=== PATIENT | male | born 1940 | race Caucasian/White ===

== ENCOUNTER 2019-06-29 14:00 | Outpatient (CLI) | payer MEDICARE, BC, SELFPAY ==
--- NOTE | ~2019-06-29 | US_ITS ---
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 Retention, hyperc holesterolemia and smoking. TECHNIQUE: Segmental pressures and plethysmographic and Doppler waveforms of the brachial and lower e xtremity arteries were obtained. COMPARISON: None. FINDINGS: Right and left brachial artery pressures of 186 mm Hg and 178 mm Hg, respectively, are concordant (no rmal difference <= 30 mmHg). The right ankle-brachial index (EDWARD) was unable to be obtained due to inability to occlude the vessel s at the right ankle. The right great toe-brachial index (TBI) is 2.73 (normal >= 0.65). Arterial Dop pler waveforms are biphasic with brisk systolic upstrokes at both the right posterior tibial and dors rosibel pedis arteries. The left EDWARD is unable to be obtained due to inability to occlude the vessels at the left ankle. The left TBI is 0.68. Arterial Doppler waveforms are biphasic at the left posterior tibial artery and tri phasic at the left dorsalis pedis artery with brisk systolic upstrokes at both arteries. IMPRESSION: 1. No significant arterial occlusive disease to either lower limb with normal bilateral toe-brachial indices. Reviewed, dictated and finalized at location A. Reviewed, dictated and finalized at location A. SOLICITOR IMPRESSION: 1. No significant arterial occlusive disease to either lower limb with normal b ilateral toe-brachial indices.
== END 2019-06-29 14:01 | disposition home or self-care (01) ==
LOC: ANHIMG 14:09
PROVIDERS: PCP Family Medicine; Visit Provider Family Medicine
DX: R20.0 Anesthesia of skin (principal); G63 Polyneuropathy in diseases classified elsewhere; I73.9 Peripheral vascular disease, unspecified
CPT/HCPCS: 93922

== ENCOUNTER 2019-10-05 11:18 | Outpatient (RCR) | payer MEDICARE, BC, SELFPAY ==
[2019-10-05 13:18] LABS: Basophils Percent Auto 0.5 % (0.2-1.2); Eosinophils Absolute Auto 0.1 K/mm3 (0-0.3); Eosinophils Percent Auto 1.4 % (0-4.4); Hematocrit 38.7 % (42.0-52.0); Hemoglobin 12.7 g/dL (14.0-18.0); Immature Granulocyte Absolute 0.03 K/mm3 (0.00-0.031); Immature Granulocyte Percent A 0.4 % (0-0.5); Lymphocytes Absolute Auto 0.93 K/mm3 (0.9-3.2); Lymphocytes Percent Auto 11.6 % (18.3-44.2); Mean Corpuscular HGB Conc 32.8 g/dl (32-36); Mean Corpuscular Hemoglobin 31.3 pg (26-34); Mean Corpuscular Volume 95.3 fl (80-100); Mean Platelet Volume 12.3 fl (7.4-10.4); Monocytes Absolute Auto 0.6 K/mm3 (0.1-0.6); Monocytes Percent Auto 7.1 % (2.6-8.5); Neutrophils Absolute Auto 6.4 K/mm3 (1.3-6.7); Platelet Count Result 210 k/mm3 (150-375); Red Blood Count 4.06 M/mm3 (4.6-6.20); Red Cell Distribution Width 13.6 % (11.5-14.5)
[2019-10-05 13:37] LABS: Cholesterol 156 mg/dL (0-200); HDL Direct 67 mg/dL; Triglycerides 148 mg/dL (<150)
[2019-10-05 13:39] LABS: Iron 132 ug/dL (49-181)
[2019-10-05 13:48] LABS: LDL Cholesterol Direct 68 mg/dL; Vitamin D 25 Hydroxy 51.9 ng/mL
[2019-10-05 14:03] LABS: Creatinine Urine 89.2 mg/dL
[2019-10-05 14:37] LABS: MALB Creatinine Ratio 634.3 mg/g (0-30); Microalbumin Urine Random 565.8 mg/L (0-16.7)
[2019-10-05 14:58] LABS: Folic Acid > 20.0 ng/mL (2.76->20); Vitamin B12 > 1000.0 pg/mL (239-931)
== END 2020-01-03 23:59 | disposition home or self-care (01) ==
LOC: ANHWCLAB 11:18
PROVIDERS: Nurse Practitioner; PCP Family Medicine; Visit Provider Family Medicine
DX: E11.9 Type 2 diabetes mellitus without complications (principal); E55.9 Vitamin D deficiency, unspecified; I10 Essential (primary) hypertension; I25.10 Atherosclerotic heart disease of native coronary artery without angina pectoris; Z95.2 Presence of prosthetic heart valve
CPT/HCPCS: 36415; 80061; 82043; 82306; 82607; 82728; 82746; 83540; 85025

== ENCOUNTER 2020-04-06 06:59 | Outpatient (NON) | payer MEDICARE, BC, SELFPAY ==
[2020-04-06 18:42] LABS: SARS-CoV-2 RNA PCR Negative
== END 2020-04-06 07:00 ==
PROVIDERS: Visit Provider Nurse Practitioner
DX: Z20.828 Contact with and (suspected) exposure to other viral communicable diseases (principal)
CPT/HCPCS: 87635; C9803; U0003

== ENCOUNTER 2020-05-17 16:15 | Outpatient (CLI) | payer MEDICARE, BC, SELFPAY ==
--- NOTE | ~2020-05-17 | CT_ITS ---
EXAMINATION: CT lung screening DATE: 05/17/2020 17:18 INDICATION: Personal history of nicotine dependence, current smoker with 60 pack year history TECHNIQUE: Computed tomography (CT) of the chest was performed without intravenous contrast. The dose -length product (DLP) was 66.09 mGy-cm. Automated exposure control and iterative reconstruction techn [id number]-[id number] were employed. COMPARISON: 01/29/2018 FINDINGS: Calcified pulmonary nodules are consistent with old granulomatous disease. No suspicious pu lmonary nodules are identified. There is mild emphysema. The lungs are free of acute opacities. There is no pleural effusion or pneumothorax. There are changes of aortic valve replacement. Cardiomegaly is noted. There is a moderate-sized sliding hiatal hernia. There are no pathologically enlarged thora cic lymph nodes. There are bridging osteophytes at multiple levels in the spine, consistent with diff use idiopathic skeletal hyperostosis (DISH). Healed right-sided rib fractures are noted. IMPRESSION: 1. Lung-RADS category 2: Benign appearance or behavior. Reviewed, dictated and finalized at location A.
== END 2020-05-17 16:16 | disposition home or self-care (01) ==
PROVIDERS: PCP Family Medicine; Visit Provider Nurse Practitioner
DX: Z12.2 Encounter for screening for malignant neoplasm of respiratory organs (principal); Z87.891 Personal history of nicotine dependence
CPT/HCPCS: G0297

== ENCOUNTER → 2020-09-20 13:27 | Outpatient (CLI) | payer MEDICARE, BC, SELFPAY ==
--- NOTE | ~2020-09-20 | XR_ITS ---
XR_CERV2-3V_CR DATE: 09/20/2020 14:27 INDICATION: Neck pain TECHNIQUE: Standing open-mouth, AP, lateral and swimmer views COMPARISON: 05/19/2015 cervical spine FINDINGS: There is straightening of the cervical spine. Diffuse osteopenia. C1 and C2 are normally aligned and the odontoid process is intact. There is 2 mm anterolisthesis at C4-5. There is moderate degenerative disc disease at C4-5. There is severe degenerative disc disease at C2-3 and C6-7 and moderately severe degenerative disease at C3-4 and C5-6. No fracture or dislocation or locked facet or prevertebral soft tissue swelling. Status post sternotomy. IMPRESSION: Severe cervical spondylosis Reviewed, dictated and finalized at Location A. Reviewed, dictated and finalized at location A. 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
== END ==
PROVIDERS: PCP Family Medicine; Visit Provider Family Medicine
DX: M47.812 Spondylosis without myelopathy or radiculopathy, cervical region (principal)
CPT/HCPCS: 72040

== ENCOUNTER 2020-10-27 09:10 | Outpatient (CLI) | payer MEDICARE, BC, SELFPAY ==
--- NOTE | ~2020-10-27 | US_ITS ---
EXAMINATION: [facility] DATE: 10/27/2020 09:55 INDICATION: Screening for cardiovascular disorders. TECHNIQUE: Multiple grayscale and Doppler images of the aorta were obtained (by a technologist who pe rformed the scan) and subsequently reviewed. There is no prior study for comparison. FINDINGS: Abdominal aorta measures 2.0 cm proximally, 1.7 cm mid aspect, 1.5 cm distally. There is mild scatter ed atherosclerotic and arterial sclerotic disease. Iliac bifurcation also normal in caliber. IMPRESSION: 1. Mild aortic plaque without aneurysm or stenosis. Reviewed, dictated and finalized at location A. R CONE GRADER
== END 2020-10-27 09:11 | disposition home or self-care (01) ==
PROVIDERS: PCP Family Medicine; Visit Provider Family Medicine
DX: Z13.6 Encounter for screening for cardiovascular disorders (principal)
CPT/HCPCS: 76706

== ENCOUNTER → 2021-03-24 13:56 | Outpatient (CLI) | payer MEDICARE, BC, SELFPAY ==
--- NOTE | ~2021-03-24 | XR_ITS ---
EXAMINATION: XR lumbar spine 2-3V DATE: 03/24/2021 14:19 INDICATION: Low back pain TECHNIQUE: Anteroposterior and lateral views of the lumbar spine, and cone-down lateral view of the l umbosacral junction were obtained. COMPARISON: CT, 10/25/2016 FINDINGS: Lumbar levocurvature is noted. There is severe loss of intervertebral disc space height at L5-S1. Moderate loss of intervertebral disc space height is present at L2-3. The vertebral body heigh ts are normal. Alignment is maintained. There is no fracture. There is eetn-[id number]-[id number] facet osteoar thritis of the lower lumbar spine. Changes of right hip arthroplasty are noted. There is calcified at herosclerosis. Mediastinal clips are consistent with coronary artery bypass grafting. IMPRESSION: 1. Moderate lumbar spondylosis without acute findings. Reviewed, dictated and finalized at location A.
== END ==
PROVIDERS: PCP Family Medicine; Visit Provider Family Medicine
DX: M47.896 Other spondylosis, lumbar region (principal)
CPT/HCPCS: 72100

== ENCOUNTER → 2021-08-24 09:38 | Outpatient (CLI) | payer MEDICARE, BC, SELFPAY ==
[2021-08-25 14:05] LABS: SARS-CoV-2 RNA PCR Positive
== END ==
PROVIDERS: PCP Family Medicine; Visit Provider Nurse Practitioner Family
DX: R68.89 Other general symptoms and signs (principal); Z20.822 Contact with and (suspected) exposure to COVID-19; U07.1 COVID-19
CPT/HCPCS: C9803; U0003; U0005

== ENCOUNTER 2021-10-03 08:07 | Outpatient (CLI) | payer MEDICARE, BC, SELFPAY ==
--- NOTE | ~2021-10-03 | XR_ITS ---
EXAMINATION: XR chest 2V EXAM DATE: 10/03/2021 08:52 INDICATION: Prostate cancer. TECHNIQUE: Frontal and lateral projections of the chest obtained and reviewed. Comparison is made to prior examination from 07/30/2019. FINDINGS: Sternotomy wires are present without findings to suggest sternal dehiscence. Cardiac valve replacement. Right apical scarring. There is moderate sliding gastroesophageal hiatal hernia. No pne umothorax or pleural effusion. There is aortic arteriosclerosis. There are bony degenerative changes. IMPRESSION: 1. No acute cardiac pulmonary findings. 2. Moderate hiatal hernia. Reviewed, dictated and finalized at location B. O/VISUAL MANAGER
--- NOTE | ~2021-10-03 | CT_ITS ---
EXAMINATION: CT abdomen pelvis w con DATE: 10/03/2021 08:43 INDICATION: Prostate cancer TECHNIQUE: Computed tomography (CT) of the abdomen and pelvis was performed with 100 cc Omnipaque 350 intravenous contrast. Automated exposure control and iterative reconstruction technique were employe d. Exam dose: 234.55 mGy-cm total exam DLP. COMPARISON: 10/25/2016 CT abdomen pelvis FINDINGS: Emphysematous changes are noted. Status post sternotomy. The liver, gallbladder, bile ducts, pancreas, pancreatic duct and spleen are unremarkable. Normal morphology of the adrenal glands. Bilateral renal scarring. There are scattered bilateral renal cysts, the largest situated on the left , measuring up to 1.4 cm. There are 3 left and one right pinpoint nonobstructing renal calculi. No right ureteral calculus or hydroureteronephrosis. There is a new 6 mm calculus in the region of the distal left ureter since 10/25/2016 but no hydrourete ronephrosis. Prostate enlargement and calcifications. There is prominent soft tissue density at the base of the ur inary bladder which may be due to prostate enlargement or prostate carcinoma carcinoma, less likely u rinary bladder malignancy. Mild diffuse bladder wall thickening and a couple of small urinary bladder diverticula are noted. Status post left inguinal herniorrhaphy. There is extensive calcification of the abdominal aorta but no abdominal aortic aneurysm. There is pr ominent calcification of the celiac, superior mesenteric, renal and iliac as well as femoral arteries . No intraperitoneal or retroperitoneal or pelvic mass lesion or adenopathy or ascites. Large hiatal hernia. 3 x 3.5 cm duodenal diverticulum. Diverticulosis of left and right colon; no CT evidence of diverticulitis. Normal appendix. No bowel o bstruction or intraperitoneal free air. Healed posterior right 10th and 11th rib fractures. Prominent degenerative disc disease of the lumbar and lumbosacral spine. Prominent bridging osteophyt es. Prominent degenerative change at the apophyseal joints of the lumbar and lumbosacral area. No suspicious osteolytic or osteoblastic lesions are identified. Streak artifact from right hip replacement. IMPRESSION: Prostate enlargement and calcifications Mild bladder wall thickening and small bladder diverticula Diverticulosis of left and right colon; no CT evidence of diverticulitis Status post left inguinal herniorrhaphy Emphysema Large hiatal hernia Bilateral renal scarring Scattered bilateral renal cysts Bilateral nonobstructive nephrolithiasis 6 mm calcification at the distal left ureter without hydroureteronephrosis Reviewed, dictated and finalized at Location A. Reviewed, dictated and finalized at location A. ROOM ATTENDANT
--- NOTE | ~2021-10-03 | NM_ITS ---
EXAMINATION: NM bone scan whole body DATE: 10/03/2021 12:29 INDICATION: Prostate cancer TECHNIQUE: 24.5 mCi Tc-99m HDP was administered intravenously. Delayed whole-body scintigrams were o btained. COMPARISON: CT abdomen and pelvis dated 10/03/2021 FINDINGS: Linear pattern of mild increased uptake along several posterior right-sided ribs. Rib fractures are s een corresponding to the lesions at the right 10th-12th ribs. Mild uptake associated with median ster notomy wires at the sternum. More prominent likely degenerative uptake at the bilateral sternoclavicu lar articulations. Likely degenerative joint centered uptake at a few bilateral toes, the bilateral w rists, left greater than right and at the right elbow. Mild lumbar levocurvature with additional mild uptake such with multilevel severe bilateral facet osteoarthritis in the mid to lower lumbar spine. A few small foci of skin contamination at the left hand along the anterior aspect of the left abdomen and pelvis. No other suspicious foci of abnormal bone uptake to suggest metastatic disease. IMPRESSION: 1. Mild uptake associated with multiple old right-sided rib fractures. No lesion suspicious for metas tatic disease. 2. Multiple foci of likely degenerative joint centered uptake. The degree of uptake at the right elbo w is however significantly higher than typical and would consider abdominal radiographs for correlati on. Reviewed, dictated and finalized at location A. 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 Mild uptake associated with multiple old right-sided rib fractures. No lesio n suspicious for metastatic disease. 2. Multiple foci of likely degenerative joint centered uptake. The degree of up take at the right elbow is however significantly higher than typical and would consider abdominal radiographs for correlation.
[2021-10-03 08:37] LABS: Estimated Glomerular Filt Rate 45
== END 2021-10-03 08:08 | disposition home or self-care (01) ==
LOC: ANHIMG 08:11
PROVIDERS: PCP Family Medicine; Visit Provider Urology
DX: C61 Malignant neoplasm of prostate (principal); K57.30 Diverticulosis of large intestine without perforation or abscess without bleeding; J43.9 Emphysema, unspecified; N28.1 Cyst of kidney, acquired; N20.2 Calculus of kidney with calculus of ureter
CPT/HCPCS: 71046; 74177; 78306; A9561; Q9967

== ENCOUNTER 2021-12-26 10:38 | Outpatient (CLI) | payer MEDICARE, BC, SELFPAY ==
--- NOTE | ~2021-12-26 | MR_ITS ---
EXAMINATION: MR pelvis wo/w con DATE: 12/26/2021 12:21 INDICATION: Prostate cancer. Neoplasm of colon. TECHNIQUE: Magnetic resonance imaging (MRI) of the pelvis was performed without and with 11 mL MultiH ance intravenous contrast. COMPARISON: CT abdomen and pelvis 10/03/2021, bone scan 10/03/2021 FINDINGS: There is a right hip arthroplasty. There is diverticulosis of the colon without evidence of diverticu litis. The rectum is distended by stool. The prostate is mildly enlarged. There is a 3.6 x 1.0 x 3.8 cm fluid collection between the rectum and prostate, likely hematoma. The bladder is distended. There are multiple diverticula of the bladder. IMPRESSION: 1. Mildly enlarged prostate. No evidence of metastatic disease. Reviewed, dictated and finalized at location B.
[2021-12-26 11:29] LABS: Estimated Glomerular Filt Rate 49
== END 2021-12-26 10:39 | disposition home or self-care (01) ==
PROVIDERS: PCP Family Medicine; Visit Provider Radiology Radiation Oncology
DX: C61 Malignant neoplasm of prostate (principal); N40.0 Benign prostatic hyperplasia without lower urinary tract symptoms
CPT/HCPCS: 72197; A9577

== ENCOUNTER 2022-01-23 16:14 | Inpatient (IN) | payer MEDICARE, BC, SELFPAY ==
[2022-01-23] VITALS (7 sets, daily range): BP systolic 103–142; BP diastolic 41–72; PULSE 60–63; RESP 16–22; TEMP 36–36.3; O2SAT 98–100; BMI 20.7
--- NOTE | ~2022-01-23 | XR_ITS ---
EXAMINATION: XR chest 2V DATE: 01/23/2022 17:56 INDICATION: Weakness TECHNIQUE: PA and lateral views of the chest are obtained. COMPARISON: 10/03/2021 FINDINGS: The lungs are hyperinflated but free of acute opacities. There is no pleural effusion or pn eumothorax. The heart size is normal. There are changes of cardiac valve replacement. There are bridg ing osteophytes at multiple levels in the spine, consistent with diffuse idiopathic skeletal hyperost osis (DISH). There is a moderate-sized hiatal hernia. IMPRESSION: 1. No acute cardiopulmonary abnormality. Reviewed, dictated and finalized at location F.
--- NOTE | ~2022-01-23 | CT_ITS ---
EXAMINATION: CT brain wo con INDICATION: Weakness, hypotension COMPARISON: 02/21/2013 TECHNIQUE: Standard unenhanced head CT. The dose-length product (DLP) was 605.33 mGy-cm. The mA was a djusted according to patient size. Iterative reconstruction technique was employed. FINDINGS: There is no acute intraparenchymal hemorrhage. No evidence of mass lesion. No evidence of a cute infarction. There is moderate periventricular and subcortical hypodensity probably related to sm all vessel ischemic disease. There is moderate prominence of the sulci and ventricles related to cere bral atrophy. Intracranial calcified cerebral atherosclerosis is noted. There are no extra-axial sy ections. There is no mass effect or midline shift. Changes in the globes are likely from ocular lens surgery. The visualized sinuses and mastoid air cells are well aerated. IMPRESSION: 1. No acute intracranial abnormality. 2. Age related findings. Reviewed, dictated and finalized at location F.
--- NOTE | ~2022-01-23 | US_ITS ---
US renal BI 01/25/2022 11:14 Procedure: Realtime transabdominal ultrasound of the kidneys and bladder. Indication: Renal failure Comparison: No prior studies for comparison. Findings: Renal echotexture is normal bilaterally without hydronephrosis, contour deforming mass or r enal calculus. There are bilateral renal cysts measuring up to 1.4 cm on the right and 2.1 cm on the left. The right kidney measures 9 cm and left kidney measures 10.6 cm. Bladder within normal limits. Impression: 1: Bilateral renal cysts. Reviewed, dictated and finalized at location A. Impression: 1: Bilateral renal cysts.
--- NOTE | 2022-01-23 16:55 | ECG_ITS ---
Measurements Intervals [place] Rate: 58 P: -63 OK: 104 QRS: -13 QRSD: 88 T: 48 QT: 389 QTc: 384 Interpretive Statements SINUS BRADYCCARDIA ATRIAL PREMATURE COMPLEX BORDERLINE ECG Electronically Signed On 01-23-2022 18:16:41 CDT by Rajendra Marrero D.O.
--- NOTE | 2022-01-23 17:11 | ED.WEAKNESS ---
HPI - Weakness General Chief complaint: Weakness Stated complaint: weakness Time Seen by Provider: 01/23/22 16:39 Source: patient and family Mode of arrival: wheelchair Limitations: no limitations History of Present Illness HPI Narrative: This is an 81-year-old male that presents to the emergency department for generalized weakness. Ongoing over the last 2 weeks. Notes that he is having some difficulty ambulating due to weakness and lightheadedness. He also reports he has had some dysuria. Reports he was started on Bactrim by his oncologist for this. He is still currently taking this medication. Prior to his radiation treatments the patient has to take Metamucil which gives him diarrhea. Denies fever, cough, chest pain, shortness of breath, abdominal pain, or hematuria. Related Data Home Medications Medication Instructions Recorded Confirmed memantine 10 mg tablet 10 mg PO BID 03/22/21 01/23/22 ascorbic acid (vitamin C) 500 mg 500 mg PO DAILY 04/27/21 01/23/22 capsule cetirizine 10 mg tablet (Zyrtec) 10 mg PO DAILY 04/27/21 01/23/22 calcium carbonate 600 mg-vitamin 1 tablet PO BID 10/18/21 01/23/22 D3 20 mcg (800 unit) chewable tablet (Caltrate 600 plus D) Daily Multivitamin 1 tablet PO DAILY 01/23/22 01/23/22 acetaminophen 325 mg tablet 1,000 mg PO BID 01/23/22 01/23/22 (Tylenol) cholecalciferol (vitamin D3) 50 2,000 unit PO DAILY 01/23/22 01/23/22 mcg (2,000 unit) capsule (Vitamin D3) donepezil 5 mg tablet (Aricept) 5 mg PO DAILY 01/23/22 01/23/22 ferrous sulfate 325 mg (65 mg 325 mg PO DAILY 01/23/22 01/23/22 iron) tablet folic acid 800 mcg tablet 800 mcg PO DAILY 01/23/22 01/23/22 simethicone 166 mg capsule 166 mg PO BID 01/23/22 01/23/22 vitamin B complex (B 1 tablet PO DAILY 01/23/22 01/23/22 Complex-Vitamin B12) Allergies Allergy/AdvReac Type Severity Reaction Status Date / Time codeine Allergy Unknown Nausea and Verified 01/23/22 22:27 Vomiting hydrocodone AdvReac Unknown Nausea and Verified 01/23/22 22:27 Vomiting Review of Systems Review of Systems: CONSTITUTIONAL: Denies fever CARDIOVASCULAR: Denies chest pain, or edema. RESPIRATORY: Denies cough or dyspnea. GASTROINTESTINAL: Denies abdominal pain, nausea, vomiting GENITOURINARY: Denies dysuria or hematuria. NEUROLOGIC: Reports generalized weakness. All systems reviewed & are unremarkable except as noted in HPI and below PMFSH Past Medical History Medical History BPH (benign prostatic hyperplasia) CAD (coronary artery disease) Cervical spondylolysis Chronic low back pain Chronic obstructive pulmonary disease CKD (chronic kidney disease) stage 3, GFR 30-59 ml/min Environmental allergies Essential (primary) hypertension Gastro-esophageal reflux disease without esophagitis Hiatal hernia History of renal stone Hyperlipidemia, unspecified Iron deficiency anemia Nonrheumatic aortic (valve) stenosis Osteopenia Presence of prosthetic heart valve Primary osteoarthritis involving multiple joints Prostate cancer Restless leg syndrome Tobacco abuse Type 2 diabetes mellitus without complications Surgical History Surgical History History of aortic valve replacement 2002 History of arthroscopy of shoulder 1987 History of carpal tunnel release 1980s - Right History of coronary artery bypass graft 2003 History of inguinal hernia repair 1968 History of lumbar laminectomy for spinal cord decompression (Unknown) 1967 Family History Family History (Updated 01/23/22 @ 22:17 by Megan Mercado RN) Father Hypertension Heart attack Cardiovascular disease Mother No problems noted. Sibling Heart attack Cardiovascular disease Social History Social History Smoking packs per day: 0.5 Smoking cigarettes per day: 10.0 Years s
[2022-01-23 17:21] LABS: Basophils Percent Auto 0.6 % (0.2-1.2); Eosinophils Absolute Auto 0.2 K/mm3 (0-0.3); Eosinophils Percent Auto 3.9 % (0-4.4); Hematocrit 30.2 % (42.0-52.0); Hemoglobin 9.9 g/dL (14.0-18.0); Immature Granulocyte Absolute 0.04 K/mm3 (0.00-0.031); Immature Granulocyte Percent A 0.8 % (0-0.5); Lymphocytes Absolute Auto 0.77 K/mm3 (0.9-3.2); Lymphocytes Percent Auto 15.7 % (18.3-44.2); Mean Corpuscular HGB Conc 32.8 g/dl (32-36); Mean Corpuscular Hemoglobin 31.5 pg (26-34); Mean Corpuscular Volume 96.2 fl (80-100); Mean Platelet Volume 10.5 fl (7.4-10.4); Monocytes Absolute Auto 0.6 K/mm3 (0.1-0.6); Monocytes Percent Auto 11.4 % (2.6-8.5); Neutrophils Absolute Auto 3.3 K/mm3 (1.3-6.7); Neutrophils Percent Auto 67.6 % (45.5-73.1); Platelet Count Result 146 k/mm3 (150-375); Red Blood Count 3.14 M/mm3 (4.6-6.20); Red Cell Distribution Width 13.6 % (11.5-14.5); White Blood Count 4.9 K/mm3 (4.5-10.0)
[2022-01-23 17:31] LABS: Alanine Aminotransferase 20 U/L (6-50); Albumin Level 3.4 g/dL (3.5-5.1); Alkaline Phosphatase 62 U/L (38-126); Anion Gap 6 mmol/L (8-16); Aspartate Amino Transferase 35 U/L (17-59); Bilirubin,Total 0.1 mg/dL (0.2-1.3); Blood Urea Nitrogen 50 mg/dL (9-20); Calcium 9.4 mg/dL (8.4-10.2); Carbon Dioxide 18 mmol/L (22-30); Chloride 103 mmol/L (98-107); Estimated CRCL calculation 20 ml/min; Estimated Glomerular Filt Rate 27; Glucose 89 mg/dL (65-110); INR 3.1; Potassium 4.4 mmol/L (3.4-5.0); Prothrombin Time 31.3 Seconds (11.1-14.7); Sodium 127 mmol/L (137-145)
[2022-01-23] MEDS: SODIUM CHLORIDE 0.9% IV 500 ML 999 ML IV CONT ×2 (17:31→18:53)
[2022-01-23 17:32] LABS: Lactic Acid Reflex 0.9 mmol/L (0.7-2.0)
[2022-01-23 17:35] LABS: CRP < 0.5 mg/dL (<1.0)
[2022-01-23 17:36] LABS: Appearance Urine Clear (Clear); Bilirubin Urine Negative (Negative); Color Urine Yellow (Yellow); Glucose Urine UA Negative (Negative); Ketones Urine Negative (Negative); Leukocyte Esterase Ur Negative LEU/UL (Negative); Nitrate Urine Negative (Negative); Protein Urine Negative (Negative); Urobilinogen Urine 0.2 mg/dL (<2.0)
[2022-01-23 17:41] LABS: Add Urine Microscopic? YES; Blood Urine Trace-Intact (Negative); RBC Urine 0-2 /hpf (0-2); Squamous Epithelial Cell Urine Rare /hpf (Few)
--- NOTE | 2022-01-23 21:35 | ADMGEN ---
This patient, Arley Nicholson, was admitted to [facility] Room 302-01. Patient/family oriented to hospital policies and general routines including ID bracelet, bed and alarms, visiting hours, pain management, procedures, bathroom and other care routines, personal items, smoking policy, room service/diet, and visiting hours. Information on how to activate the Rapid Response Team has been discussed. Patient/Family are encouraged to report perceived risks to care and to ask questions if they do not understand what they are told or what they should do.
[2022-01-24 01:11] VITALS: O2SAT 98
[2022-01-24] MEDS: SODIUM CHLORIDE 0.9% IV 1,000 ML 999 ML IV CONT (05:06)
[2022-01-24 06:00] VITALS: BP 138/44; PULSE 69; RESP 20; TEMP 37.2; O2SAT 100
[2022-01-24] MEDS: SODIUM CHLORIDE 0.9% IV 1,000 ML 100 ML IV CONT (06:22)
[2022-01-24 08:07] LABS: Hematocrit 28.6 % (42.0-52.0); Hemoglobin 9.3 g/dL (14.0-18.0); Mean Corpuscular HGB Conc 32.5 g/dl (32-36); Mean Corpuscular Hemoglobin 31.4 pg (26-34); Mean Corpuscular Volume 96.6 fl (80-100); Mean Platelet Volume 10.6 fl (7.4-10.4); Platelet Count Result 141 k/mm3 (150-375); Red Blood Count 2.96 M/mm3 (4.6-6.20); Red Cell Distribution Width 13.5 % (11.5-14.5); White Blood Count 4.9 K/mm3 (4.5-10.0)
[2022-01-24 08:16] LABS: Anion Gap 3 mmol/L (8-16); Blood Urea Nitrogen 38 mg/dL (9-20); Calcium 8.6 mg/dL (8.4-10.2); Carbon Dioxide 17 mmol/L (22-30); Chloride 113 mmol/L (98-107); Estimated CRCL calculation 24 ml/min; Estimated Glomerular Filt Rate 34; Glucose 87 mg/dL (65-110); Potassium 4.7 mmol/L (3.4-5.0); Sodium 133 mmol/L (137-145)
--- NOTE | 2022-01-24 13:17 | PM.IMHP ---
H&P: HPI History of Present Illness Date/Time: 01/24/22 13:17 Chief Complaint: generalized weakness Narrative: 81 yo with mechanical aortic valve on warfarin, hypertension, coronary artery disease, CKD 3, chronic low back pain, COPD, GERD, BPH, iron deficiency, restless legs syndrome, tobacco abuse, type 2 diabetes presents to the emergency room with chief complaint of generalized weakness and dizziness with changing of position from lying to standing. Patient states that symptoms of weakness have been going for approximately 1 month. Over the last week, he has developed some intermittent burning with urination, frequent urination, dizziness with standing, and therefore he sought medical attention. Patient does report that he is feeling a lot better since admission. He is advised that he is in acute kidney injury superimposed on his chronic renal failure and that nephrology will be consulted. Review of Systems Review of Systems: All systems reviewed & are unremarkable except as noted in HPI and below PMFSH Past Medical History Medical History BPH (benign prostatic hyperplasia) CAD (coronary artery disease) Cervical spondylolysis Chronic low back pain Chronic obstructive pulmonary disease CKD (chronic kidney disease) stage 3, GFR 30-59 ml/min Environmental allergies Essential (primary) hypertension Gastro-esophageal reflux disease without esophagitis Hiatal hernia History of renal stone Hyperlipidemia, unspecified Iron deficiency anemia Nonrheumatic aortic (valve) stenosis Osteopenia Presence of prosthetic heart valve Primary osteoarthritis involving multiple joints Prostate cancer Restless leg syndrome Tobacco abuse Type 2 diabetes mellitus without complications Surgical History Surgical History History of aortic valve replacement 2002 History of arthroscopy of shoulder 1986 History of carpal tunnel release 1980s - Right History of coronary artery bypass graft 2003 History of inguinal hernia repair 1968 History of lumbar laminectomy for spinal cord decompression (Unknown) 1967 Family History Family History (Updated 01/23/22 @ 22:17 by Megan Mercado RN) Father Hypertension Heart attack Cardiovascular disease Mother No problems noted. Sibling Heart attack Cardiovascular disease Social History Social History (Updated 01/24/22 @ 18:53 by Marilin Harry MD) Smoking packs per day: 0.5 Smoking cigarettes per day: 10.0 Years smoked: 65 Smoking pack-years: 32.50 Smoking status: Current every day smoker Tobacco type: cigarettes Alcohol intake: former Substance use: never Substance use type: does not use Living arrangements: with family Spiritual care concerns: No Meds Home Medications and Allergies Home Medications Medication Instructions Recorded Confirmed Type metoprolol tartrate 50 mg tablet 25 mg PO BID #180 tabs 10/31/20 01/23/22 Rx memantine 10 mg tablet 10 mg PO BID 03/22/21 01/23/22 History ascorbic acid (vitamin C) 500 mg 500 mg PO DAILY 04/27/21 01/23/22 History capsule cetirizine 10 mg tablet (Zyrtec) 10 mg PO DAILY 04/27/21 01/23/22 History tiotropium bromide 18 mcg capsule 1 cap inhalation DAILY #90 06/01/21 01/23/22 Rx with inhalation device (Spiriva inhalations with HandiHaler) amlodipine 2.5 mg tablet 2.5 mg PO DAILY #90 tabs 08/08/21 01/23/22 Rx ropinirole 0.25 mg tablet 0.25 mg PO QHS #90 tabs 08/29/21 01/23/22 Rx tamsulosin 0.4 mg capsule (Flomax) 0.4 mg PO DAILY #90 caps 09/18/21 01/23/22 Rx calcium carbonate 600 mg-vitamin 1 tablet PO BID 10/18/21 01/23/22 History D3 20 mcg (800 unit) chewable tablet (Caltrate 600 plus D) fluticasone 250 mcg-salmeterol 50 1 inh inhalation BID #60 ea 10/18/21 01/23/22 Rx mcg/dose blistr powdr for inhalation (Silvino Inhub) pantoprazole 20 mg tablet,delayed 20
[2022-01-24 14:00] VITALS: BP 153/55; PULSE 73; RESP 18; TEMP 36.6; O2SAT 100
[2022-01-24 14:13] LABS: Phosphorus 2.9 mg/dL (2.5-4.5)
[2022-01-24 16:09] VITALS: BP 154/49; BP 154/60; PULSE 104; PULSE 82; RESP 18; TEMP 36.6; O2SAT 100
[2022-01-24] MEDS: SODIUM CHLORIDE 0.9% IV 1,000 ML 50 ML IV CONT (16:52)
[2022-01-24 19:31] LABS: INR 2.7; Prothrombin Time 27.6 Seconds (11.1-14.7)
[2022-01-24 20:52] VITALS: PULSE 76
[2022-01-24] MEDS: rOPINIRole HCL 0.25 MG TABLET PO (20:52)
[2022-01-24] MEDS: METOPROLOL TARTRATE 25 MG TABLET PO (20:52)
[2022-01-24] MEDS: ATORVASTATIN 40 MG TABLET PO (20:52)
[2022-01-24] MEDS: WARFARIN (*PBKC) 3 MG TABLET PO (20:53)
[2022-01-24 22:00] VITALS: BP 160/70; PULSE 103; RESP 18; TEMP 36.7; O2SAT 100
[2022-01-25 05:07] VITALS: BP 164/59; PULSE 63; RESP 16; TEMP 35.9; O2SAT 100
[2022-01-25 06:56] LABS: INR 2.4; Prothrombin Time 25.5 Seconds (11.1-14.7)
[2022-01-25] MEDS: ASCORBIC ACID 500 MG TABLET PO (08:22)
[2022-01-25] MEDS: TAMSULOSIN HCL 0.4 MG CAPSULE PO (08:22)
[2022-01-25] MEDS: OLMESARTAN MEDOXOMIL 20 MG TABLET 40 MG PO (08:23)
[2022-01-25] MEDS: PANTOPRAZOLE SOD SESQUIHYDRATE 20 MG TAB PO (08:23)
[2022-01-25] MEDS: CHOLECALCIFEROL 1,000 UNITS TABLET 2000 UNITS PO (08:23)
[2022-01-25] MEDS: amLODIPine BESYLATE 2.5 MG TABLET PO (08:23)
[2022-01-25] MEDS: MEMANTINE 10 MG TABLET PO ×2 (08:23→17:13)
[2022-01-25 08:24] VITALS: PULSE 75
[2022-01-25] MEDS: ACETAMINOPHEN 500 MG TABLET 1000 MG PO ×2 (08:24→17:12)
[2022-01-25] MEDS: DONEPEZIL HCL 5 MG TABLET PO (08:24)
[2022-01-25] MEDS: METOPROLOL TARTRATE 25 MG TABLET PO ×2 (08:24→20:38)
[2022-01-25] MEDS: FERROUS SULFATE 324 MG TABLET PO (08:25)
[2022-01-25] MEDS: hydroCHLOROthiazide 25 MG TABLET PO (08:25)
[2022-01-25] MEDS: CITALOPRAM HYDROBROMIDE 20 MG TABLET PO (08:25)
[2022-01-25] MEDS: LORATADINE 10 MG TABLET PO (08:25)
[2022-01-25] MEDS: FLUTICASONE/SALMETEROL 115-21 MCG INHALER 1 PUFF 2 PUFF INHALATION ×2 (08:50→20:25)
[2022-01-25] MEDS: UMECLIDINIUM BROMIDE 62.5 MCG ELLIPTA 1 PUFF INHALATION (08:51)
[2022-01-25 14:00] VITALS: BP 129/45; PULSE 63; RESP 16; TEMP 37.2; O2SAT 100
[2022-01-25 15:13] LABS: Basophils Percent Auto 0.3 % (0.2-1.2); Eosinophils Absolute Auto 0.2 K/mm3 (0-0.3); Eosinophils Percent Auto 2.4 % (0-4.4); Hematocrit 29.1 % (42.0-52.0); Hemoglobin 9.7 g/dL (14.0-18.0); Immature Granulocyte Absolute 0.03 K/mm3 (0.00-0.031); Immature Granulocyte Percent A 0.4 % (0-0.5); Lymphocytes Absolute Auto 0.81 K/mm3 (0.9-3.2); Lymphocytes Percent Auto 11.3 % (18.3-44.2); Mean Corpuscular HGB Conc 33.3 g/dl (32-36); Mean Corpuscular Hemoglobin 31.4 pg (26-34); Mean Corpuscular Volume 94.2 fl (80-100); Mean Platelet Volume 10.2 fl (7.4-10.4); Monocytes Absolute Auto 0.7 K/mm3 (0.1-0.6); Monocytes Percent Auto 9.3 % (2.6-8.5); Neutrophils Absolute Auto 5.5 K/mm3 (1.3-6.7); Neutrophils Percent Auto 76.3 % (45.5-73.1); Platelet Count Result 160 k/mm3 (150-375); Red Blood Count 3.09 M/mm3 (4.6-6.20); Red Cell Distribution Width 13.5 % (11.5-14.5); White Blood Count 7.2 K/mm3 (4.5-10.0)
[2022-01-25 15:35] LABS: Anion Gap 6 mmol/L (8-16); Blood Urea Nitrogen 22 mg/dL (9-20); Calcium 8.5 mg/dL (8.4-10.2); Carbon Dioxide 18 mmol/L (22-30); Chloride 109 mmol/L (98-107); Estimated CRCL calculation 37 ml/min; Estimated Glomerular Filt Rate 58; Glucose 118 mg/dL (65-110); Potassium 4.5 mmol/L (3.4-5.0); Sodium 133 mmol/L (137-145)
--- NOTE | 2022-01-25 16:36 | PM.IMPN ---
Progress Note: A&P Assessment and Plan (1) Acute kidney injury: Code(s): N17.9 - Acute kidney failure, unspecified Status: Acute (2) Anemia: Qualifiers: Anemia type: unspecified type Qualified Code(s): D64.9 - Anemia, unspecified Code(s): D64.9 - Anemia, unspecified Status: Acute (3) Prostate cancer: Code(s): C61 - Malignant neoplasm of prostate Status: Acute (4) CKD (chronic kidney disease) stage 3, GFR 30-59 ml/min: Qualifiers: Chronic kidney disease stage 3 subtype: stage 3a (GFR 45-59) Qualified Code(s): N18.31 - Chronic kidney disease, stage 3a Code(s): N18.30 - Chronic kidney disease, stage 3 unspecified Status: Acute (5) CAD (coronary artery disease): Qualifiers: Coronary Disease-Associated Artery/Lesion type: unspecified vessel or lesion type [place] vs. transplanted heart: [place] heart Associated angina: without angina Qualified Code(s): I25.10 - Atherosclerotic heart disease of [place] coronary artery without angina pectoris Code(s): I25.10 - Atherosclerotic heart disease of [place] coronary artery without angina pectoris Status: Acute (6) Tobacco abuse: Code(s): Z72.0 - Tobacco use Status: Chronic (7) Gastro-esophageal reflux disease without esophagitis: Code(s): K21.9 - Gastro-esophageal reflux disease without esophagitis Status: Chronic (8) Essential (primary) hypertension: Code(s): I10 - Essential (primary) hypertension Status: Chronic (9) Chronic obstructive pulmonary disease: Qualifiers: COPD type: unspecified COPD Qualified Code(s): J44.9 - Chronic obstructive pulmonary disease, unspecified Code(s): J44.9 - Chronic obstructive pulmonary disease, unspecified Status: Chronic (10) Depressed mood: Code(s): R45.89 - Other symptoms and signs involving emotional state Status: Acute (11) Hyperlipidemia, unspecified: Qualifiers: Hyperlipidemia type: unspecified Qualified Code(s): E78.5 - Hyperlipidemia, unspecified Code(s): E78.5 - Hyperlipidemia, unspecified Status: Chronic (12) Nonrheumatic aortic (valve) stenosis: Code(s): I35.0 - Nonrheumatic aortic (valve) stenosis Status: Chronic (13) Presence of prosthetic heart valve: Code(s): Z95.2 - Presence of prosthetic heart valve Status: Chronic (14) BPH (benign prostatic hyperplasia): Qualifiers: Lower urinary tract symptom presence: symptoms absent Qualified Code(s): N40.0 - Benign prostatic hyperplasia without lower urinary tract symptoms Code(s): N40.0 - Benign prostatic hyperplasia without lower urinary tract symptoms Status: Acute (15) Cognitive impairment: Code(s): R41.89 - Other symptoms and signs involving cognitive functions and awareness Status: Acute (16) Restless leg syndrome: Code(s): G25.81 - Restless legs syndrome Status: Acute (17) 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 Initial assessment in the ER did not reveal any source of infection and patient is afebrile without leukocytosis. Admit to medical floor with remote tele IV fluids Strict I's and O's Continue home medications Daily INR Consult nephrology Daily BMP Renal ultrasound Further workup per Nephrology 01/25/22 pt much improved renal fxn nearly normal suspect dehydration and Bactrim as cause of GUNNAR will cont to monitor for signs of infection dc in am if remains stable POC discussed w Subjective Date/time seen:
[2022-01-25] MEDS: WARFARIN (*PBKC) 2 MG TABLET PO (17:13)
[2022-01-25] MEDS: SODIUM CHLORIDE 0.9% IV 1,000 ML 50 ML IV CONT (17:17)
[2022-01-25 20:38] VITALS: PULSE 72
[2022-01-25] MEDS: ATORVASTATIN 40 MG TABLET PO (20:38)
[2022-01-25] MEDS: rOPINIRole HCL 0.25 MG TABLET PO (20:38)
[2022-01-25 22:00] VITALS: BP 161/58; PULSE 62; RESP 16; TEMP 36.6; O2SAT 100
[2022-01-26 06:00] VITALS: BP 135/73; PULSE 64; RESP 18; TEMP 36.6; O2SAT 100
[2022-01-26 06:42] LABS: Basophils Percent Auto 0.4 % (0.2-1.2); Eosinophils Absolute Auto 0.2 K/mm3 (0-0.3); Eosinophils Percent Auto 2.9 % (0-4.4); Hematocrit 31.1 % (42.0-52.0); Hemoglobin 10.3 g/dL (14.0-18.0); Immature Granulocyte Absolute 0.02 K/mm3 (0.00-0.031); Immature Granulocyte Percent A 0.2 % (0-0.5); Lymphocytes Absolute Auto 1.27 K/mm3 (0.9-3.2); Lymphocytes Percent Auto 15.2 % (18.3-44.2); Mean Corpuscular HGB Conc 33.1 g/dl (32-36); Mean Corpuscular Hemoglobin 31.6 pg (26-34); Mean Corpuscular Volume 95.4 fl (80-100); Mean Platelet Volume 11.2 fl (7.4-10.4); Monocytes Absolute Auto 0.8 K/mm3 (0.1-0.6); Neutrophils Absolute Auto 6.1 K/mm3 (1.3-6.7); Neutrophils Percent Auto 72.3 % (45.5-73.1); Platelet Count Result 175 k/mm3 (150-375); Red Blood Count 3.26 M/mm3 (4.6-6.20); Red Cell Distribution Width 13.4 % (11.5-14.5); White Blood Count 8.4 K/mm3 (4.5-10.0)
[2022-01-26 06:50] LABS: Anion Gap 9 mmol/L (8-16); Blood Urea Nitrogen 16 mg/dL (9-20); Carbon Dioxide 18 mmol/L (22-30); Chloride 108 mmol/L (98-107); Estimated CRCL calculation 40 ml/min; Estimated Glomerular Filt Rate > 60; Glucose 96 mg/dL (65-110); INR 2.2; Magnesium 1.6 mg/dL (1.6-2.3); Phosphorus 2.2 mg/dL (2.5-4.5); Potassium 3.9 mmol/L (3.4-5.0); Prothrombin Time 23.4 Seconds (11.1-14.7); Sodium 135 mmol/L (137-145)
[2022-01-26] MEDS: FLUTICASONE/SALMETEROL 115-21 MCG INHALER 1 PUFF 2 PUFF INHALATION (07:56)
[2022-01-26 07:59] VITALS: PULSE 77; RESP 18
--- NOTE | 2022-01-26 08:46 | PM.DS ---
DS: Admitting Diagnosis Discharge Date 01/26/22 Admitting Diagnosis (1) Acute kidney injury: ?Code(s): N17.9 - Acute kidney failure, unspecified ?Status:?Acute (2) Anemia: ?Qualifiers: ?Anemia type:?unspecified type? Qualified Code(s):?D64.9 - Anemia, unspecified ?Code(s): D64.9 - Anemia, unspecified ?Status:?Acute (3) Prostate cancer: ?Code(s): C61 - Malignant neoplasm of prostate ?Status:?Acute (4) CKD (chronic kidney disease) stage 3, GFR 30-59 ml/min: ?Qualifiers: ?Chronic kidney disease stage 3 subtype:?stage 3a (GFR 45-59)? Qualified Code(s):?N18.31 - Chronic kidney disease, stage 3a ?Code(s): N18.30 - Chronic kidney disease, stage 3 unspecified ?Status:?Acute (5) CAD (coronary artery disease): ?Qualifiers: ?Associated angina:?without angina??Coronary Disease-Associated Artery/Lesion type:?unspecified vessel or lesion type??[place] vs. transplanted heart:?[place] heart? Qualified Code(s):?I25.10 - Atherosclerotic heart disease of [place] coronary artery without angina pectoris ?Code(s): I25.10 - Atherosclerotic heart disease of [place] coronary artery without angina pectoris ?Status:?Acute (6) Tobacco abuse: ?Code(s): Z72.0 - Tobacco use ?Status:?Chronic (7) Gastro-esophageal reflux disease without esophagitis: ?Code(s): K21.9 - Gastro-esophageal reflux disease without esophagitis ?Status:?Chronic (8) Essential (primary) hypertension: ?Code(s): I10 - Essential (primary) hypertension ?Status:?Chronic (9) Chronic obstructive pulmonary disease: ?Qualifiers: ?COPD type:?unspecified COPD? Qualified Code(s):?J44.9 - Chronic obstructive pulmonary disease, unspecified ?Code(s): J44.9 - Chronic obstructive pulmonary disease, unspecified ?Status:?Chronic (10) Depressed mood: ?Code(s): R45.89 - Other symptoms and signs involving emotional state ?Status:?Acute (11) Hyperlipidemia, unspecified: ?Qualifiers: ?Hyperlipidemia type:?unspecified? Qualified Code(s):?E78.5 - Hyperlipidemia, unspecified ?Code(s): E78.5 - Hyperlipidemia, unspecified ?Status:?Chronic (12) Nonrheumatic aortic (valve) stenosis: ?Code(s): I35.0 - Nonrheumatic aortic (valve) stenosis ?Status:?Chronic (13) Presence of prosthetic heart valve: ?Code(s): Z95.2 - Presence of prosthetic heart valve ?Status:?Chronic (14) BPH (benign prostatic hyperplasia): ?Qualifiers: ?Lower urinary tract symptom presence:?symptoms absent? 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: Code(s): C61 - Malignant neoplasm of prostate; C78.6 - Secondary malignant neoplasm of retroperitoneum and peritoneum Status: Acute (3) Acute kidney injury: Code(s): N17.9 - Acute kidney failure, unspecified Status: Acute (4) Anemia: Qualifiers: Anemia type: unspecified type Qualified Code(s): D64.9 - Anemia, unspecified Code(s): D64.9 - Anemia, unspecified Status: Acute (5) Prostate cancer: Code(s): C61 - Malignant neoplasm of prostate Status: Acute (6) Restless leg syndrome: Code(s): G25.81 - Restless legs syndrome Status: Acute (7) Bilateral shoulder pain: Qualifiers: Chronicity: chronic Qualified Code(s
[2022-01-26] MEDS: CHOLECALCIFEROL 1,000 UNITS TABLET 2000 UNITS PO (08:50)
[2022-01-26] MEDS: PANTOPRAZOLE SOD SESQUIHYDRATE 20 MG TAB PO (08:50)
[2022-01-26] MEDS: TAMSULOSIN HCL 0.4 MG CAPSULE PO (08:50)
[2022-01-26] MEDS: ACETAMINOPHEN 500 MG TABLET 1000 MG PO (08:50)
[2022-01-26 08:51] VITALS: PULSE 91
[2022-01-26] MEDS: METOPROLOL TARTRATE 25 MG TABLET PO (08:51)
[2022-01-26] MEDS: MEMANTINE 10 MG TABLET PO (08:51)
[2022-01-26] MEDS: OLMESARTAN MEDOXOMIL 20 MG TABLET 40 MG PO (08:52)
[2022-01-26] MEDS: amLODIPine BESYLATE 2.5 MG TABLET PO (08:52)
[2022-01-26] MEDS: FERROUS SULFATE 324 MG TABLET PO (08:52)
[2022-01-26] MEDS: CITALOPRAM HYDROBROMIDE 20 MG TABLET PO (08:52)
[2022-01-26] MEDS: ASCORBIC ACID 500 MG TABLET PO (08:52)
[2022-01-26] MEDS: DONEPEZIL HCL 5 MG TABLET PO (08:52)
[2022-01-26] MEDS: hydroCHLOROthiazide 25 MG TABLET PO (08:53)
[2022-01-26] MEDS: LORATADINE 10 MG TABLET PO (08:53)
== END 2022-01-26 10:39 | disposition home or self-care (01) | DRG 683 ==
LOC: ANHED 16:57 → ANH3MEDSUR 21:03
PROVIDERS: Physician Assistant; Admitting Provider Internal Medicine; Emergency Provider Emergency Medicine; PCP Family Medicine; Visit Provider Hospitalist
DX: N17.9 Acute kidney failure, unspecified (principal); C78.6 Secondary malignant neoplasm of retroperitoneum and peritoneum; C61 Malignant neoplasm of prostate; I25.10 Atherosclerotic heart disease of native coronary artery without angina pectoris; E11.22 Type 2 diabetes mellitus with diabetic chronic kidney disease; I12.9 Hypertensive chronic kidney disease with stage 1 through stage 4 chronic kidney disease, or unspecified chronic kidney disease; N18.31 Chronic kidney disease, stage 3a; E86.0 Dehydration; N14.1 Nephropathy induced by other drugs, medicaments and biological substances; T36.8X5A Adverse effect of other systemic antibiotics, initial encounter; D50.9 Iron deficiency anemia, unspecified; E78.5 Hyperlipidemia, unspecified; F17.210 Nicotine dependence, cigarettes, uncomplicated; G25.81 Restless legs syndrome; J44.9 Chronic obstructive pulmonary disease, unspecified; K21.9 Gastro-esophageal reflux disease without esophagitis; K44.9 Diaphragmatic hernia without obstruction or gangrene; I35.0 Nonrheumatic aortic (valve) stenosis; N40.0 Benign prostatic hyperplasia without lower urinary tract symptoms; R41.89 Other symptoms and signs involving cognitive functions and awareness; M47.812 Spondylosis without myelopathy or radiculopathy, cervical region; M85.80 Other specified disorders of bone density and structure, unspecified site; M15.9 Polyosteoarthritis, unspecified; M54.50 Low back pain, unspecified; G89.29 Other chronic pain; Z79.01 Long term (current) use of anticoagulants; Z79.899 Other long term (current) drug therapy; Z95.1 Presence of aortocoronary bypass graft; Z95.2 Presence of prosthetic heart valve; Z92.3 Personal history of irradiation
CPT/HCPCS: 36415; 70450; 71046; 76775; 80048; 80053; 81001; 83605; 83735; 84100; 85025; 85027; 85610; 85730; 86140; 93005; 94640; 96361; 96365; 99285; A9270; G0378; J0131; J7030; J7040

== ENCOUNTER 2022-06-15 15:55 | Emergency (ER) | payer MEDICARE, BC, SELFPAY ==
--- NOTE | ~2022-06-15 | CT_ITS ---
EXAMINATION: CT brain wo con DATE: 06/15/2022 18:12 INDICATION: Head injury. TECHNIQUE: Computed tomography (CT) of the head was performed without intravenous contrast. The mA wa s adjusted according to patient size. Iterative reconstruction technique was employed. The dose-lengt h product was 681.00 mGy-cm. COMPARISON: Head CT 01/23/2022 FINDINGS: There are scattered areas of low attenuation in the cerebral white matter. There is no intr acranial hemorrhage, acute infarction, or abnormal intracranial mass lesion. The ventricles are alyce l in size. There is a laceration involving the right infraorbital region and nose with soft tissue ga s. The mastoid air cells are normal. There are likely changes of ocular lens replacement surgeries. T here is mild mucosal thickening in the paranasal sinuses. IMPRESSION: 1. Stable moderate nonspecific cerebral white matter disease, which likely represents chronic small v essel ischemic disease. Reviewed, dictated and finalized at location A. IMPRESSION: 1. Stable moderate nonspecific cerebral white matter disease, which likely repr esents chronic small vessel ischemic disease.
[2022-06-15 16:34] VITALS: PULSE 80; RESP 16; TEMP 36.8; O2SAT 96
--- NOTE | 2022-06-15 20:50 | ED.WOUNDLAC ---
HPI - Wound/Laceration General Chief Complaint: Wound/Laceration Stated Complaint: nose laceration Time Seen by Provider: 06/15/22 20:48 History of Present Illness HPI narrative: Pt is an 79 year old male presenting with a facial laceration. Patient states that he was working in the garage when a rake fell from the ceiling striking him on the right side of his face. He sustained a laceration to his right cheek. He did not lose consciousness. He denies further injuries or complaints. Tetanus is not up-to-date. Related Data Home Medications Medication Instructions Recorded Confirmed memantine 10 mg tablet 10 mg PO BID 03/22/21 04/17/22 ascorbic acid (vitamin C) 500 mg 500 mg PO DAILY 04/27/21 04/17/22 capsule cetirizine 10 mg tablet (Zyrtec) 10 mg PO DAILY 04/27/21 04/17/22 calcium carbonate 600 mg-vitamin 1 tablet PO BID 10/18/21 04/17/22 D3 20 mcg (800 unit) chewable tablet (Caltrate 600 plus D) Daily Multivitamin 1 tablet PO DAILY 01/23/22 04/17/22 acetaminophen 325 mg tablet 1,000 mg PO BID 01/23/22 04/17/22 (Tylenol) cholecalciferol (vitamin D3) 50 2,000 unit PO DAILY 01/23/22 04/17/22 mcg (2,000 unit) capsule (Vitamin D3) ferrous sulfate 325 mg (65 mg 325 mg PO DAILY 01/23/22 04/17/22 iron) tablet folic acid 800 mcg tablet 800 mcg PO DAILY 01/23/22 04/17/22 vitamin B complex (B 1 tablet PO DAILY 01/23/22 04/17/22 Complex-Vitamin B12 tablet) warfarin 2 mg tablet 2 mg PO 3XW 02/08/22 04/17/22 donepezil 10 mg tablet 10 mg PO DAILY 04/17/22 04/17/22 mirabegron 25 mg tablet,extended 50 mg PO QHS 04/17/22 04/17/22 release 24 hr (Myrbetriq) mirabegron 50 mg tablet,extended mg PO 06/15/22 release 24 hr (Myrbetriq) Allergies Allergy/AdvReac Type Severity Reaction Status Date / Time codeine AdvReac Unknown Nausea and Verified 06/15/22 21:01 Vomiting hydrocodone AdvReac Unknown Nausea and Verified 06/15/22 21:01 Vomiting Review of Systems Review of Systems: All systems reviewed & are unremarkable except as noted in HPI and below PMFSH Past Medical History Medical History BPH (benign prostatic hyperplasia) CAD (coronary artery disease) Cervical spondylolysis Chronic low back pain Chronic obstructive pulmonary disease CKD (chronic kidney disease) stage 3, GFR 30-59 ml/min Environmental allergies Essential (primary) hypertension Gastro-esophageal reflux disease without esophagitis Hiatal hernia History of renal stone Hyperlipidemia, unspecified Iron deficiency anemia Nonrheumatic aortic (valve) stenosis Osteopenia Presence of prosthetic heart valve Primary osteoarthritis involving multiple joints Prostate cancer Restless leg syndrome Tobacco abuse Type 2 diabetes mellitus without complications Surgical History Surgical History History of aortic valve replacement 2002 History of arthroscopy of shoulder 1986 History of carpal tunnel release 1980s - Right History of coronary artery bypass graft 2003 History of inguinal hernia repair 1968 History of lumbar laminectomy for spinal cord decompression (Unknown) 1968 Family History Family History Father Hypertension Heart attack Cardiovascular disease Mother No problems noted. Sibling Heart attack Cardiovascular disease Social History Social History Smoking packs per day: 0.5 Smoking cigarettes per day: 10.0 Years smoked: 65 Smoking pack-years: 32.50 Smoking status: Current every day smoker Tobacco type: cigarettes Alcohol intake: former Substance use: never Substance use type: does not use Additional living arrangements comments: Sexual Orientation (if Verbalized by the Patient): Straight or Heterosexual Spiritual care concerns: No Exam Na
[2022-06-15 21:01] VITALS: BP 191/58; O2SAT 100
[2022-06-15] MEDS: CEPHALEXIN 500 MG CAPSULE PO (22:51)
[2022-06-15] MEDS: TETANUS,DIPHTHERIA,AC PERTUSSIS ADULT (0.5 ML) BOOSTRIX IM (22:51)
[2022-06-15 23:08] VITALS: BP 169/90; PULSE 61; RESP 18; O2SAT 100
== END 2022-06-15 23:10 | disposition home or self-care (01) ==
PROVIDERS: Emergency Provider Emergency Medicine; PCP Family Medicine
DX: S01.411A Laceration without foreign body of right cheek and temporomandibular area, initial encounter (principal); Z23 Encounter for immunization; I25.10 Atherosclerotic heart disease of native coronary artery without angina pectoris; J44.9 Chronic obstructive pulmonary disease, unspecified; I12.9 Hypertensive chronic kidney disease with stage 1 through stage 4 chronic kidney disease, or unspecified chronic kidney disease; E11.22 Type 2 diabetes mellitus with diabetic chronic kidney disease; N18.30 Chronic kidney disease, stage 3 unspecified; E78.5 Hyperlipidemia, unspecified; N40.0 Benign prostatic hyperplasia without lower urinary tract symptoms; D50.9 Iron deficiency anemia, unspecified; M85.80 Other specified disorders of bone density and structure, unspecified site; G25.81 Restless legs syndrome; Z85.46 Personal history of malignant neoplasm of prostate; Z87.442 Personal history of urinary calculi; Z79.01 Long term (current) use of anticoagulants; Z95.2 Presence of prosthetic heart valve; Z95.1 Presence of aortocoronary bypass graft; F17.210 Nicotine dependence, cigarettes, uncomplicated; W20.8XXA Other cause of strike by thrown, projected or falling object, initial encounter
CPT/HCPCS: 12013; 70450; 90471; 90715; 99284; A9270

== ENCOUNTER 2022-08-22 12:58 | Outpatient (CLI) | payer MEDICARE, BC, SELFPAY ==
[2022-08-22 19:39] LABS: Basophils Percent Auto 0.6 % (0.2-1.2); Eosinophils Absolute Auto 0.1 K/mm3 (0-0.3); Eosinophils Percent Auto 1.1 % (0-4.4); Hematocrit 32.4 % (42.0-52.0); Hemoglobin 10.4 g/dL (14.0-18.0); Immature Granulocyte Absolute 0.05 K/mm3 (0.00-0.031); Immature Granulocyte Percent A 0.8 % (0-0.5); Lymphocytes Absolute Auto 0.69 K/mm3 (0.9-3.2); Lymphocytes Percent Auto 11.2 % (18.3-44.2); Mean Corpuscular HGB Conc 32.1 g/dl (32-36); Mean Corpuscular Hemoglobin 31.7 pg (26-34); Mean Corpuscular Volume 98.8 fl (80-100); Mean Platelet Volume 11.7 fl (7.4-10.4); Monocytes Absolute Auto 0.6 K/mm3 (0.1-0.6); Monocytes Percent Auto 9.4 % (2.6-8.5); Neutrophils Absolute Auto 4.7 K/mm3 (1.3-6.7); Neutrophils Percent Auto 76.9 % (45.5-73.1); Platelet Count Result 207 k/mm3 (150-375); Red Blood Count 3.28 M/mm3 (4.6-6.20); Red Cell Distribution Width 13.5 % (11.5-14.5); White Blood Count 6.2 K/mm3 (4.5-10.0)
[2022-08-22 20:57] LABS: Alanine Aminotransferase 23 U/L (6-50); Albumin Level 3.5 g/dL (3.5-5.1); Alkaline Phosphatase 65 U/L (38-126); Anion Gap 3 mmol/L (8-16); Aspartate Amino Transferase 34 U/L (17-59); Bilirubin,Total 0.3 mg/dL (0.2-1.3); Blood Urea Nitrogen 22 mg/dL (9-20); Calcium 9.2 mg/dL (8.4-10.2); Carbon Dioxide 28 mmol/L (22-30); Chloride 104 mmol/L (98-107); Estimated Glomerular Filt Rate 45; Glucose 102 mg/dL (65-110); Potassium 4.1 mmol/L (3.4-5.0); Sodium 135 mmol/L (137-145)
== END 2022-08-22 12:59 | disposition home or self-care (01) ==
LOC: ANHGOSHLAB 13:00
PROVIDERS: PCP Family Medicine; Visit Provider Family Medicine
DX: R53.1 Weakness (principal); I10 Essential (primary) hypertension
CPT/HCPCS: 36415; 80053; 85025

== ENCOUNTER → 2022-08-23 15:13 | Outpatient (CLI) | payer MEDICARE, BC, SELFPAY ==
--- NOTE | ~2022-08-23 | XR_ITS ---
EXAMINATION: XR lumbar spine 2-3V DATE: 08/23/2022 15:31 INDICATION: Chronic low back pain. TECHNIQUE: 3 views of lumbar spine were obtained. COMPARISON: Lumbar spine radiographs 03/24/2021, CT abdomen and pelvis 10/1510/03/2021 FINDINGS: There is 12 degrees levoscoliosis of lumbar spine. There is 3 mm anterolisthesis of L4 on L 5. Vertebral body heights are normal. There is moderately decreased disc height at L2-L3, mildly decr eased disc height at L3-L4, and moderately decreased disc height at L4-L5 and L5-S1. There are endpla te osteophytes at all levels. There is multilevel facet joint osteoarthritis, severe lower lumbar spi ne. There is a right hip arthroplasty. Surgical clips overlie the pelvis and chest. IMPRESSION: 1. Moderate lumbar spondylosis. 2. Lumbar levoscoliosis. Reviewed, dictated and finalized at location A. 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
== END ==
PROVIDERS: PCP Family Medicine; Visit Provider Family Medicine
DX: M47.896 Other spondylosis, lumbar region (principal)
CPT/HCPCS: 72100

== ENCOUNTER 2022-08-31 13:40 | Outpatient (CLI) | payer MEDICARE, BC, SELFPAY ==
--- NOTE | ~2022-08-31 | DEXA_ITS ---
Bone Density Report Name: CHRISTINE WADSWORTH Age: 82 Sex: Male Ethnicity: White Date of : 1940 Indication: screening for osteoporosis; cancer; asthma or emphysema; Referring Provider: LAKHWINDER PATEL Study: Bone densitometry was performed. Exam Date: August 31, 2022 Accession number: [id number] Bone Density: Region BMD T-score Z-score Classification AP Spine(L1-L4) 1.231 1.3 2.5 Normal Femoral Neck (Left) 0.638 -2.1 -0.5 Osteopenia Total Hip (Left) 0.776 -1.7 -0.5 Osteopenia World Health Organization criteria for BMD impression classify patients as: Normal (T-score at or above -1.0), Osteopenia (T-score between -1.0 and -2.5), or Osteoporosis (T-score at or below -2.5). 10-year Fracture Risk(1): Major Osteoporotic Fracture 8.1% Hip Fracture 4.8% Reported Risk Factors: [place] (), Neck BMD=0.638, BMI=21.3, smoking (1) FRAX(R) Version 3.08. Fracture probability calculated for an untreated patient. Fracture probability may be lower if the patient has received treatment. Clinical Information Provided by Patient: Smokes Has the following medical conditions: Asthma or Emphysema, Cancer Patient maximum height was 66 No regular weight bearing exercise Drinks caffeinated beverages Impression: The patient has low bone mass, based on the Left Femoral Neck T-score. The patient has an estimated ten-year risk of hip fracture of 4.8% and an estimated ten-year risk of major fracture of 8.1%, based on the WHO FRAX algorithm. The patient has risk factors, including: smoking. Discussion: BONE DENSITY IS LOW AT ONE OR MORE SKELETAL SITES. THE PATIENT'S BMD AND CLINICAL RISK FACTORS CONTRIBUTE TO THIS PATIENT'S INCREASED RISK OF FRACTURE. This patient's lowest T-score is low at one or more skeletal sites. It meets the World Health Organization's (WHO) criteria for ?low bone mass? (T-score between -1.0 and -2.5). The patient's 10-year risk of hip fracture as calculated by FRAX exceeds the threshold where pharmacological therapy is recommended by the National Osteoporosis Foundation (NOF). However, all treatment decisions require clinical judgment and consideration of individual patient factors, including patient preferences, comorbidities, previous drug use, risk factors not captured in the FRAX model (e.g., frailty, falls, vitamin D deficiency, increased bone turnover, interval significant decline in bone density) and possible under or overestimation of fracture risk by FRAX. The patient should follow a healthful lifestyle (good nutrition with adequate calcium and vitamin D, and appropriate weight-bearing exercise). Follow-Up: Consider repeating this study in 2 years to reassess this patient's status, or sooner if there is some new clinical indication. Reported by: [facility] on 08/31/2022 2:00:00 PM.
== END 2022-08-31 13:41 | disposition home or self-care (01) ==
LOC: ANHIMG 13:41
PROVIDERS: PCP Family Medicine; Visit Provider Nurse Practitioner Adult Health
DX: C61 Malignant neoplasm of prostate (principal); M85.852 Other specified disorders of bone density and structure, left thigh
CPT/HCPCS: 77080

== ENCOUNTER 2022-10-23 11:15 | Outpatient (CLI) | payer MEDICARE, BC, SELFPAY ==
[2022-10-23 19:05] LABS: Cholesterol 185 mg/dL (0-200); HDL Direct 76 mg/dL; Triglycerides 113 mg/dL (<150)
[2022-10-23 19:16] LABS: LDL Cholesterol Direct 65 mg/dL
[2022-10-23 19:45] LABS: Vitamin D 25 Hydroxy 50.2 ng/mL
[2022-10-23 20:09] LABS: Basophils Absolute Auto 0.1 K/mm3 (0.0-0.1); Basophils Percent Auto 0.8 % (0.2-1.2); Eosinophils Absolute Auto 0.1 K/mm3 (0-0.3); Hematocrit 32.2 % (42.0-52.0); Hemoglobin 10.3 g/dL (14.0-18.0); Immature Granulocyte Absolute 0.04 K/mm3 (0.00-0.031); Immature Granulocyte Percent A 0.6 % (0-0.5); Lymphocytes Absolute Auto 0.92 K/mm3 (0.9-3.2); Lymphocytes Percent Auto 14.1 % (18.3-44.2); Mean Corpuscular Hemoglobin 31.5 pg (26-34); Mean Corpuscular Volume 98.5 fl (80-100); Mean Platelet Volume 11.2 fl (7.4-10.4); Monocytes Absolute Auto 0.5 K/mm3 (0.1-0.6); Monocytes Percent Auto 8.3 % (2.6-8.5); Neutrophils Absolute Auto 4.8 K/mm3 (1.3-6.7); Neutrophils Percent Auto 74.2 % (45.5-73.1); Platelet Count Result 200 k/mm3 (150-375); Red Blood Count 3.27 M/mm3 (4.6-6.20); Red Cell Distribution Width 14.1 % (11.5-14.5); White Blood Count 6.5 K/mm3 (4.5-10.0)
[2022-10-23 20:20] LABS: Folic Acid > 20.0 ng/mL (2.76->20); Iron 83 ug/dL (49-181)
[2022-10-23 20:27] LABS: Percent Iron Saturation 27 % (20-50)
[2022-10-23 20:30] LABS: Hemoglobin A1C 5.2 % (<5.7)
== END 2022-10-23 11:16 | disposition home or self-care (01) ==
LOC: ANHGOSHLAB 11:17
PROVIDERS: PCP Family Medicine; Visit Provider Family Medicine
DX: D64.9 Anemia, unspecified (principal); R00.1 Bradycardia, unspecified; E78.5 Hyperlipidemia, unspecified; R45.89 Other symptoms and signs involving emotional state; R73.9 Hyperglycemia, unspecified; R15.9 Full incontinence of feces; I25.10 Atherosclerotic heart disease of native coronary artery without angina pectoris; R41.89 Other symptoms and signs involving cognitive functions and awareness; E55.9 Vitamin D deficiency, unspecified
CPT/HCPCS: 36415; 80061; 82306; 82607; 82746; 83036; 83540; 83550; 84443; 85025

== ENCOUNTER 2022-11-01 14:30 | Outpatient (RCR) | payer MEDICARE, BC, SELFPAY ==
--- NOTE | 2022-09-07 13:45 | PTOPEVAL1 ---
Assessment and note entered by Silvano Beach, PT, DPT Evaluation Information Assessment Status Evaluation Diagnosis low back pain Onset chronic - 5+ years Subjective Information Pt states any sudden movement cause in a shooting pain down his back and into his R hip. His states he is having a bad day compared to usual. She states he has been more sedentary in the last couple of years d/t other health reasons. Pts states he had a laminectomy x2 in the lumbar spine when he was in hip 20s. Pt states he spends 95% of his recliner, he states he gets up maybe 4-5 times a day. Reported Pain Level Pain Score 2: Self Report Assessment PT Clinical Summary Arley presents to therapy today for his initial evaluation with a diagnosis of chronic low back pain. Today he demonstrates decreased active lumbar motions in all directions that is limited by pain. He has significantly decreased ROM in his hips vernell that is limited by soft tissue restrictions. He demonstrates fair strength grossly 4/5, he has increased time to complete the 5xSTS test placing him at an increased risk for falls. He ambulates with a decreased gait speed, and a 17/28 on the Tinetti, also placing him at an increased risk for falls. Skilled physical therapy services are indicated to address pain, improve functional mobility, improve strength, and to improve safety with daily tasks. Plan of Care Interventions Electrical Stimulation,Gait Training,Hot Pack/Cold Pack,Manual Therapy,Neuro Re-education,Patient/ Caregiver Educati,Therapeutic Activities, Therapeutic Exercise PT Services Indicated Yes Treatment Frequency and 2x/wk for 5 wks Duration These treatments will address the objective and functional deficits as defined above. The patient will be advanced safely and appropriately in order for the patient to progress towards his/her prior level of function. Additional exercises will be introduced and as well as a comprehensive home exercise program upon discharge, if needed, ?to ensure carryover of functional gains achieved in the clinic. This treatment plan has been reviewed and agreement upon by the patient.
--- NOTE | 2022-09-24 14:00 | PCPTNOTE ---
Patient called & cancelled scheduled appointment this date due to having a close friend pass away last night and cannot make it in.
--- NOTE | 2022-10-01 12:40 | PCPTNOTE ---
Pt's cancelled do to having issues with using bathroom she is to call husbands doctor to see how to proceed.
--- NOTE | 2022-10-08 14:38 | PTOPPROG ---
Assessment and note entered by Silvano Beach, PT, DPT Evaluation Information Assessment Status Progress Diagnosis low back pain Onset chronic - 5+ years Subjective Information Pt is accompanied to therapy today with his . Pts states she thinks he is moving around a little better than before starting therapy. She reports they do the exercises 2 times a day. He states 0/10 back pain currently and 2/10 at the worst in the last week. Assessment PT Clinical Summary Arley presents to therapy today for his progress report following 3 visits of skilled therapy and a month long participation in his HEP. Pt demonstrates good functional strength improvements . He has decreased his 5xSTS time from 28s to 16s , has improved his 2 min walk distance from 200ft to 295ft, and improved his Tinetti score from 17 28 to 22. Today his HEP was progressed. His states since they are progressing to well on their own that they would like to continue with this POC. They wish to follow up in a month to monitor progress and to assess mechanics with exercise. He will likely be discharged at that time. Plan of Care Interventions Electrical Stimulation,Gait Training,Hot Pack/Cold Pack,Manual Therapy,Neuro Re-education,Patient/ Caregiver Educati,Therapeutic Activities, Therapeutic Exercise PT Services Indicated Yes Treatment Frequency and follow up in 1 month Duration These treatments will address the objective and functional deficits as defined above. The patient will be advanced safely and appropriately in order for the patient to progress towards his/her prior level of function. Additional exercises will be introduced and as well as a comprehensive home exercise program upon discharge, if needed, ?to ensure carryover of functional gains achieved in the clinic. This treatment plan has been reviewed and agreement upon by the patient.
--- NOTE | 2022-11-01 15:32 | PTOPDC ---
Assessment and note entered by Silvano Beach, PT, DPT Evaluation Information Assessment Status Discharge Diagnosis low back pain Onset chronic - 5+ years Subjective Information Pts states they are doing well. She states they do the exercises every day, twice a day. Pt states he has improved a lot but is not sure how to quantify it. Reported Pain Level Pain Score 0: Self Report Assessment PT Clinical Summary Arley presents to therapy today for his progress report following 4 visits of skilled therapy and a month long participation in his HEP. He continues to demonstrates progress in his lumbar mobility and his pain continues to decreased. He continues to report good compliance with his HEP. He has met or progressed well towards all of his therapy goals and no longer requires skilled therapy services at this time. He will be discharged with instructions to continue his HEP. Plan of Care Interventions Electrical Stimulation,Gait Training,Hot Pack/Cold Pack,Manual Therapy,Neuro Re-education,Patient/ Caregiver Educati,Therapeutic Activities, Therapeutic Exercise PT Services Indicated No Treatment Frequency and to be discharged Duration
== END 2022-11-02 09:34 | disposition home or self-care (01) ==
LOC: ANHGOSHPT 14:30
PROVIDERS: PCP Family Medicine; Visit Provider Family Medicine
DX: M54.50 Low back pain, unspecified (principal); G89.29 Other chronic pain
CPT/HCPCS: 97110; 97112; 97161; 97530

== ENCOUNTER 2023-05-02 13:37 | Outpatient (CLI) | payer MEDICARE, BC, SELFPAY ==
[2023-05-02 18:49] LABS: Alanine Aminotransferase 19 U/L (6-50); Albumin Level 3.8 g/dL (3.5-5.1); Alkaline Phosphatase 67 U/L (38-126); Anion Gap 4 mmol/L (8-16); Aspartate Amino Transferase 27 U/L (17-59); Bilirubin,Total 0.3 mg/dL (0.2-1.3); Blood Urea Nitrogen 32 mg/dL (9-20); Calcium 10.5 mg/dL (8.4-10.2); Carbon Dioxide 28 mmol/L (22-30); Chloride 104 mmol/L (98-107); Estimated Glomerular Filt Rate 41; Glucose 102 mg/dL (65-110); Potassium 4.4 mmol/L (3.4-5.0); Sodium 136 mmol/L (137-145)
== END 2023-05-02 13:38 | disposition home or self-care (01) ==
LOC: ANHGOSHLAB 13:40
PROVIDERS: PCP Family Medicine; Visit Provider Family Medicine
DX: E78.5 Hyperlipidemia, unspecified (principal); I10 Essential (primary) hypertension; Z79.899 Other long term (current) drug therapy
CPT/HCPCS: 36415; 80053

== ENCOUNTER 2023-07-02 07:14 | Emergency (ER) | payer MEDICARE, BC, SELFPAY ==
[2023-07-02] VITALS (10 sets, daily range): BP systolic 137–193; BP diastolic 51–90; PULSE 46–62; RESP 15–20; TEMP 36.3–36.7; O2SAT 98–100
--- NOTE | ~2023-07-02 | XR_ITS ---
EXAMINATION: XR chest 1V INDICATION: Altered mental status TECHNIQUE: AP view of the chest is obtained. COMPARISON: 01/23/2022 FINDINGS: There is a right upper lobe perihilar opacity. There is mild atelectasis of the lung bases. A moderate size hiatal hernia is noted. No pleural effusion or pneumothorax. Median sternotomy wires and mediastinal surgical clips are seen, likely from prior coronary artery bypass grafting. IMPRESSION: 1. Right upper lobe perihilar opacity which could be infectious or inflammatory however given patient 's smoking history, malignancy is a consideration. Recommend further evaluation with CT of the chest. Reviewed, dictated and finalized at location L. IC WORKS TECHNICIAN IMPRESSION: 1. Right upper lobe perihilar opacity which could be infectious or inflammatory however given patient's smoking history, malignancy is a consideration. Recomm end further evaluation with CT of the chest.
--- NOTE | ~2023-07-02 | CT_ITS ---
EXAMINATION: CT diagnostic chest w con DATE: 07/02/2023 09:31 INDICATION: mass TECHNIQUE: Computed tomography (CT) of the chest was performed with 100 mL Omnipaque-350 intravenous contrast. Additional 3D reconstructions utilizing coronal maximum intensity projection (MIP) were per formed. Automated exposure control and iterative reconstruction technique were employed. The dose-jerrod gth product was 184.03 mGy-cm. COMPARISON: None FINDINGS: Mild emphysema. 5.2 x 3.9 x 4.9 cm lobulated mass concerning for primary bronchogenic carcinoma in th e medial anterior segment of the right upper lobe which abuts the anterior margin of the hilum, the m ediastinum right upper lobe and anterior chest wall along the right internal mamillary artery. Mild b iapical pleural-parenchymal scarring, right greater than left. Calcified nodules in the right upper l obe along with calcified right hilar lymph nodes consistent with old granulomatous disease. Large sli ding-type hiatal hernia which displaces the anteromedial left lower lobe consistent with some adjacen t compressive atelectasis in the left lower lobe. Additional minimal dependent right basilar atelecta sis in bilateral lower lobes. Heart size is normal. Atherosclerotic coronary artery calcification. Ve nous sternotomy wires and changes of both coronary artery bypass grafting and aortic valve repair. No pericardial effusion. No pathologically enlarged thoracic lymphadenopathy. Mild atrophy and a few lo w-attenuation cysts measuring up to 1.7 cm in the visualized upper poles of both kidneys. There are a lso a couple nonobstructing stones measuring up to 3 mm at the upper pole of the left kidney. There a re bridging osteophytes at multiple levels consistent with diffuse idiopathic skeletal hyperostosis ( DISH). IMPRESSION: 1. 5.2 cm lobulated mass in the intersegment right upper lobe which is concerning for primary broncho genic carcinoma. Would recommend CT-guided percutaneous lung biopsy. 2. Large sliding-type hiatal hernia. Reviewed, dictated and finalized at location A. RVISOR INDUSTRIAL GARMENT IMPRESSION: 1. 5.2 cm lobulated mass in the intersegment right upper lobe which is concerni ng for primary bronchogenic carcinoma. Would recommend CT-guided percutaneous l marsha biopsy. 2. Large sliding-type hiatal hernia.
--- NOTE | ~2023-07-02 | CT_ITS ---
EXAMINATION: CT brain wo con INDICATION: Altered mental status COMPARISON: 06/15/2022 TECHNIQUE: Standard unenhanced head CT. The dose-length product (DLP) was 605.33 mGy-cm. The mA was a djusted according to patient size. Iterative reconstruction technique was employed. FINDINGS: No acute intraparenchymal hemorrhage. No evidence of mass lesion. No evidence of acute infa rction. There is moderate periventricular and subcortical hypodensity probably related to small vesse l ischemic disease. There is moderate prominence of the sulci and ventricles related to cerebral atro phy. Intracranial calcified cerebral atherosclerosis is noted. No extra-axial collections. No mass ef fect or midline shift. Changes in the globes are likely from ocular lens surgery. There is mild mucos al thickening of the paranasal sinuses. IMPRESSION: 1. No acute intracranial abnormality. 2. Age related findings. Reviewed, dictated and finalized at location L. TH SAFETY AND ENVIRONMENT MANAGER
--- NOTE | 2023-07-02 07:16 | ECG_ITS ---
Measurements Intervals [place] Rate: 57 P: 67 CA: 166 QRS: -16 QRSD: 81 T: 50 QT: 426 QTc: 417 Interpretive Statements SINUS BRADYCARDIA WITH SINUS ARRHYTHMIA BASELINE ARTIFACT- II, III, AVR, AVF BORDERLINE ECG COMPARED TO ECG 01/23/2022 17:26:02 SINUS ARRHYTHMIA NOW PRESENT Electronically Signed On 07-02-2023 7:46:12 BOOTH SUPERVISOR by Rajendra Marrero D.O.
--- NOTE | 2023-07-02 07:39 | ED.AMS ---
HPI - Altered Mental Status General Chief Complaint: Altered Mental Status Stated Complaint: Confusion, dec. appetite, Time Seen by Provider: 07/02/23 07:18 History of Present Illness HPI narrative: Per patient has been progressively more weak and confused over the loast two months or so. Today she had trouble getting him out of bed. Pt has not been febrile. Pt has COPD but no increase in cough. Related Data Home Medications Medication Instructions Recorded Confirmed memantine 10 mg tablet 10 mg PO BID 03/22/21 05/02/23 ascorbic acid (vitamin C) 500 mg 500 mg PO DAILY 04/27/21 05/02/23 capsule cetirizine 10 mg tablet (Zyrtec) 10 mg PO DAILY 04/27/21 05/02/23 calcium carbonate 600 mg-vitamin 1 tablet PO BID 10/18/21 05/02/23 D3 20 mcg (800 unit) chewable tablet (Caltrate 600 plus D) Daily Multivitamin 1 tablet PO DAILY 01/23/22 05/02/23 acetaminophen 325 mg tablet 1,000 mg PO BID 01/23/22 05/02/23 (Tylenol) ferrous sulfate 325 mg (65 mg 325 mg PO DAILY 01/23/22 05/02/23 iron) tablet folic acid 800 mcg tablet 800 mcg PO DAILY 01/23/22 05/02/23 vitamin B complex (B 1 tablet PO .qod 08/23/22 05/02/23 Complex-Vitamin B12 tablet) donepezil 10 mg tablet 10 mg PO DAILY 05/02/23 05/02/23 fesoterodine 8 mg tablet,extended 8 mg PO DAILY 05/02/23 05/02/23 release 24 hr Allergies Allergy/AdvReac Type Severity Reaction Status Date / Time codeine AdvReac Unknown Nausea and Verified 05/02/23 12:48 Vomiting hydrocodone AdvReac Unknown Nausea and Verified 05/02/23 12:48 Vomiting Review of Systems Review of Systems: All systems reviewed & are unremarkable except as noted in HPI and below PMFSH Past Medical History Medical History BPH (benign prostatic hyperplasia) CAD (coronary artery disease) Cervical spondylolysis Chronic low back pain Chronic obstructive pulmonary disease CKD (chronic kidney disease) stage 3, GFR 30-59 ml/min Environmental allergies Essential (primary) hypertension Gastro-esophageal reflux disease without esophagitis Hiatal hernia History of renal stone Hyperlipidemia, unspecified Iron deficiency anemia Nonrheumatic aortic (valve) stenosis Osteopenia Presence of prosthetic heart valve Primary osteoarthritis involving multiple joints Prostate cancer Restless leg syndrome Squamous cell carcinoma Tobacco abuse Type 2 diabetes mellitus without complications Surgical History Surgical History History of aortic valve replacement 2002 History of arthroscopy of shoulder 1986 History of carpal tunnel release 1980s - Right History of coronary artery bypass graft 2003 History of inguinal hernia repair 1968 History of lumbar laminectomy for spinal cord decompression (Unknown) 1967 Family History Family History Father Hypertension Heart attack Cardiovascular disease Mother No problems noted. Sibling Heart attack Cardiovascular disease Social History Social History Smoking packs per day: 0.5 Smoking cigarettes per day: 10.0 Years smoked: 65 Smoking pack-years: 32.50 Smoking status: Current every day smoker Tobacco type: cigarettes Alcohol intake: former Substance use: never Substance use type: does not use Lack of Transportation: No Lack of Food: Never True Current Housing: I Have Housing Concerned About Future Housing: No Difficulty Paying Gas/Electric Bills: No Difficulty Paying for Meds: No Currently Unemployed: No Education: High School Diploma/GED Difficulty w/ Childcare or Family Care: No Living arrangements: with family Additional living arrangements comments: Occupation/Education: retired Sexual Orientation (if Verbalized by the Patient): Straight or Heterosexual Spirit
[2023-07-02 08:49] LABS: Basophils Percent Auto 0.3 % (0.2-1.2); Eosinophils Absolute Auto 0.2 K/mm3 (0-0.3); Eosinophils Percent Auto 1.9 % (0-4.4); Hematocrit 29.7 % (42.0-52.0); Hemoglobin 9.3 g/dL (14.0-18.0); Immature Granulocyte Absolute 0.05 K/mm3 (0.00-0.031); Immature Granulocyte Percent A 0.6 % (0-0.5); Lymphocytes Absolute Auto 0.39 K/mm3 (0.9-3.2); Lymphocytes Percent Auto 4.5 % (18.3-44.2); Mean Corpuscular HGB Conc 31.3 g/dl (32-36); Mean Corpuscular Hemoglobin 30.7 pg (26-34); Mean Platelet Volume 10.8 fl (7.4-10.4); Monocytes Absolute Auto 0.5 K/mm3 (0.1-0.6); Monocytes Percent Auto 5.7 % (2.6-8.5); Neutrophils Absolute Auto 7.6 K/mm3 (1.3-6.7); Platelet Count Result 178 k/mm3 (150-375); Red Blood Count 3.03 M/mm3 (4.6-6.20); Red Cell Distribution Width 14.5 % (11.5-14.5); White Blood Count 8.8 K/mm3 (4.5-10.0)
[2023-07-02 08:56] LABS: Lactic Acid Reflex 1.9 mmol/L (0.7-2.0)
[2023-07-02 08:57] LABS: Alanine Aminotransferase 16 U/L (6-50); Albumin Level 3.2 g/dL (3.5-5.1); Alkaline Phosphatase 82 U/L (38-126); Anion Gap 5 mmol/L (8-16); Aspartate Amino Transferase 26 U/L (17-59); Bilirubin,Total 0.5 mg/dL (0.2-1.3); Blood Urea Nitrogen 28 mg/dL (9-20); Calcium 10.6 mg/dL (8.4-10.2); Carbon Dioxide 28 mmol/L (22-30); Chloride 103 mmol/L (98-107); Estimated CRCL calculation 20 ml/min; Estimated Glomerular Filt Rate 32; Glucose 120 mg/dL (65-110); Potassium 3.5 mmol/L (3.4-5.0); Sodium 136 mmol/L (137-145)
[2023-07-02 09:09] LABS: Troponin I 0.014 ng/mL (0.000-0.034)
[2023-07-02 09:31] LABS: INR 2.1; Partial Thromboplastin Time 35.1 SECONDS (22.3-36.8); Prothrombin Time 24.5 Seconds (11.1-14.7)
[2023-07-02 09:34] LABS: Platelet Estimate Adequate (Adequate)
[2023-07-02 09:35] LABS: Burr Cells 1+ (NORMAL); Poikilocytosis 1+ (NORMAL); Schistocytes None Seen (NORMAL)
[2023-07-02 09:51] LABS: Appearance Urine Clear (Clear); Bilirubin Urine Negative (Negative); Blood Urine Negative (Negative); Color Urine Yellow (Yellow); Glucose Urine UA Negative (Negative); Ketones Urine Negative (Negative); Leukocyte Esterase Ur Negative LEU/UL (Negative); Nitrate Urine Negative (Negative); Protein Urine Negative (Negative); Specific Grav Ur 1.019 (1.001-1.035); Urobilinogen Urine 0.2 mg/dL (<2.0)
[2023-07-02 09:55] LABS: Add Urine Microscopic? NO
[2023-07-02] MEDS: SODIUM CHLORIDE 0.9% IV 500 ML 999 ML IV CONT (10:55)
--- NOTE | 2023-07-02 11:12 | PCCCNOTE ---
Addendum entered by Stephany Lanza RN 07/02/23 11:14: List of home health and group home options given to the daughter, explained they would go through the PCP for a referral if they choose to use them. Daughter verbalized understanding. Original Note: Family requesting care coordination to give them information on home health and group home options incase they decide to want help or placement after the ED discharge.
== END 2023-07-02 12:05 | disposition home or self-care (01) ==
PROVIDERS: Emergency Provider Emergency Medicine; PCP Family Medicine
DX: R53.1 Weakness (principal); R91.8 Other nonspecific abnormal finding of lung field; I25.10 Atherosclerotic heart disease of native coronary artery without angina pectoris; I12.9 Hypertensive chronic kidney disease with stage 1 through stage 4 chronic kidney disease, or unspecified chronic kidney disease; E11.22 Type 2 diabetes mellitus with diabetic chronic kidney disease; N18.30 Chronic kidney disease, stage 3 unspecified; J44.9 Chronic obstructive pulmonary disease, unspecified; F17.210 Nicotine dependence, cigarettes, uncomplicated; Z85.46 Personal history of malignant neoplasm of prostate
CPT/HCPCS: 36415; 70450; 71045; 71260; 80053; 81003; 83605; 84484; 85025; 85610; 85730; 87040; 93005; 96360; 99284; J7040; Q9967

== ENCOUNTER 2023-07-22 08:59 | Outpatient (CLI) | payer MEDICARE, BC, SELFPAY ==
[2023-07-22] VITALS (8 sets, daily range): BP systolic 165–182; BP diastolic 61–71; PULSE 58–68; RESP 16–18; TEMP 36.4; O2SAT 96–100
--- NOTE | ~2023-07-22 | CT_ITS ---
EXAMINATION: CT biopsy lung w/imaging DATE: 07/22/2023 11:32 INDICATION: Right lung mass. TECHNIQUE: The procedure including the risks, benefits, and alternatives and possibility of chest tub e placement were discussed with the patient. Risks discussed included infection, hemorrhage, approxim ately 1/3 risk of pneumothorax, approximately 1/10 risk of pneumothorax severe enough to warrant ches t tube placement, and rarely . The patient understood the risks and agreed to proceed. The patie nt was placed supine. The skin overlying the right chest was prepped and draped in sterile fashion. Anesthetic was administered with 1% lidocaine subcutaneously. A 19 gauge outer needle was advanced under CT guidance to the lesion of interest. A 20 gauge core biopsy needle was then used to obtain 3 core biopsy specimens. The needle was removed and the entry site was cleaned and dressed. The mA was adjusted according to patient size. Iterative reconstruction technique was employed. The dose-length product was 160.44 mGy-cm. There were no immediate complications. FINDINGS: CT images demonstrate the outer needle tip adjacent to a 5.1 x 3.2 cm mass in right lung up per lobe. IMPRESSION: 1. CT-guided core needle biopsy of a mass in right lung upper lobe. Reviewed, dictated and finalized at location A. OMATIC INTERPRETER
--- NOTE | ~2023-07-22 | XR_ITS ---
XR chest 1V 07/22/2023 11:31 Indication: Post lung biopsy. Procedure: AP view of the chest Comparison: CT dated 07/02/2023 Findings: Status post median sternotomy for CABG. There is a right paratracheal mass, consistent with malignancy until proven otherwise. No pneumothorax identified. Large hiatal hernia. Bibasilar atelec tasis. No acute osseous abnormality. Impression: 1: No pneumothorax identified post biopsy. 2: Right paratracheal mass, suspicious for malignancy. Reviewed, dictated and finalized at location B. GILDER Impression: 1: No pneumothorax identified post biopsy. 2: Right paratracheal mass, suspicious for malignancy.
--- NOTE | ~2023-07-22 | XR_ITS ---
EXAMINATION: XR chest 1V portable DATE: 07/22/2023 14:31 INDICATION: Right lung mass status post percutaneous biopsy. TECHNIQUE: A single frontal view of the chest was obtained. COMPARISON: Chest single view at 12:25 PM FINDINGS: There is a mass in right lung upper lobe. Calcified right lung nodules are consistent with old granulomatous disease. No pleural effusion or pneumothorax. The heart size is normal. There are c hanges of aortic valve replacement. There is a large hiatal hernia. IMPRESSION: 1. Mass in right lung upper lobe suspicious for primary bronchogenic carcinoma. 2. Large hiatal hernia. Reviewed, dictated and finalized at location A. UTILITY WORKER
--- NOTE | ~2023-07-22 | XR_ITS ---
EXAMINATION: XR chest 1V portable DATE: 07/22/2023 12:35 INDICATION: Right lung mass status post percutaneous biopsy. TECHNIQUE: A single frontal view of the chest was obtained. COMPARISON: Chest single view at 11:29 AM FINDINGS: There is a mass in right lung upper lobe. Calcified right lung nodules are consistent with old granulomatous disease. No pleural effusion or pneumothorax. The heart size is normal. There are c hanges of aortic valve replacement. There is a large hiatal hernia. IMPRESSION: 1. Mass in right lung upper lobe suspicious for primary bronchogenic carcinoma. 2. Large hiatal hernia. Reviewed, dictated and finalized at location A. ATAL INTENSIVE CARE NURSE
[2023-07-22 09:59] LABS: INR 0.9; Prothrombin Time 12.1 Seconds (11.1-14.7)
--- NOTE | 2023-07-22 14:26 | SUR.PHASEII ---
PORTABLE CXR IN PROGRESS.
== END 2023-07-22 14:53 | disposition home or self-care (01) ==
PROVIDERS: PCP Family Medicine; Visit Provider Radiology Diagnostic Radiology
PROC: BB24ZZZ Computerized Tomography (CT Scan) of Bilateral Lungs (ICD-10-PCS; CPT 32408; principal; 2023-07-22 11:00)
DX: R91.8 Other nonspecific abnormal finding of lung field (principal)
CPT/HCPCS: 32408; 36415; 71045; 85610; 88305; 88342

== ENCOUNTER 2023-07-26 10:42 | Outpatient (CLI) | payer MEDICARE, BC, SELFPAY ==
[2023-07-26 11:02] LABS: Basophils Percent Auto 0.5 % (0.2-1.2); Eosinophils Absolute Auto 0.3 K/mm3 (0-0.3); Eosinophils Percent Auto 3.8 % (0-4.4); Hematocrit 27.7 % (42.0-52.0); Hemoglobin 8.7 g/dL (14.0-18.0); Immature Granulocyte Absolute 0.05 K/mm3 (0.00-0.031); Immature Granulocyte Percent A 0.6 % (0-0.5); Lymphocytes Absolute Auto 0.77 K/mm3 (0.9-3.2); Lymphocytes Percent Auto 8.7 % (18.3-44.2); Mean Corpuscular HGB Conc 31.4 g/dl (32-36); Mean Corpuscular Hemoglobin 30.5 pg (26-34); Mean Corpuscular Volume 97.2 fl (80-100); Mean Platelet Volume 9.6 fl (7.4-10.4); Monocytes Absolute Auto 0.7 K/mm3 (0.1-0.6); Monocytes Percent Auto 8.3 % (2.6-8.5); Neutrophils Absolute Auto 6.9 K/mm3 (1.3-6.7); Neutrophils Percent Auto 78.1 % (45.5-73.1); Platelet Count Result 212 k/mm3 (150-375); Red Blood Count 2.85 M/mm3 (4.6-6.20); Red Cell Distribution Width 14.1 % (11.5-14.5); White Blood Count 8.9 K/mm3 (4.5-10.0)
[2023-07-26 15:34] LABS: Iron 92 ug/dL (49-181)
[2023-07-26 15:37] LABS: Alanine Aminotransferase 14 U/L (6-50); Albumin Level 3.6 g/dL (3.5-5.1); Alkaline Phosphatase 104 U/L (38-126); Anion Gap 11 mmol/L (8-16); Aspartate Amino Transferase 19 U/L (17-59); Bilirubin,Total 0.3 mg/dL (0.2-1.3); Blood Urea Nitrogen 21 mg/dL (9-20); Calcium 10.1 mg/dL (8.4-10.2); Carbon Dioxide 22 mmol/L (22-30); Chloride 104 mmol/L (98-107); Estimated Glomerular Filt Rate 39; Glucose 94 mg/dL (65-110); Potassium 4.3 mmol/L (3.4-5.0); Sodium 137 mmol/L (137-145)
[2023-07-26 15:53] LABS: Percent Iron Saturation 33 % (20-50)
[2023-07-26 16:03] LABS: Prostate Specific Antigen 0.6 ng/mL (< OR = 4.0)
[2023-07-26 16:40] LABS: Folic Acid > 20.0 ng/mL (2.76->20); Vitamin B12 > 1000.0 pg/mL (239-931)
== END 2023-07-26 10:43 | disposition home or self-care (01) ==
LOC: ANHLAB 10:46
PROVIDERS: PCP Family Medicine; Visit Provider Internal Medicine Hematology & Oncology
DX: C34.90 Malignant neoplasm of unspecified part of unspecified bronchus or lung (principal); C61 Malignant neoplasm of prostate
CPT/HCPCS: 36415; 80053; 82607; 82728; 82746; 83540; 83550; 84153; 85025

== ENCOUNTER 2023-08-01 12:50 | Outpatient (CLI) | payer MEDICARE, BC, SELFPAY ==
--- NOTE | ~2023-08-01 | PE_ITS ---
EXAMINATION: PET skull to mid thigh DATE: 08/01/2023 15:16 INDICATION: Malignant neoplasm of lung. TECHNIQUE: Blood glucose level was 98 mg/dL. 11.315 mCi of 18-fluorodeoxyglucose (18-FDG) was adminis tered i.v. Low dose computed tomography (CT) images were acquired from the base of the brain to the p roximal thighs for attenuation correction and anatomic localization. Automated exposure control was e mployed. Dose-length product (DLP) was 648 mGy-cm. Positron emission tomography (PET) images were acq uired in the same distribution. COMPARISON: Chest CT 07/02/2023 FINDINGS: Head/neck: There are no pathologically enlarged lymph nodes. Chest: There is mild emphysema. There is a 5.7 x 4.5 cm mass in right lung upper lobe with maximum GORDILLO V of 15.8. There is mild atelectasis bilaterally. Calcified right lung nodules and calcified right hi lar lymph nodes are consistent with old granulomatous disease. There are small pleural effusions. The re is mild scarring at right lung apex. There is left atrial enlargement of the heart. There are mattie nary artery calcifications. There are changes of aortic valve replacement. There is a large sliding h iatal hernia. Abdomen/pelvis/proximal thighs: The liver is normal. Calcifications in the spleen are consistent with old granulomatous disease. The pancreas and adrenal glands are normal. There is cortical thinning of the kidneys. There are cysts in the kidneys measuring up to 13 mm on the left. There is calcified at herosclerosis of the aorta and many of the other arteries. There are brachytherapy seeds in the prost ate. There is diverticulosis of the colon without evidence of diverticulitis. There are no dilated lo ops of bowel. The appendix is normal. There are no pathologically enlarged lymph nodes. There is no f ree intraperitoneal fluid. There is a right hip arthroplasty. IMPRESSION: 1. 5.7 x 4.5 cm mass in right lung upper lobe with maximum SUV of 15.8, consistent with non-small melvin l lung cancer. No evidence of metastatic disease. 2. Small pleural effusions. 3. Large sliding hiatal hernia. Reviewed, dictated and finalized at location E. K RENTAL SERVICE ATTENDANT IMPRESSION: 1. 5.7 x 4.5 cm mass in right lung upper lobe with maximum SUV of 15.8, consist ent with non-small cell lung cancer. No evidence of metastatic disease. 2. Small pleural effusions. 3. Large sliding hiatal hernia.
[2023-08-01 13:52] LABS: Glucose Point of Care 98 mg/dl (65-105)
== END 2023-08-01 12:51 | disposition home or self-care (01) ==
PROVIDERS: PCP Family Medicine; Visit Provider Internal Medicine Hematology & Oncology
DX: C34.11 Malignant neoplasm of upper lobe, right bronchus or lung (principal); K44.9 Diaphragmatic hernia without obstruction or gangrene; J90 Pleural effusion, not elsewhere classified
CPT/HCPCS: 78815; A9552

== ENCOUNTER → 2023-08-14 09:04 | Outpatient (CLI) | payer MEDICARE, BC, SELFPAY ==
--- NOTE | ~2023-08-14 | XR_ITS ---
EXAMINATION: XR shoulder RT min 2V INDICATION: Right arm pain TECHNIQUE: Four views of the right shoulder are submitted. COMPARISON: 03/10/2013 FINDINGS: Normal alignment. No fracture. There is mild osteoarthritis of the glenohumeral and acromio clavicular joints. A right upper lobe mass is noted, described on recent PET/CT. IMPRESSION: 1. Mild osteoarthritis without acute osseous abnormality. 2. Right upper lobe mass, consistent with known malignancy. Reviewed, dictated and finalized at location B. NT RESOURCE SPECIALIST
--- NOTE | ~2023-08-14 | XR_ITS ---
EXAMINATION: XR elbow RT min 3V INDICATION: Right elbow pain TECHNIQUE: Four views of the right elbow are obtained on five radiographs. COMPARISON: None available FINDINGS: There appears to be a healed fracture deformity of the distal humerus with advanced osteoar thritis at the elbow. No acute findings are present. There is no joint effusion. Calcified atheroscle rosis is noted. IMPRESSION: 1. Probably old fracture deformity of the distal humerus with advanced osteoarthritis of the elbow. N o acute findings. Reviewed, dictated and finalized at location B. IMPRESSION: 1. Probably old fracture deformity of the distal humerus with advanced osteoart hritis of the elbow. No acute findings.
== END ==
PROVIDERS: PCP Family Medicine; Visit Provider Family Medicine
DX: M25.521 Pain in right elbow (principal); M19.011 Primary osteoarthritis, right shoulder
CPT/HCPCS: 73030; 73080

== ENCOUNTER 2023-08-15 12:51 | Inpatient (IN) | payer MEDICARE, BC, SELFPAY ==
[2023-08-15] VITALS (13 sets, daily range): BP systolic 109–172; BP diastolic 46–100; PULSE 74–133; RESP 17–30; TEMP 36.7; O2SAT 96–100; BMI 19.3
--- NOTE | ~2023-08-15 | CT_ITS ---
EXAMINATION: CTA abdomen pelvis DATE: 08/15/2023 16:20 INDICATION: Weakness and nausea TECHNIQUE: Computed tomographic angiography (CTA) of the abdomen and pelvis was performed with 100 mL Omnipaque-350 intravenous contrast. Maximum intensity projection 3D-reconstructions of the aorta and other arteries were constructed by the technologist on a separate workstation. The dose-length produ ct (DLP) was 389.95 mGy-cm. Automated exposure control and iterative reconstruction technique were em ployed. COMPARISON: 10/03/2021 FINDINGS: There are small pleural effusions. There is a large hiatal hernia. There are healed right-s ided rib fractures. There is mild atelectasis of the lungs. The liver, pancreas, gallbladder, and adr enal glands are normal. Punctate calcifications in an otherwise normal spleen likely represent healed granulomatous disease. There is mild atrophy of the kidneys. Cysts of the kidneys measure up to 1.5 cm on the right. No pathologically enlarged abdominal or pelvic lymph nodes are identified. No free i ntraperitoneal gas or evidence of bowel obstruction. Colonic diverticulosis is present without eviden ce of diverticulitis. Motion artifact slightly limits evaluation of the bowel. There are small divert icula of the urinary bladder. There is severe lumbar spondylosis. No aneurysm or dissection of the aorta. The celiac axis, superior mesenteric artery, and inferior mes enteric artery are normal at the origins. There are single renal arteries. There is calcified atheros clerosis of the aorta and many of the other arteries. There is a focal area of severe stenosis in the mid left common iliac artery. IMPRESSION: 1. No aneurysm or dissection of the aorta. 2. Diverticulosis without evidence of diverticulitis. 3. Small pleural effusions. Reviewed, dictated and finalized at location L. TUB WASHER
--- NOTE | ~2023-08-15 | XR_ITS ---
EXAMINATION: XR chest 1V portable DATE: 08/15/2023 15:06 INDICATION: Shortness of breath and increased work of breathing TECHNIQUE: frontal view of the chest was obtained. COMPARISON: Chest radiograph dated 07/22/2023 and PET/CT dated 08/01/2023 FINDINGS: Again seen is a suprahilar right upper lobe mass corresponding to biopsy-proven non-small cell lung c ancer. Gas within a moderate to large retrocardiac hiatal hernia at the medial left lower lung zone. There are hazy airspace and superimposed mild reticular opacities at the bilateral lower lung zones. No pleural effusion or pneumothorax. Heart size is normal with change of prior median sternotomy and aortic valve repair. There are a few healing left-sided rib fractures. IMPRESSION: 1. Mild interstitial and airspace opacities at the bilateral lower lung zones which could represent a telectasis, mild pulmonary edema and/or pneumonia. 2. Suprahilar right upper lobe mass consistent with biopsy-proven non-small cell lung cancer. 3. Moderate to large hiatal hernia. Reviewed, dictated and finalized at location A. D ENGINEER IMPRESSION: 1. Mild interstitial and airspace opacities at the bilateral lower lung zones w hich could represent atelectasis, mild pulmonary edema and/or pneumonia. 2. Suprahilar right upper lobe mass consistent with biopsy-proven non-small melvin l lung cancer. 3. Moderate to large hiatal hernia.
[2023-08-15 13:16] LABS: Basophils Percent Auto 0.3 % (0.2-1.2); Eosinophils Percent Auto 0.2 % (0-4.4); Hematocrit 24.8 % (42.0-52.0); Hemoglobin 7.6 g/dL (14.0-18.0); Immature Granulocyte Absolute 0.11 K/mm3 (0.00-0.031); Lymphocytes Absolute Auto 0.44 K/mm3 (0.9-3.2); Lymphocytes Percent Auto 4.1 % (18.3-44.2); Mean Corpuscular HGB Conc 30.6 g/dl (32-36); Mean Platelet Volume 9.9 fl (7.4-10.4); Monocytes Absolute Auto 0.5 K/mm3 (0.1-0.6); Monocytes Percent Auto 4.9 % (2.6-8.5); Neutrophils Absolute Auto 9.6 K/mm3 (1.3-6.7); Neutrophils Percent Auto 89.5 % (45.5-73.1); Platelet Count Result 315 k/mm3 (150-375); Red Blood Count 2.53 M/mm3 (4.6-6.20); Red Cell Distribution Width 14.6 % (11.5-14.5); White Blood Count 10.7 K/mm3 (4.5-10.0)
[2023-08-15 13:29] LABS: Alanine Aminotransferase 19 U/L (6-50); Albumin Level 3.3 g/dL (3.5-5.1); Alkaline Phosphatase 92 U/L (38-126); Anion Gap 8 mmol/L (8-16); Aspartate Amino Transferase 23 U/L (17-59); Bilirubin,Total 0.3 mg/dL (0.2-1.3); Blood Urea Nitrogen 44 mg/dL (9-20); Calcium 10.1 mg/dL (8.4-10.2); Carbon Dioxide 20 mmol/L (22-30); Chloride 107 mmol/L (98-107); Estimated CRCL calculation 29 ml/min; Estimated Glomerular Filt Rate 45; Glucose 107 mg/dL (65-110); Lipase 70 U/L (23-300); Potassium 4.1 mmol/L (3.4-5.0); Sodium 135 mmol/L (137-145)
[2023-08-15 13:43] LABS: Platelet Estimate Adequate (Adequate); Schistocytes None Seen (NORMAL)
--- NOTE | 2023-08-15 14:33 | ED.NAVMDI ---
HPI - Nausea/Vomiting/Diarrhea General Chief complaint: Nausea/Vomiting/Diarrhea Stated complaint: n/v Time Seen by Provider: 08/15/23 14:28 Source: patient and family ( , daughter, son, granddaughter) Mode of arrival: EMS Limitations: no limitations and dementia (alzheimers) History of Present Illness HPI Narrative: This is an 83-year-old man with past medical history Alzheimer, CKD, lung cancer, prostate cancer, hypertension presents with nausea and vomiting as well as diarrhea. Per he has had 1 episode at home and and 1 episode since. Ever since his surgery for prostate cancer he is occasionally incontinent of stool as he was today . stools have not been grossly bloody. He has a history of GI bleed and is on iron. Last oral intake approximately 5 p.m.. His last hemoglobin was noted to be 8 is supposed to be taking Procrit tomorrow. He denies any chest pain or difficulty breathing. His vomit was noted to be a brown by his , she denies it appearing coffee grounds. denies any abdominal pain but has been weak. He does usually get physical therapy at home. states he has been obtunded at times. Recent PET scan. Related Data Home Medications Medication Instructions Recorded Confirmed memantine 10 mg tablet 10 mg PO BID 03/22/21 08/13/23 ascorbic acid (vitamin C) 500 mg 500 mg PO DAILY 04/27/21 08/13/23 capsule cetirizine 10 mg tablet (Zyrtec) 10 mg PO DAILY 04/27/21 08/13/23 calcium carbonate 600 mg-vitamin 1 tablet PO BID 10/18/21 08/13/23 D3 20 mcg (800 unit) chewable tablet (Caltrate 600 plus D) Daily Multivitamin 1 tablet PO DAILY 01/23/22 08/13/23 acetaminophen 325 mg tablet 1,000 mg PO BID 01/23/22 08/13/23 (Tylenol) ferrous sulfate 325 mg (65 mg 325 mg PO DAILY 01/23/22 08/13/23 iron) tablet folic acid 800 mcg tablet 800 mcg PO DAILY 01/23/22 08/13/23 vitamin B complex (B 1 tablet PO .qod 08/23/22 08/13/23 Complex-Vitamin B12 tablet) donepezil 10 mg tablet 10 mg PO DAILY 05/02/23 08/13/23 fesoterodine 8 mg tablet,extended 8 mg PO DAILY 05/02/23 08/13/23 release 24 hr Allergies Allergy/AdvReac Type Severity Reaction Status Date / Time codeine AdvReac Unknown Nausea and Verified 08/15/23 14:41 Vomiting hydrocodone AdvReac Unknown Nausea and Verified 08/15/23 14:41 Vomiting [facility] Past Medical History Medical History (Updated 08/15/23 @ 19:36 by Andree Harding MD) Alzheimer disease BPH (benign prostatic hyperplasia) CAD (coronary artery disease) Cervical spondylolysis Chronic low back pain Chronic obstructive pulmonary disease CKD (chronic kidney disease) stage 3, GFR 30-59 ml/min Environmental allergies Essential (primary) hypertension Gastro-esophageal reflux disease without esophagitis Hiatal hernia History of GI bleed History of renal stone Hyperlipidemia, unspecified Iron deficiency anemia Lung cancer RUL Nonrheumatic aortic (valve) stenosis Osteopenia Presence of prosthetic heart valve Primary osteoarthritis involving multiple joints Prostate cancer Restless leg syndrome Squamous cell carcinoma Tobacco abuse Type 2 diabetes mellitus without complications Surgical History Surgical History History of aortic valve replacement 2003 History of arthroscopy of shoulder 1987 History of carpal tunnel release 1980s - Right History of coronary artery bypass graft 2003 History of inguinal hernia repair 1968 History of lumbar laminectomy for spinal cord decompression (Unknown) 1967 Family History Family History Father Hypertension Heart attack Cardiovascular disease Mother No problems noted. Sibling Heart attack Cardiovascular disease Social History Social History Smoking packs per day: 1 Smoking cigarettes per day: 20.0 Years smoked: 70 Smokin
--- NOTE | 2023-08-15 14:44 | PC.NURSE ---
Pt placed on 2 L NC O2 due to RR of 30 and increased WOB, pt has PMH of COPD and does not wear home O2.
--- NOTE | 2023-08-15 14:47 | ECG_ITS ---
Measurements Intervals [employer] Rate: 135 P: [place]: 0 QRS: -24 QRSD: 77 T: 73 QT: 300 QTc: 451 Interpretive Statements ATRIAL FIBRILLATION WITH RAPID VENTRICULAR RESPONSE SEPTAL MYOCARDIAL INFARCTION , OF INDETERMINATE AGE [40+ ms Q WAVE IN V1/V2] ABNORMAL ECG COMPARED TO ECG 07/02/2023 07:26:03 ATRIAL FIB REPLACES SINUS BRADYCARDIA Electronically Signed On 08-15-2023 18:07:23 BOX GLUER by Moris Mims M.D.
[2023-08-15 14:58] LABS: Appearance Urine Clear (Clear); Bacteria Urine None Seen /hpf; Bilirubin Urine Negative (Negative); Blood Urine Negative (Negative); Color Urine Yellow (Yellow); Glucose Urine UA Negative (Negative); Ketones Urine Negative (Negative); Leukocyte Esterase Ur Negative LEU/UL (Negative); Nitrate Urine Negative (Negative); Protein Urine Trace mg/dL (Negative); RBC Urine 0-2 /hpf (0-2); Specific Grav Ur 1.015 (1.001-1.035); Squamous Epithelial Cell Urine None seen /hpf (Few); Urobilinogen Urine 0.2 mg/dL (<2.0); WBC Urine 0-5 /hpf; pH Urine 5.5 (5.0-9.0)
[2023-08-15 15:07] LABS: Add Urine Microscopic? YES
[2023-08-15 15:56] LABS: Influenza A QL RT-PCR Negative (Negative); Influenza B QL RT-PCR Negative (Negative); RSV RNA, RT-PCR Negative (Negative); SARS-CoV-2 RNA PCR Negative (Negative)
[2023-08-15] MEDS: ACETAMINOPHEN 500 MG TABLET 1000 MG PO (17:26)
[2023-08-15] MEDS: rOPINIRole HCL 0.25 MG TABLET PO (17:31)
[2023-08-15 17:36] LABS: Thyroid Stimulating Hormone 0.396 uIU/mL (0.465-4.680)
--- NOTE | 2023-08-15 20:18 | PM.IMHP ---
H&P: HPI History of Present Illness Date/Time: 08/15/23 20:18 Chief Complaint: Coffee-ground emesis Narrative: This is an 83-year-old male with past medical history significant for lung cancer, chronic kidney disease, coronary artery disease, COPD, hypertension, GERD. Patient was brought to the emergency room for evaluation after having coffee-ground emesis as per . Patient is unable to provide any history. Preliminary workup was significant for hemoglobin of 8. A chest x-ray showed lung infiltrate. EXAMINATION: XR chest 1V portable DATE: 08/15/2023 15:06 INDICATION: Shortness of breath and increased work of breathing TECHNIQUE: frontal view of the chest was obtained. COMPARISON: Chest radiograph dated 07/22/2023 and PET/CT dated 08/01/2023 FINDINGS: Again seen is a suprahilar right upper lobe mass corresponding to biopsy-proven non-small cell lung cancer. Gas within a moderate to large retrocardiac hiatal hernia at the medial left lower lung zone. There are hazy airspace and superimposed mild reticular opacities at the bilateral lower lung zones. No pleural effusion or pneumothorax. Heart size is normal with change of prior median sternotomy and aortic valve repair. There are a few healing left-sided rib fractures. IMPRESSION: 1. Mild interstitial and airspace opacities at the bilateral lower lung zones which could represent atelectasis, mild pulmonary edema and/or pneumonia. 2. Suprahilar right upper lobe mass consistent with biopsy-proven non-small cell lung cancer. 3. Moderate to large hiatal hernia. EXAMINATION: CTA abdomen pelvis DATE: 08/15/2023 16:20 INDICATION: Weakness and nausea TECHNIQUE: Computed tomographic angiography (CTA) of the abdomen and pelvis was performed with 100 mL Omnipaque-350 intravenous contrast. Maximum intensity projection 3D-reconstructions of the aorta and other arteries were constructed by the technologist on a separate workstation. The dose-length product (DLP) was 389.95 mGy-cm. Automated exposure control and iterative reconstruction technique were employed. COMPARISON: 10/03/2021 FINDINGS: There are small pleural effusions. There is a large hiatal hernia. There are healed right-sided rib fractures. There is mild atelectasis of the lungs. The liver, pancreas, gallbladder, and adrenal glands are normal. Punctate calcifications in an otherwise normal spleen likely represent healed granulomatous disease. There is mild atrophy of the kidneys. Cysts of the kidneys measure up to 1.5 cm on the right. No pathologically enlarged abdominal or pelvic lymph nodes are identified. No free intraperitoneal gas or evidence of bowel obstruction. Colonic diverticulosis is present without evidence of diverticulitis. Motion artifact slightly limits evaluation of the bowel. There are small diverticula of the urinary bladder. There is severe lumbar spondylosis. No aneurysm or dissection of the aorta. The celiac axis, superior mesenteric artery, and inferior mesenteric artery are normal at the origins. There are single renal arteries. There is calcified atherosclerosis of the aorta and many of the other arteries. There is a focal area of severe stenosis in the mid left common iliac artery. IMPRESSION: 1. No aneurysm or dissection of the aorta. 2. Diverticulosis without evidence of diverticulitis. 3. Small pleural effusions. Review of Systems Review of Systems: ROS unobtainable: Yes unobtainable due to medical condition (Dementia) [facility] Past Medical History Medical History (Updated 08/16/23 @ 05:06 by Josh Orozco MD) Alzheimer disease BPH (benign prostatic hyperplasia) CAD (coronary artery disease) Cervical spondylolysis Chronic low back pain Chronic obstructive pulmonary disease CKD (chronic kidney disease) stage 3, GFR 30-59 ml/min Environmental allergies Essential (primary) hypertension Gastro-esophageal reflux disease without esophagitis Hiatal hernia History of GI bleed History of jaqueline
--- NOTE | 2023-08-15 22:49 | PC.NURSE ---
This patient, Arley Nicholson, was admitted to [address] [place] [address] Room 324-02. Patient/family oriented to hospital policies and general routines including ID bracelet, bed and alarms, visiting hours, pain management, procedures, bathroom and other care routines, personal items, smoking policy, room service/diet, and visiting hours. Information on how to activate the Rapid Response Team has been discussed. Patient/Family are encouraged to report perceived risks to care and to ask questions if they do not understand what they are told or what they should do.
--- NOTE | 2023-08-15 22:59 | PC.NURSE ---
bolus 250 ml/hr ns
--- NOTE | 2023-08-15 23:00 | PC.NURSE ---
changed order to 1l ns now, recheck bp with orthostatic after 1 L infuses.
[2023-08-15] MEDS: SODIUM CHLORIDE 0.9% IV 1,000 ML 999 ML IV CONT (23:12)
[2023-08-16] VITALS (23 sets, daily range): BP systolic 114–178; BP diastolic 40–80; PULSE 59–126; RESP 12–27; TEMP 36.1–37; O2SAT 96–100
--- NOTE | 2023-08-16 00:29 | PC.NURSE ---
Addendum entered by Rose Morales RN 08/16/23 00:31: orthostatic reported to MD Orozco, repeat H&H in AM and N.o 0.250 mg Iv push once Original Note: orthostatic reported to MD Orozco, repeat 0.250 mg Iv push once
[2023-08-16] MEDS: DIGOXIN INJ 250 MCG/ML 2 ML AMP (*BKC) IV PUSH (00:43)
[2023-08-16] MEDS: cefTRIAXone 2 GM/NS 100 ML 2 GM/100 ML BAG IVPB (05:01)
[2023-08-16] MEDS: AZITHROMYCIN 500 MG/NS 250 ML 500 MG/250 ML BAG 250 MG IVPB (05:57)
[2023-08-16] MEDS: FLUTICASONE/SALMETEROL 115-21 MCG INHALER 1 PUFF 2 PUFF INHALATION ×2 (07:25→22:00)
[2023-08-16 07:36] LABS: Basophils Percent Auto 0.3 % (0.2-1.2); Eosinophils Absolute Auto 0.1 K/mm3 (0-0.3); Eosinophils Percent Auto 1.1 % (0-4.4); Hematocrit 21.5 % (42.0-52.0); Immature Granulocyte Absolute 0.06 K/mm3 (0.00-0.031); Immature Granulocyte Percent A 0.7 % (0-0.5); Lymphocytes Absolute Auto 0.71 K/mm3 (0.9-3.2); Lymphocytes Percent Auto 7.8 % (18.3-44.2); Mean Corpuscular HGB Conc 30.2 g/dl (32-36); Mean Corpuscular Hemoglobin 29.8 pg (26-34); Mean Corpuscular Volume 98.6 fl (80-100); Mean Platelet Volume 10.1 fl (7.4-10.4); Monocytes Absolute Auto 0.7 K/mm3 (0.1-0.6); Monocytes Percent Auto 7.9 % (2.6-8.5); Neutrophils Absolute Auto 7.5 K/mm3 (1.3-6.7); Neutrophils Percent Auto 82.2 % (45.5-73.1); Platelet Count Result 295 k/mm3 (150-375); Red Blood Count 2.18 M/mm3 (4.6-6.20); Red Cell Distribution Width 14.7 % (11.5-14.5); White Blood Count 9.1 K/mm3 (4.5-10.0)
[2023-08-16] MEDS: UMECLIDINIUM BROMIDE 62.5 MCG ELLIPTA 1 PUFF INHALATION (07:38)
[2023-08-16 07:48] LABS: Alanine Aminotransferase 16 U/L (6-50); Albumin Level 2.9 g/dL (3.5-5.1); Alkaline Phosphatase 80 U/L (38-126); Anion Gap 9 mmol/L (8-16); Aspartate Amino Transferase 30 U/L (17-59); Bilirubin,Total 0.4 mg/dL (0.2-1.3); Blood Urea Nitrogen 41 mg/dL (9-20); Calcium 9.1 mg/dL (8.4-10.2); Carbon Dioxide 18 mmol/L (22-30); Chloride 110 mmol/L (98-107); Estimated CRCL calculation 27 ml/min; Estimated Glomerular Filt Rate 45; Glucose 94 mg/dL (65-110); Magnesium 1.6 mg/dL (1.6-2.3); Potassium 3.9 mmol/L (3.4-5.0); Sodium 137 mmol/L (137-145)
[2023-08-16 07:50] LABS: Hemoglobin 6.5 g/dL (14.0-18.0)
[2023-08-16 08:20] LABS: Thyroid Stimulating Hormone Reflex 0.499 uIU/mL (0.465-4.68)
[2023-08-16] MEDS: MEMANTINE 10 MG TABLET PO ×2 (08:31→20:57)
[2023-08-16] MEDS: MULTIVITAMINS THERAPEUTIC TAB (*BKC) 1 TABLET PO (08:31)
[2023-08-16] MEDS: TAMSULOSIN HCL 0.4 MG CAPSULE PO (08:31)
[2023-08-16] MEDS: ASCORBIC ACID 500 MG TABLET PO (08:31)
[2023-08-16] MEDS: VITAMIN B COMPLEX CAPSULE 1 CAP PO (08:31)
[2023-08-16] MEDS: LORATADINE 10 MG TABLET PO (08:31)
[2023-08-16] MEDS: ACETAMINOPHEN 500 MG TABLET 1000 MG PO ×2 (08:32→20:57)
[2023-08-16] MEDS: DONEPEZIL HCL 5 MG TABLET PO (08:32)
--- NOTE | 2023-08-16 08:35 | PM.CNCAR ---
Assessment and Plan Assessment and plan (1) Atrial fibrillation, new onset: Code(s): I48.91 - Unspecified atrial fibrillation Status: Acute (2) CAD (coronary artery disease): Qualifiers: Coronary Disease-Associated Artery/Lesion type: unspecified vessel or lesion type [place] vs. 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 He comes into the hospital with apparent hemorrhaging although it is a difficult from his inability to provide history exactly the likely source in this setting obviously he should not be anticoagulated and it appears that his warfarin has been stopped already since his INR on admission is normal. The patient is obviously at risk for cardioembolic phenomenon given his paroxysmal AFib as well as his mechanical aortic valve and a malignancy. He also was obviously not a candidate for anticoagulation in the setting of severe anemia. He is receiving a packed red cell transfusion today. The principal cardiac suggestion that I have is to consider DNR status in this setting where he has age chest willing the see which is not planned to be removed surgically. It is fine with me to resume his metoprolol as it will probably reduce the propensity to have further atrial fibrillation. Moris Mims MD [facility] History of Present Illness History of Present Illness Consult date/time: 08/16/23 08:35 Reason For Visit: GI bleed due to diverticulosis, rate controlled Narrative: This is an 83-year-old man I am seeing at the request of the hospitalist because of significant anemia, atrial fibrillation in the setting of a mechanical aortic valve. The patient is known to me for many years with a history of coronary and valvular heart disease. I valve replacement back in 2002 at which time he presented with symptomatic aortic valve stenosis. He also had significant RCA disease at that time and had a single-vessel bypass graft to the right coronary artery. Over the intervening years cardiac-tucker he has done remarkably well. He was last seen in my office in February of this year for routine follow-up and did not have any cardiovascular complaints. Of course he has been chronically anticoagulated with warfarin because of his mechanical [facility] aortic valve. The patient now is seriously ill unfortunately with a right upper lobe adenocarcinoma of the lung. He presented to the hospital recently with generalized weakness was found to have a lung mass which is been biopsy proven to be adenocarcinoma. He has been referred to a radiation oncologist for a treatment of this. According to the chart he came back into the hospital yesterday because of weakness and GI bleeding. I see notes in the chart the referred to coffee-ground emesis in other notes in the chart that referred to rectal bleeding. The patient himself has no idea why he is in the hospital and he states that his would know that. In the hospital today his hemoglobin continues to decline and is 6.5 today with normocytic indices. He is not thrombocytopenic. His hemoglobin a month ago was just under 10. Coumadin of course is not on his medication list it appears that it probably has been stop before admission since his admission INR is normal. He denies any symptoms of chest pain shortness of breath orthopnea PND or accumulating edema. Yesterday evening he converted f
[2023-08-16] MEDS: MAGNESIUM SULF 2 GM/WATER 50ML 2 GM/50 ML BAG IVPB (09:34)
[2023-08-16] MEDS: PANTOPRAZOLE SODIUM IV 40 MG VIAL IV PUSH ×2 (09:35→21:04)
[2023-08-16] MEDS: METOPROLOL SUCCINATE EXT REL 50 MG TABCR PO (09:35)
--- NOTE | 2023-08-16 10:40 | WPDGICN ---
Assessment and Plan Assessment and plan (1) Anemia: Code(s): D64.9 - Anemia, unspecified Status: Acute Assessment and Plan: Patient with anemia. This is normochromic and normocytic. Iron studies will be obtained. Gradual decline likely related to tumor. Stool Hemoccult was identified but this easily could be attributed to his radiation therapy for his prostate cancer. He does have poor stool control and poor bowel habits related to previous surgery and radiation therapy. EGD will be performed today because a history of dark stools. No GI service will be available over the weekend. Continue to monitor for any signs of bleeding. (2) Occult blood in stools: Code(s): R19.5 - Other fecal abnormalities Status: Acute Assessment and Plan: Occult positive stools. Could be secondary to iron or possibly related to radiation therapy for his prostate cancer. Cannot exclude GI blood loss. EGD will be Obtain. (3) Prostate cancer: Code(s): C61 - Malignant neoplasm of prostate Status: Acute (4) Presence of prosthetic heart valve: Code(s): Z95.2 - Presence of prosthetic heart valve Status: Chronic (5) Dementia: Code(s): F03.90 - Unspecified dementia, unspecified severity, without behavioral disturbance, psychotic disturbance, mood disturbance, and anxiety Status: Acute (6) Lung cancer: Code(s): C34.90 - Malignant neoplasm of unspecified part of unspecified bronchus or lung Status: Acute Assessment and Plan: Patient with lung cancer in addition to prostate cancer history of significant heart disease now with dementia. Agree with clarification of code status. GI Consult Note Consult date/time: 08/16/23 10:40 Reason for consult: Anemia HPI: Arley Nicholson is a 83 year old male I am asked to see at the request of the hospitalist service because of anemia and occult blood in stool. Place and has dementia is unable to give any useful history. 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 He received radiation therapy and surgery in the past. Seen in the GI office in the spring of this year because of incontinence of stools related to the surgery. This is not generally a problem. He has had no obvious bleeding. Patient recently identified as having a lung cancer. According to patient's family this is a 2nd primary. He was seen by radiation therapy adjust this week found to be anemic and started on Procrit. Patient apparently became somewhat weak at home and vomited dark material. For this reason he was admitted the hospital. Patient's hemoglobin today noted be 6.5 with a hemoglobin 21. MCV of 98. Patient denies any abdominal pain. Transfusion is in progress. Stool Hemoccult was found to be positive. Although stool was normal in appearance. Review of Systems Review of Systems: Review of systems noncontributory. [facility] Past Medical History Medical History (Updated 08/16/23 @ 11:03 by Lee Terrell MD) Alzheimer disease BPH (benign prostatic hyperplasia) CAD (coronary artery disease) Cervical spondylolysis Chronic low back pain Chronic obstructive pulmonary disease CKD (chronic kidney disease) stage 3, GFR 30-59 ml/min Environmental allergies Essential (primary) hypertension Gastro-esophageal reflux disease without esophagitis Hiatal hernia History of GI bleed History of renal stone Hyperlipidemia, unspecified Iron deficiency anemia Lung cancer RUL Nonrheumatic aortic (valve) stenosis Osteopenia 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
--- NOTE | 2023-08-16 11:13 | PM.IMPN ---
Progress Note: A&P Assessment and Plan (1) GI bleed: Code(s): K92.2 - Gastrointestinal hemorrhage, unspecified Status: Acute Assessment and Plan: Patient having n/v but not having coffee-ground emesis per . Stools are dark but he is on iron. He presents with n/v. Stool guaiac positive. Chronic anemia hgb 8-9 past month. Hgb 7.6 on admission and dropped to 6.5 today. Transfusion ordered. Check serial H&H after transfusion. Continue Protonix IV q.12h GI consult with plan for EGD later today (2) Acute on chronic anemia: Code(s): D64.9 - Anemia, unspecified Status: Acute Assessment and Plan: Patient probably has chronic anemia related to his CKD and lung cancer. As above. (3) Atrial fibrillation, new onset: Code(s): I48.91 - Unspecified atrial fibrillation Status: Acute Assessment and Plan: Patient with new onset atrial fibrillation probably related to the severe anemia. Metoprolol was initially held due to orthostatic hypotension related to the anemia. He did receive 1 dose of digoxin for AFib with RVR. Patient has converted back to normal sinus rhythm. Cardiology has been consulted. Metoprolol has been resumed Continue to monitor on telemetry TSH normal. Resume anticoagulation when able (4) CKD (chronic kidney disease): Code(s): N18.9 - Chronic kidney disease, unspecified Status: Acute Assessment and Plan: Baseline creatinine runs 1.4-2.0 range. Creatinine 1.5 on admission. Continue to follow. (5) History of mechanical aortic valve replacement: Code(s): Z95.2 - Presence of prosthetic heart valve Status: Acute Assessment and Plan: Patient with a history of mechanical aortic valve. Patient is on Coumadin. states INR was in the 3 range 4 days ago. INR not performed here so will go ahead and order one. Daily INR. Start heparin drip once INR is below 2. Appreciate cardiology input (6) Lung cancer: Code(s): C34.90 - Malignant neoplasm of unspecified part of unspecified bronchus or lung Status: Acute Assessment and Plan: Patient has a history of right upper lobe lung cancer. PET scan earlier this month showing no metastasis. Plan is for radiation treatment. CT of the abdomen shows small pleural effusions, large hiatal hernia and mild atelectasis of the lungs. Chest x-ray showed mild interstitial and airspace opacities in the bilateral lower lung zones which is consistent with atelectasis by CT scan. Chest x-ray also shows suprahilar right upper lobe mass consistent with the known lung cancer Doubt pneumonia. Stop antibiotics (7) Chronic obstructive pulmonary disease: Qualifiers: COPD type: unspecified COPD Qualified Code(s): J44.9 - Chronic obstructive pulmonary disease, unspecified Code(s): J44.9 - Chronic obstructive pulmonary disease, unspecified Status: Chronic Assessment and Plan: Stable. No wheezing. Is on room air. Continue inhalers (8) BPH (benign prostatic hyperplasia): Qualifiers: Lower urinary tract symptom presence: symptoms absent Qualified Code(s): N40.0 - Benign prostatic hyperplasia without lower urinary tract symptoms Code(s): N40.0 - Benign prostatic hyperplasia without lower urinary tract symptoms Status: Acute Assessment and Plan: Continue tamsulosin (9) Dementia: Code(s): F03.90 - Unspecified dementia, unspecified severity, without behavioral disturbance, psychotic disturbance, mood disturbance, and anxiety Status: Acute Assessment and Plan: Stable. Continue Aricept and Namenda Plan DVT prophylax -SCDs Code status -full Discussed with family about code status and they will consider choices. Subjective Date/time seen: 08/16/23 11:13 Interval history: 83yo male with recently diagnosed lung CA, [facility] mechanical Aortic valve replacement on a
--- NOTE | 2023-08-16 11:50 | PC.NURSE ---
pt to GI lab via stretcher. blood hanging
[2023-08-16 11:51] LABS: INR 1.7; Prothrombin Time 21.4 Seconds (11.1-14.7)
[2023-08-16 11:54] LABS: Iron 29 ug/dL (49-181)
[2023-08-16 12:04] LABS: Percent Iron Saturation 13 % (20-50)
--- NOTE | 2023-08-16 12:04 | WPDANESEPPF ---
Anes - Initial Pre Proc Eval Procedure: Operation Date: 08/16/23 13:00 Proposed Procedures p Esophagogastroduodenoscopy - Lee Terrell MD Date/Time: 08/16/23 12:04 Surgeon: Velvet Kahn MD Pre Op Diagnosis: GI bleed due to diverticulosis, rate controlled Patient Data Age: 83 Gender: M Height: 1.73 m Weight: 57.5 kg Last Vital Signs Temp 37.0 C 08/16/23 11:19 Pulse 65 08/16/23 11:19 Resp 14 08/16/23 11:19 BP 151/53 H 08/16/23 11:19 Pulse Ox 99 08/16/23 11:19 O2 Del Method Room Air 08/16/23 07:25 O2 Flow Rate 2 08/15/23 14:58 Allergies Allergy/AdvReac Type Severity Reaction Status Date / Time codeine AdvReac Unknown Nausea and Verified 08/16/23 12:08 Vomiting hydrocodone AdvReac Unknown Nausea and Verified 08/16/23 12:08 Vomiting Home Medications Medication Instructions Recorded Confirmed Type memantine 10 mg tablet 10 mg PO BID 03/22/21 08/15/23 History ascorbic acid (vitamin C) 500 mg 500 mg PO DAILY 04/27/21 08/15/23 History capsule cetirizine 10 mg tablet (Zyrtec) 10 mg PO DAILY 04/27/21 08/15/23 History calcium carbonate 600 mg-vitamin 1 tablet PO BID 10/18/21 08/15/23 History D3 20 mcg (800 unit) chewable tablet (Caltrate 600 plus D) Daily Multivitamin 1 tablet PO DAILY 01/23/22 08/15/23 History acetaminophen 325 mg tablet 1,000 mg PO BID 01/23/22 08/15/23 History (Tylenol) ferrous sulfate 325 mg (65 mg 325 mg PO DAILY 01/23/22 08/15/23 History iron) tablet folic acid 800 mcg tablet 800 mcg PO DAILY 01/23/22 08/15/23 History vitamin B complex (B 1 tablet PO DAILY 08/23/22 08/16/23 History Complex-Vitamin B12 tablet) tiotropium bromide 18 mcg capsule 1 cap inhalation DAILY #90 11/26/22 08/15/23 Rx with inhalation device (Spiriva inhalations with HandiHaler) fluticasone 250 mcg-salmeterol 50 1 inh inhalation BID #60 ea 11/27/22 08/15/23 Rx mcg/dose blistr powdr for inhalation (Silvino Santosub) olmesartan 40 1 tablet PO DAILY #90 tabs 03/18/23 08/15/23 Rx mg-hydrochlorothiazide 25 mg tablet donepezil 10 mg tablet 5 mg PO DAILY 05/02/23 08/15/23 History fesoterodine 8 mg tablet,extended 8 mg PO DAILY 05/02/23 08/15/23 History release 24 hr pantoprazole 20 mg tablet,delayed 20 mg PO QAM #90 tabs 05/07/23 08/15/23 Rx release tamsulosin 0.4 mg capsule (Flomax) 0.4 mg PO DAILY #90 caps 05/22/23 08/15/23 Rx ibandronate 150 mg tablet 150 mg PO MONTHLY #4 tabs 05/24/23 08/15/23 Rx ropinirole 0.25 mg tablet 0.25 mg PO QHS #90 tabs 05/27/23 08/15/23 Rx citalopram 40 mg tablet See Rx Instructions .Route 06/11/23 08/15/23 Rx .COMPLEX #90 tabs tramadol 50 mg tablet 50 mg PO BID PRN pain #180 tabs 06/11/23 08/15/23 Rx atorvastatin 40 mg tablet 40 mg PO QHS #90 tabs 06/13/23 08/15/23 Rx albuterol sulfate 90 mcg/actuation 2 puff inhalation Q4H PRN 07/31/23 08/15/23 Rx aerosol inhaler shortness of breath or wheezing #8.5 grams ondansetron 4 mg disintegrating 4 mg PO Q8H PRN nausea and 07/31/23 08/15/23 Rx tablet vomiting #15 tabs metoprolol tartrate 50 mg tablet 25 mg PO BID #180 tabs 08/07/23 08/15/23 Rx Laboratory Tests 08/15/23 08/15/23 08/15/23 13:10 14:47 14:59 WBC 10.7 H K/mm3 (4.5-10.0) RBC 2.53 L M/mm3 (4.6-6.20) Hgb 7.6 L g/dL (14.0-18.0) Hct 24.8 L % (42.0-52.0) MCV 98.0 fl (80-100) MCH 30.0 pg (26-34) MCHC 30.6 L g/dl (32-36) RDW 14.6 H % (11.5-14.5) Plt Count 315 k/mm3 (150-375) MPV 9.9 fl (7.4-10.4) Immature Gran % (Auto) 1.0 H % (0-0.5) Neut % (Auto) 89.5 H % (45.5-73.1) Lymph % (Auto) 4.1 L % (18.3-44.2) Sullivan % (Auto) 4.9 % (2.6-8.5) Eos % (Auto) 0.2 % (0-4.4) Baso % (Auto) 0.3 % (0.2-1.2) Lymph # (Auto) 0.44 L K/mm3 (0.9-3.2) Sullivan # (Auto) 0.5 K/mm3 (0.1-0.6) Eos # (Auto) 0.0 K/
[2023-08-16] MEDS: LACTATED RINGERS 1,000 ML 150 ML IV CONT (12:07)
[2023-08-16] MEDS: SODIUM CHLORIDE 0.9% IV 250 ML 30 ML IV CONT (12:31)
[2023-08-16] MEDS: TUBING, BLOOD PLUM PUMP TUBING 1 EACH XX ×2 (12:31→17:22)
[2023-08-16] MEDS: FERROUS SULFATE 325 MG TABLET DR PO (13:47)
[2023-08-16] MEDS: FOLIC ACID 0.4 MG TABLET 0.8 MG PO (13:47)
[2023-08-16] MEDS: FUROSEMIDE INJ 40 MG/4 ML VIAL 20 MG IV PUSH (13:49)
[2023-08-16] MEDS: SODIUM CHLORIDE 0.9% IV 250 ML 50 ML (17:22)
--- NOTE | 2023-08-16 19:57 | PC.NURSE ---
blood complete H&H ordered for 2200 to recheck H&H
[2023-08-16] MEDS: rOPINIRole HCL 0.25 MG TABLET PO (20:57)
[2023-08-16] MEDS: ATORVASTATIN 40 MG TABLET PO (20:57)
[2023-08-16 22:00] LABS: Hematocrit 25.2 % (42.0-52.0)
--- NOTE | 2023-08-16 22:36 | PC.NURSE ---
H&H 8.0/25.5 after 2 units infused.
[2023-08-17] VITALS (12 sets, daily range): BP systolic 139–174; BP diastolic 50–52; PULSE 48–76; RESP 16–18; TEMP 36.2–36.5; O2SAT 97–100
--- NOTE | 2023-08-17 00:06 | PC.NURSE ---
trazodone 50 mg due to difficulty sleeping and restlessness.
[2023-08-17] MEDS: traZODone HCL 50 MG TABLET PO ×2 (01:34→20:49)
[2023-08-17] MEDS: traMADol HCL (*CRX) 50 MG TABLET PO (01:35)
[2023-08-17 06:31] LABS: Basophils Percent Auto 0.3 % (0.2-1.2); Eosinophils Absolute Auto 0.3 K/mm3 (0-0.3); Eosinophils Percent Auto 4.9 % (0-4.4); Hematocrit 27.7 % (42.0-52.0); Hemoglobin 8.6 g/dL (14.0-18.0); Immature Granulocyte Absolute 0.02 K/mm3 (0.00-0.031); Immature Granulocyte Percent A 0.3 % (0-0.5); Lymphocytes Absolute Auto 0.82 K/mm3 (0.9-3.2); Lymphocytes Percent Auto 13.9 % (18.3-44.2); Mean Corpuscular Hemoglobin 29.1 pg (26-34); Mean Corpuscular Volume 93.6 fl (80-100); Mean Platelet Volume 9.4 fl (7.4-10.4); Monocytes Absolute Auto 0.6 K/mm3 (0.1-0.6); Monocytes Percent Auto 10.2 % (2.6-8.5); Neutrophils Absolute Auto 4.2 K/mm3 (1.3-6.7); Neutrophils Percent Auto 70.4 % (45.5-73.1); Platelet Count Result 231 k/mm3 (150-375); Red Blood Count 2.96 M/mm3 (4.6-6.20); Red Cell Distribution Width 16.3 % (11.5-14.5); White Blood Count 5.9 K/mm3 (4.5-10.0)
[2023-08-17 06:43] LABS: INR 1.8; Prothrombin Time 21.9 Seconds (11.1-14.7)
[2023-08-17 06:47] LABS: Potassium 3.3 mmol/L (3.4-5.0)
[2023-08-17 06:56] LABS: Alanine Aminotransferase 18 U/L (6-50); Albumin Level 2.8 g/dL (3.5-5.1); Alkaline Phosphatase 80 U/L (38-126); Anion Gap 7 mmol/L (8-16); Aspartate Amino Transferase 31 U/L (17-59); Bilirubin,Total 0.5 mg/dL (0.2-1.3); Blood Urea Nitrogen 29 mg/dL (9-20); Carbon Dioxide 22 mmol/L (22-30); Chloride 105 mmol/L (98-107); Estimated CRCL calculation 27 ml/min; Estimated Glomerular Filt Rate 45; Glucose 100 mg/dL (65-110); Magnesium 1.9 mg/dL (1.6-2.3); Sodium 134 mmol/L (137-145)
[2023-08-17 08:32] LABS: Partial Thromboplastin Time 37.3 SECONDS (22.3-36.8)
[2023-08-17] MEDS: ACETAMINOPHEN 500 MG TABLET 1000 MG PO ×2 (08:50→20:48)
[2023-08-17] MEDS: MULTIVITAMINS THERAPEUTIC TAB (*BKC) 1 TABLET PO (08:50)
[2023-08-17] MEDS: TAMSULOSIN HCL 0.4 MG CAPSULE PO (08:50)
[2023-08-17] MEDS: LORATADINE 10 MG TABLET PO (08:50)
[2023-08-17] MEDS: VITAMIN B COMPLEX CAPSULE 1 CAP PO (08:50)
[2023-08-17] MEDS: ASCORBIC ACID 500 MG TABLET PO (08:50)
[2023-08-17] MEDS: METOPROLOL SUCCINATE EXT REL 50 MG TABCR PO (08:50)
[2023-08-17] MEDS: MEMANTINE 10 MG TABLET PO ×2 (08:51→20:49)
[2023-08-17] MEDS: PANTOPRAZOLE SODIUM IV 40 MG VIAL IV PUSH (08:51)
[2023-08-17] MEDS: DONEPEZIL HCL 5 MG TABLET PO (08:51)
[2023-08-17] MEDS: FOLIC ACID 0.4 MG TABLET 0.8 MG PO (09:40)
[2023-08-17] MEDS: POTASSIUM CHLORIDE 20 MEQ PACKET (FOR LIQUID) PO (09:40)
--- NOTE | 2023-08-17 10:24 | PM.IMPN ---
Progress Note: A&P Assessment and Plan (1) GI bleed: Code(s): K92.2 - Gastrointestinal hemorrhage, unspecified Status: Acute Assessment and Plan: Patient having n/v but did not have coffee-ground emesis per . Stools are dark but he is on iron. He presents with n/v. Stool guaiac positive. Chronic anemia hgb 8-9 past month. Hgb 7.6 on admission and dropped to 6.5 on 08/16 requiring 2U PRBC. ED showing hiatal hernia and periampullary diverticulum but no evidence of bleeding. Hgb 8.6 today. Change Protonix Monitor HH (2) Acute on chronic anemia: Code(s): D64.9 - Anemia, unspecified Status: Acute Assessment and Plan: Patient probably has chronic anemia related to his CKD and lung cancer. Baseline hgb about 9-10 As above. (3) Atrial fibrillation, new onset: Code(s): I48.91 - Unspecified atrial fibrillation Status: Acute Assessment and Plan: Patient with new onset atrial fibrillation probably related to the severe anemia. Metoprolol was initially held due to orthostatic hypotension related to the anemia. He did receive 1 dose of digoxin for AFib with RVR. Patient has converted back to normal sinus rhythm. TSH normal Cardiology has been consulted. Metoprolol has been resumed Continue to monitor on telemetry Resume anticoagulation (4) CKD (chronic kidney disease): Code(s): N18.9 - Chronic kidney disease, unspecified Status: Acute Assessment and Plan: Baseline creatinine runs 1.4-2.0 range. Creatinine 1.5 on admission. Cr stable today Continue to follow. (5) History of mechanical aortic valve replacement: Code(s): Z95.2 - Presence of prosthetic heart valve Status: Acute Assessment and Plan: Patient with a history of mechanical aortic valve. Patient is on Coumadin. states INR was in the 3 range 4 days ago. INR 1.7 yesterday Repeat INR 1.8 today. Start Heparin drip since INR<2 Start Coumadin back Daily INR. Appreciate cardiology input (6) Lung cancer: Code(s): C34.90 - Malignant neoplasm of unspecified part of unspecified bronchus or lung Status: Acute Assessment and Plan: Patient has a history of right upper lobe lung cancer. PET scan earlier this month showing no metastasis. Plan is for radiation treatment. CT of the abdomen shows small pleural effusions, large hiatal hernia and mild atelectasis of the lungs. Chest x-ray showed mild interstitial and airspace opacities in the bilateral lower lung zones which is consistent with atelectasis by CT scan. Chest x-ray also shows suprahilar right upper lobe mass consistent with the known lung cancer Doubt pneumonia so abx stopped. (7) Chronic obstructive pulmonary disease: Qualifiers: COPD type: unspecified COPD Qualified Code(s): J44.9 - Chronic obstructive pulmonary disease, unspecified Code(s): J44.9 - Chronic obstructive pulmonary disease, unspecified Status: Chronic Assessment and Plan: Stable. No wheezing. Stable on room air. Continue inhalers (8) BPH (benign prostatic hyperplasia): Qualifiers: Lower urinary tract symptom presence: symptoms absent Qualified Code(s): N40.0 - Benign prostatic hyperplasia without lower urinary tract symptoms Code(s): N40.0 - Benign prostatic hyperplasia without lower urinary tract symptoms Status: Acute Assessment and Plan: Continue tamsulosin (9) Dementia: Code(s): F03.90 - Unspecified dementia, unspecified severity, without behavioral disturbance, psychotic disturbance, mood disturbance, and anxiety Status: Acute Assessment and Plan: Stable. Continue Aricept and Namenda Plan DVT prophylax -Heparin Code status -full Subjective Date/time seen: 08/17/23 10:24 Interval history: 83yo male with recently diagnosed lung CA, [facility] mechanical Aortic valve replacement on anticoagulat
[2023-08-17] MEDS: FLUTICASONE/SALMETEROL 115-21 MCG INHALER 1 PUFF 2 PUFF INHALATION ×2 (11:09→21:18)
[2023-08-17] MEDS: UMECLIDINIUM BROMIDE 62.5 MCG ELLIPTA 1 PUFF INHALATION (11:09)
[2023-08-17] MEDS: HEPARIN SODIUM 5,000 UNITS/ML VIAL 3500 UNITS IV PUSH (11:37)
[2023-08-17] MEDS: HEPARIN SOD/D5W 100 UNITS/ML 25,000 UNITS/250 ML BAG 7 UNITS IV CONT (11:38)
[2023-08-17] MEDS: FERROUS SULFATE 325 MG TABLET DR PO (11:45)
[2023-08-17 12:49] LABS: Hemoglobin 8.7 g/dL (14.0-18.0)
--- NOTE | 2023-08-17 13:26 | WPDGIPROGNO ---
Progress Note: A&P Assessment and Plan (1) Acute on chronic anemia: Code(s): D64.9 - Anemia, unspecified Status: Acute Assessment and Plan: egd without signs of bleeding or anything to explain anemia probably anemia of chronic disease good response after blood transfusion and now back on anticoagulation if hgb drops again or obvious overt gib then we can consider colonoscopy but for now prefer conservative approach (2) GI bleed: Code(s): K92.2 - Gastrointestinal hemorrhage, unspecified Status: Acute Assessment and Plan: egd negative (3) Atrial fibrillation, new onset: Code(s): I48.91 - Unspecified atrial fibrillation Status: Acute Assessment and Plan: on treatment (4) History of mechanical aortic valve replacement: Code(s): Z95.2 - Presence of prosthetic heart valve Status: Acute Assessment and Plan: heparin gtt (5) Chronic obstructive pulmonary disease: Qualifiers: COPD type: unspecified COPD Qualified Code(s): J44.9 - Chronic obstructive pulmonary disease, unspecified Code(s): J44.9 - Chronic obstructive pulmonary disease, unspecified Status: Chronic (6) Lung cancer: Code(s): C34.90 - Malignant neoplasm of unspecified part of unspecified bronchus or lung Status: Acute Subjective Date/time seen: 08/17/23 13:26 Interval history: egd yesterday without any finding to explain anemia he responded to blood transfusion now on heparin gtt Review of Systems Review of Systems: All systems reviewed & are unremarkable except as noted in HPI and below Exam Narrative: Gen - comfortable neck- supple ENT- hard of hearing Chest - CTA bilaterally. nml RR CV - irregularly irregular. mechanical S2. Abd - Soft, NT/ND, Positive BS Ext - No pedal edema Neuro - Alert but confused Psych - pleasant and cooperative Skin - Warm and dry Objective Data Vital Signs Vital Signs: Vital Signs - 24 hr 08/16/23 14:00 08/16/23 17:19 08/16/23 17:36 Temperature 97.8 F 98.1 F 98.1 F Pulse Rate 60 68 60 Respiratory Rate 24 H 12 15 Blood Pressure 138/78 168/52 H 154/54 H Pulse Oximetry 98 99 99 Oxygen Delivery 08/16/23 17:37 08/16/23 19:19 08/16/23 19:37 Temperature 98.6 F 98.6 F 98.4 F Pulse Rate 68 68 68 Respiratory Rate 14 14 16 Blood Pressure 175/63 H 175/63 H 172/66 H Pulse Oximetry 98 98 96 Oxygen Delivery 08/16/23 20:00 08/16/23 20:00 08/16/23 21:50 Temperature 97.0 F L Pulse Rate 68 63 93 Respiratory Rate 18 Blood Pressure 163/51 H Pulse Oximetry 96 99 Oxygen Delivery Room Air 08/16/23 22:01 08/17/23 00:00 08/17/23 04:00 Temperature Pulse Rate 93 59 L 50 L Respiratory Rate Blood Pressure Pulse Oximetry 97 Oxygen Delivery Room Air 08/17/23 06:00 08/17/23 08:50 08/17/23 11:09 Temperature 97.5 F L Pulse Rate 55 L 71 Respiratory Rate 18 Blood Pressure 174/50 H Pulse Oximetry 98 98 Oxygen Delivery Room Air 08/17/23 08:00 Temperature Pulse Rate 71 Respiratory Rate 18 Blood Pressure Pulse Oximetry 98 Oxygen Delivery Room Air Intake/Output Intake/Output: Intake & Output 08/14/23 08/15/23 08/16/23 08/17/23 23:59 23:59 23:59 23:59 Intake Total 2020 605 Output Total 200 Balance 1820 605 Meds/Results Medications: Active Medications Generic Name Dose Route Start Last Admin Trade Name Freq PRN Reason Stop Dose Admin Acetaminophen 650 mg 08/15/23 17:07 Acetaminophen 325 Mg Tablet PO Q4H PRN Mild Pain (1-3) or Fever Acetaminophen 1,000 mg 08/16/23 09:00 08/17/23 08:50 Acetaminophen 500 Mg Tablet PO 1,000 mg Q12HR BLAKE Administration Albuterol 2 puff 08/16/23 05:07 Albuterol Sulfate (*Sp) Aerosol 1 Puff INHALATION Q4HRT PRN shortness of breath or wheezing Ascorbic Acid 500 mg 08/16/23 09:00 08/17/23 08:50 Ascorbic Acid 500 Mg Tablet PO 500 mg DAILY [facility]
--- NOTE | 2023-08-17 16:04 | PM.PNCARD ---
Progress Note: A&P Assessment and Plan (1) History of mechanical aortic valve replacement: Code(s): Z95.2 - Presence of prosthetic heart valve Status: Acute Assessment and Plan: Patient has a mechanical aortic valve replacement with a [employer] valve. Warfarin has been held due to his acute anemia which has improved after 2 units of packed cells. Increased risk of valve thrombosis and stroke due to the presence of a mechanical valve and his PAF in addition to his prothrombotic state from having cancer. Currently on heparin and doctor Parminder would like to resume warfarin. --Daily H&H --INR goal 2.0-3.0. (2) Acute on chronic anemia: Code(s): D64.9 - Anemia, unspecified Status: Acute Assessment and Plan: Thought to be a degree of anemia chronic disease although he was guaiac positive. EGD unremarkable. H&H seems stable after 2 units of pack cells. No recurrence. Will keep INR goal at 2.0-3.0 in view of the entire picture. --Daily H&H (3) Atrial fibrillation, new onset: Code(s): I48.91 - Unspecified atrial fibrillation Status: Acute Assessment and Plan: One episode of atrial fibrillation, now in sinus rhythm. (4) Lung cancer: Code(s): C34.90 - Malignant neoplasm of unspecified part of unspecified bronchus or lung Status: Acute Assessment and Plan: History of upper lobe bronchogenic cancer, planning radiation therapy. Subjective Date/time seen: 08/17/23 16:04 Interval history: Follow-up for mechanical aortic valve replacement with a [employer] valve, anemia with guaiac-positive stool, new onset of atrial fibrillation and CAD. Also has right upper lobe adenocarcinoma, 08/16/2023: Continue to hold warfarin, resume metoprolol, evaluate code status. Date of service 08/17/2023: Patient a bit confused, at the bedside. No shortness of breath walking to bathroom and back. EGD was negative, guaiac-positive but possibly anemia of chronic disease, status post 2 units of packed cells. Gi finds pt being back on anticoagulation with heparin acceptable. Doctor for I would like to resume warfarin.. Ms. Nicohlson had questions about the patient's upcoming radiation therapy and his GI evaluation which I deferred to the respective specialist. INR today was 1.8, hemoglobin 8.7. Telemetry: No further atrial fibrillation Review of Systems Review of Systems: Some confusion and weakness but no complaints of chest pain, PICKETT, or overt bleeding. Exam Const: General: cooperative and comfortable; No confusion Orientation/consciousness: oriented to person and No confusion Other: Frail elderly male, at bedside, no distress HENMT: Mouth: Yes moist mucous membranes Eyes: General: appearance normal, both eyes and all related structures Neck: Neck: supple Resp: Effort & Inspection: normal respiratory effort Auscultation: clear to auscultation bilaterally Cardio: Rate: regular rate Rhythm: regular rhythm GI: Inspection: normal to inspection GI Palp: No abdominal tenderness Skin: General skin exam: normal color and no rashes or lesions noted Neuro: General: oriented to person and No confusion Extrem: Right lower extremity: no edema Left lower extremity: no edema Psych: Appearance: grossly normal Mental Status: mental status grossly abnormal (Memory loss) Objective Data Vital Signs Vital Signs: Vital Signs - 24 hr 08/16/23 17:19 08/16/23 17:36 08/16/23 17:37 Temperature 98.1 F 98.1 F 98.6 F Pulse Rate 68 60 68 Respiratory Rate 12 15 14 Blood Pressure 168/52 H 154/54 H 175/63 H Pulse Oximetry 99 99 98 Oxygen Delivery 08/16/23 19:19 08/16/23 19:37 08/16/23 20:00 Temperature 98.6 F 98.4 F Pulse Rate 68 68 68 Respiratory Rate 14 16 Blood Pressure 175/63 H 172/66 H Pulse Oximetry 98 96 96 Oxygen Delivery Room Air 08/16/23 20:00 08/16/23 21:50 08/16/23 22:01 Temperature 97.0 F L Pulse Rate 63
[2023-08-17 18:38] LABS: Hematocrit 26.3 % (42.0-52.0); Hemoglobin 8.2 g/dL (14.0-18.0)
[2023-08-17 18:51] LABS: Partial Thromboplastin Time 126.1 SECONDS (22.3-36.8)
[2023-08-17] MEDS: WARFARIN (*PBKC) 2 MG TABLET PO (20:48)
[2023-08-17] MEDS: rOPINIRole HCL 0.25 MG TABLET PO (20:48)
[2023-08-17] MEDS: ATORVASTATIN 40 MG TABLET PO (20:49)
[2023-08-18] VITALS (9 sets, daily range): BP systolic 147–157; BP diastolic 50–62; PULSE 50–72; RESP 16–18; TEMP 35.8–36.8; O2SAT 95–97
[2023-08-18 02:00] LABS: Basophils Percent Auto 0.3 % (0.2-1.2); Eosinophils Absolute Auto 0.4 K/mm3 (0-0.3); Eosinophils Percent Auto 6.2 % (0-4.4); Hemoglobin 8.1 g/dL (14.0-18.0); Immature Granulocyte Absolute 0.03 K/mm3 (0.00-0.031); Immature Granulocyte Percent A 0.5 % (0-0.5); Lymphocytes Absolute Auto 0.83 K/mm3 (0.9-3.2); Lymphocytes Percent Auto 13.5 % (18.3-44.2); Mean Corpuscular HGB Conc 31.2 g/dl (32-36); Mean Corpuscular Hemoglobin 29.5 pg (26-34); Mean Corpuscular Volume 94.5 fl (80-100); Mean Platelet Volume 10.2 fl (7.4-10.4); Monocytes Absolute Auto 0.7 K/mm3 (0.1-0.6); Monocytes Percent Auto 11.1 % (2.6-8.5); Neutrophils Absolute Auto 4.2 K/mm3 (1.3-6.7); Neutrophils Percent Auto 68.4 % (45.5-73.1); Platelet Count Result 221 k/mm3 (150-375); Red Blood Count 2.75 M/mm3 (4.6-6.20); Red Cell Distribution Width 16.4 % (11.5-14.5); White Blood Count 6.1 K/mm3 (4.5-10.0)
[2023-08-18 02:14] LABS: Anion Gap 5 mmol/L (8-16); Blood Urea Nitrogen 24 mg/dL (9-20); Calcium 8.8 mg/dL (8.4-10.2); Carbon Dioxide 24 mmol/L (22-30); Chloride 104 mmol/L (98-107); Estimated CRCL calculation 29 ml/min; Estimated Glomerular Filt Rate 48; Glucose 110 mg/dL (65-110); Potassium 3.3 mmol/L (3.4-5.0); Sodium 133 mmol/L (137-145)
[2023-08-18 02:24] LABS: INR 1.7; Prothrombin Time 21.3 Seconds (11.1-14.7)
[2023-08-18 02:25] LABS: Partial Thromboplastin Time 38.5 SECONDS (22.3-36.8)
[2023-08-18] MEDS: HEPARIN SODIUM 5,000 UNITS/ML VIAL 4000 UNITS IV PUSH (02:40)
[2023-08-18] MEDS: DONEPEZIL HCL 5 MG TABLET PO (08:56)
[2023-08-18] MEDS: PANTOPRAZOLE 40 MG TABLET PO (08:56)
[2023-08-18] MEDS: FOLIC ACID 0.4 MG TABLET 0.8 MG PO (08:56)
[2023-08-18] MEDS: MULTIVITAMINS THERAPEUTIC TAB (*BKC) 1 TABLET PO (08:56)
[2023-08-18] MEDS: VITAMIN B COMPLEX CAPSULE 1 CAP PO (08:56)
[2023-08-18] MEDS: ACETAMINOPHEN 500 MG TABLET 1000 MG PO ×2 (08:56→19:51)
[2023-08-18] MEDS: ASCORBIC ACID 500 MG TABLET PO (08:56)
[2023-08-18] MEDS: LORATADINE 10 MG TABLET PO (08:56)
[2023-08-18] MEDS: METOPROLOL SUCCINATE EXT REL 50 MG TABCR PO (08:57)
[2023-08-18] MEDS: TAMSULOSIN HCL 0.4 MG CAPSULE PO (08:57)
[2023-08-18] MEDS: MEMANTINE 10 MG TABLET PO ×2 (08:57→19:51)
[2023-08-18] MEDS: FLUTICASONE/SALMETEROL 115-21 MCG INHALER 1 PUFF 2 PUFF INHALATION ×2 (09:36→22:08)
[2023-08-18] MEDS: UMECLIDINIUM BROMIDE 62.5 MCG ELLIPTA 1 PUFF INHALATION (09:37)
--- NOTE | 2023-08-18 10:00 | WPDGIPROGNO ---
Progress Note: A&P Assessment and Plan (1) Acute on chronic anemia: Code(s): D64.9 - Anemia, unspecified Status: Acute Assessment and Plan: egd without signs of bleeding or anything to explain anemia probably anemia of chronic disease, no overt gib good response after blood transfusion and now back on anticoagulation no need of colonoscopy unless obvious GIB or drop in h/h will follow [place] as needed (2) GI bleed: Code(s): K92.2 - Gastrointestinal hemorrhage, unspecified Status: Acute Assessment and Plan: egd negative (3) Atrial fibrillation, new onset: Code(s): I48.91 - Unspecified atrial fibrillation Status: Acute Assessment and Plan: on treatment (4) History of mechanical aortic valve replacement: Code(s): Z95.2 - Presence of prosthetic heart valve Status: Acute Assessment and Plan: heparin gtt and coumadin (5) Chronic obstructive pulmonary disease: Qualifiers: COPD type: unspecified COPD Qualified Code(s): J44.9 - Chronic obstructive pulmonary disease, unspecified Code(s): J44.9 - Chronic obstructive pulmonary disease, unspecified Status: Chronic (6) Lung cancer: Code(s): C34.90 - Malignant neoplasm of unspecified part of unspecified bronchus or lung Status: Acute Subjective Date/time seen: 08/18/23 10:00 Interval history: no signs of bleeding, he is comfortable, family member at bedside Review of Systems Review of Systems: All systems reviewed & are unremarkable except as noted in HPI and below Exam Narrative: Gen - comfortable neck- supple ENT- hard of hearing Chest - CTA bilaterally. nml RR CV - irregularly irregular. mechanical S2. Abd - Soft, NT/ND, Positive BS Ext - No pedal edema Neuro - Alert but confused Psych - pleasant and cooperative Skin - Warm and dry Objective Data Vital Signs Vital Signs: Vital Signs - 24 hr 08/17/23 11:09 08/17/23 14:00 08/17/23 12:00 Temperature 97.1 F L Pulse Rate 52 L 53 L Respiratory Rate 16 Blood Pressure 166/52 H Pulse Oximetry 98 100 Oxygen Delivery Room Air 08/17/23 16:00 08/17/23 21:19 08/17/23 20:00 Temperature Pulse Rate 76 74 48 L Respiratory Rate 18 Blood Pressure Pulse Oximetry Oxygen Delivery 08/17/23 22:00 08/18/23 00:00 08/18/23 04:00 Temperature 97.7 F Pulse Rate 53 L 53 L 72 Respiratory Rate 16 Blood Pressure 139/52 L Pulse Oximetry 97 Oxygen Delivery 08/18/23 06:00 08/18/23 08:57 08/18/23 08:00 Temperature 98.2 F Pulse Rate 50 L 56 L Respiratory Rate 18 Blood Pressure 147/50 H Pulse Oximetry 95 Oxygen Delivery Room Air Intake/Output Intake/Output: Intake & Output 08/15/23 08/16/23 08/17/23 08/18/23 23:59 23:59 23:59 23:59 Intake Total 2020 1095 250 Output Total 200 125 Balance 1820 1095 125 Meds/Results Medications: Active Medications Generic Name Dose Route Start Last Admin Trade Name Freq PRN Reason Stop Dose Admin Acetaminophen 650 mg 08/15/23 17:07 Acetaminophen 325 Mg Tablet PO Q4H PRN Mild Pain (1-3) or Fever Acetaminophen 1,000 mg 08/16/23 09:00 08/18/23 08:56 Acetaminophen 500 Mg Tablet PO 1,000 mg Q12HR BLAKE Administration Albuterol 2 puff 08/16/23 05:07 Albuterol Sulfate (*Sp) Aerosol 1 Puff INHALATION Q4HRT PRN shortness of breath or wheezing Ascorbic Acid 500 mg 08/16/23 09:00 08/18/23 08:56 Ascorbic Acid 500 Mg Tablet PO 500 mg DAILY BLAKE Administration Atorvastatin Calcium 40 mg 08/16/23 21:00 08/17/23 20:49 Atorvastatin 40 Mg Tablet PO 40 mg QHS BLAKE Administration Calcium Carbonate 500 mg 08/16/23 09:00 08/17/23 17:19 Calcium/Vitamin D 500 Mg Tablet PO 09/15/23 08:59 500 mg BID BLAKE Administration Donepezil HCl 5 mg 08/16/23 09:00 08/18/23 08:56 Donepezil Hcl 5 Mg Tablet PO 5 mg DAILY BLAKE Administration Fe
[2023-08-18 10:38] LABS: Partial Thromboplastin Time > 200.0 SECONDS (22.3-36.8)
--- NOTE | 2023-08-18 11:50 | PM.IMPN ---
Progress Note: A&P Assessment and Plan (1) GI bleed: Code(s): K92.2 - Gastrointestinal hemorrhage, unspecified Status: Acute Assessment and Plan: Patient having n/v but did not have coffee-ground emesis per . Stools are dark but he is on iron. Stool guaiac positive. Chronic anemia hgb 8-9 past month. Hgb 7.6 on admission and dropped to 6.5 on 08/16 requiring 2U PRBC. ED showing hiatal hernia and periampullary diverticulum but no evidence of bleeding. Hgb 8.1 today. Continue Protonix Monitor HH (2) Acute on chronic anemia: Code(s): D64.9 - Anemia, unspecified Status: Acute Assessment and Plan: Patient probably has chronic anemia related to his CKD and lung cancer. Baseline hgb about 9-10 As above. (3) Atrial fibrillation, new onset: Code(s): I48.91 - Unspecified atrial fibrillation Status: Acute Assessment and Plan: Patient with new onset atrial fibrillation probably related to the severe anemia. Metoprolol was initially held due to orthostatic hypotension related to the anemia. He did receive 1 dose of digoxin for AFib with RVR. Patient has converted back to normal sinus rhythm. TSH normal Cardiology has been consulted. Metoprolol has been resumed Continue to monitor on telemetry Continue anticoagulation (4) CKD (chronic kidney disease): Code(s): N18.9 - Chronic kidney disease, unspecified Status: Acute Assessment and Plan: Baseline creatinine runs 1.4-2.0 range. Creatinine 1.5 on admission. Cr stable today Continue to follow. (5) History of mechanical aortic valve replacement: Code(s): Z95.2 - Presence of prosthetic heart valve Status: Acute Assessment and Plan: Patient with a history of mechanical aortic valve. Patient is on Coumadin. He is on Coumadin 2mg/3mg with alternating schedule and depending on home INR Repeat INR 1.7 Heparin drip started 08/17 Continue Coumadin Daily INR. Appreciate cardiology input (6) Lung cancer: Code(s): C34.90 - Malignant neoplasm of unspecified part of unspecified bronchus or lung Status: Acute Assessment and Plan: Patient has a history of right upper lobe lung cancer. PET scan earlier this month showing no metastasis. Plan is for radiation treatment. CT of the abdomen shows small pleural effusions, large hiatal hernia and mild atelectasis of the lungs. Chest x-ray showed mild interstitial and airspace opacities in the bilateral lower lung zones which is consistent with atelectasis by CT scan. Chest x-ray also shows suprahilar right upper lobe mass consistent with the known lung cancer Doubt pneumonia so abx stopped. (7) Chronic obstructive pulmonary disease: Qualifiers: COPD type: unspecified COPD Qualified Code(s): J44.9 - Chronic obstructive pulmonary disease, unspecified Code(s): J44.9 - Chronic obstructive pulmonary disease, unspecified Status: Chronic Assessment and Plan: Stable. No wheezing. Stable on room air. Continue inhalers (8) BPH (benign prostatic hyperplasia): Qualifiers: Lower urinary tract symptom presence: symptoms absent Qualified Code(s): N40.0 - Benign prostatic hyperplasia without lower urinary tract symptoms Code(s): N40.0 - Benign prostatic hyperplasia without lower urinary tract symptoms Status: Acute Assessment and Plan: Continue tamsulosin (9) Dementia: Code(s): F03.90 - Unspecified dementia, unspecified severity, without behavioral disturbance, psychotic disturbance, mood disturbance, and anxiety Status: Acute Assessment and Plan: Stable. Continue Aricept and Namenda Plan DVT prophylax -Heparin Code status -full Subjective Date/time seen: 08/18/23 11:50 Interval history: 83yo male with recently diagnosed lung CA, [employer] mechanical Aortic valve replacement on anticoagulation , dementia
[2023-08-18] MEDS: FERROUS SULFATE 325 MG TABLET DR PO (12:28)
[2023-08-18] MEDS: POTASSIUM CHLORIDE 20 MEQ PACKET (FOR LIQUID) 40 MEQ PO (12:28)
--- NOTE | 2023-08-18 15:29 | PM.PNCARD ---
Progress Note: A&P Assessment and Plan (1) History of mechanical aortic valve replacement: Code(s): Z95.2 - Presence of prosthetic heart valve Status: Acute Assessment and Plan: Patient has a mechanical aortic valve replacement with a [employer] valve. Warfarin has been held due to his acute anemia which has improved after 2 units of packed cells. Increased risk of valve thrombosis and stroke due to the presence of a mechanical valve and his PAF in addition to his prothrombotic state from having cancer. Currently on heparin and doctor Parminder would like to resume warfarin, starting 3 mg daily today. --Daily H&H --INR goal 2.0-3.0. (2) Acute on chronic anemia: Code(s): D64.9 - Anemia, unspecified Status: Acute Assessment and Plan: Thought to be a degree of anemia chronic disease although he was guaiac positive. EGD unremarkable. H&H seems stable after 2 units of pack cells. No recurrence. Will keep INR goal at 2.0-3.0 in view of the entire picture, preferably on the lower side.. --Daily H&H (3) Atrial fibrillation, new onset: Code(s): I48.91 - Unspecified atrial fibrillation Status: Acute Assessment and Plan: One episode of atrial fibrillation, now in sinus rhythm. --continue metoprolol, though we may need to reduce the dose due to mild bradycardia. Follow heart rate. (4) Lung cancer: Code(s): C34.90 - Malignant neoplasm of unspecified part of unspecified bronchus or lung Status: Acute Assessment and Plan: History of upper lobe bronchogenic cancer, planning radiation therapy. Subjective Date/time seen: 08/18/23 15:29 Interval history: Follow-up for mechanical aortic valve replacement with a [employer] valve, anemia with guaiac-positive stool, new onset of atrial fibrillation and CAD. Also has right upper lobe adenocarcinoma, 08/16/2023: Continue to hold warfarin, resume metoprolol, evaluate code status. Date of service 08/17/2023: Patient a bit confused, at the bedside. No shortness of breath walking to bathroom and back. EGD was negative, guaiac-positive but possibly anemia of chronic disease, status post 2 units of packed cells. Gi finds pt being back on anticoagulation with heparin acceptable. Doctor for I would like to resume warfarin.. Ms. Nicholson had questions about the patient's upcoming radiation therapy and his GI evaluation which I deferred to the respective specialist. Date of service 08/18/2023: Patient feels well, ambulates to the bathroom with no particular problems. Denies chest pain, dizziness, shortness of breath. Pulse 50s to 60s. Hemoglobin 8.1. Potassium 3.3 Review of Systems Review of Systems: Some confusion and weakness but no complaints of chest pain, PICKETT, or overt bleeding. Exam Const: General: cooperative and comfortable; No confusion Orientation/consciousness: oriented to person and No confusion Other: Frail elderly male, son at bedside, no distress HENMT: Mouth: Yes moist mucous membranes Eyes: General: appearance normal, both eyes and all related structures Neck: Neck: supple Resp: Effort & Inspection: normal respiratory effort Auscultation: clear to auscultation bilaterally Cardio: Rate: regular rate Rhythm: regular rhythm GI: Inspection: normal to inspection Skin: General skin exam: normal color and no rashes or lesions noted Neuro: General: oriented to person and No confusion Extrem: Right lower extremity: no edema Left lower extremity: no edema Psych: Appearance: grossly normal Mental Status: mental status grossly abnormal (Memory loss) Objective Data Vital Signs Vital Signs: Vital Signs - 24 hr 08/17/23 16:00 08/17/23 21:19 08/17/23 20:00 Temperature Pulse Rate 76 74 48 L Respiratory Rate 18 Blood Pressure Pulse Oximetry Oxygen Delivery 08/17/23 22:00 08/18/23 00:00 08/18/23 04:00 Temperature 97.7 F Pulse Rate 53 L 5
[2023-08-18] MEDS: WARFARIN (*PBKC) 3 MG TABLET PO (16:50)
[2023-08-18 18:14] LABS: Partial Thromboplastin Time 83.5 SECONDS (22.3-36.8)
[2023-08-18] MEDS: rOPINIRole HCL 0.25 MG TABLET PO (19:50)
[2023-08-18] MEDS: ATORVASTATIN 40 MG TABLET PO (19:51)
[2023-08-18] MEDS: traZODone HCL 50 MG TABLET PO (19:51)
[2023-08-19] VITALS (14 sets, daily range): BP systolic 146–159; BP diastolic 45–83; PULSE 60–82; RESP 16–20; TEMP 36.2–37.1; O2SAT 97–100
[2023-08-19 00:56] LABS: Partial Thromboplastin Time 83.6 SECONDS (22.3-36.8)
[2023-08-19] MEDS: HEPARIN SOD/D5W 100 UNITS/ML 25,000 UNITS/250 ML BAG 6 UNITS IV CONT (02:39)
[2023-08-19 06:36] LABS: Hematocrit 29.8 % (42.0-52.0); Hemoglobin 9.2 g/dL (14.0-18.0); Mean Corpuscular HGB Conc 30.9 g/dl (32-36); Mean Corpuscular Hemoglobin 29.9 pg (26-34); Mean Corpuscular Volume 96.8 fl (80-100); Mean Platelet Volume 9.9 fl (7.4-10.4); Platelet Count Result 249 k/mm3 (150-375); Red Blood Count 3.08 M/mm3 (4.6-6.20); Red Cell Distribution Width 16.1 % (11.5-14.5); White Blood Count 6.8 K/mm3 (4.5-10.0)
[2023-08-19 06:45] LABS: INR 1.8
[2023-08-19 07:07] LABS: Anion Gap 6 mmol/L (8-16); Blood Urea Nitrogen 16 mg/dL (9-20); Calcium 8.8 mg/dL (8.4-10.2); Carbon Dioxide 23 mmol/L (22-30); Chloride 106 mmol/L (98-107); Estimated CRCL calculation 31 ml/min; Estimated Glomerular Filt Rate 53; Glucose 103 mg/dL (65-110); Magnesium 1.7 mg/dL (1.6-2.3); Potassium 4.4 mmol/L (3.4-5.0); Sodium 135 mmol/L (137-145)
[2023-08-19] MEDS: FLUTICASONE/SALMETEROL 115-21 MCG INHALER 1 PUFF 2 PUFF INHALATION ×2 (07:45→20:46)
[2023-08-19] MEDS: UMECLIDINIUM BROMIDE 62.5 MCG ELLIPTA 1 PUFF INHALATION (07:45)
[2023-08-19] MEDS: ACETAMINOPHEN 500 MG TABLET 1000 MG PO ×2 (08:26→21:20)
[2023-08-19] MEDS: VITAMIN B COMPLEX CAPSULE 1 CAP PO (08:26)
[2023-08-19] MEDS: MULTIVITAMINS THERAPEUTIC TAB (*BKC) 1 TABLET PO (08:26)
[2023-08-19] MEDS: ASCORBIC ACID 500 MG TABLET PO (08:27)
[2023-08-19] MEDS: DONEPEZIL HCL 5 MG TABLET PO (08:27)
[2023-08-19] MEDS: MEMANTINE 10 MG TABLET PO ×2 (08:27→21:20)
[2023-08-19] MEDS: FOLIC ACID 0.4 MG TABLET 0.8 MG PO (08:27)
[2023-08-19] MEDS: TAMSULOSIN HCL 0.4 MG CAPSULE PO (08:27)
[2023-08-19] MEDS: PANTOPRAZOLE 40 MG TABLET PO (08:27)
[2023-08-19] MEDS: METOPROLOL SUCCINATE EXT REL 50 MG TABCR PO (08:27)
[2023-08-19] MEDS: LORATADINE 10 MG TABLET PO (08:27)
--- NOTE | 2023-08-19 09:37 | PM.IMPN ---
Progress Note: A&P Assessment and Plan (1) GI bleed: Code(s): K92.2 - Gastrointestinal hemorrhage, unspecified Status: Acute Assessment and Plan: Patient having n/v but did not have coffee-ground emesis per . Stools are dark but he is on iron. Stool guaiac was positive. Chronic anemia hgb 8-9 past month but 9-10 last year. Hgb 7.6 on admission and dropped to 6.5 on 08/16 requiring 2U PRBC. ED showing hiatal hernia and periampullary diverticulum but no evidence of bleeding. Hgb 9.2 today. Continue Protonix Monitor HH (2) Acute on chronic anemia: Code(s): D64.9 - Anemia, unspecified Status: Acute Assessment and Plan: Patient probably has chronic anemia related to his CKD and lung cancer. Baseline hgb about 9-10 As above. (3) Atrial fibrillation, new onset: Code(s): I48.91 - Unspecified atrial fibrillation Status: Acute Assessment and Plan: Patient with new onset atrial fibrillation probably related to the severe anemia. Metoprolol was initially held due to orthostatic hypotension related to the anemia. He did receive 1 dose of digoxin for AFib with RVR. Patient has converted back to normal sinus rhythm. TSH normal. Cardiology has been consulted. Metoprolol has been resumed Continue to monitor on telemetry Continue anticoagulation (4) CKD (chronic kidney disease): Code(s): N18.9 - Chronic kidney disease, unspecified Status: Acute Assessment and Plan: Baseline creatinine runs 1.4-2.0 range. Creatinine 1.5 on admission. Cr stable at 1.3-1.5 range Continue to follow. (5) History of mechanical aortic valve replacement: Code(s): Z95.2 - Presence of prosthetic heart valve Status: Acute Assessment and Plan: Patient with a history of mechanical aortic valve. Patient is on Coumadin. He is on Coumadin 2mg/3mg with alternating schedule and depending on home INR Coumadin held due to anemia and possible GI bleed. Once HH stable and no plans for further testing, Heparin drip started 08/17 Coumadin started as well Daily INR. Stop Heparin once INR>2.0 Appreciate cardiology input (6) Lung cancer: Code(s): C34.90 - Malignant neoplasm of unspecified part of unspecified bronchus or lung Status: Acute Assessment and Plan: Patient has a history of right upper lobe lung cancer. PET scan earlier this month showing no metastasis. Plan is for radiation treatment. CT of the abdomen shows small pleural effusions, large hiatal hernia and mild atelectasis of the lungs. Chest x-ray showed mild interstitial and airspace opacities in the bilateral lower lung zones which is consistent with atelectasis by CT scan. Chest x-ray also shows suprahilar right upper lobe mass consistent with the known lung cancer Doubt pneumonia so abx stopped. (7) Chronic obstructive pulmonary disease: Qualifiers: COPD type: unspecified COPD Qualified Code(s): J44.9 - Chronic obstructive pulmonary disease, unspecified Code(s): J44.9 - Chronic obstructive pulmonary disease, unspecified Status: Chronic Assessment and Plan: Stable. No wheezing. Stable on room air. Continue inhalers (8) BPH (benign prostatic hyperplasia): Qualifiers: Lower urinary tract symptom presence: symptoms absent Qualified Code(s): N40.0 - Benign prostatic hyperplasia without lower urinary tract symptoms Code(s): N40.0 - Benign prostatic hyperplasia without lower urinary tract symptoms Status: Acute Assessment and Plan: Continue tamsulosin (9) Dementia: Code(s): F03.90 - Unspecified dementia, unspecified severity, without behavioral disturbance, psychotic disturbance, mood disturbance, and anxiety Status: Acute Assessment and Plan: Stable. Continue Aricept and Namenda Plan DVT prophylax -Heparin Code status -full Subjective Date/time seen:
[2023-08-19] MEDS: VALSARTAN 20 MG TABLET PO (11:47)
[2023-08-19] MEDS: FERROUS SULFATE 325 MG TABLET DR PO (12:30)
[2023-08-19] MEDS: WARFARIN (*PBKC) 3 MG TABLET PO (17:02)
[2023-08-19] MEDS: ATORVASTATIN 40 MG TABLET PO (21:20)
[2023-08-19] MEDS: traZODone HCL 50 MG TABLET PO (21:20)
[2023-08-19] MEDS: rOPINIRole HCL 0.25 MG TABLET PO (21:20)
[2023-08-20] VITALS (8 sets, daily range): BP systolic 172–177; BP diastolic 48–51; PULSE 5–80; RESP 18–20; TEMP 35.8–36.7; O2SAT 99–100
[2023-08-20] MEDS: UMECLIDINIUM BROMIDE 62.5 MCG ELLIPTA 1 PUFF INHALATION (09:06)
[2023-08-20] MEDS: FLUTICASONE/SALMETEROL 115-21 MCG INHALER 1 PUFF 2 PUFF INHALATION (09:07)
[2023-08-20 09:08] LABS: Hematocrit 30.6 % (42.0-52.0); Hemoglobin 9.5 g/dL (14.0-18.0); Mean Corpuscular Hemoglobin 29.6 pg (26-34); Mean Corpuscular Volume 95.3 fl (80-100); Platelet Count Result 277 k/mm3 (150-375); Red Blood Count 3.21 M/mm3 (4.6-6.20); White Blood Count 6.5 K/mm3 (4.5-10.0)
[2023-08-20 09:16] LABS: Prothrombin Time 24.1 Seconds (11.1-14.7)
[2023-08-20 09:17] LABS: Partial Thromboplastin Time 60.3 SECONDS (22.3-36.8)
[2023-08-20 09:31] LABS: Anion Gap 5 mmol/L (8-16); Blood Urea Nitrogen 13 mg/dL (9-20); Carbon Dioxide 23 mmol/L (22-30); Chloride 107 mmol/L (98-107); Estimated CRCL calculation 35 ml/min; Estimated Glomerular Filt Rate 58; Glucose 98 mg/dL (65-110); Potassium 4.4 mmol/L (3.4-5.0); Sodium 135 mmol/L (137-145)
[2023-08-20] MEDS: TAMSULOSIN HCL 0.4 MG CAPSULE PO (10:05)
[2023-08-20] MEDS: ASCORBIC ACID 500 MG TABLET PO (10:05)
[2023-08-20] MEDS: VALSARTAN 20 MG TABLET PO (10:05)
[2023-08-20] MEDS: MULTIVITAMINS THERAPEUTIC TAB (*BKC) 1 TABLET PO (10:06)
[2023-08-20] MEDS: ACETAMINOPHEN 500 MG TABLET 1000 MG PO (10:06)
[2023-08-20] MEDS: DONEPEZIL HCL 5 MG TABLET PO (10:06)
[2023-08-20] MEDS: VITAMIN B COMPLEX CAPSULE 1 CAP PO (10:06)
[2023-08-20] MEDS: FOLIC ACID 0.4 MG TABLET 0.8 MG PO (10:06)
[2023-08-20] MEDS: METOPROLOL SUCCINATE EXT REL 50 MG TABCR PO (10:07)
[2023-08-20] MEDS: MEMANTINE 10 MG TABLET PO (10:07)
[2023-08-20] MEDS: LORATADINE 10 MG TABLET PO (10:07)
[2023-08-20] MEDS: HEPARIN SOD/D5W 100 UNITS/ML 25,000 UNITS/250 ML BAG 7 UNITS IV CONT (10:22)
[2023-08-20] MEDS: PANTOPRAZOLE 40 MG TABLET PO (11:25)
[2023-08-20] MEDS: FERROUS SULFATE 325 MG TABLET DR PO (13:25)
--- NOTE | 2023-08-20 14:26 | PM.DS ---
DS: Admitting Diagnosis Discharge Date 08/20/23 Admitting Diagnosis Weakness DS: Discharge Diagnosis Discharge Diagnosis (1) GI bleed: Code(s): K92.2 - Gastrointestinal hemorrhage, unspecified Status: Acute (2) Acute on chronic anemia: Code(s): D64.9 - Anemia, unspecified Status: Acute (3) Atrial fibrillation, new onset: Code(s): I48.91 - Unspecified atrial fibrillation Status: Acute (4) CKD (chronic kidney disease): Code(s): N18.9 - Chronic kidney disease, unspecified Status: Acute (5) History of mechanical aortic valve replacement: Code(s): Z95.2 - Presence of prosthetic heart valve Status: Acute (6) Lung cancer: Code(s): C34.90 - Malignant neoplasm of unspecified part of unspecified bronchus or lung Status: Acute (7) Chronic obstructive pulmonary disease: Qualifiers: COPD type: unspecified COPD Qualified Code(s): J44.9 - Chronic obstructive pulmonary disease, unspecified Code(s): J44.9 - Chronic obstructive pulmonary disease, unspecified Status: Chronic (8) BPH (benign prostatic hyperplasia): Qualifiers: Lower urinary tract symptom presence: symptoms absent Qualified Code(s): N40.0 - Benign prostatic hyperplasia without lower urinary tract symptoms Code(s): N40.0 - Benign prostatic hyperplasia without lower urinary tract symptoms Status: Acute (9) Dementia: Code(s): F03.90 - Unspecified dementia, unspecified severity, without behavioral disturbance, psychotic disturbance, mood disturbance, and anxiety Status: Acute DS: Summary Hospital Course Reason for hospitalization: 83yo male with recently diagnosed lung CA, [facility] mechanical Aortic valve replacement on anticoagulation , dementia and HTN here for weakness, nausea and vomiting. Please see H&P for details. Hospital Course: Patient was having nausea and vomiting but did not have coffee-ground emesis per . Stools were dark but he is on iron. Stool guaiac was positive. He has a chronic anemia hgb 8-9 the past month but 9-10 last year. Hgb 7.6 on admission and dropped to 6.5 on 08/16 requiring 2U PRBC. GI consulted and EGD 08/16 showing hiatal hernia and periampullary diverticulum but no evidence of bleeding. Hgb was stable in the 9 range. GI did not feel colonoscopy needed. CT of the abdomen shows small pleural effusions, large hiatal hernia and mild atelectasis of the lungs. Patient probably has chronic anemia related to his CKD and lung cancer. Patient with new onset atrial fibrillation probably related to the severe anemia.?Metoprolol was initially held due to orthostatic hypotension related to the anemia. He did receive 1 dose of digoxin for AFib with RVR.? Patient converted to normal sinus rhythm. TSH normal. Cardiology was consulted.? Metoprolol was resumed. Patient has CKD. Baseline creatinine runs 1.4-2.0 range.? Creatinine 1.5 on admission and remained stable at 1.2-1.5 range. Patient with a history of mechanical aortic valve.? Patient is on Coumadin.?He is on Coumadin 2mg/3mg with alternating schedule and depending on home INR. Coumadin held due to anemia and possible GI bleed. Once HH stable and no plans for further testing, Heparin drip was started 08/17. Coumadin started as well and INR climbed to 2.0. He has a history of right upper lobe lung cancer.? PET scan earlier this month showing no metastasis. Plan is for radiation treatment. Chest x-ray showed mild interstitial and airspace opacities in the bilateral lower lung zones which is consistent with atelectasis by CT scan.?Chest x-ray also shows suprahilar right upper lobe mass consistent with the known lung cancer. He overall did well and was able to be discharged home on 08/20/23. Status at Discharge Cognitive/behavioral status at discharge: stable Time Spent with Patient Time attestation: Total time spent providing and/or coordinating discharge services:
--- NOTE | 2023-08-20 17:30 | PC.NURSE ---
Bethanie Louise provided care for this patient on 08/20/23. I have reviewed her charting and agree with her assessments.
== END 2023-08-20 16:50 | disposition home or self-care (01) | DRG 378 ==
LOC: ANHED 15:16 → ANH3MEDSUR 17:52
PROVIDERS: Internal Medicine; Internal Medicine Gastroenterology; Admitting Provider General Practice; Emergency Provider Student in an Organized Health Care Education/Training Program; PCP Family Medicine; Visit Provider Internal Medicine
PROC: 0DJ08ZZ Inspection of Upper Intestinal Tract, Via Natural or Artificial Opening Endoscopic (ICD-10-PCS; CPT 43235; principal; 2023-08-16 13:00)
DX: K57.91 Diverticulosis of intestine, part unspecified, without perforation or abscess with bleeding (principal); C34.90 Malignant neoplasm of unspecified part of unspecified bronchus or lung; D63.0 Anemia in neoplastic disease; D63.1 Anemia in chronic kidney disease; D50.9 Iron deficiency anemia, unspecified; E78.5 Hyperlipidemia, unspecified; E11.22 Type 2 diabetes mellitus with diabetic chronic kidney disease; F02.80 Dementia in other diseases classified elsewhere, unspecified severity, without behavioral disturbance, psychotic disturbance, mood disturbance, and anxiety; F17.210 Nicotine dependence, cigarettes, uncomplicated; G30.9 Alzheimer's disease, unspecified; I12.9 Hypertensive chronic kidney disease with stage 1 through stage 4 chronic kidney disease, or unspecified chronic kidney disease; I48.91 Unspecified atrial fibrillation; I25.10 Atherosclerotic heart disease of native coronary artery without angina pectoris; J44.9 Chronic obstructive pulmonary disease, unspecified; K21.9 Gastro-esophageal reflux disease without esophagitis; K44.9 Diaphragmatic hernia without obstruction or gangrene; M47.816 Spondylosis without myelopathy or radiculopathy, lumbar region; N18.30 Chronic kidney disease, stage 3 unspecified; N40.0 Benign prostatic hyperplasia without lower urinary tract symptoms; Z85.46 Personal history of malignant neoplasm of prostate; Z79.01 Long term (current) use of anticoagulants; Z85.828 Personal history of other malignant neoplasm of skin; Z95.1 Presence of aortocoronary bypass graft; Z20.822 Contact with and (suspected) exposure to COVID-19; Z96.619 Presence of unspecified artificial shoulder joint; Z95.2 Presence of prosthetic heart valve
CPT/HCPCS: 36415; 36430; 71045; 74174; 80048; 80053; 81001; 82728; 83540; 83550; 83690; 83735; 84443; 85014; 85018; 85025; 85027; 85610; 85730; 86850; 86900; 86901; 86920; 87040; 87637; 93005; 94640; 96361; 99212; 99285; A9270; C9113; G0378; G0463; J0456; J0696; J1160; J1644; J1940; J2704; J3475; J7030; J7050; J7120; P9016; Q9967

== ENCOUNTER 2023-08-20 19:45 | Inpatient (IN) | payer MEDICARE, BC, SELFPAY ==
[2023-08-20 19:46] VITALS: BP 179/65; PULSE 69; RESP 15; TEMP 36.9; O2SAT 100
[2023-08-20 20:08] LABS: Basophils Percent Auto 0.5 % (0.2-1.2); Eosinophils Absolute Auto 0.4 K/mm3 (0-0.3); Eosinophils Percent Auto 4.4 % (0-4.4); Hematocrit 32.8 % (42.0-52.0); Hemoglobin 9.9 g/dL (14.0-18.0); Immature Granulocyte Absolute 0.07 K/mm3 (0.00-0.031); Immature Granulocyte Percent A 0.8 % (0-0.5); Lymphocytes Percent Auto 8.5 % (18.3-44.2); Mean Corpuscular HGB Conc 30.2 g/dl (32-36); Mean Corpuscular Hemoglobin 29.2 pg (26-34); Mean Corpuscular Volume 96.8 fl (80-100); Mean Platelet Volume 9.6 fl (7.4-10.4); Monocytes Absolute Auto 0.7 K/mm3 (0.1-0.6); Monocytes Percent Auto 8.5 % (2.6-8.5); Neutrophils Absolute Auto 6.4 K/mm3 (1.3-6.7); Neutrophils Percent Auto 77.3 % (45.5-73.1); Platelet Count Result 274 k/mm3 (150-375); Red Blood Count 3.39 M/mm3 (4.6-6.20); Red Cell Distribution Width 16.2 % (11.5-14.5); White Blood Count 8.3 K/mm3 (4.5-10.0)
[2023-08-20 20:18] LABS: Alanine Aminotransferase 25 U/L (6-50); Albumin Level 3.4 g/dL (3.5-5.1); Alkaline Phosphatase 103 U/L (38-126); Anion Gap 6 mmol/L (8-16); Aspartate Amino Transferase 30 U/L (17-59); Bilirubin,Total 0.4 mg/dL (0.2-1.3); Blood Urea Nitrogen 14 mg/dL (9-20); Calcium 9.7 mg/dL (8.4-10.2); Carbon Dioxide 24 mmol/L (22-30); Chloride 103 mmol/L (98-107); Estimated CRCL calculation 31 ml/min; Estimated Glomerular Filt Rate 48; Glucose 117 mg/dL (65-110); Potassium 4.6 mmol/L (3.4-5.0); Sodium 133 mmol/L (137-145)
[2023-08-20 20:19] LABS: INR 1.9; Prothrombin Time 23.1 Seconds (11.1-14.7)
[2023-08-20 20:20] LABS: Partial Thromboplastin Time 40.7 SECONDS (22.3-36.8)
[2023-08-21] VITALS (24 sets, daily range): BP systolic 144–196; BP diastolic 45–148; PULSE 52–69; RESP 16–27; TEMP 36.4–36.6; O2SAT 96–100; BMI 19.3
--- NOTE | 2023-08-21 02:15 | PC.NURSE ---
Patient's spouse stated that patient was just stopped on a heparin drip on 08/20/2023
[2023-08-21] MEDS: METOPROLOL TARTRATE 25 MG TABLET PO ×3 (03:46→20:32)
--- NOTE | 2023-08-21 04:39 | ED.GENADULT ---
HPI - General Adult General Chief complaint: GI Bleed Stated complaint: GI Bleed Time Seen by Provider: 08/21/23 03:16 History of Present Illness HPI narrative: Patient is a 83-year-old gentleman who presents to emergency department with chief complaint of rectal bleeding. The patient was just in the hospital after having guaiac-positive stools and anemia that time got 2 units of packed red blood cells and also has a mechanical valve and was discharged with an INR of 2.0 family got home and he started having bright red blood per rectum at home the patient actually has had no complaints otherwise Related Data Home Medications Medication Instructions Recorded Confirmed memantine 10 mg tablet 10 mg PO BID 03/22/21 08/15/23 ascorbic acid (vitamin C) 500 mg 500 mg PO DAILY 04/27/21 08/15/23 capsule cetirizine 10 mg tablet (Zyrtec) 10 mg PO DAILY 04/27/21 08/15/23 calcium carbonate 600 mg-vitamin 1 tablet PO BID 10/18/21 08/15/23 D3 20 mcg (800 unit) chewable tablet (Caltrate 600 plus D) Daily Multivitamin 1 tablet PO DAILY 01/23/22 08/15/23 acetaminophen 325 mg tablet 1,000 mg PO BID 01/23/22 08/15/23 (Tylenol) ferrous sulfate 325 mg (65 mg 325 mg PO DAILY 01/23/22 08/15/23 iron) tablet folic acid 800 mcg tablet 800 mcg PO DAILY 01/23/22 08/15/23 vitamin B complex (B 1 tablet PO DAILY 08/23/22 08/16/23 Complex-Vitamin B12 tablet) donepezil 10 mg tablet 5 mg PO DAILY 05/02/23 08/15/23 fesoterodine 8 mg tablet,extended 8 mg PO DAILY 05/02/23 08/15/23 release 24 hr warfarin 2 mg tablet (Jantoven) 2 mg PO DAILY 08/17/23 08/17/23 warfarin 3 mg tablet (Jantoven) 3 mg PO DAILY 08/17/23 08/17/23 Allergies Allergy/AdvReac Type Severity Reaction Status Date / Time codeine AdvReac Unknown Nausea and Verified 08/20/23 19:57 Vomiting hydrocodone AdvReac Unknown Nausea and Verified 08/20/23 19:57 Vomiting Review of Systems Review of Systems: A 10 system review of systems was completed on the patient and is negative except for what is stated in the HPI. Nursing and ancillary documentation was reviewed. [facility] Past Medical History Medical History Alzheimer disease BPH (benign prostatic hyperplasia) CAD (coronary artery disease) Cervical spondylolysis Chronic low back pain Chronic obstructive pulmonary disease CKD (chronic kidney disease) stage 3, GFR 30-59 ml/min Environmental allergies Essential (primary) hypertension Gastro-esophageal reflux disease without esophagitis Hiatal hernia History of GI bleed History of renal stone Hyperlipidemia, unspecified Iron deficiency anemia Lung cancer RUL Nonrheumatic aortic (valve) stenosis Osteopenia Presence of prosthetic heart valve Primary osteoarthritis involving multiple joints Prostate cancer Restless leg syndrome Squamous cell carcinoma Tobacco abuse Type 2 diabetes mellitus without complications Surgical History Surgical History History of aortic valve replacement 2002 History of arthroscopy of shoulder 1986 History of carpal tunnel release 1980s - Right History of coronary artery bypass graft 2003 History of inguinal hernia repair 1968 History of lumbar laminectomy for spinal cord decompression (Unknown) 1967 Family History Family History Father Hypertension Heart attack Cardiovascular disease Mother No problems noted. Sibling Heart attack Cardiovascular disease Social History Social History Smoking packs per day: 1 Smoking cigarettes per day: 20.0 Years smoked: 70 Smoking pack-years: 70.00 Smoking status: Current every day smoker Tobacco type: cigarettes Additional smoking assessment comments: smokes less than 1/2 pack of day Alcohol intake: never S
[2023-08-21] MEDS: PHYTONADIONE 5 MG TABLET PO (05:04)
[2023-08-21 05:12] LABS: Hemoglobin 9.5 g/dL (14.0-18.0)
--- NOTE | 2023-08-21 05:27 | PM.IMHP ---
H&P: HPI History of Present Illness Date/Time: 08/21/23 05:27 Chief Complaint: bright red blood per rectum Narrative: 83M w/ PMH Alzheimer's Dementia, CKD stage 3a, CAD s/p CABG, mechanical aortic valve on coumadin, paroxysmal a fib, COPD, HTN, GERD, HTN, HLD, iron deficiency anemia, hiatal hernia, BPH, lung cancer presents with bright red blood per rectum and clots. He is accompanied by his Kriss. The patient was discharged to home yesterday 08/20/23 for coffee ground emesis. During the admission he required 2U PRBC and HB thereafter was stable in the 9's. He underwent EGD as well which demonstrated hiatal hernia and periampullary diverticulum. Shortly after he arrived home from discharge he was on the toilet and he alerted his who found 2 large clots with bright red blood, along with blood on the rug near the toilet and bright blood after wiping with tissue paper. The patient otherwise was feeling well w/o complaints. In the ER the patient found to have HB 9.5, INR of 1.9 and BP of 175/70 and HR of 57. ED Physician noted rectal exam with pinkish red stool which was guaiac positive. He received vitamin K 5mg PO x1. Review of Systems Review of Systems: All systems reviewed & are unremarkable except as noted in HPI and below (HPI) [facility] Past Medical History Medical History Alzheimer disease BPH (benign prostatic hyperplasia) CAD (coronary artery disease) Cervical spondylolysis Chronic low back pain Chronic obstructive pulmonary disease CKD (chronic kidney disease) stage 3, GFR 30-59 ml/min Environmental allergies Essential (primary) hypertension Gastro-esophageal reflux disease without esophagitis Hiatal hernia History of GI bleed History of renal stone Hyperlipidemia, unspecified Iron deficiency anemia Lung cancer RUL Nonrheumatic aortic (valve) stenosis Osteopenia Presence of prosthetic heart valve Primary osteoarthritis involving multiple joints Prostate cancer Restless leg syndrome Squamous cell carcinoma Tobacco abuse Type 2 diabetes mellitus without complications Surgical History Surgical History History of aortic valve replacement 2002 History of arthroscopy of shoulder 1986 History of carpal tunnel release 1980s - Right History of coronary artery bypass graft 2002 History of inguinal hernia repair 1967 History of lumbar laminectomy for spinal cord decompression (Unknown) 1968 Family History Family History Father Hypertension Heart attack Cardiovascular disease Mother No problems noted. Sibling Heart attack Cardiovascular disease Social History Social History Smoking packs per day: 1 Smoking cigarettes per day: 20.0 Years smoked: 70 Smoking pack-years: 70.00 Smoking status: Current every day smoker Tobacco type: cigarettes Additional smoking assessment comments: smokes less than 1/2 pack of day Alcohol intake: never Substance use: never Substance use type: does not use Do You Feel Safe in your Home?: Yes Lack of Transportation: No Lack of Food: Never True Current Housing: I Have Housing Concerned About Future Housing: No Difficulty Paying Gas/Electric Bills: No Difficulty Paying for Meds: No Currently Unemployed: No Education: Trade/Vocational Certificate Difficulty w/ Childcare or Family Care: No Living arrangements: with family Additional living arrangements comments: Occupation/Education: retired Sexual Orientation (if Verbalized by the Patient): Straight or Heterosexual Spiritual care concerns: No Meds Home Medications and Allergies Home Medications Medication Instructions Recorded Confirmed Type memantine 10 mg tablet 10 mg PO BID 03/22/21 08/15/23 History asc
[2023-08-21] MEDS: hydrALAZINE HCL 20 MG/ML VIAL 10 MG IV PUSH (05:46)
--- NOTE | 2023-08-21 06:00 | ADMGEN ---
This patient, Arley Nicholson, was admitted to Medical Room 244-. Patient/family oriented to hospital policies and general routines including ID bracelet, bed and alarms, visiting hours, pain management, procedures, bathroom and other care routines, personal items, smoking policy, room service/diet, and visiting hours. Information on how to activate the Rapid Response Team has been discussed. Patient/Family are encouraged to report perceived risks to care and to ask questions if they do not understand what they are told or what they should do.
[2023-08-21] MEDS: SODIUM CHLORIDE 0.9% IV 1,000 ML 83 ML IV CONT ×2 (06:08→18:31)
[2023-08-21 06:13] LABS: Glucose Point of Care 103 mg/dl (65-105)
--- NOTE | 2023-08-21 07:06 | PM.IMPN ---
Progress Note: A&P Assessment and Plan (1) Bright red rectal bleeding: Code(s): K62.5 - Hemorrhage of anus and rectum Status: Acute Assessment and Plan: 08/21/23: Patient reported bright red blood per rectum after being discharged yesterday. He stated that he passed 2 large clots with bright red blood. H/H 9.2/29.9 slightly down from previous 9.9/32.8 when he left yesterday GI reconsulted will await their input Remain NPO for now Patient given dose of vitamin K Started Protonix 40 mg BID Continue maint. IVF Coumadin on hold (2) GI bleed: Code(s): K92.2 - Gastrointestinal hemorrhage, unspecified Status: Acute Assessment and Plan: see above (3) History of mechanical aortic valve replacement: Code(s): Z95.2 - Presence of prosthetic heart valve Status: Acute Assessment and Plan: 08/21/23: mechanical aortic valve replacement on Coumadin Coumadin placed on hold Vitamin K given (4) Acute on chronic anemia: Code(s): D64.9 - Anemia, unspecified Status: Acute Assessment and Plan: see above (5) Lung cancer: Code(s): C34.90 - Malignant neoplasm of unspecified part of unspecified bronchus or lung Status: Acute Assessment and Plan: of note (6) Dementia: Code(s): F03.90 - Unspecified dementia, unspecified severity, without behavioral disturbance, psychotic disturbance, mood disturbance, and anxiety Status: Acute Assessment and Plan: 08/21/23: Restarted home medications (7) CKD (chronic kidney disease): Code(s): N18.9 - Chronic kidney disease, unspecified Status: Acute Assessment and Plan: 08/21/23: Will check labs this a.m. BUN 14, creatinine 1.40 yesterday prior to discharge eGFR 48 with creatinine clearance 31 from yesterday labs Time Spent With Patient Time with patient: Greater than 35 minutes Subjective Date/time seen: 08/21/23 07:06 Interval history: 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le who presented to the ER on 08/21/23 with bright red blood per rectum with clots. He was just discharged on 08/20/23 after having coffee ground emesis. During that admission he was seen by GI, underwent EGD, and received 2 units PRBC's. Shortly after he was discharged home, patient went to bathroom and passed 2 large clots along with some bright red blood. They returned to the ER for further evaluation. Work up in the hospital included labs which shown a stable H/H of 9.5/31.0 which was slightly down from yesterday H/H 9.9/32.8. VSS. GI was reconsulted. On examination today patient is alert and oriented x3, lying in the bed. He denies any nausea, vomiting, diarrhea, abdominal pain, chest pain, shortness a breath. Vital signs are stable, he is afebrile, he is on room air. Hemoglobin 9.2, hematocrit 29.9 which is slightly down from his labs yesterday when he left which was 9.9 6/32.8. Awaiting GI input Review of Systems Review of Systems: All systems reviewed & are unremarkable except as noted in HPI and below Constitutional: Constitutional: Reports as per HPI and Reports no additional constitutional complaints Eyes: Eyes: Reports as per HPI and Reports no additional eye complaints ENT: Reports system reviewed and no additional complaints, except as documented and Reports as per HPI Cardiovascular: Cardiovascular: Reports as per HPI and Reports no additional cardiovascular complaints Respiratory: Respiratory: Reports as per HPI and Reports no additional respiratory complaints Gastrointestinal: Gastrointestinal: Reports as per HPI and Reports no additional gastrointestinal complaints Genitourinary: Genitourinary: Reports no additional male genitourinary complaints and Reports as per HPI Musculoskeletal: Musculoskeletal: Reports no additional musculoskeletal complaints and Reports as per HPI Integumentary/Breasts: Skin/Breast: Reports system reviewed and no additional complaints, except as docu an
[2023-08-21 08:05] LABS: Hematocrit 29.9 % (42.0-52.0); Hemoglobin 9.2 g/dL (14.0-18.0)
[2023-08-21 08:24] LABS: Alanine Aminotransferase 25 U/L (6-50); Albumin Level 3.1 g/dL (3.5-5.1); Alkaline Phosphatase 105 U/L (38-126); Anion Gap 7 mmol/L (8-16); Aspartate Amino Transferase 39 U/L (17-59); Bilirubin,Total 0.5 mg/dL (0.2-1.3); Blood Urea Nitrogen 14 mg/dL (9-20); Calcium 9.1 mg/dL (8.4-10.2); Carbon Dioxide 21 mmol/L (22-30); Chloride 105 mmol/L (98-107); Estimated CRCL calculation 31 ml/min; Estimated Glomerular Filt Rate 53; Glucose 99 mg/dL (65-110); Potassium 4.3 mmol/L (3.4-5.0); Sodium 133 mmol/L (137-145)
[2023-08-21] MEDS: FERROUS SULFATE 325 MG TABLET DR PO (09:55)
[2023-08-21] MEDS: MEMANTINE 10 MG TABLET PO ×2 (09:55→16:22)
[2023-08-21] MEDS: FOLIC ACID 0.4 MG TABLET 0.8 MG PO (09:55)
[2023-08-21] MEDS: ACETAMINOPHEN 500 MG TABLET 1000 MG PO ×2 (09:55→16:22)
[2023-08-21] MEDS: VITAMIN B COMPLEX CAPSULE 1 CAP PO (09:55)
[2023-08-21] MEDS: LORATADINE 10 MG TABLET PO (09:55)
[2023-08-21] MEDS: OLMESARTAN MEDOXOMIL 20 MG TABLET PO (09:55)
[2023-08-21] MEDS: CITALOPRAM HYDROBROMIDE 20 MG TABLET 40 MG PO (09:55)
[2023-08-21] MEDS: hydroCHLOROthiazide 12.5 MG CAPSULE PO (09:55)
[2023-08-21] MEDS: ASCORBIC ACID 500 MG TABLET PO (09:55)
[2023-08-21] MEDS: TAMSULOSIN HCL 0.4 MG CAPSULE PO (09:55)
[2023-08-21] MEDS: PANTOPRAZOLE SODIUM IV 40 MG VIAL IV PUSH ×2 (10:08→20:32)
[2023-08-21 12:04] LABS: Glucose Point of Care 103 mg/dl (65-105)
--- NOTE | 2023-08-21 16:16 | WPDGICN ---
Assessment and Plan Assessment and plan (1) Bright red rectal bleeding: Code(s): K62.5 - Hemorrhage of anus and rectum Status: Acute Assessment and Plan: the bleeding started last night within hours of his being discharged. Hemoglobin today is 9.2. INR was 2 on discharge in is 1.9 this morning. (2) History of mechanical aortic valve replacement: Code(s): Z95.2 - Presence of prosthetic heart valve Status: Acute Assessment and Plan: He has an artificial, mechanical Aortic valve. for this reason he is on chronic anticoagulation. (3) Acute on chronic anemia: Code(s): D64.9 - Anemia, unspecified Status: Acute Assessment and Plan: Hemoglobin normally runs around 9. He was prior to units of blood last week when he dropped to 6 but today it is still holding at 9.2 despite his bleeding. We will probably drop with equilibration. (4) Lung cancer: Code(s): C34.90 - Malignant neoplasm of unspecified part of unspecified bronchus or lung Status: Acute Assessment and Plan: He does have a history of having a right upper lobe lung cancer. Recent PET scan was negative for metastases. Supposedly he is going to be getting radiation therapy. (5) CKD (chronic kidney disease): Code(s): N18.9 - Chronic kidney disease, unspecified Status: Acute Assessment and Plan: Creatinine today is 1.3. Plan Coumadin will be held. He will be scheduled for colonoscopy tomorrow. I discussed with him the procedure And the prep. GI Consult Note Consult date/time: 08/21/23 16:16 HPI: Arley Nicholson is a 83 year old male was admitted now with rectal bleeding. He in fact had just been discharged yesterday after hospitalization of several days. He had been admitted with nausea and vomiting and dark stools. His stools were Hemoccult positive. His hemoglobin had dropped to 6.5. He normally has chronic anemia with hemoglobin around 9. He received 2 units of blood. He had an EGD 1222 showing a hiatal hernia but no evidence of recent bleeding. His Coumadin had been held. He has a history of a mechanical heart valve. Also briefly he had atrial fibrillation during the last hospitalization. He was converted Back to sinus rhythm after given digoxin. He was then restarted on his Coumadin and sent home yesterday. Last night he noticed bright red blood per rectum. Review of Systems Review of Systems: All systems reviewed & are unremarkable except as noted in HPI and below PMFSH Past Medical History Medical History Alzheimer disease BPH (benign prostatic hyperplasia) CAD (coronary artery disease) Cervical spondylolysis Chronic low back pain Chronic obstructive pulmonary disease CKD (chronic kidney disease) stage 3, GFR 30-59 ml/min Environmental allergies Essential (primary) hypertension Gastro-esophageal reflux disease without esophagitis Hiatal hernia History of GI bleed History of renal stone Hyperlipidemia, unspecified Iron deficiency anemia Lung cancer RUL Nonrheumatic aortic (valve) stenosis Osteopenia Presence of prosthetic heart valve Primary osteoarthritis involving multiple joints Prostate cancer Restless leg syndrome Squamous cell carcinoma Tobacco abuse Type 2 diabetes mellitus without complications Surgical History Surgical History History of aortic valve replacement 2002 History of arthroscopy of shoulder 1986 History of carpal tunnel release 1980s - Right History of coronary artery bypass graft 2003 History of inguinal hernia repair 1968 History of lumbar laminectomy for spinal cord decompression (Unknown) 1967 Family History Family History Father Hypertension Heart attack Cardiovascular disease Mother No problems noted. Sibling Heart
[2023-08-21] MEDS: BISACODYL 5 MG TABLET EC 10 MG PO ×2 (16:21→20:35)
[2023-08-21] MEDS: polyethylene glycoL 3350 238 GM BOTTLE PO (16:22)
[2023-08-21 16:51] LABS: Glucose Point of Care 106 mg/dl (65-105)
[2023-08-21 18:51] LABS: Hematocrit 29.3 % (42.0-52.0); Hemoglobin 9.1 g/dL (14.0-18.0)
[2023-08-21] MEDS: FLUTICASONE/SALMETEROL 115-21 MCG INHALER 1 PUFF 2 PUFF INHALATION (19:44)
[2023-08-21 20:04] LABS: Glucose Point of Care 124 mg/dl (65-105)
[2023-08-21] MEDS: DONEPEZIL HCL 5 MG TABLET PO (20:32)
[2023-08-21] MEDS: ATORVASTATIN 40 MG TABLET PO (20:32)
[2023-08-21] MEDS: rOPINIRole HCL 0.25 MG TABLET PO (20:33)
[2023-08-21 23:35] LABS: Hematocrit 27.8 % (42.0-52.0); Hemoglobin 8.8 g/dL (14.0-18.0)
[2023-08-22] VITALS (16 sets, daily range): BP systolic 136–190; BP diastolic 40–64; PULSE 52–95; RESP 14–26; TEMP 36.5–36.7; O2SAT 93–100
[2023-08-22] MEDS: HYDROCORTISONE 1% 30 GM CREAM 1 APPLIC TOPICAL ×3 (00:43→21:19)
[2023-08-22 05:45] LABS: Hematocrit 27.8 % (42.0-52.0); Hemoglobin 8.7 g/dL (14.0-18.0); Mean Corpuscular HGB Conc 31.3 g/dl (32-36); Mean Corpuscular Hemoglobin 29.9 pg (26-34); Mean Corpuscular Volume 95.5 fl (80-100); Mean Platelet Volume 10.2 fl (7.4-10.4); Platelet Count Result 276 k/mm3 (150-375); Red Blood Count 2.91 M/mm3 (4.6-6.20); Red Cell Distribution Width 15.7 % (11.5-14.5); White Blood Count 8.1 K/mm3 (4.5-10.0)
[2023-08-22 05:55] LABS: Alanine Aminotransferase 33 U/L (6-50); Albumin Level 2.9 g/dL (3.5-5.1); Alkaline Phosphatase 98 U/L (38-126); Anion Gap 5 mmol/L (8-16); Aspartate Amino Transferase 44 U/L (17-59); Bilirubin,Total 0.4 mg/dL (0.2-1.3); Blood Urea Nitrogen 12 mg/dL (9-20); Calcium 8.7 mg/dL (8.4-10.2); Carbon Dioxide 20 mmol/L (22-30); Chloride 109 mmol/L (98-107); Estimated CRCL calculation 31 ml/min; Estimated Glomerular Filt Rate 53; Glucose 88 mg/dL (65-110); Potassium 3.5 mmol/L (3.4-5.0); Sodium 134 mmol/L (137-145)
[2023-08-22 05:58] LABS: INR 1.3; Prothrombin Time 16.8 Seconds (11.1-14.7)
[2023-08-22] MEDS: SODIUM CHLORIDE 0.9% IV 1,000 ML 83 ML IV CONT ×2 (06:18→21:19)
[2023-08-22] MEDS: FLUTICASONE/SALMETEROL 115-21 MCG INHALER 1 PUFF 2 PUFF INHALATION ×2 (07:08→20:52)
[2023-08-22] MEDS: UMECLIDINIUM BROMIDE 62.5 MCG ELLIPTA 1 PUFF INHALATION (07:09)
[2023-08-22 07:52] LABS: Glucose Point of Care 105 mg/dl (65-105)
--- NOTE | 2023-08-22 08:14 | PM.IMPN ---
Progress Note: A&P Assessment and Plan (1) Bright red rectal bleeding: Code(s): K62.5 - Hemorrhage of anus and rectum Status: Acute Assessment and Plan: 08/21/23: Patient reported bright red blood per rectum after being discharged yesterday. He stated that he passed 2 large clots with bright red blood. H/H 9.2/29.9 slightly down from previous 9.9/32.8 when he left yesterday GI reconsulted will await their input Remain NPO for now Patient given dose of vitamin K Started Protonix 40 mg BID Continue maint. IVF Coumadin on hold 08/22/23: H/H today 8.7/27.8 GI taking patient to GI lab today for colonoscopy Continue NPO status (2) GI bleed: Code(s): K92.2 - Gastrointestinal hemorrhage, unspecified Status: Acute Assessment and Plan: see above (3) History of mechanical aortic valve replacement: Code(s): Z95.2 - Presence of prosthetic heart valve Status: Acute Assessment and Plan: 08/21/23: mechanical aortic valve replacement on Coumadin Coumadin placed on hold Vitamin K given 08/22/23: Continue to hold Coumadin (4) Acute on chronic anemia: Code(s): D64.9 - Anemia, unspecified Status: Acute Assessment and Plan: see above (5) Lung cancer: Code(s): C34.90 - Malignant neoplasm of unspecified part of unspecified bronchus or lung Status: Acute Assessment and Plan: of note (6) Dementia: Code(s): F03.90 - Unspecified dementia, unspecified severity, without behavioral disturbance, psychotic disturbance, mood disturbance, and anxiety Status: Acute Assessment and Plan: 08/21/23: Restarted home medications 08/22/23: No change to current treatment plan (7) CKD (chronic kidney disease): Code(s): N18.9 - Chronic kidney disease, unspecified Status: Acute Assessment and Plan: 08/21/23: Will check labs this a.m. BUN 14, creatinine 1.40 yesterday prior to discharge eGFR 48 with creatinine clearance 31 from yesterday labs 08/22/23: Creatinine 1.30 eGFR 53 Time Spent With Patient Time with patient: 25 - 35 minutes Subjective Date/time seen: 08/22/23 08:14 Interval history: 08/21/23: 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le who presented to the ER on 08/21/23 with bright red blood per rectum with clots. He was just discharged on 08/20/23 after having coffee ground emesis. During that admission he was seen by GI, underwent EGD, and received 2 units PRBC's. Shortly after he was discharged home, patient went to bathroom and passed 2 large clots along with some bright red blood. They returned to the ER for further evaluation. Work up in the hospital included labs which shown a stable H/H of 9.5/31.0 which was slightly down from yesterday H/H 9.9/32.8. VSS. GI was reconsulted. On examination today patient is alert and oriented x3, lying in the bed. He denies any nausea, vomiting, diarrhea, abdominal pain, chest pain, shortness a breath. Vital signs are stable, he is afebrile, he is on room air. Hemoglobin 9.2, hematocrit 29.9 which is slightly down from his labs yesterday when he left which was 9.9 6/32.8. Awaiting GI input. 08/22/23: On examination today patient is alert and oriented x3, lying in the bed. B/P ranging 144/45-182/48, otherwise VSS, he is afebrile, currently on room air. Labs today reveal Hgb 8.7, hct 27.8, INR 1.3, Na+ 134, K+ 3.5, Chloride 109, Bicarb 20, BUN 12, Creatinine 1.30, BG 88-124, liver enzymes are normal. Plan for today is for colonoscopy with GI service. Review of Systems Review of Systems: All systems reviewed & are unremarkable except as noted in HPI and below Constitutional: Constitutional: Reports as per HPI and Reports no additional constitutional complaints Eyes: Eyes: Reports as per HPI and Reports no additional eye complaints ENT: Reports system reviewed and no additional complaints, except as documented and Reports as per HPI Cardiovascular: Car
[2023-08-22] MEDS: LORATADINE 10 MG TABLET PO (09:01)
[2023-08-22] MEDS: MEMANTINE 10 MG TABLET PO ×2 (09:01→17:48)
[2023-08-22] MEDS: CITALOPRAM HYDROBROMIDE 20 MG TABLET 40 MG PO (09:01)
[2023-08-22] MEDS: VITAMIN B COMPLEX CAPSULE 1 CAP PO (09:01)
[2023-08-22] MEDS: METOPROLOL TARTRATE 25 MG TABLET PO ×2 (09:01→21:19)
[2023-08-22] MEDS: TAMSULOSIN HCL 0.4 MG CAPSULE PO (09:01)
[2023-08-22] MEDS: OLMESARTAN MEDOXOMIL 20 MG TABLET PO (09:01)
[2023-08-22] MEDS: FOLIC ACID 0.4 MG TABLET 0.8 MG PO (09:01)
[2023-08-22] MEDS: FERROUS SULFATE 325 MG TABLET DR PO (09:01)
[2023-08-22] MEDS: PANTOPRAZOLE SODIUM IV 40 MG VIAL IV PUSH ×2 (09:02→21:18)
[2023-08-22] MEDS: ACETAMINOPHEN 500 MG TABLET 1000 MG PO ×2 (09:02→17:48)
[2023-08-22] MEDS: hydroCHLOROthiazide 12.5 MG CAPSULE PO (09:02)
[2023-08-22] MEDS: ASCORBIC ACID 500 MG TABLET PO (09:02)
[2023-08-22 11:51] LABS: Glucose Point of Care 103 mg/dl (65-105)
[2023-08-22] MEDS: LACTATED RINGERS 1,000 ML 150 ML IV CONT (13:34)
[2023-08-22] MEDS: GENTAMICIN 80MG/SOD CHL 50 ML 80 MG/50 ML BAG 100 MG IVPB (13:36)
[2023-08-22 13:50] LABS: Glucose Point of Care 91 mg/dl (65-105)
--- NOTE | 2023-08-22 13:54 | WPDANESEPPF ---
Anes - Initial Pre Proc Eval Procedure: Operation Date: 08/22/23 15:00 Proposed Procedures p Colonoscopy - Demario Eng MD Date/Time: 08/22/23 13:54 Surgeon: Velvet Kahn MD Pre Op Diagnosis: Rectal Bleeding Patient Data Age: 83 Gender: M Height: 1.73 m Weight: 57.7 kg Last Vital Signs Temp 98.1 F 08/22/23 13:48 Pulse 53 L 08/22/23 13:48 Resp 18 08/22/23 13:48 BP 190/40 H 08/22/23 13:48 Pulse Ox 100 08/22/23 13:48 O2 Del Method Room Air 08/22/23 13:48 FiO2 21 08/21/23 20:00 Allergies Allergy/AdvReac Type Severity Reaction Status Date / Time codeine AdvReac Unknown Nausea and Verified 08/22/23 13:28 Vomiting hydrocodone AdvReac Unknown Nausea and Verified 08/22/23 13:28 Vomiting Home Medications Medication Instructions Recorded Confirmed Type memantine 10 mg tablet 10 mg PO BID 03/22/21 08/21/23 History ascorbic acid (vitamin C) 500 mg 500 mg PO DAILY 04/27/21 08/21/23 History capsule cetirizine 10 mg tablet (Zyrtec) 10 mg PO DAILY 04/27/21 08/21/23 History calcium carbonate 600 mg-vitamin 1 tablet PO BID 10/18/21 08/21/23 History D3 20 mcg (800 unit) chewable tablet (Caltrate 600 plus D) Daily Multivitamin 1 tablet PO DAILY 01/23/22 08/21/23 History acetaminophen 325 mg tablet 1,000 mg PO BID 01/23/22 08/21/23 History (Tylenol) ferrous sulfate 325 mg (65 mg 325 mg PO DAILY 01/23/22 08/21/23 History iron) tablet folic acid 800 mcg tablet 800 mcg PO DAILY 01/23/22 08/21/23 History vitamin B complex (B 1 tablet PO DAILY 08/23/22 08/21/23 History Complex-Vitamin B12 tablet) tiotropium bromide 18 mcg capsule 1 cap inhalation DAILY #90 11/26/22 08/21/23 Rx with inhalation device (Spiriva inhalations with HandiHaler) fluticasone 250 mcg-salmeterol 50 1 inh inhalation BID #60 ea 11/27/22 08/21/23 Rx mcg/dose blistr powdr for inhalation (Wixela Inhub) donepezil 10 mg tablet 5 mg PO DAILY 05/02/23 08/21/23 History fesoterodine 8 mg tablet,extended 8 mg PO DAILY 05/02/23 08/21/23 History release 24 hr pantoprazole 20 mg tablet,delayed 20 mg PO QAM #90 tabs 05/07/23 08/21/23 Rx release tamsulosin 0.4 mg capsule (Flomax) 0.4 mg PO DAILY #90 caps 05/22/23 08/21/23 Rx ibandronate 150 mg tablet 150 mg PO MONTHLY #4 tabs 05/24/23 08/21/23 Rx ropinirole 0.25 mg tablet 0.25 mg PO QHS #90 tabs 05/27/23 08/21/23 Rx tramadol 50 mg tablet 50 mg PO BID PRN pain #180 tabs 06/11/23 08/21/23 Rx atorvastatin 40 mg tablet 40 mg PO QHS #90 tabs 06/13/23 08/21/23 Rx albuterol sulfate 90 mcg/actuation 2 puff inhalation Q4H PRN 07/31/23 08/21/23 Rx aerosol inhaler shortness of breath or wheezing #8.5 grams ondansetron 4 mg disintegrating 4 mg PO Q8H PRN nausea and 07/31/23 08/21/23 Rx tablet vomiting #15 tabs metoprolol tartrate 50 mg tablet 25 mg PO BID #180 tabs 08/07/23 08/21/23 Rx warfarin 2 mg tablet (Jantoven) 2 mg PO DAILY 08/17/23 08/21/23 History warfarin 3 mg tablet (Jantoven) 3 mg PO DAILY 08/17/23 08/21/23 History citalopram 40 mg tablet 40 mg PO DAILY 08/21/23 08/21/23 History olmesartan 40 0.5 tablet PO DAILY 08/21/23 08/21/23 History mg-hydrochlorothiazide 25 mg tablet Laboratory Tests 08/21/23 08/21/23 08/21/23 16:47 17:21 19:56 WBC RBC Hgb 9.1 L g/dL (14.0-18.0) Hct 29.3 L % (42.0-52.0) MCV MCH MCHC RDW Plt Count MPV PT INR Sodium Potassium Chloride Carbon Dioxide Anion Gap BUN Creatinine Estim Creat Clear Calc Estimated GFR Glucose POC Capillary Glucose 106 H mg/dl 124 H mg/dl (65-105) (65-105) Calcium Total Bilirubin AST ALT Alkaline Phosphatase Total Protein
[2023-08-22] MEDS: AMPICILLIN 2 GM/NS 100 ML 2 GM/100 ML BAG IVPB (14:07)
[2023-08-22 17:15] LABS: Glucose Point of Care 163 mg/dl (65-105)
[2023-08-22 20:09] LABS: Glucose Point of Care 102 mg/dl (65-105)
[2023-08-22] MEDS: DONEPEZIL HCL 5 MG TABLET PO (21:18)
[2023-08-22] MEDS: traMADol HCL (*CRX) 50 MG TABLET PO (21:18)
[2023-08-22] MEDS: ATORVASTATIN 40 MG TABLET PO (21:18)
[2023-08-22] MEDS: rOPINIRole HCL 0.25 MG TABLET PO (21:19)
[2023-08-23 05:48] LABS: Hematocrit 30.6 % (42.0-52.0); Hemoglobin 9.5 g/dL (14.0-18.0); Mean Corpuscular Hemoglobin 30.3 pg (26-34); Mean Corpuscular Volume 97.5 fl (80-100); Platelet Count Result 267 k/mm3 (150-375); Red Blood Count 3.14 M/mm3 (4.6-6.20); Red Cell Distribution Width 15.9 % (11.5-14.5); White Blood Count 8.3 K/mm3 (4.5-10.0)
[2023-08-23 05:59] LABS: Alanine Aminotransferase 36 U/L (6-50); Alkaline Phosphatase 98 U/L (38-126); Anion Gap 8 mmol/L (8-16); Aspartate Amino Transferase 43 U/L (17-59); Bilirubin,Total 0.5 mg/dL (0.2-1.3); Blood Urea Nitrogen 9 mg/dL (9-20); Calcium 8.9 mg/dL (8.4-10.2); Carbon Dioxide 17 mmol/L (22-30); Chloride 112 mmol/L (98-107); Estimated CRCL calculation 33 ml/min; Estimated Glomerular Filt Rate 58; Glucose 94 mg/dL (65-110); Potassium 3.5 mmol/L (3.4-5.0); Sodium 137 mmol/L (137-145)
[2023-08-23 06:00] VITALS: BP 155/48; PULSE 70; RESP 18; TEMP 36.7; O2SAT 97
[2023-08-23] MEDS: SODIUM CHLORIDE 0.9% IV 1,000 ML 83 ML IV CONT (06:26)
--- NOTE | 2023-08-23 07:20 | WPDGIPROGNO ---
Progress Note: A&P Assessment and Plan (1) Bright red rectal bleeding: Code(s): K62.5 - Hemorrhage of anus and rectum Status: Acute Assessment and Plan: the bleeding started last night within hours of his being discharged. Hemoglobin today is 9.2. INR was 2 on discharge in is 1.9 this morning. (2) History of mechanical aortic valve replacement: Code(s): Z95.2 - Presence of prosthetic heart valve Status: Acute Assessment and Plan: He has an artificial, mechanical Aortic valve. for this reason he is on chronic anticoagulation. I told that Coumadin can be restarted on Saturday (3) Acute on chronic anemia: Code(s): D64.9 - Anemia, unspecified Status: Acute Assessment and Plan: Hemoglobin normally runs around 9. He was prior to units of blood last week when he dropped to 6 but today it is still holding at 9.2 despite his bleeding. We will probably drop with equilibration. 08/23 Hemoglobin had dropped to 8.7 but today is up to 9.5. (4) Lung cancer: Code(s): C34.90 - Malignant neoplasm of unspecified part of unspecified bronchus or lung Status: Acute Assessment and Plan: He does have a history of having a right upper lobe lung cancer. Recent PET scan was negative for metastases. Supposedly he is going to be getting radiation therapy. (5) CKD (chronic kidney disease): Code(s): N18.9 - Chronic kidney disease, unspecified Status: Acute Assessment and Plan: Creatinine today is 1.3. Plan Coumadin will be held. He will be scheduled for colonoscopy tomorrow. I discussed with him the procedure And the prep. 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 I treated this as thoroughly as possible with APC. He also has internal hemorrhoids but I believe the prox tight is /vascular hyperplasia was the cause of his bleeding. From my perspective he can be discharged. Hemoglobin is stable. Will have him come in for a flex sig to recheck in 2 months. Coumadin can be resumed Saturday. Subjective Date/time seen: 08/23/23 07:20 no further bleeding. He denies any pain or discomfort due to the rectal ablation. He is hoping to go home. I told that her my perspective he can be discharged. I reminded him that we will have him come back in a couple months to recheck the radiation proctitis and give further treatment if necessary. Exam Const: General: cooperative and healthy appearing Orientation/consciousness: patient oriented x3 HENMT: Head: normal to inspection Ears: hearing grossly normal bilaterally Mouth: Yes Normal oral and palatal mucosa present Eyes: General: appearance normal, both eyes and all related structures Neck: Neck: normal visual inspection Chest: Chest palpation & inspection: normal inspection of the chest Resp: Effort & Inspection: normal respiratory effort Auscultation: clear to auscultation bilaterally Cardio: Rate: regular rate Rhythm: regular rhythm GI: Inspection: normal to inspection GI Palp: Yes Soft to palpation, No Tenderness to palpation present (GI) and Yes No hepatosplenomegaly present Auscultation: normal bowel sounds Skin: General skin exam: no ecchymosis, no jaundice and pallor Neuro: General: patient oriented x3 Speech: normal speech Objective Data Vital Signs Vital Signs: Vital Signs - 24 hr 08/22/23 09:01 08/22/23 09:04 08/22/23 11:19 Temperature Pulse Rate 66 66 Respiratory Rate 14 Blood Pressure 185/53 H 162/50 H Pulse Oximetry 100 Oxygen Delivery Fraction of Inspired Oxygen 08/22/23 09:00 08/22/23 08:00 08/22/23 13:48 Temperature 36.7 C Pulse Rate 86 53 L Respiratory Rate 18 Blood Pressure 190/40 H Pulse Oximetry 100 Oxygen Delivery Room Air Room Air Fraction of Inspired Oxygen 08/22/23 14:27 08/22/23 14:37 08/22/23 14:47 Temperature Pulse Rate 57 L 52 L 53 L Respiratory Rate 24 H 26 H 25 H Blood Pressure 136/54 L 142/50
[2023-08-23 07:48] LABS: Glucose Point of Care 104 mg/dl (65-105)
[2023-08-23] MEDS: UMECLIDINIUM BROMIDE 62.5 MCG ELLIPTA 1 PUFF INHALATION (07:57)
[2023-08-23] MEDS: FLUTICASONE/SALMETEROL 115-21 MCG INHALER 1 PUFF 2 PUFF INHALATION (07:57)
[2023-08-23 07:58] VITALS: PULSE 65; RESP 18
[2023-08-23 08:00] VITALS: O2SAT 95
[2023-08-23] MEDS: ACETAMINOPHEN 500 MG TABLET 1000 MG PO (08:32)
[2023-08-23] MEDS: ASCORBIC ACID 500 MG TABLET PO (08:33)
[2023-08-23] MEDS: CITALOPRAM HYDROBROMIDE 20 MG TABLET 40 MG PO (08:34)
[2023-08-23] MEDS: FOLIC ACID 0.4 MG TABLET 0.8 MG PO (08:34)
[2023-08-23] MEDS: hydroCHLOROthiazide 12.5 MG CAPSULE PO (08:34)
[2023-08-23] MEDS: FERROUS SULFATE 325 MG TABLET DR PO (08:34)
[2023-08-23 08:35] VITALS: PULSE 112
[2023-08-23] MEDS: MEMANTINE 10 MG TABLET PO (08:35)
[2023-08-23] MEDS: LORATADINE 10 MG TABLET PO (08:35)
[2023-08-23] MEDS: METOPROLOL TARTRATE 25 MG TABLET PO (08:35)
[2023-08-23] MEDS: OLMESARTAN MEDOXOMIL 20 MG TABLET PO (08:36)
[2023-08-23] MEDS: PANTOPRAZOLE SODIUM IV 40 MG VIAL IV PUSH (08:36)
[2023-08-23] MEDS: TAMSULOSIN HCL 0.4 MG CAPSULE PO (08:36)
[2023-08-23] MEDS: VITAMIN B COMPLEX CAPSULE 1 CAP PO (08:36)
[2023-08-23] MEDS: HYDROCORTISONE 1% 30 GM CREAM 1 APPLIC TOPICAL (08:39)
[2023-08-23 11:54] LABS: Glucose Point of Care 111 mg/dl (65-105)
--- NOTE | 2023-08-23 12:39 | PM.DS ---
DS: Admitting Diagnosis Discharge Date 08/23/23 Admitting Diagnosis Hemorrhage of anus and rectum History of mechanical aortic valve replacement Acute on chronic anemia Lung cancer Dementia GI bleed Chronic kidney disease DS: Discharge Diagnosis Discharge Diagnosis (1) Bright red rectal bleeding: Code(s): K62.5 - Hemorrhage of anus and rectum Status: Acute (2) GI bleed: Code(s): K92.2 - Gastrointestinal hemorrhage, unspecified Status: Acute (3) History of mechanical aortic valve replacement: Code(s): Z95.2 - Presence of prosthetic heart valve Status: Acute (4) Acute on chronic anemia: Code(s): D64.9 - Anemia, unspecified Status: Acute (5) Lung cancer: Code(s): C34.90 - Malignant neoplasm of unspecified part of unspecified bronchus or lung Status: Acute (6) Dementia: Code(s): F03.90 - Unspecified dementia, unspecified severity, without behavioral disturbance, psychotic disturbance, mood disturbance, and anxiety Status: Acute (7) CKD (chronic kidney disease): Code(s): N18.9 - Chronic kidney disease, unspecified Status: Acute DS: Summary Hospital Course Reason for hospitalization: Hemorrhage of anus and rectum GI bleed Anemia Hospital Course: 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le who presented to the ER on 08/21/23 with bright red blood per rectum with clots. He was just discharged on 08/20/23 after having coffee ground emesis. During that admission he was seen by GI, underwent EGD, and received 2 units PRBC's. Shortly after he was discharged home, patient went to bathroom and passed 2 large clots along with some bright red blood. They returned to the ER for further evaluation. Work up in the hospital included labs which shown a stable H/H of 9.5/31.0 which was slightly down from previous H/H 9.9/32.8. VSS. GI was reconsulted and took patient for colonoscopy on 08/22/23 where he had multiple polyps removed and radiation ablation of his ulcerative chronic proctitis, multiple diverticuli were noted. Polyps were sent for cytology which is still pending. Labs are stable today. VSS, he remains afebrile, on room air. He has no new complaints today. Patient is stable for discharge home. He will need to follow up with PCP in [address] Eng in 2 weeks for follow-up results cytology and further treatment of his chronic ulcerative proctitis. Final diagnosis: Chronic ulcerative proctitis, GI bleed, anemia Status at Discharge Cognitive/behavioral status at discharge: Alert oriented x3 Functional status at discharge: independent ambulation Overall status at discharge: patient is progressing back to baseline Time Spent with Patient Time attestation: Total time spent providing and/or coordinating discharge services: Time spent: Greater than 30 minutes Exam Narrative: General: In no acute distress, well nourished Head: atraumatic, no encephalopathy Eyes: EOMI, PERRLA, sclera clear ENT: moist mucous membranes, nasal passages clear Neck: supple, no JVD, no adenopathy, trachea midline Cardiac: Normal S1 and S2. No murmur, gallops or friction rubs, peripheral pulses intact. Respiratory: Lungs clear to auscultation, no adventitious lung sounds Gastrointestinal: soft, non-distended, non-tender, normoactive bowel sounds. : voiding without difficulty. Extremities: moves all extremities well, no edema, good ROM, strength 5/5 Skin: clean, dry, intact. No wounds or lesions. Neuro: Alert and oriented x4, cranial nerves intact, no neuro deficits. Psych: normal mood, normal affect, interactive DS: Data Data Completed and Pending Completed studies during hospitalization: None Pending studies at discharge: Pending at discharge 08/22/23 14:22 Surgical [PTH] Routine Labs on day of discharge: Labs from last 24 hours 08/23/23 08/23/23 08/23/23 11:50 07:41 05:34 WBC 8.3 RBC 3.14 L Hgb 9.5 L Hct 30.6 L MCV 97.5 MCH
--- NOTE | 2023-08-23 13:11 | WPDANESPN ---
Anes - Prog Note Post-Op Date/Time: 08/23/23 13:11 Cardiovascular status: normal Respiratory status: normal Airway patency: baseline Mental status: baseline Post-Op hydration status: normal Vital Signs: Last Vital Signs Temp 98.1 F 08/23/23 06:00 Pulse 112 H 08/23/23 08:35 Resp 18 08/23/23 07:58 BP 155/48 H 08/23/23 06:00 Pulse Ox 95 08/23/23 08:00 O2 Del Method Room Air 08/23/23 08:30 FiO2 21 08/22/23 20:00 Pain Score (VAS): 0/10 I/O: Intake & Output 08/22/23 08/23/23 08/23/23 23:59 07:59 15:59 Intake Total 1240 1120 240 Balance 1240 1120 240 Laboratory Tests 08/23/23 05:34 08/23/23 05:34 08/22/23 08/22/23 08/22/23 13:45 17:11 19:55 WBC RBC Hgb Hct MCV MCH MCHC RDW Plt Count MPV Sodium Potassium Chloride Carbon Dioxide Anion Gap BUN Creatinine Estim Creat Clear Calc Estimated GFR Glucose POC Capillary Glucose 91 163 H 102 Calcium Total Bilirubin AST ALT Alkaline Phosphatase Total Protein Albumin 08/23/23 08/23/23 08/23/23 05:34 07:41 11:50 WBC 8.3 RBC 3.14 L Hgb 9.5 L Hct 30.6 L MCV 97.5 MCH 30.3 MCHC 31.0 L RDW 15.9 H Plt Count 267 MPV 10.0 Sodium 137 Potassium 3.5 Chloride 112 H Carbon Dioxide 17 L Anion Gap 8 BUN 9 Creatinine 1.20 Estim Creat Clear Calc 33 Estimated GFR 58 L Glucose 94 POC Capillary Glucose 104 111 H Calcium 8.9 Total Bilirubin 0.5 AST 43 ALT 36 Alkaline Phosphatase 98 Total Protein 6.0 L Albumin 3.0 L Post-procedural complaints: none Patient Feedback: Patient satisfied with anesthetic care.
== END 2023-08-23 13:50 | disposition home or self-care (01) | DRG 386 ==
LOC: ANHED 08-21 04:47 → ANH2MED 08-21 05:41
PROVIDERS: Internal Medicine Gastroenterology; Admitting Provider General Practice; Emergency Provider Emergency Medicine; PCP Family Medicine; Visit Provider Nurse Practitioner Acute Care
PROC: 0DJD8ZZ Inspection of Lower Intestinal Tract, Via Natural or Artificial Opening Endoscopic (ICD-10-PCS; CPT 45378; principal; 2023-08-22 15:00)
DX: K51.20 Ulcerative (chronic) proctitis without complications (principal); C34.11 Malignant neoplasm of upper lobe, right bronchus or lung; I25.10 Atherosclerotic heart disease of native coronary artery without angina pectoris; I48.0 Paroxysmal atrial fibrillation; I12.9 Hypertensive chronic kidney disease with stage 1 through stage 4 chronic kidney disease, or unspecified chronic kidney disease; N18.31 Chronic kidney disease, stage 3a; E11.22 Type 2 diabetes mellitus with diabetic chronic kidney disease; E78.5 Hyperlipidemia, unspecified; J44.9 Chronic obstructive pulmonary disease, unspecified; D50.9 Iron deficiency anemia, unspecified; K63.5 Polyp of colon; K21.9 Gastro-esophageal reflux disease without esophagitis; K44.9 Diaphragmatic hernia without obstruction or gangrene; N40.0 Benign prostatic hyperplasia without lower urinary tract symptoms; M85.80 Other specified disorders of bone density and structure, unspecified site; M15.9 Polyosteoarthritis, unspecified; M47.812 Spondylosis without myelopathy or radiculopathy, cervical region; G25.81 Restless legs syndrome; G30.9 Alzheimer's disease, unspecified; F02.80 Dementia in other diseases classified elsewhere, unspecified severity, without behavioral disturbance, psychotic disturbance, mood disturbance, and anxiety; F17.210 Nicotine dependence, cigarettes, uncomplicated; Z95.2 Presence of prosthetic heart valve; Z79.01 Long term (current) use of anticoagulants; Z95.1 Presence of aortocoronary bypass graft
CPT/HCPCS: 36415; 80053; 82948; 85014; 85018; 85025; 85027; 85610; 85730; 86850; 86900; 86901; 88305; 94640; 96374; 99285; A9270; C9113; G0378; J0290; J0360; J1580; J2704; J7030; J7120

== ENCOUNTER 2023-08-27 12:37 | Outpatient (CLI) | payer MEDICARE, BC, SELFPAY ==
--- NOTE | ~2023-08-27 | MR_ITS ---
MRI of the brain Clinical History: Lung cancer staging Technique: Axial and sagittal T1-weighted images were acquired. These were followed by axial T2-weigh tulio, diffusion weighted, gradient, and FLAIR images. Following intravenous administration of 11 cc Mu ltiHance gadolinium, T1-weighted fat-sat imaging was performed in the axial, coronal, and sagittal pl anes. Findings: There is no acute infarct, internal hemorrhage, or mass lesion. There are mild chronic whit e matter changes in periventricular white matter bilaterally, and in the cintia. Ventricles and subarachnoid spaces are dilated. Orbits are unremarkable. Paranasal sinuses and mastoi d air cells are clear. Major intracranial flow voids appear intact. Sagittal midline structures are intact. No abnormal postcontrast enhancement identified. IMPRESSION: No evidence for intracranial metastasis. No acute infarct or intracranial hemorrhage. Minimal chronic white matter changes and moderate to severe generalized atrophy. Reviewed, dictated and finalized at [facility]. [employer] IMPRESSION: No evidence for intracranial metastasis. No acute infarct or intracranial hemor rhage. Minimal chronic white matter changes and moderate to severe generalized atrophy .
== END 2023-08-27 12:38 | disposition home or self-care (01) ==
LOC: ANHIMG 12:38
PROVIDERS: PCP Family Medicine; Visit Provider Radiology Radiation Oncology
DX: C34.11 Malignant neoplasm of upper lobe, right bronchus or lung (principal)
CPT/HCPCS: 70553; 77290; 77334; A9577

== ENCOUNTER 2023-09-04 10:49 | Inpatient (IN) | payer MEDICARE, BC, SELFPAY ==
--- NOTE | ~2023-09-04 | CT_ITS ---
EXAMINATION: CTA brain carotid DATE: 09/04/2023 19:00 INDICATION: syncope TECHNIQUE: Computed tomographic angiography (CTA) of the head was performed without and with 100 mL O mnipaque-350 intravenous contrast. CTA of the neck was performed with intravenous contrast. Automated exposure control and iterative reconstruction technique were employed. The dose-length product was 1 776.55 mGy-cm. Maximum intensity projection and volume rendered 3D-reconstructions were created by ambar ricks technologist on a separate workstation. COMPARISON: MRI brain 08/27/2023; CT brain 07/02/2023. FINDINGS: CT BRAIN: No acute large vessel infarct, intracranial hemorrhage, mass, or hydrocephalus. Moderate atrophy and chronic white matter change. Atherosclerotic intracranial calcification. Bilateral lens replacements. Bilateral basal ganglia calcification. CTA HEAD: No large vessel occlusion, aneurysm, high flow vascular malformation, nidus or extravasation. Moderat e calcified plaque in the bilateral cavernous carotids, without severe stenosis. Hypoplastic right A1 segment. Minimal calcification of the intradural segments of the bilateral vertebral arteries. Paten t cerebral veins. Symmetric parenchymal enhancement. CTA NECK: Aortic arch and proximal great vessels: Moderate arch calcification. Normal arch anatomy. Moderate st enosis of the left common carotid artery origin. Right common carotid, carotid bifurcation, and internal carotid artery: Moderate calcification at the bifurcation.There is 0% stenosis of the proximal right internal carotid artery relative to normal di stal artery lumen diameter (NASCET criteria). Left common carotid, carotid bifurcation, and internal carotid artery: Moderate calcification at the bifurcation. There is 8% stenosis of the proximal left internal carotid artery relative to normal dis brooke artery lumen diameter (NASCET criteria). Minimal calcified plaque without significant stenosis at the distal left internal carotid just prior to the foramen. Vertebral arteries: No significant plaque or stenosis. Moderate right and mild left short segment marianna rowing of the mid vertebral arteries as they bend around prominent osteophytes at the C5-6 level. Mil d short segment calcified stenosis of the mid left vertebral artery. Other findings: Known right upper lobe mass. Mediastinal lymphadenopathy. Emphysematous change. Moder ate cervical degenerative disc disease and facet arthropathy with multilevel neural foraminal narrowi ng. No severe central canal narrowing. IMPRESSION: No large vessel occlusion. No severe carotid or vertebral artery stenosis. 8% stenosis of the proximal left internal carotid artery (NASCET criteria). Reviewed, dictated and finalized at location K. MACHINE OPERATOR
[2023-09-04 10:58] VITALS: BP 132/59; PULSE 82; RESP 25; TEMP 36; O2SAT 100
--- NOTE | 2023-09-04 11:11 | ECG_ITS ---
Measurements Intervals [place] Rate: 77 P: PA: 0 QRS: -24 QRSD: 87 T: 48 QT: 369 QTc: 419 Interpretive Statements ATRIAL FIBRILLATION DELAYED PRECORDIAL R/S TRANSITION CONSIDER INFERIOR INFARCT, AGE INDETERMINATE BORDERLINE ST-T WAVE ABNORMALITY- HIGH LATERAL LEADS ABNORMAL ECG COMPARED TO ECG 08/15/2023 14:53:59 HEART RATE HAS DECREASED Electronically Signed On 09-04-2023 11:40:56 [employer] by Rajendra Marrero D.O.
[2023-09-04 11:44] LABS: Basophils Percent Auto 0.5 % (0.2-1.2); Eosinophils Absolute Auto 0.3 K/mm3 (0-0.3); Hematocrit 33.4 % (42.0-52.0); Hemoglobin 9.8 g/dL (14.0-18.0); Immature Granulocyte Absolute 0.06 K/mm3 (0.00-0.031); Immature Granulocyte Percent A 0.7 % (0-0.5); Lymphocytes Absolute Auto 0.48 K/mm3 (0.9-3.2); Lymphocytes Percent Auto 5.7 % (18.3-44.2); Mean Corpuscular HGB Conc 29.3 g/dl (32-36); Mean Corpuscular Hemoglobin 29.8 pg (26-34); Mean Corpuscular Volume 101.5 fl (80-100); Mean Platelet Volume 10.2 fl (7.4-10.4); Monocytes Absolute Auto 0.6 K/mm3 (0.1-0.6); Monocytes Percent Auto 6.5 % (2.6-8.5); Neutrophils Percent Auto 83.6 % (45.5-73.1); Platelet Count Result 219 k/mm3 (150-375); Red Blood Count 3.29 M/mm3 (4.6-6.20); Red Cell Distribution Width 15.1 % (11.5-14.5); White Blood Count 8.4 K/mm3 (4.5-10.0)
[2023-09-04 11:56] LABS: Alanine Aminotransferase 17 U/L (6-50); Albumin Level 2.9 g/dL (3.5-5.1); Alkaline Phosphatase 89 U/L (38-126); Anion Gap 7 mmol/L (8-16); Aspartate Amino Transferase 22 U/L (17-59); Bilirubin,Total 0.2 mg/dL (0.2-1.3); Blood Urea Nitrogen 25 mg/dL (9-20); Calcium 10.2 mg/dL (8.4-10.2); Carbon Dioxide 24 mmol/L (22-30); Chloride 102 mmol/L (98-107); Estimated CRCL calculation 28 ml/min; Estimated Glomerular Filt Rate 45; Glucose 139 mg/dL (65-110); Potassium 3.5 mmol/L (3.4-5.0); Sodium 133 mmol/L (137-145)
[2023-09-04 12:04] LABS: Platelet Estimate Adequate (Adequate)
[2023-09-04 12:05] LABS: Burr Cells 1+ (NORMAL); Schistocytes None Seen (NORMAL)
--- NOTE | 2023-09-04 12:57 | ED.GENADULT ---
HPI - General Adult General Chief complaint: Weakness Stated complaint: near syncope x 2 Time Seen by Provider: 09/04/23 11:20 Source: patient Mode of arrival: EMS Limitations: no limitations History of Present Illness HPI narrative: 83-year-old with a history lung CA who recently going through radiation treatment status post sciatic while replacement, chronic anemia presents to the ER with a complaint insert having increasing episodes since this morning. 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 He presently has no complaints however his family reports that he has been having diarrhea on and off for quite some time. Denies any blood in the stool Onset (ago): hour(s) (1) Radiation: non-radiation Associated symptoms: denies other symptoms Related Data Home Medications Medication Instructions Recorded Confirmed memantine 10 mg tablet 10 mg PO BID 03/22/21 09/03/23 ascorbic acid (vitamin C) 500 mg 500 mg PO DAILY 04/27/21 09/03/23 capsule cetirizine 10 mg tablet (Zyrtec) 10 mg PO DAILY 04/27/21 09/03/23 calcium carbonate 600 mg-vitamin 1 tablet PO BID 10/18/21 09/03/23 D3 20 mcg (800 unit) chewable tablet (Caltrate 600 plus D) Daily Multivitamin 1 tablet PO DAILY 01/23/22 09/03/23 acetaminophen 325 mg tablet 1,000 mg PO BID 01/23/22 09/03/23 (Tylenol) ferrous sulfate 325 mg (65 mg 325 mg PO DAILY 01/23/22 09/03/23 iron) tablet folic acid 800 mcg tablet 800 mcg PO DAILY 01/23/22 09/03/23 vitamin B complex (B 1 tablet PO DAILY 08/23/22 09/03/23 Complex-Vitamin B12 tablet) donepezil 10 mg tablet 5 mg PO DAILY 05/02/23 09/03/23 fesoterodine 8 mg tablet,extended 8 mg PO DAILY 05/02/23 09/03/23 release 24 hr warfarin 2 mg tablet (Jantoven) 2 mg PO DAILY 08/17/23 09/03/23 warfarin 3 mg tablet (Jantoven) 3 mg PO DAILY 08/17/23 09/03/23 citalopram 40 mg tablet 40 mg PO DAILY 08/21/23 09/03/23 olmesartan 40 0.5 tablet PO DAILY 08/21/23 09/03/23 mg-hydrochlorothiazide 25 mg tablet Allergies Allergy/AdvReac Type Severity Reaction Status Date / Time codeine AdvReac Unknown Nausea and Verified 09/04/23 11:18 Vomiting hydrocodone AdvReac Unknown Nausea and Verified 09/04/23 11:18 Vomiting Review of Systems Review of Systems: All systems reviewed & are unremarkable except as noted in HPI and below Constitutional: Constitutional: Reports no additional constitutional complaints Eyes: Eyes: Reports no additional eye complaints ENT: Reports system reviewed and no additional complaints, except as documented Cardiovascular: Cardiovascular: Reports as per HPI Respiratory: Respiratory: Reports no additional respiratory complaints Gastrointestinal: Gastrointestinal: Reports no additional gastrointestinal complaints Musculoskeletal: Musculoskeletal: Reports no additional musculoskeletal complaints Neurologic: Reports system reviewed and no additional complaints, except as documented PMF Past Medical History Medical History Alzheimer disease BPH (benign prostatic hyperplasia) CAD (coronary artery disease) Cervical spondylolysis Chronic low back pain Chronic obstructive pulmonary disease CKD (chronic kidney disease) stage 3, GFR 30-59 ml/min Environmental allergies Essential (primary) hypertension Gastro-esophageal reflux disease without esophagitis Hiatal hernia History of GI bleed History of renal stone Hyperlipidemia, unspecified Iron deficiency anemia Lung cancer RUL Nonrheumatic aortic (valve) stenosis Osteopenia Presence of prosthetic heart valve Primary osteoarthritis involving multiple joints Prostate cancer Restless leg syndrome Squamous cell carcinoma Tobacco abuse Type 2 diabetes mellitus without complications Surgical History Surgical History Hi
[2023-09-04] MEDS: SODIUM CHLORIDE 0.9% IV 1,000 ML 125 ML IV CONT (14:15)
[2023-09-04 14:46] VITALS: BP 127/66; PULSE 93; RESP 16; O2SAT 100
--- NOTE | 2023-09-04 16:15 | ADMGEN ---
This patient, Arley Nicholson, was admitted to [facility] Surg Room 316-02. Patient/family oriented to hospital policies and general routines including ID bracelet, bed and alarms, visiting hours, pain management, procedures, bathroom and other care routines, personal items, smoking policy, room service/diet, and visiting hours. Information on how to activate the Rapid Response Team has been discussed. Patient/Family are encouraged to report perceived risks to care and to ask questions if they do not understand what they are told or what they should do.
[2023-09-04 16:26] VITALS: BP 163/79; PULSE 78; RESP 20; TEMP 36.6; O2SAT 100
[2023-09-04 16:35] VITALS: BMI 18.8
[2023-09-04 16:42] LABS: Troponin I < 0.012 ng/mL (0.000-0.034)
--- NOTE | 2023-09-04 16:46 | PM.IMHP ---
H&P: HPI History of Present Illness Date/Time: 09/04/23 16:46 Chief Complaint: syncope Narrative: 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le with significant past medical history of Alzheimer disease, BPH, CAD, CKD stage 3, hypertension, GERD, hiatal hernia, hyperlipidemia, iron efficiency anemia, squamous cell lung cancer, prostate cancer, OA, prosthetic aortic heart valve, tobacco abuse, type 2 DM who presented to the hospital with complaints of syncope and weakness. Patient received radiation treatment 09/13/2023 and was reported to have a syncopal episode right afterwards. On examination patient is alert oriented x3, lying in the bed. He denies any fever, chills, nausea, vomiting, diarrhea, abdominal pain, shortness a breath, chest pain, headache, lightheadedness, dizziness. Workup in the hospital included labs which shown a hemoglobin of 9.8, hematocrit 33.4, sodium 133, BUN 25, creatinine 1.5, EGFR was 45, liver enzymes were normal, troponin was negative. EKG shown AFib with the rate of 77. Plan for cardiology consult, obtain echo, CTA of the carotids and the brain, obtain fecal occult blood. Of note patient had a few recent admissions due to rectal bleeding. He was admitted on 08/15/2023 and had received 2 unit of blood and GI was consulted at that time. He did have a guaiac-positive stool while inpatient. They did an EGD on him on 09/06/2021 23 which shown a hiatal hernia, diverticulosis without perforation or abscess or bleeding. He was discharged on 08/20/2023 and then came back to the ER on 08/21/2023 after passing 2 large clots with bright red blood. His hemoglobin was 9.5 when he got to the hospital in his blood pressure was 175/70. He was given 1 dose of vitamin K at that time. He was not requiring any blood transfusions at that time. GI seen him again and took him for a colonoscopy on 08/22/2023 which shown some colon polyps in the descending colon and diverticulosis without perforation or abscess without bleeding, radiation proctitis without complication. Review of Systems Constitutional: Constitutional: Reports as per HPI and Reports no additional constitutional complaints Eyes: Eyes: Reports as per HPI and Reports no additional eye complaints ENT: Reports system reviewed and no additional complaints, except as documented and Reports as per HPI Cardiovascular: Cardiovascular: Reports as per HPI and Reports no additional cardiovascular complaints Respiratory: Respiratory: Reports as per HPI and Reports no additional respiratory complaints Gastrointestinal: Gastrointestinal: Reports as per HPI and Reports no additional gastrointestinal complaints Genitourinary: Genitourinary: Reports no additional male genitourinary complaints and Reports as per HPI Musculoskeletal: Musculoskeletal: Reports no additional musculoskeletal complaints and Reports as per HPI Integumentary/Breasts: Skin/Breast: Reports system reviewed and no additional complaints, except as docu and Reports as per HPI Neurologic: Reports system reviewed and no additional complaints, except as documented and Reports as per HPI Psychiatric: Psychiatric: Reports no additional psychiatric complaints and Reports as per HPI [facility] Past Medical History Medical History Alzheimer disease BPH (benign prostatic hyperplasia) CAD (coronary artery disease) Cervical spondylolysis Chronic low back pain Chronic obstructive pulmonary disease CKD (chronic kidney disease) stage 3, GFR 30-59 ml/min Environmental allergies Essential (primary) hypertension Gastro-esophageal reflux disease without esophagitis Hiatal hernia History of GI bleed History of renal stone Hyperlipidemia, unspecified Iron deficiency anemia Lung cancer RUL Nonrheumatic aortic (valve) stenosis Osteopenia Presence of prosthetic heart valve Primary osteoarthritis involving multiple joints Prostate cancer Restless leg syndrome Squamous cell carcinoma Toba
[2023-09-04 19:02] LABS: INR 2.3; Prothrombin Time 27.4 Seconds (11.1-14.7)
[2023-09-04 19:15] LABS: Troponin I < 0.012 ng/mL (0.000-0.034)
[2023-09-04] MEDS: WARFARIN (*PBKC) 2 MG TABLET PO (19:41)
[2023-09-04] MEDS: MEMANTINE 10 MG TABLET PO (19:41)
[2023-09-04 20:00] VITALS: BP 144/90; PULSE 80; PULSE 93; RESP 22; TEMP 36; O2SAT 100
[2023-09-04] MEDS: rOPINIRole HCL 0.25 MG TABLET PO (20:21)
[2023-09-04] MEDS: METOPROLOL TARTRATE 25 MG TABLET PO (20:21)
[2023-09-04] MEDS: ATORVASTATIN 40 MG TABLET PO (20:22)
[2023-09-04 22:27] LABS: Troponin I < 0.012 ng/mL (0.000-0.034)
[2023-09-05] VITALS (10 sets, daily range): BP systolic 104–150; BP diastolic 41–74; PULSE 53–109; RESP 18–20; TEMP 36–36.6; O2SAT 95–100
--- NOTE | 2023-09-05 | ECHO_ITS ---
Patient Info Name: Arley Nicholson Age: 83 years : 1940 Gender: Male Ht: 68 in Wt: 130 lbs BSA: 1.68 m2 HR: 99 bpm BP: 147 / 67 mmHg Heart Rhythm: Sinus Rhythm, Tachycardia Technical Quality: Good Exam Date: 09/05/2023 9:37 AM Exam Location: Echo Lab Patient Status: Outpatient Admit Date: 09/04/2023 Staff Ordering Physician: Gemma Marshall APRN Interventionist: Kevin Alas RDCS Attending Provider: Santa No MD Referring Physician: Joanna HART; Exam Type: CA echo doppler color flow Study Info Indications - syncope Complete two-dimensional, color flow and Doppler transthoracic echocardiogram is performed. Summary 1. Complete two-dimensional, color flow and Doppler transthoracic echocardiogram is performed. 2. Left ventricular chamber dimension is normal. 3. Left ventricular systolic function is normal, estimated at 55-60%. 4. There is mildly increased left ventricular wall thickness. 5. Right ventricular systolic function is normal. 6. Left atrial chamber dimension is moderately enlarged. 7. Right atrial chamber dimension is mildly enlarged. 8. There is moderate aortic valve calcification. 9. There is mild aortic valve stenosis with a peak velocity of 241 cm/s, mean gradient of 13 mmHg, and aortic valve area of 1.9 cm2. 10. There is mild to moderate mitral valve regurgitation. 11. There is mild tricuspid valve regurgitation. Left Ventricle Left ventricular chamber dimension is normal. Left ventricular systolic function is normal, estimated at 55-60%. There is mildly increased left ventricular wall thickness. The left ventricular diastolic function is indeterminate. Right Ventricle Right ventricular chamber dimension is normal. Right ventricular systolic function is normal. Left Atria Left atrial chamber dimension is moderately enlarged. Right Atria Right atrial chamber dimension is mildly enlarged. Atrial Septum Intact interatrial septum visualized by color flow imaging. Aortic Valve The aortic valve is not well visualized. There is mild aortic valve stenosis with a peak velocity of 241 cm/s, mean gradient of 13 mmHg, and aortic valve area of 1.9 cm2. There is no aortic valve regurgitation. There is moderate aortic valve calcification. Pulmonic Valve The pulmonic valve is not well visualized. There is trace pulmonic regurgitation. Mitral Valve There is mild to moderate mitral valve regurgitation. The mitral valve annulus is mildly calcified. Tricuspid Valve There is mild tricuspid valve regurgitation. Pericardium/Pleural There is no pericardial effusion. Inferior Vena Cava Normal inferior vena cava with >50% collapse upon inspiration consistent with normal right atrial pressure, 3 mmHg. Aorta The aortic root size at the sinus of Valsalva is normal. Left Ventricular Outflow Tract Name Value Normal LVOT 2D LVOT Diameter 2.1 cm LVOT Doppler LVOT Peak Gradient 3 mmHg LVOT Mean Gradient 2 mmHg LVOT VTI 25 cm LVOT VTI/AV VTI Ratio 0.5 LVOT Stroke Volume 85 ml LVOT CO 4.8
[2023-09-05] MEDS: SODIUM CHLORIDE 0.9% IV 1,000 ML 125 ML IV CONT ×3 (03:01→23:30)
[2023-09-05 06:31] LABS: INR 2.5; Prothrombin Time 28.9 Seconds (11.1-14.7)
[2023-09-05 06:32] LABS: Alanine Aminotransferase 12 U/L (6-50); Albumin Level 2.7 g/dL (3.5-5.1); Alkaline Phosphatase 80 U/L (38-126); Anion Gap 6 mmol/L (8-16); Aspartate Amino Transferase 25 U/L (17-59); Bilirubin,Total 0.5 mg/dL (0.2-1.3); Blood Urea Nitrogen 20 mg/dL (9-20); Calcium 9.4 mg/dL (8.4-10.2); Carbon Dioxide 19 mmol/L (22-30); Chloride 105 mmol/L (98-107); Estimated CRCL calculation 30 ml/min; Estimated Glomerular Filt Rate 53; Glucose 95 mg/dL (65-110); Potassium 3.5 mmol/L (3.4-5.0); Sodium 130 mmol/L (137-145)
[2023-09-05 07:15] LABS: Hematocrit 28.6 % (42.0-52.0); Hemoglobin 8.8 g/dL (14.0-18.0); Mean Corpuscular HGB Conc 30.8 g/dl (32-36); Mean Corpuscular Hemoglobin 28.9 pg (26-34); Mean Corpuscular Volume 94.1 fl (80-100); Mean Platelet Volume 10.2 fl (7.4-10.4); Platelet Count Result 214 k/mm3 (150-375); Red Blood Count 3.04 M/mm3 (4.6-6.20); Red Cell Distribution Width 15.1 % (11.5-14.5); White Blood Count 8.2 K/mm3 (4.5-10.0)
[2023-09-05] MEDS: FLUTICASONE/SALMETEROL 115-21 MCG INHALER 1 PUFF 2 PUFF INHALATION ×2 (08:34→20:10)
[2023-09-05] MEDS: UMECLIDINIUM BROMIDE 62.5 MCG ELLIPTA 1 PUFF INHALATION (08:34)
[2023-09-05] MEDS: CITALOPRAM HYDROBROMIDE 20 MG TABLET 40 MG PO (09:07)
[2023-09-05] MEDS: OLMESARTAN MEDOXOMIL 20 MG TABLET PO (09:08)
[2023-09-05] MEDS: FERROUS SULFATE 325 MG TABLET DR BY MOUTH (09:08)
[2023-09-05] MEDS: VITAMIN B COMPLEX CAPSULE 1 CAP PO (09:08)
[2023-09-05] MEDS: ASCORBIC ACID 500 MG TABLET PO (09:08)
[2023-09-05] MEDS: METOPROLOL TARTRATE 25 MG TABLET PO ×2 (09:09→21:37)
[2023-09-05] MEDS: MULTIVITAMINS THERAPEUTIC TAB (*BKC) 1 TABLET PO (09:10)
[2023-09-05] MEDS: TAMSULOSIN HCL 0.4 MG CAPSULE PO (09:10)
[2023-09-05] MEDS: PANTOPRAZOLE SOD SESQUIHYDRATE 20 MG TAB PO (09:10)
[2023-09-05] MEDS: MEMANTINE 10 MG TABLET PO ×2 (09:10→17:08)
[2023-09-05] MEDS: hydroCHLOROthiazide 12.5 MG CAPSULE PO (09:10)
[2023-09-05] MEDS: DONEPEZIL HCL 5 MG TABLET PO (09:10)
[2023-09-05] MEDS: FOLIC ACID 0.4 MG TABLET 0.8 MG PO (09:10)
[2023-09-05] MEDS: LORATADINE 10 MG TABLET PO (09:10)
--- NOTE | 2023-09-05 09:14 | PM.CNCAR ---
Assessment and Plan Assessment and plan (1) Syncopal episodes: Qualifiers: Syncope type: unspecified Qualified Code(s): R55 - Syncope and collapse Code(s): R55 - Syncope and collapse Status: Acute Assessment and Plan: Reported syncopal events although details are not clear at this time. I attempted to reach the patient's with number provided no answer. We will need to repeat attempts for clarification of the history whether he truly lost consciousness versus near syncopal episodes. Patient has a multi due to potential contributors including chronic anemia, deconditioning, dementia, recent radiation therapy, medications, likely degree of intravascular volume depletion. No evidence for acute cerebrovascular accident, acute bleed or drop in hemoglobin. Unlikely to be thromboembolic complications as she is therapeutic on warfarin without new significant murmurs or other symptoms such as progressive shortness of breath or chest pain or evidence for clinical decompensated heart failure. He would out for myocardial infarction negative serial troponins. Heart rate reasonably controlled in atrial fibrillation. He is hyponatremic which needs to be addressed by primary service likely contributed by hydrochlorothiazide. continue telemetry for now. No evidence for high-grade AV block or prolonged pauses thus far. Follow H& H. Stable at the moment. Ambulate with caution. PT OT. Check orthostatic vital signs. TSH mildly reduced at 0.396 from 08/15/2023. Defer to primary service. 2D echocardiogram to assess mechanical aortic valve, LV function, pulmonary pressures in chamber size. Once clarification with regards to the patient's history as far as near-syncope versus syncope particularly if no other cause identified such as orthostasis more precise recommendations can be provided. I would consider discontinuation of hydrochlorothiazide to minimize intravascular volume depletion as patient is clearly at risk given his comorbidities. (2) Persistent atrial fibrillation: Code(s): I48.19 - Other persistent atrial fibrillation Status: Acute Assessment and Plan: Heart rate reasonably controlled. Continue metoprolol tartrate 25 mg twice daily for heart rate control. Continue warfarin systemic anticoagulation goal INR target 2.5 at this time. Monitor H&H and or signs of bleeding. Extreme caution with ambulation to both prefer falls and injuries. Given mechanical aortic valve he has no option for alternative anticoagulant strategy and remains at high risk for embolic complications such as stroke refuse subtherapeutic given hypercoagulable state in light of history of cancer, mechanical aortic valve, and concomitant atrial fibrillation. Adjustment of metoprolol as heart rate and blood pressure warranted. (3) Anemia: Code(s): D64.9 - Anemia, unspecified Status: Acute Assessment and Plan: H&H stable. Continue monitor closely. Patient with recent lower GI bleed appears stable at this time. He is therapy and warfarin, continue for now no changes. (4) History of mechanical aortic valve replacement: Code(s): Z95.2 - Presence of prosthetic heart valve Status: Acute Assessment and Plan: Continue systemic anticoagulation with warfarin typically INR goal between 2 and 3. Follow INR daily while in the hospital. Continue warfarin present dose. (5) GI bleed: Code(s): K92.2 - Gastrointestinal hemorrhage, unspecified Status: Acute Assessment and Plan: As above, history of lower GI bleed H&H stable thus far. Patient underwent colonoscopy and EGD the stable findings evidence of diverticulosis, colon polyps, radiation proctitis but without complications or evidence for active bleeding. (6) Lung cancer: Code(s): C34.90 - Malignant neoplasm of unspecified part of unspecified bronchus or lung Status: Acute Assessment and Plan:
--- NOTE | 2023-09-05 14:56 | P.PNIM_ITS ---
Progress Note: A&P Assessment and Plan (1) Syncopal episodes: Qualifiers: Syncope type: unspecified Qualified Code(s): R55 - Syncope and collapse Code(s): R55 - Syncope and collapse Status: Acute Assessment and Plan: 09/04/23: * Patient reporting syncopal episode after radiation treatment at oncology office. * Patient recently seen for GI bleeding and had an EGD which showed no hiatal hernia and a colonoscopy showed diverticulosis without diverticulitis or bleed, his hemoglobin this admission is 9.8 and hematocrit is 33.4. No signs of active bleeding at this time. * We will check an fecal occult blood * Will obtain orthostatic blood pressures * We will go ahead and get an echo * Consult placed to Cardiology * We will also get a CTA of the carotids and of the brain to rule out any stenosis that could be causing his syncopal symptoms 09/05/23: * Orthostatic blood pressures showed blood pressure of 147/67 with a map of 93 and a heart rate of 98 while in the supine position, he dropped his heart rate to 53 and his blood pressure dropped to 107/74 in the sitting position, his h eart rate recovered to 87 but his blood pressure continued to drop to 104/41 it whenever he was going from sitting to standing. * Echo shown normal LV systolic function with an ejection fraction of 55-60%, RV systolic function was normal * CTA of his carotids and of the brain did not reveal any large vessel occlusion or severe carotid or vertebral artery stenosis, there was 8% stenosis of the proximal left internal carotid artery. * Cardiology was consulted and seen patient today however needs more clarification on what happened during this syncopal episode. He tried reaching out to the however there was no answer. Cardiology did recommend discontinuation of his hydrochlorothiazide as his sodium level is 130 today. * Touch base with today about syncopal episode, see above in my HPI for details. * Will continue IV fluids for now and recheck labs in the morning (2) Weakness: Code(s): R53.1 - Weakness Status: Acute Assessment and Plan: 09/04/23: * See above plan of care (3) Lung cancer: Code(s): C34.90 - Malignant neoplasm of unspecified part of unspecified bronchus or lung Status: Acute Assessment and Plan: 09/04/23: * History of squamous cell carcinoma (4) Hyperlipidemia, unspecified: Qualifiers: Hyperlipidemia type: unspecified Qualified Code(s): E78.5 - Hyperlipidemia, unspecified Code(s): E78.5 - Hyperlipidemia, unspecified Status: Chronic Assessment and Plan: 09/04/23: * Restarted atorvastatin 09/05/23: * Continue with current treatment plan (5) Gastro-esophageal reflux disease without esophagitis: Code(s): K21.9 - Gastro-esophageal reflux disease without esophagitis Status: Chronic Assessment and Plan: 09/04/23: * Started on Protonix * History of hiatal hernia on most recent EGD 09/05/23: * Continue with current treatment plan (6) Essential (primary) hypertension: Code(s): I10 - Essential (primary) hypertension Status: Chronic Assessment and Plan: 09/04/23: * Blood pressures ranging 127/66 to 163/79 * Restarted home medication 09/05/23: * Stop hydrochlorothiazide considering sodium level is now 130, per Cardiology recommendation * See above for orthostatic blood pressures Time Spent With Patient Time with patient: 25 - 35 minutes Subjective Date/time seen: 09/05/23 14:56 Interv
--- NOTE | 2023-09-05 14:56 | PM.IMPN ---
Progress Note: A&P Assessment and Plan (1) Syncopal episodes: Qualifiers: Syncope type: unspecified Qualified Code(s): R55 - Syncope and collapse Code(s): R55 - Syncope and collapse Status: Acute Assessment and Plan: 09/04/23: Patient reporting syncopal episode after radiation treatment at oncology office. Patient recently seen for GI bleeding and had an EGD which showed no hiatal hernia and a colonoscopy showed diverticulosis without diverticulitis or bleed, his hemoglobin this admission is 9.8 and hematocrit is 33.4. No signs of active bleeding at this time. We will check an fecal occult blood Will obtain orthostatic blood pressures We will go ahead and get an echo Consult placed to Cardiology We will also get a CTA of the carotids and of the brain to rule out any stenosis that could be causing his syncopal symptoms 09/05/23: Orthostatic blood pressures showed blood pressure of 147/67 with a map of 93 and a heart rate of 98 while in the supine position, he dropped his heart rate to 53 and his blood pressure dropped to 107/74 in the sitting position, his heart rate recovered to 87 but his blood pressure continued to drop to 104/41 it whenever he was going from sitting to standing. Echo shown normal LV systolic function with an ejection fraction of 55-60%, RV systolic function was normal CTA of his carotids and of the brain did not reveal any large vessel occlusion or severe carotid or vertebral artery stenosis, there was 8% stenosis of the proximal left internal carotid artery. Cardiology was consulted and seen patient today however needs more clarification on what happened during this syncopal episode. He tried reaching out to the however there was no answer. Cardiology did recommend discontinuation of his hydrochlorothiazide as his sodium level is 130 today. Touch base with today about syncopal episode, see above in my HPI for details. Will continue IV fluids for now and recheck labs in the morning (2) Weakness: Code(s): R53.1 - Weakness Status: Acute Assessment and Plan: 09/04/23: See above plan of care (3) Lung cancer: Code(s): C34.90 - Malignant neoplasm of unspecified part of unspecified bronchus or lung Status: Acute Assessment and Plan: 09/04/23: History of squamous cell carcinoma (4) Hyperlipidemia, unspecified: Qualifiers: Hyperlipidemia type: unspecified Qualified Code(s): E78.5 - Hyperlipidemia, unspecified Code(s): E78.5 - Hyperlipidemia, unspecified Status: Chronic Assessment and Plan: 09/04/23: Restarted atorvastatin 09/05/23: Continue with current treatment plan (5) Gastro-esophageal reflux disease without esophagitis: Code(s): K21.9 - Gastro-esophageal reflux disease without esophagitis Status: Chronic Assessment and Plan: 09/04/23: Started on Protonix History of hiatal hernia on most recent EGD 09/05/23: Continue with current treatment plan (6) Essential (primary) hypertension: Code(s): I10 - Essential (primary) hypertension Status: Chronic Assessment and Plan: 09/04/23: Blood pressures ranging 127/66 to 163/79 Restarted home medication 09/05/23: Stop hydrochlorothiazide considering sodium level is now 130, per Cardiology recommendation See above for orthostatic blood pressures Time Spent With Patient Time with patient: 25 - 35 minutes Subjective Date/time seen: 09/05/23 14:56 Interval history: 09/04/23: 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le with significant past medical history of Alzheimer disease, BPH, CAD, CKD stage 3, hypertension, GERD, hiatal hernia, hyperlipidemia, iron efficiency anemia, squamous cell lung cancer, prostate cancer, OA, prosthetic aortic heart valve, tobacco abuse, type 2 DM who presented to the hospital with complaints of syncope and weakness.? Patient received radiation treatment 09/13/2023 and was reported to hav
[2023-09-05] MEDS: WARFARIN (*PBKC) 3 MG TABLET PO (17:08)
--- NOTE | 2023-09-05 19:32 | PC.NURSE ---
Bethanie Louise LPN provided care for this patient on 09/05/23. I have reviewed her charting and agree with her assessment
[2023-09-05] MEDS: ATORVASTATIN 40 MG TABLET PO (21:37)
[2023-09-05] MEDS: rOPINIRole HCL 0.25 MG TABLET PO (21:38)
[2023-09-06] VITALS (12 sets, daily range): BP systolic 128–153; BP diastolic 63–82; PULSE 68–110; RESP 12–22; TEMP 36.2–36.5; O2SAT 96–100
[2023-09-06 06:47] LABS: Hematocrit 27.7 % (42.0-52.0); Hemoglobin 8.6 g/dL (14.0-18.0); Mean Corpuscular Hemoglobin 29.6 pg (26-34); Mean Corpuscular Volume 95.2 fl (80-100); Mean Platelet Volume 10.3 fl (7.4-10.4); Platelet Count Result 201 k/mm3 (150-375); Red Blood Count 2.91 M/mm3 (4.6-6.20); Red Cell Distribution Width 15.1 % (11.5-14.5); White Blood Count 6.3 K/mm3 (4.5-10.0)
[2023-09-06 06:56] LABS: INR 2.5
[2023-09-06 06:57] LABS: Alanine Aminotransferase 13 U/L (6-50); Albumin Level 2.6 g/dL (3.5-5.1); Alkaline Phosphatase 83 U/L (38-126); Anion Gap 6 mmol/L (8-16); Aspartate Amino Transferase 20 U/L (17-59); Bilirubin,Total 0.2 mg/dL (0.2-1.3); Blood Urea Nitrogen 16 mg/dL (9-20); Calcium 8.7 mg/dL (8.4-10.2); Carbon Dioxide 21 mmol/L (22-30); Chloride 107 mmol/L (98-107); Estimated CRCL calculation 33 ml/min; Estimated Glomerular Filt Rate 58; Glucose 107 mg/dL (65-110); Potassium 3.1 mmol/L (3.4-5.0); Sodium 134 mmol/L (137-145)
[2023-09-06] MEDS: SODIUM CHLORIDE 0.9% IV 1,000 ML 125 ML IV CONT (07:08)
[2023-09-06] MEDS: ASCORBIC ACID 500 MG TABLET PO (08:50)
[2023-09-06] MEDS: POTASSIUM CHLORIDE 20 MEQ ER TABLET 40 MEQ PO (08:50)
[2023-09-06] MEDS: OLMESARTAN MEDOXOMIL 20 MG TABLET PO (08:51)
[2023-09-06] MEDS: MULTIVITAMINS THERAPEUTIC TAB (*BKC) 1 TABLET PO (08:51)
[2023-09-06] MEDS: CITALOPRAM HYDROBROMIDE 20 MG TABLET 40 MG PO (08:51)
[2023-09-06] MEDS: METOPROLOL TARTRATE 25 MG TABLET PO ×2 (08:52→21:16)
[2023-09-06] MEDS: DONEPEZIL HCL 5 MG TABLET PO (08:52)
[2023-09-06] MEDS: TAMSULOSIN HCL 0.4 MG CAPSULE PO (08:53)
[2023-09-06] MEDS: FOLIC ACID 0.4 MG TABLET 0.8 MG PO (08:53)
[2023-09-06] MEDS: VITAMIN B COMPLEX CAPSULE 1 CAP PO (08:53)
[2023-09-06] MEDS: PANTOPRAZOLE SOD SESQUIHYDRATE 20 MG TAB PO (08:53)
[2023-09-06] MEDS: MEMANTINE 10 MG TABLET PO ×2 (08:53→16:44)
[2023-09-06] MEDS: FERROUS SULFATE 325 MG TABLET DR BY MOUTH (08:53)
[2023-09-06] MEDS: LORATADINE 10 MG TABLET PO (08:53)
[2023-09-06] MEDS: UMECLIDINIUM BROMIDE 62.5 MCG ELLIPTA 1 PUFF INHALATION (09:38)
[2023-09-06] MEDS: FLUTICASONE/SALMETEROL 115-21 MCG INHALER 1 PUFF 2 PUFF INHALATION ×2 (09:38→20:12)
--- NOTE | 2023-09-06 09:43 | P.CDI_ITS ---
CDI Query Clarification Request Documentation in the medical record indicates that this patient has a BMI of 18.9 The following is also documented in the medical record. Alzheimer disease Complaints of diarrhea Current radiation treatments? Lung Cancer Based on your medical judgement, can you further clarify in the progress notes the diagnosis associated with these findings such as: * Underweight * Emaciation * Malnutrition (Please specify severity in progress notes) * Undernutrition * Anorexia * Other condition (please specify) * None of the above/ Not applicable/ Unknown <Kathrin Garg RN - Last Filed: 09/06/23 09:52> Clarified Diagnosis Clarified Diagnosis: Moderate Malnutrition <Gemma Marshall APRN - Last Filed: 09/07/23 09:42>
--- NOTE | 2023-09-06 15:25 | P.PNIM_ITS ---
Progress Note: A&P Assessment and Plan (1) Syncopal episodes: Qualifiers: Syncope type: unspecified Qualified Code(s): R55 - Syncope and collapse Code(s): R55 - Syncope and collapse Status: Acute Assessment and Plan: 09/04/23: * Patient reporting syncopal episode after radiation treatment at oncology office. * Patient recently seen for GI bleeding and had an EGD which showed no hiatal hernia and a colonoscopy showed diverticulosis without diverticulitis or bleed, his hemoglobin this admission is 9.8 and hematocrit is 33.4. No signs of active bleeding at this time. * We will check an fecal occult blood * Will obtain orthostatic blood pressures * We will go ahead and get an echo * Consult placed to Cardiology * We will also get a CTA of the carotids and of the brain to rule out any stenosis that could be causing his syncopal symptoms 09/05/23: * Orthostatic blood pressures showed blood pressure of 147/67 with a map of 93 and a heart rate of 98 while in the supine position, he dropped his heart rate to 53 and his blood pressure dropped to 107/74 in the sitting position, his heart rate recovered to 87 but his blood pressure continued to drop to 104/41 it whenever he was going from sitting to standing. * Echo shown normal LV systolic function with an ejection fraction of 55-60%, RV systolic function was normal * CTA of his carotids and of the brain did not reveal any large vessel occlusion or severe carotid or vertebral artery stenosis, there was 8% stenosis of the proximal left internal carotid artery. * Cardiology was consulted and seen patient today however needs more clarification on what happened during this syncopal episode. He tried reaching out to the however there was no answer. Cardiology did recommend discontinuation of his hydrochlorothiazide as his sodium level is 130 today. * Touch base with today about syncopal episode, see above in my HPI for details. * Will continue IV fluids for now and recheck labs in the morning 09/06/23: * Awaiting cardiology input, however likely vasal vagal response versus true syncope. * Case coordination working on outpatient rehab needs home health versus [facility]. * Continue PT and OT (2) Weakness: Code(s): R53.1 - Weakness Status: Acute Assessment and Plan: 09/04/23: * See above plan of care (3) Lung cancer: Code(s): C34.90 - Malignant neoplasm of unspecified part of unspecified bronchus or lung Status: Acute Assessment and Plan: 09/04/23: * History of squamous cell carcinoma (4) Hyperlipidemia, unspecified: Qualifiers: Hyperlipidemia type: unspecified Qualified Code(s): E78.5 - Hyperlipidemia, unspecified Code(s): E78.5 - Hyperlipidemia, unspecified Status: Chronic Assessment and Plan: 09/04/23: * Restarted atorvastatin 09/05/23: * Continue with current treatment plan 09/06/23: * no change to current treatment plan (5) Gastro-esophageal reflux disease without esophagitis: Code(s): K21.9 - Gastro-esophageal reflux disease without esophagitis Status: Chronic Assessment and Plan: 09/04/23: * Started on Protonix * History of hiatal hernia on most recent EGD 09/05/23: * Continue with current treatment plan 09/06/23: * no change to current treatment plan (6) Essential (primary) hypertension: Code(s): I10 - Essential (primary) hypertension Status: Chronic Assessment and Plan: 09/04/23: * Blood pressures ranging
--- NOTE | 2023-09-06 15:25 | PM.IMPN ---
Progress Note: A&P Assessment and Plan (1) Syncopal episodes: Qualifiers: Syncope type: unspecified Qualified Code(s): R55 - Syncope and collapse Code(s): R55 - Syncope and collapse Status: Acute Assessment and Plan: 09/04/23: Patient reporting syncopal episode after radiation treatment at oncology office. Patient recently seen for GI bleeding and had an EGD which showed no hiatal hernia and a colonoscopy showed diverticulosis without diverticulitis or bleed, his hemoglobin this admission is 9.8 and hematocrit is 33.4. No signs of active bleeding at this time. We will check an fecal occult blood Will obtain orthostatic blood pressures We will go ahead and get an echo Consult placed to Cardiology We will also get a CTA of the carotids and of the brain to rule out any stenosis that could be causing his syncopal symptoms 09/05/23: Orthostatic blood pressures showed blood pressure of 147/67 with a map of 93 and a heart rate of 98 while in the supine position, he dropped his heart rate to 53 and his blood pressure dropped to 107/74 in the sitting position, his heart rate recovered to 87 but his blood pressure continued to drop to 104/41 it whenever he was going from sitting to standing. Echo shown normal LV systolic function with an ejection fraction of 55-60%, RV systolic function was normal CTA of his carotids and of the brain did not reveal any large vessel occlusion or severe carotid or vertebral artery stenosis, there was 8% stenosis of the proximal left internal carotid artery. Cardiology was consulted and seen patient today however needs more clarification on what happened during this syncopal episode. He tried reaching out to the however there was no answer. Cardiology did recommend discontinuation of his hydrochlorothiazide as his sodium level is 130 today. Touch base with today about syncopal episode, see above in my HPI for details. Will continue IV fluids for now and recheck labs in the morning 09/06/23: Awaiting cardiology input, however likely vasal vagal response versus true syncope. Case coordination working on outpatient rehab needs home health versus [facility] bed. Continue PT and OT (2) Weakness: Code(s): R53.1 - Weakness Status: Acute Assessment and Plan: 09/04/23: See above plan of care (3) Lung cancer: Code(s): C34.90 - Malignant neoplasm of unspecified part of unspecified bronchus or lung Status: Acute Assessment and Plan: 09/04/23: History of squamous cell carcinoma (4) Hyperlipidemia, unspecified: Qualifiers: Hyperlipidemia type: unspecified Qualified Code(s): E78.5 - Hyperlipidemia, unspecified Code(s): E78.5 - Hyperlipidemia, unspecified Status: Chronic Assessment and Plan: 09/04/23: Restarted atorvastatin 09/05/23: Continue with current treatment plan 09/06/23: no change to current treatment plan (5) Gastro-esophageal reflux disease without esophagitis: Code(s): K21.9 - Gastro-esophageal reflux disease without esophagitis Status: Chronic Assessment and Plan: 09/04/23: Started on Protonix History of hiatal hernia on most recent EGD 09/05/23: Continue with current treatment plan 09/06/23: no change to current treatment plan (6) Essential (primary) hypertension: Code(s): I10 - Essential (primary) hypertension Status: Chronic Assessment and Plan: 09/04/23: Blood pressures ranging 127/66 to 163/79 Restarted home medication 09/05/23: Stop hydrochlorothiazide considering sodium level is now 130, per Cardiology recommendation See above for orthostatic blood pressures 09/06/23: Na+ 134 today after stopping HCTZ Continue to check orthostatic blood pressures Time Spent With Patient Time with patient: 25 - 35 minutes Subjective Date/time seen: 09/06/23 15:25 Interval history: 09/04/23: 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
[2023-09-06] MEDS: WARFARIN (*PBKC) 2 MG TABLET PO (16:43)
[2023-09-06] MEDS: ATORVASTATIN 40 MG TABLET PO (21:16)
[2023-09-06] MEDS: rOPINIRole HCL 0.25 MG TABLET PO (21:17)
[2023-09-07] VITALS (14 sets, daily range): BP systolic 132–150; BP diastolic 66–75; PULSE 60–124; RESP 12–20; TEMP 36.5–37.1; O2SAT 99–100
[2023-09-07 06:48] LABS: Hematocrit 29.1 % (42.0-52.0); Hemoglobin 8.9 g/dL (14.0-18.0); Mean Corpuscular HGB Conc 30.6 g/dl (32-36); Mean Corpuscular Hemoglobin 29.2 pg (26-34); Mean Corpuscular Volume 95.4 fl (80-100); Mean Platelet Volume 10.5 fl (7.4-10.4); Platelet Count Result 222 k/mm3 (150-375); Red Blood Count 3.05 M/mm3 (4.6-6.20); White Blood Count 7.8 K/mm3 (4.5-10.0)
[2023-09-07 06:49] LABS: INR 2.7; Prothrombin Time 30.9 Seconds (11.1-14.7)
[2023-09-07 07:06] LABS: Alanine Aminotransferase 15 U/L (6-50); Albumin Level 2.7 g/dL (3.5-5.1); Alkaline Phosphatase 84 U/L (38-126); Anion Gap 4 mmol/L (8-16); Aspartate Amino Transferase 29 U/L (17-59); Bilirubin,Total 0.3 mg/dL (0.2-1.3); Blood Urea Nitrogen 14 mg/dL (9-20); Calcium 8.7 mg/dL (8.4-10.2); Carbon Dioxide 23 mmol/L (22-30); Chloride 106 mmol/L (98-107); Estimated CRCL calculation 35 ml/min; Estimated Glomerular Filt Rate > 60; Glucose 104 mg/dL (65-110); Potassium 3.6 mmol/L (3.4-5.0); Sodium 133 mmol/L (137-145)
[2023-09-07] MEDS: FLUTICASONE/SALMETEROL 115-21 MCG INHALER 1 PUFF 2 PUFF INHALATION ×2 (07:56→22:35)
[2023-09-07] MEDS: UMECLIDINIUM BROMIDE 62.5 MCG ELLIPTA 1 PUFF INHALATION (07:56)
[2023-09-07] MEDS: FOLIC ACID 0.4 MG TABLET 0.8 MG PO (08:34)
[2023-09-07] MEDS: METOPROLOL TARTRATE 25 MG TABLET PO ×2 (08:34→20:28)
[2023-09-07] MEDS: FERROUS SULFATE 325 MG TABLET DR BY MOUTH (08:37)
[2023-09-07] MEDS: CITALOPRAM HYDROBROMIDE 20 MG TABLET 40 MG PO (08:37)
[2023-09-07] MEDS: MEMANTINE 10 MG TABLET PO ×2 (08:37→16:43)
[2023-09-07] MEDS: DONEPEZIL HCL 5 MG TABLET PO (08:37)
[2023-09-07] MEDS: MULTIVITAMINS THERAPEUTIC TAB (*BKC) 1 TABLET PO (08:37)
[2023-09-07] MEDS: OLMESARTAN MEDOXOMIL 20 MG TABLET PO (08:37)
[2023-09-07] MEDS: PANTOPRAZOLE SOD SESQUIHYDRATE 20 MG TAB PO (08:37)
[2023-09-07] MEDS: VITAMIN B COMPLEX CAPSULE 1 CAP PO (08:37)
[2023-09-07] MEDS: ASCORBIC ACID 500 MG TABLET PO (08:38)
[2023-09-07] MEDS: TAMSULOSIN HCL 0.4 MG CAPSULE PO (08:38)
[2023-09-07] MEDS: LORATADINE 10 MG TABLET PO (08:38)
--- NOTE | 2023-09-07 09:39 | PM.PNCARD ---
Progress Note: A&P Assessment and Plan (1) Syncopal episodes: Qualifiers: Syncope type: unspecified Qualified Code(s): R55 - Syncope and collapse Code(s): R55 - Syncope and collapse Status: Acute Assessment and Plan: Reported syncopal events although details are not clear at this time. I attempted to reach the patient's with number provided no answer. We will need to repeat attempts for clarification of the history whether he truly lost consciousness versus near syncopal episodes. Patient has a multi due to potential contributors including chronic anemia, deconditioning, dementia, recent radiation therapy, medications, likely degree of intravascular volume depletion. No evidence for acute cerebrovascular accident, acute bleed or drop in hemoglobin. Unlikely to be thromboembolic complications as she is therapeutic on warfarin without new significant murmurs or other symptoms such as progressive shortness of breath or chest pain or evidence for clinical decompensated heart failure. He would out for myocardial infarction negative serial troponins. Heart rate reasonably controlled in atrial fibrillation. He is hyponatremic which needs to be addressed by primary service likely contributed by hydrochlorothiazide. Appears to be orthostatic in etiology. Continue to hold hydrochlorothiazide Potassium 3.6 today (2) Persistent atrial fibrillation: Code(s): I48.19 - Other persistent atrial fibrillation Status: Acute Assessment and Plan: Heart rate reasonably controlled. Continue metoprolol tartrate 25 mg twice daily for heart rate control. Continue warfarin systemic anticoagulation goal INR target 2.5 at this time. (3) Anemia: Code(s): D64.9 - Anemia, unspecified Status: Acute Assessment and Plan: H&H stable. Continue monitor closely. Patient with recent lower GI bleed appears stable at this time. He is therapy and warfarin, continue for now no changes. (4) History of mechanical aortic valve replacement: Code(s): Z95.2 - Presence of prosthetic heart valve Status: Acute Assessment and Plan: Continue systemic anticoagulation with warfarin typically INR goal between 2 and 3. Follow INR daily while in the hospital. Continue warfarin present dose. (5) GI bleed: Code(s): K92.2 - Gastrointestinal hemorrhage, unspecified Status: Acute Assessment and Plan: As above, history of lower GI bleed H&H stable thus far. Patient underwent colonoscopy and EGD the stable findings evidence of diverticulosis, colon polyps, radiation proctitis but without complications or evidence for active bleeding. (6) Lung cancer: Code(s): C34.90 - Malignant neoplasm of unspecified part of unspecified bronchus or lung Status: Acute Assessment and Plan: As above, defer to primary service and Oncology. Subjective Date/time seen: 09/07/23 09:39 Interval history: 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le with significant past medical history of Alzheimer disease, BPH, CAD, CKD stage 3, hypertension, GERD, hiatal hernia, hyperlipidemia, iron efficiency anemia, squamous cell lung cancer, prostate cancer, OA, prosthetic aortic heart valve, tobacco abuse, type 2 DM who presented to the hospital with complaints of syncope and weakness.? Patient received radiation treatment 09/13/2023 and was reported to have a syncopal episode right afterwards.? On examination patient is alert oriented x3, lying in the bed.? He denies any fever, chills, nausea, vomiting, diarrhea, abdominal pain, shortness a breath, chest pain, headache, lightheadedness, dizziness.? Workup in the hospital included labs which shown a hemoglobin of 9.8, hematocrit 33.4, sodium 133, BUN 25, creatinine 1.5, EGFR was 45,? liver enzymes were normal, troponin was negative.? EKG shown AFib with the rate of 77. Date of service 09/07/2023: Laying in bed without complaint. No chest pain or shortnes
--- NOTE | 2023-09-07 09:52 | P.PNIM_ITS ---
Progress Note: A&P Assessment and Plan (1) Syncopal episodes: Qualifiers: Syncope type: unspecified Qualified Code(s): R55 - Syncope and collapse Code(s): R55 - Syncope and collapse Status: Acute Assessment and Plan: 09/04/23: * Patient reporting syncopal episode after radiation treatment at oncology office. * Patient recently seen for GI bleeding and had an EGD which showed no hiatal hernia and a colonoscopy showed diverticulosis without diverticulitis or bleed, his hemoglobin this admission is 9.8 and hematocrit is 33.4. No signs of active bleeding at this time. * We will check an fecal occult blood * Will obtain orthostatic blood pressures * We will go ahead and get an echo * Consult placed to Cardiology * We will also get a CTA of the carotids and of the brain to rule out any stenosis that could be causing his syncopal symptoms 09/05/23: * Orthostatic blood pressures showed blood pressure of 147/67 with a map of 93 and a heart rate of 98 while in the supine position, he dropped his heart rate to 53 and his blood pressure dropped to 107/74 in the sitting position, his heart rate recovered to 87 but his blood pressure continued to drop to 104/41 it whenever he was going from sitting to standing. * Echo shown normal LV systolic function with an ejection fraction of 55-60%, RV systolic function was normal * CTA of his carotids and of the brain did not reveal any large vessel occlusion or severe carotid or vertebral artery stenosis, there was 8% stenosis of the proximal left internal carotid artery. * Cardiology was consulted and seen patient today however needs more clarification on what happened during this syncopal episode. He tried reaching out to the however there was no answer. Cardiology did recommend discontinuation of his hydrochlorothiazide as his sodium level is 130 today. * Touch base with today about syncopal episode, see above in my HPI for details. * Will continue IV fluids for now and recheck labs in the morning 09/06/23: * Awaiting cardiology input, however likely vasal vagal response versus true syncope. * Case coordination working on outpatient rehab needs home health versus [facility] bed. * Continue PT and OT 09/07/23: * Cardiology recommending Midodrine 2.5 mg TID for orthostatic hypotension * Case coordination working on outpatient rehab needs. Patient could benefit from [facility] bed versus SNF placement as recommended by PT. Patient agreeable to SNF placement. * Continue PT and OT. (2) Weakness: Code(s): R53.1 - Weakness Status: Acute Assessment and Plan: 09/04/23: * See above plan of care (3) Lung cancer: Code(s): C34.90 - Malignant neoplasm of unspecified part of unspecified bronchus or lung Status: Acute Assessment and Plan: 09/04/23: * History of squamous cell carcinoma (4) Hyperlipidemia, unspecified: Qualifiers: Hyperlipidemia type: unspecified Qualified Code(s): E78.5 - Hyperlipidemia, unspecified Code(s): E78.5 - Hyperlipidemia, unspecified Status: Chronic Assessment and Plan: 09/04/23: * Restarted atorvastatin 09/05/23: * Continue with current treatment plan 09/06/23: * no change to current treatment plan (5) Gastro-esophageal reflux disease without esophagitis: Code(s): K21.9 - Gastro-esophageal reflux disease without esophagitis Status: Chronic Assessment and Plan: 09/04/23: * Started on Protonix * History of hiatal hernia on most recent EGD 08/26
--- NOTE | 2023-09-07 09:52 | PM.IMPN ---
Progress Note: A&P Assessment and Plan (1) Syncopal episodes: Qualifiers: Syncope type: unspecified Qualified Code(s): R55 - Syncope and collapse Code(s): R55 - Syncope and collapse Status: Acute Assessment and Plan: 09/04/23: Patient reporting syncopal episode after radiation treatment at oncology office. Patient recently seen for GI bleeding and had an EGD which showed no hiatal hernia and a colonoscopy showed diverticulosis without diverticulitis or bleed, his hemoglobin this admission is 9.8 and hematocrit is 33.4. No signs of active bleeding at this time. We will check an fecal occult blood Will obtain orthostatic blood pressures We will go ahead and get an echo Consult placed to Cardiology We will also get a CTA of the carotids and of the brain to rule out any stenosis that could be causing his syncopal symptoms 09/05/23: Orthostatic blood pressures showed blood pressure of 147/67 with a map of 93 and a heart rate of 98 while in the supine position, he dropped his heart rate to 53 and his blood pressure dropped to 107/74 in the sitting position, his heart rate recovered to 87 but his blood pressure continued to drop to 104/41 it whenever he was going from sitting to standing. Echo shown normal LV systolic function with an ejection fraction of 55-60%, RV systolic function was normal CTA of his carotids and of the brain did not reveal any large vessel occlusion or severe carotid or vertebral artery stenosis, there was 8% stenosis of the proximal left internal carotid artery. Cardiology was consulted and seen patient today however needs more clarification on what happened during this syncopal episode. He tried reaching out to the however there was no answer. Cardiology did recommend discontinuation of his hydrochlorothiazide as his sodium level is 130 today. Touch base with today about syncopal episode, see above in my HPI for details. Will continue IV fluids for now and recheck labs in the morning 09/06/23: Awaiting cardiology input, however likely vasal vagal response versus true syncope. Case coordination working on outpatient rehab needs home health versus [facility] bed. Continue PT and OT 09/07/23: Cardiology recommending Midodrine 2.5 mg TID for orthostatic hypotension Case coordination working on outpatient rehab needs. Patient could benefit from [facility] bed versus SNF placement as recommended by PT. Patient agreeable to SNF placement. Continue PT and OT. (2) Weakness: Code(s): R53.1 - Weakness Status: Acute Assessment and Plan: 09/04/23: See above plan of care (3) Lung cancer: Code(s): C34.90 - Malignant neoplasm of unspecified part of unspecified bronchus or lung Status: Acute Assessment and Plan: 09/04/23: History of squamous cell carcinoma (4) Hyperlipidemia, unspecified: Qualifiers: Hyperlipidemia type: unspecified Qualified Code(s): E78.5 - Hyperlipidemia, unspecified Code(s): E78.5 - Hyperlipidemia, unspecified Status: Chronic Assessment and Plan: 09/04/23: Restarted atorvastatin 09/05/23: Continue with current treatment plan 09/06/23: no change to current treatment plan (5) Gastro-esophageal reflux disease without esophagitis: Code(s): K21.9 - Gastro-esophageal reflux disease without esophagitis Status: Chronic Assessment and Plan: 09/04/23: Started on Protonix History of hiatal hernia on most recent EGD 09/05/23: Continue with current treatment plan 09/06/23: no change to current treatment plan (6) Essential (primary) hypertension: Code(s): I10 - Essential (primary) hypertension Status: Chronic Assessment and Plan: 09/04/23: Blood pressures ranging 127/66 to 163/79 Restarted home medication 09/05/23: Stop hydrochlorothiazide considering sodium level is now 130, per Cardiology recommendation See above for o
[2023-09-07] MEDS: MIDODRINE HCL 2.5 MG TABLET PO ×2 (12:45→16:43)
--- NOTE | 2023-09-07 14:21 | PC.NURSE ---
On 09/07/23, the CHEMICAL LABORATORY CHIEF, Bethanie, provided care and completed [facility] documentation on this patient. I have reviewed the CHEMICAL LABORATORY CHIEF's documentation and agree with the findings.
[2023-09-07] MEDS: WARFARIN (*PBKC) 3 MG TABLET PO (17:15)
[2023-09-07] MEDS: ATORVASTATIN 40 MG TABLET PO (20:27)
[2023-09-07] MEDS: rOPINIRole HCL 0.25 MG TABLET PO (20:28)
[2023-09-08] VITALS (15 sets, daily range): BP systolic 93–151; BP diastolic 49–71; PULSE 82–120; RESP 14–18; TEMP 36.6–36.8; O2SAT 96–100
[2023-09-08 06:22] LABS: Hematocrit 26.5 % (42.0-52.0); Hemoglobin 8.6 g/dL (14.0-18.0); Mean Corpuscular HGB Conc 32.5 g/dl (32-36); Mean Corpuscular Hemoglobin 30.4 pg (26-34); Mean Corpuscular Volume 93.6 fl (80-100); Mean Platelet Volume 10.1 fl (7.4-10.4); Platelet Count Result 239 k/mm3 (150-375); Red Blood Count 2.83 M/mm3 (4.6-6.20); White Blood Count 7.1 K/mm3 (4.5-10.0)
[2023-09-08 06:33] LABS: Prothrombin Time 33.3 Seconds (11.1-14.7)
[2023-09-08 06:34] LABS: Alanine Aminotransferase 16 U/L (6-50); Albumin Level 2.7 g/dL (3.5-5.1); Alkaline Phosphatase 76 U/L (38-126); Anion Gap 3 mmol/L (8-16); Aspartate Amino Transferase 26 U/L (17-59); Bilirubin,Total 0.3 mg/dL (0.2-1.3); Blood Urea Nitrogen 13 mg/dL (9-20); Calcium 8.4 mg/dL (8.4-10.2); Carbon Dioxide 27 mmol/L (22-30); Chloride 104 mmol/L (98-107); Estimated CRCL calculation 35 ml/min; Estimated Glomerular Filt Rate > 60; Glucose 101 mg/dL (65-110); Potassium 3.9 mmol/L (3.4-5.0); Sodium 134 mmol/L (137-145)
[2023-09-08] MEDS: UMECLIDINIUM BROMIDE 62.5 MCG ELLIPTA 1 PUFF INHALATION (07:42)
[2023-09-08] MEDS: FLUTICASONE/SALMETEROL 115-21 MCG INHALER 1 PUFF 2 PUFF INHALATION ×2 (07:44→21:18)
--- NOTE | 2023-09-08 08:51 | PM.PNCARD ---
Progress Note: A&P Assessment and Plan (1) Syncopal episodes: Qualifiers: Syncope type: unspecified Qualified Code(s): R55 - Syncope and collapse Code(s): R55 - Syncope and collapse Status: Acute Assessment and Plan: Reported syncopal events although details are not clear at this time. Patient has a multi due to potential contributors including chronic anemia, deconditioning, dementia, recent radiation therapy, medications, likely degree of intravascular volume depletion. Appears to be orthostatic in etiology. Continue to hold hydrochlorothiazide. His orthostasis was improved with the discontinuation of hydrochlorothiazide. Repeat orthostatics yesterday showed improvement. Will discontinue midodrine for now and hopefully will not need in the long-term. (2) Persistent atrial fibrillation: Code(s): I48.19 - Other persistent atrial fibrillation Status: Acute Assessment and Plan: Heart rate reasonably controlled. Continue metoprolol tartrate 25 mg twice daily for heart rate control. Continue warfarin systemic anticoagulation goal INR target 2.5 at this time. (3) Anemia: Code(s): D64.9 - Anemia, unspecified Status: Acute Assessment and Plan: H&H stable. Continue monitor closely. Patient with recent lower GI bleed appears stable at this time. He is therapy and warfarin, continue for now no changes. (4) History of mechanical aortic valve replacement: Code(s): Z95.2 - Presence of prosthetic heart valve Status: Acute Assessment and Plan: Continue systemic anticoagulation with warfarin typically INR goal between 2 and 3. Follow INR daily while in the hospital. Continue warfarin present dose. (5) GI bleed: Code(s): K92.2 - Gastrointestinal hemorrhage, unspecified Status: Acute Assessment and Plan: As above, history of lower GI bleed H&H stable thus far. Patient underwent colonoscopy and EGD the stable findings evidence of diverticulosis, colon polyps, radiation proctitis but without complications or evidence for active bleeding. (6) Lung cancer: Code(s): C34.90 - Malignant neoplasm of unspecified part of unspecified bronchus or lung Status: Acute Assessment and Plan: As above, defer to primary service and Oncology. Subjective Date/time seen: 09/08/23 08:51 Interval history: 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le with significant past medical history of Alzheimer disease, BPH, CAD, CKD stage 3, hypertension, GERD, hiatal hernia, hyperlipidemia, iron efficiency anemia, squamous cell lung cancer, prostate cancer, OA, prosthetic aortic heart valve, tobacco abuse, type 2 DM who presented to the hospital with complaints of syncope and weakness.? Patient received radiation treatment 09/13/2023 and was reported to have a syncopal episode right afterwards.? On examination patient is alert oriented x3, lying in the bed.? He denies any fever, chills, nausea, vomiting, diarrhea, abdominal pain, shortness a breath, chest pain, headache, lightheadedness, dizziness.? Workup in the hospital included labs which shown a hemoglobin of 9.8, hematocrit 33.4, sodium 133, BUN 25, creatinine 1.5, EGFR was 45,? liver enzymes were normal, troponin was negative.? EKG shown AFib with the rate of 77. Date of service 09/07/2023: Laying in bed without complaint. No chest pain or shortness of breath Date of service 09/08/2023: Anxious to go home. No chest pain or shortness of breath Review of Systems Review of Systems: Remainder of the review of systems is otherwise negative aside from that noted in the HPI. All systems reviewed & are unremarkable except as noted in HPI and below Constitutional: Constitutional: Reports as per HPI and Reports no additional constitutional complaints Eyes: Eyes: Reports as per HPI and Reports no additional eye complaints ENT: Reports system reviewed and no additional complaints, except as doc
--- NOTE | 2023-09-08 09:15 | P.PNIM_ITS ---
Progress Note: A&P Assessment and Plan (1) Syncopal episodes: Qualifiers: Syncope type: unspecified Qualified Code(s): R55 - Syncope and collapse Code(s): R55 - Syncope and collapse Status: Acute Assessment and Plan: 09/04/23: * Patient reporting syncopal episode after radiation treatment at oncology office. * Patient recently seen for GI bleeding and had an EGD which showed no hiatal hernia and a colonoscopy showed diverticulosis without diverticulitis or bleed, his hemoglobin this admission is 9.8 and hematocrit is 33.4. No signs of active bleeding at this time. * We will check an fecal occult blood * Will obtain orthostatic blood pressures * We will go ahead and get an echo * Consult placed to Cardiology * We will also get a CTA of the carotids and of the brain to rule out any stenosis that could be causing his syncopal symptoms 09/05/23: * Orthostatic blood pressures showed blood pressure of 147/67 with a map of 93 and a heart rate of 98 while in the supine position, he dropped his heart rate to 53 and his blood pressure dropped to 107/74 in the sitting position, his heart rate recovered to 87 but his blood pressure continued to drop to 104/41 it whenever he was going from sitting to standing. * Echo shown normal LV systolic function with an ejection fraction of 55-60%, RV systolic function was normal * CTA of his carotids and of the brain did not reveal any large vessel occlusion or severe carotid or vertebral artery stenosis, there was 8% stenosis of the proximal left internal carotid artery. * Cardiology was consulted and seen patient today however needs more clarification on what happened during this syncopal episode. He tried reaching out to the however there was no answer. Cardiology did recommend discontinuation of his hydrochlorothiazide as his sodium level is 130 today. * Touch base with today about syncopal episode, see above in my HPI for details. * Will continue IV fluids for now and recheck labs in the morning 09/06/23: * Awaiting cardiology input, however likely vasal vagal response versus true syncope. * Case coordination working on outpatient rehab needs home health versus [facility] bed. * Continue PT and OT 09/07/23: * Cardiology recommending Midodrine 2.5 mg TID for orthostatic hypotension * Case coordination working on outpatient rehab needs. Patient could benefit from [facility] bed versus SNF placement as recommended by PT. Patient agreeable to SNF placement. * Continue PT and OT. 09/08/23: * Midodrine has been discontinued per Cardiology, patient normalized with just the discontinuation of HCTZ. * Continue PT and OT * Case management continues to work on placement. (2) Weakness: Code(s): R53.1 - Weakness Status: Acute Assessment and Plan: 09/04/23: * See above plan of care (3) Lung cancer: Code(s): C34.90 - Malignant neoplasm of unspecified part of unspecified bronchus or lung Status: Acute Assessment and Plan: 09/04/23: * History of squamous cell carcinoma (4) Hyperlipidemia, unspecified: Qualifiers: Hyperlipidemia type: unspecified Qualified Code(s): E78.5 - Hyperli pidemia, unspecified Code(s): E78.5 - Hyperlipidemia, unspecified Status: Chronic Assessment and Plan: 09/04/23: * Restarted atorvastatin 09/05/23: * Continue with current treatment plan 09/06/23: * no change to current treatment plan (5) Gastro-esophageal reflux disease without esophagitis: Code(s): K21.9
--- NOTE | 2023-09-08 09:15 | PM.IMPN ---
Progress Note: A&P Assessment and Plan (1) Syncopal episodes: Qualifiers: Syncope type: unspecified Qualified Code(s): R55 - Syncope and collapse Code(s): R55 - Syncope and collapse Status: Acute Assessment and Plan: 09/04/23: Patient reporting syncopal episode after radiation treatment at oncology office. Patient recently seen for GI bleeding and had an EGD which showed no hiatal hernia and a colonoscopy showed diverticulosis without diverticulitis or bleed, his hemoglobin this admission is 9.8 and hematocrit is 33.4. No signs of active bleeding at this time. We will check an fecal occult blood Will obtain orthostatic blood pressures We will go ahead and get an echo Consult placed to Cardiology We will also get a CTA of the carotids and of the brain to rule out any stenosis that could be causing his syncopal symptoms 09/05/23: Orthostatic blood pressures showed blood pressure of 147/67 with a map of 93 and a heart rate of 98 while in the supine position, he dropped his heart rate to 53 and his blood pressure dropped to 107/74 in the sitting position, his heart rate recovered to 87 but his blood pressure continued to drop to 104/41 it whenever he was going from sitting to standing. Echo shown normal LV systolic function with an ejection fraction of 55-60%, RV systolic function was normal CTA of his carotids and of the brain did not reveal any large vessel occlusion or severe carotid or vertebral artery stenosis, there was 8% stenosis of the proximal left internal carotid artery. Cardiology was consulted and seen patient today however needs more clarification on what happened during this syncopal episode. He tried reaching out to the however there was no answer. Cardiology did recommend discontinuation of his hydrochlorothiazide as his sodium level is 130 today. Touch base with today about syncopal episode, see above in my HPI for details. Will continue IV fluids for now and recheck labs in the morning 09/06/23: Awaiting cardiology input, however likely vasal vagal response versus true syncope. Case coordination working on outpatient rehab needs home health versus [facility]. Continue PT and OT 09/07/23: Cardiology recommending Midodrine 2.5 mg TID for orthostatic hypotension Case coordination working on outpatient rehab needs. Patient could benefit from [facility] versus SNF placement as recommended by PT. Patient agreeable to SNF placement. Continue PT and OT. 09/08/23: Midodrine has been discontinued per Cardiology, patient normalized with just the discontinuation of HCTZ. Continue PT and OT Case management continues to work on placement. (2) Weakness: Code(s): R53.1 - Weakness Status: Acute Assessment and Plan: 09/04/23: See above plan of care (3) Lung cancer: Code(s): C34.90 - Malignant neoplasm of unspecified part of unspecified bronchus or lung Status: Acute Assessment and Plan: 09/04/23: History of squamous cell carcinoma (4) Hyperlipidemia, unspecified: Qualifiers: Hyperlipidemia type: unspecified Qualified Code(s): E78.5 - Hyperlipidemia, unspecified Code(s): E78.5 - Hyperlipidemia, unspecified Status: Chronic Assessment and Plan: 09/04/23: Restarted atorvastatin 09/05/23: Continue with current treatment plan 09/06/23: no change to current treatment plan (5) Gastro-esophageal reflux disease without esophagitis: Code(s): K21.9 - Gastro-esophageal reflux disease without esophagitis Status: Chronic Assessment and Plan: 09/04/23: Started on Protonix History of hiatal hernia on most recent EGD 09/05/23: Continue with current treatment plan 09/06/23: no change to current treatment plan (6) Essential (primary) hypertension: Code(s): I10 - Essential (primary) hypertension Status: Chronic Assessment and Plan: 09/04/23:
[2023-09-08] MEDS: MULTIVITAMINS THERAPEUTIC TAB (*BKC) 1 TABLET PO (09:43)
[2023-09-08] MEDS: FOLIC ACID 0.4 MG TABLET 0.8 MG PO (09:44)
[2023-09-08] MEDS: LORATADINE 10 MG TABLET PO (09:44)
[2023-09-08] MEDS: VITAMIN B COMPLEX CAPSULE 1 CAP PO (09:44)
[2023-09-08] MEDS: FERROUS SULFATE 325 MG TABLET DR BY MOUTH (09:44)
[2023-09-08] MEDS: ASCORBIC ACID 500 MG TABLET PO (09:44)
[2023-09-08] MEDS: CITALOPRAM HYDROBROMIDE 20 MG TABLET 40 MG PO (09:44)
[2023-09-08] MEDS: TAMSULOSIN HCL 0.4 MG CAPSULE PO (09:44)
[2023-09-08] MEDS: OLMESARTAN MEDOXOMIL 20 MG TABLET PO (09:45)
[2023-09-08] MEDS: MEMANTINE 10 MG TABLET PO ×2 (09:45→16:42)
[2023-09-08] MEDS: PANTOPRAZOLE SOD SESQUIHYDRATE 20 MG TAB PO (09:45)
[2023-09-08] MEDS: DONEPEZIL HCL 5 MG TABLET PO (09:45)
[2023-09-08] MEDS: METOPROLOL TARTRATE 25 MG TABLET PO ×2 (09:45→21:13)
--- NOTE | 2023-09-08 13:15 | PHAR ---
HOME MED: Fesoterodine 8 mg tablet; TAKE 1 TABLET BY MOUTH DAILY. VERIFIED BY PHARMACY.
[2023-09-08] MEDS: WARFARIN (*PBKC) 2 MG TABLET PO (16:42)
[2023-09-08] MEDS: rOPINIRole HCL 0.25 MG TABLET PO (21:13)
[2023-09-08] MEDS: ATORVASTATIN 40 MG TABLET PO (21:13)
[2023-09-09] VITALS (7 sets, daily range): BP systolic 105–144; BP diastolic 59–80; PULSE 75–109; RESP 18–22; TEMP 36.5–36.6; O2SAT 99–100; BMI 18.8
[2023-09-09 06:28] LABS: Hematocrit 28.5 % (42.0-52.0); Mean Corpuscular HGB Conc 31.6 g/dl (32-36); Mean Corpuscular Hemoglobin 29.5 pg (26-34); Mean Corpuscular Volume 93.4 fl (80-100); Mean Platelet Volume 9.6 fl (7.4-10.4); Platelet Count Result 233 k/mm3 (150-375); Red Blood Count 3.05 M/mm3 (4.6-6.20); White Blood Count 6.7 K/mm3 (4.5-10.0)
[2023-09-09 06:39] LABS: Alanine Aminotransferase 15 U/L (6-50); Albumin Level 2.8 g/dL (3.5-5.1); Alkaline Phosphatase 87 U/L (38-126); Anion Gap 4 mmol/L (8-16); Aspartate Amino Transferase 20 U/L (17-59); Bilirubin,Total 0.4 mg/dL (0.2-1.3); Blood Urea Nitrogen 14 mg/dL (9-20); Calcium 8.4 mg/dL (8.4-10.2); Carbon Dioxide 23 mmol/L (22-30); Chloride 105 mmol/L (98-107); Estimated CRCL calculation 35 ml/min; Estimated Glomerular Filt Rate > 60; Glucose 101 mg/dL (65-110); Potassium 3.7 mmol/L (3.4-5.0); Sodium 132 mmol/L (137-145)
[2023-09-09 06:46] LABS: INR 2.6; Prothrombin Time 30.3 Seconds (11.1-14.7)
[2023-09-09] MEDS: FLUTICASONE/SALMETEROL 115-21 MCG INHALER 1 PUFF 2 PUFF INHALATION (08:24)
[2023-09-09] MEDS: UMECLIDINIUM BROMIDE 62.5 MCG ELLIPTA 1 PUFF INHALATION (08:24)
[2023-09-09] MEDS: VITAMIN B COMPLEX CAPSULE 1 CAP PO (09:03)
[2023-09-09] MEDS: CITALOPRAM HYDROBROMIDE 20 MG TABLET 40 MG PO (09:03)
[2023-09-09] MEDS: METOPROLOL TARTRATE 25 MG TABLET PO (09:03)
[2023-09-09] MEDS: OLMESARTAN MEDOXOMIL 20 MG TABLET PO (09:03)
[2023-09-09] MEDS: MEMANTINE 10 MG TABLET PO (09:03)
[2023-09-09] MEDS: FOLIC ACID 0.4 MG TABLET 0.8 MG PO (09:03)
[2023-09-09] MEDS: PANTOPRAZOLE SOD SESQUIHYDRATE 20 MG TAB PO (09:03)
[2023-09-09] MEDS: TAMSULOSIN HCL 0.4 MG CAPSULE PO (09:04)
[2023-09-09] MEDS: DONEPEZIL HCL 5 MG TABLET PO (09:04)
[2023-09-09] MEDS: MULTIVITAMINS THERAPEUTIC TAB (*BKC) 1 TABLET PO (09:04)
[2023-09-09] MEDS: LORATADINE 10 MG TABLET PO (09:04)
[2023-09-09] MEDS: FERROUS SULFATE 325 MG TABLET DR BY MOUTH (09:04)
[2023-09-09] MEDS: ASCORBIC ACID 500 MG TABLET PO (09:04)
--- NOTE | 2023-09-09 14:50 | PM.DS ---
DS: Admitting Diagnosis Discharge Date 09/09/23 Admitting Diagnosis Syncopal episodes Weakness Lung cancer Hyperlipidemia GERD Essential hypertension DS: Discharge Diagnosis Discharge Diagnosis (1) Syncopal episodes: Qualifiers: Syncope type: unspecified Qualified Code(s): R55 - Syncope and collapse Code(s): R55 - Syncope and collapse Status: Acute (2) Weakness: Code(s): R53.1 - Weakness Status: Acute (3) Lung cancer: Code(s): C34.90 - Malignant neoplasm of unspecified part of unspecified bronchus or lung Status: Acute (4) Hyperlipidemia, unspecified: Qualifiers: Hyperlipidemia type: unspecified Qualified Code(s): E78.5 - Hyperlipidemia, unspecified Code(s): E78.5 - Hyperlipidemia, unspecified Status: Chronic (5) Gastro-esophageal reflux disease without esophagitis: Code(s): K21.9 - Gastro-esophageal reflux disease without esophagitis Status: Chronic (6) Essential (primary) hypertension: Code(s): I10 - Essential (primary) hypertension Status: Chronic (7) Malnutrition: Code(s): E46 - Unspecified protein-calorie malnutrition Status: Acute DS: Summary Hospital Course Reason for hospitalization: Syncopal episode Lung cancer weakness Hospital Course: 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le with significant past medical history of Alzheimer disease, BPH, CAD, CKD stage 3, hypertension, GERD, hiatal hernia, hyperlipidemia, iron efficiency anemia, squamous cell lung cancer, prostate cancer, OA, prosthetic aortic heart valve, tobacco abuse, type 2 DM who presented to the hospital with complaints of syncope and weakness.Workup in the hospital included labs which shown a hemoglobin of 9.8, hematocrit 33.4, sodium 133, BUN 25, creatinine 1.5, EGFR was 45,? liver enzymes were normal, troponin was negative.? EKG shown AFib with the rate of 77.?Echo was also performed today which showed normal LV systolic function with an ejection fraction of 55-60% and normal RV systolic function. CTA of his carotids and of the brain did not reveal any large vessel occlusion or severe carotid or vertebral artery stenosis, there was 8% stenosis of the proximal left internal carotid artery. Cardiology was consulted and patient was taken off HCTZ. After he was off this for a few days his orthostatic blood pressures improved and sodium level elevated. Patient worked with PT and OT while inpatient, he will need home care on discharge for continued therapy. Labs today are essentially unremarkable except for his sodium level of 132. VSS, he is afebrile, currently on room air. He has no new complaints today. He is stable for discharge to home with home health services. He will need to follow up with PCP in 1 week. Final diagnosis: Dehydration, Fall Status at Discharge Cognitive/behavioral status at discharge: Alert and oriented x3 Functional status at discharge: uses cane/walker Overall status at discharge: patient is progressing back to baseline Time Spent with Patient Time attestation: Total time spent providing and/or coordinating discharge services: Time spent: Greater than 30 minutes Exam Narrative: General: In no acute distress, well nourished Head: atraumatic, no encephalopathy Eyes: EOMI, PERRLA, sclera clear ENT: moist mucous membranes, nasal passages clear Neck: supple, no JVD, no adenopathy, trachea midline Cardiac: Normal S1 and S2. No murmur, gallops or friction rubs, peripheral pulses intact. Respiratory: Lungs clear to auscultation, no adventitious lung sounds Gastrointestinal: soft, non-distended, non-tender, normoactive bowel sounds. : voiding without difficulty. Extremities: moves all extremities well, no edema Skin: clean, dry, intact. No wounds or lesions. Neuro: Alert and oriented x3-4, cranial nerves intact, no neuro deficits. Psych: normal mood, normal affect, interactive DS: Data Data Completed and Pending Completed s
== END 2023-09-09 15:58 | disposition home health service (06) | DRG 312 ==
LOC: ANHED 13:00 → ANH3MEDSUR 16:37
PROVIDERS: Admitting Provider Family Medicine; Emergency Provider Family Medicine; PCP Family Medicine; Visit Provider Nurse Practitioner Acute Care
DX: I95.1 Orthostatic hypotension (principal); C34.90 Malignant neoplasm of unspecified part of unspecified bronchus or lung; E44.0 Moderate protein-calorie malnutrition; I48.19 Other persistent atrial fibrillation; Z68.1 Body mass index [BMI] 19.9 or less, adult; D63.1 Anemia in chronic kidney disease; E78.5 Hyperlipidemia, unspecified; E11.22 Type 2 diabetes mellitus with diabetic chronic kidney disease; F02.80 Dementia in other diseases classified elsewhere, unspecified severity, without behavioral disturbance, psychotic disturbance, mood disturbance, and anxiety; G89.29 Other chronic pain; G25.81 Restless legs syndrome; G30.9 Alzheimer's disease, unspecified; I12.9 Hypertensive chronic kidney disease with stage 1 through stage 4 chronic kidney disease, or unspecified chronic kidney disease; I25.10 Atherosclerotic heart disease of native coronary artery without angina pectoris; J44.9 Chronic obstructive pulmonary disease, unspecified; K44.9 Diaphragmatic hernia without obstruction or gangrene; M47.812 Spondylosis without myelopathy or radiculopathy, cervical region; N40.0 Benign prostatic hyperplasia without lower urinary tract symptoms; N18.30 Chronic kidney disease, stage 3 unspecified; K21.9 Gastro-esophageal reflux disease without esophagitis; Z79.01 Long term (current) use of anticoagulants; Z92.3 Personal history of irradiation; Z95.2 Presence of prosthetic heart valve; Z85.46 Personal history of malignant neoplasm of prostate; Z85.828 Personal history of other malignant neoplasm of skin; Z87.891 Personal history of nicotine dependence
CPT/HCPCS: 36415; 70496; 70498; 77280; 77293; 77300; 77301; 77338; 77386; 80053; 84484; 85025; 85027; 85610; 93005; 93306; 94640; 96360; 96361; 96372; 97110; 97116; 97161; 97165; 97530; 97535; 99285; A9270; G0378; J7030; Q5106; Q9967

== ENCOUNTER → 2023-09-19 11:49 | Outpatient (CLI) | payer MEDICARE, BC, SELFPAY ==
--- NOTE | ~2023-09-19 | XR_ITS ---
Clinical Indication: Cough PA and lateral views of the chest: Comparison: 08/15/2023 Findings: Stable right suprahilar density. No other pulmonary abnormality evident. Hiatal hernia proj ecting behind the heart is unchanged. Cardiomediastinal silhouette is within normal limits. Bones an d soft tissues are otherwise unremarkable. Impression: No acute abnormality. Stable right suprahilar density, consistent with known carcinoma. Stable hiatal hernia. Reviewed, dictated and finalized at location . 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 Stable right suprahilar density, consistent with known carcinoma. Stable hiatal hernia.
== END ==
PROVIDERS: PCP Family Medicine; Visit Provider Family Medicine
DX: R05.9 Cough, unspecified (principal); K44.9 Diaphragmatic hernia without obstruction or gangrene
CPT/HCPCS: 71046

== ENCOUNTER → 2023-09-25 11:30 | Outpatient (CLI) | payer MEDICARE, BC, SELFPAY ==
--- NOTE | ~2023-09-25 | XR_ITS ---
Clinical Indication: Cough PA and lateral views of the chest: Comparison: 09/19/2023 Findings: Stable right suprahilar density. Probable hiatal hernia above the left hemidiaphragm.. Car diomediastinal silhouette is stable. Bones and soft tissues are unremarkable. Impression: No significant change. Stable right supra hilar density, compatible with carcinoma. Probable hiatal hernia. Reviewed, dictated and finalized at location . NCT SPANISH INSTRUCTOR Impression: No significant change. Stable right supra hilar density, compatible with carcin marbin. Probable hiatal hernia.
== END ==
PROVIDERS: PCP Family Medicine; Visit Provider Family Medicine
DX: R05.9 Cough, unspecified (principal); R91.8 Other nonspecific abnormal finding of lung field
CPT/HCPCS: 71046

== ENCOUNTER 2023-10-23 01:40 | Day surgery (SDC) | payer MEDICARE, BC, SELFPAY ==
--- NOTE | 2023-09-03 15:14 | PC.NURSE ---
Kriss called and left message regarding confusion with prep instructions. I sent a message to Dr. Eng regarding this and pt does not need to do a full colon prep with Miralax, he wants him to do a fleets enema 4 hours prior to leaving house and again 1 hour prior to leaving house to come to hospital. I spoke with Kriss and went over these instructions and that we would be calling again a week or so prior to the procedure.
[2023-10-14 09:30] VITALS: BMI 20.7
--- NOTE | 2023-10-14 10:20 | PC.NURSE ---
Spoke with SPOUSE FABRICE regarding medication WARFARIN. Pt. verbalizes understanding that the last dose of WARFARIN is to be taken on 10/18/2023_ and the Endoscopist will instruct them when to restart after the procedure.
--- NOTE | 2023-10-21 10:53 | PC.NURSE ---
Patient called regarding upcoming procedure. Reviewed preop instructions, appointment times, and procedure prep.
--- NOTE | 2023-10-22 15:21 | PM.HPGS ---
History of Present Illness History of Present Illness Consent: Risks, benefits, and alternatives have been discussed and questions answered. Patient agrees to proceed with procedure. Chief complaint: Hemorrhage of anus and rectum Narrative: Arley Nicholson is a 83 year old male Was on chronic anticoagulant therapy and who was hospitalized 2 months ago with rectal bleeding. He was found have radiation proctitis which was treated at that time with argon plasma coagulation. Knowing that it is unlikely we ablated all the lesions, he returns now for further treatment. [facility] Past Medical History Medical History Alzheimer disease BPH (benign prostatic hyperplasia) CAD (coronary artery disease) Cervical spondylolysis Chronic low back pain Chronic obstructive pulmonary disease CKD (chronic kidney disease) stage 3, GFR 30-59 ml/min Environmental allergies Essential (primary) hypertension Gastro-esophageal reflux disease without esophagitis Hiatal hernia History of GI bleed History of renal stone Hyperlipidemia, unspecified Iron deficiency anemia Lung cancer RUL Nonrheumatic aortic (valve) stenosis Osteopenia Presence of prosthetic heart valve Primary osteoarthritis involving multiple joints Prostate cancer Restless leg syndrome Squamous cell carcinoma Tobacco abuse Type 2 diabetes mellitus without complications Surgical History Surgical History History of aortic valve replacement 2002 History of arthroscopy of shoulder 1986 History of carpal tunnel release 1980s - Right History of coronary artery bypass graft 2003 History of inguinal hernia repair 1968 History of lumbar laminectomy for spinal cord decompression (Unknown) 1968 History of mechanical aortic valve replacement Family History Family History Father Hypertension Heart attack Cardiovascular disease Mother No problems noted. Sibling Heart attack Cardiovascular disease Social History Social History Smoking packs per day: 1 Smoking cigarettes per day: 20.0 Years smoked: 70 Smoking pack-years: 70.00 Smoking status: Former smoker Tobacco type: cigarettes Additional smoking assessment comments: smokes less than 1/2 pack of day Alcohol intake: current Substance use: never Substance use type: does not use Do You Feel Safe in your Home?: Yes Lack of Transportation: No Lack of Food: Never True Current Housing: I Have Housing Concerned About Future Housing: No Difficulty Paying Gas/Electric Bills: No Difficulty Paying for Meds: No Currently Unemployed: No Education: High School Diploma/GED Difficulty w/ Childcare or Family Care: No Living arrangements: with family Additional living arrangements comments: Occupation/Education: retired Sexual Orientation (if Verbalized by the Patient): Straight or Heterosexual Spiritual care concerns: No Meds Home Medications and Allergies Home Medications Medication Instructions Recorded Confirmed Type memantine 10 mg tablet 10 mg PO BID 03/22/21 10/14/23 History ascorbic acid (vitamin C) 500 mg 500 mg PO DAILY 04/27/21 10/14/23 History capsule cetirizine 10 mg tablet (Zyrtec) 10 mg PO DAILY 04/27/21 10/14/23 History calcium carbonate 600 mg-vitamin 1 tablet PO BID 10/18/21 10/14/23 History D3 20 mcg (800 unit) chewable tablet (Caltrate 600 plus D) ferrous sulfate 325 mg (65 mg 325 mg PO DAILY 01/23/22 10/14/23 History iron) tablet folic acid 800 mcg tablet 800 mcg PO DAILY 01/23/22 10/14/23 History vitamin B complex (B 1 tablet PO DAILY 08/23/22 10/14/23 History Complex-Vitamin B12 tablet) tiotropium bromide 18 mcg capsule 1 cap inhalation DAILY #90 11/26/22 10/14/23 Rx with inhalation device (Spiriva in
[2023-10-23 11:15] VITALS: BP 102/64; PULSE 143; RESP 22; TEMP 36.4; O2SAT 100
[2023-10-23 12:10] VITALS: BP 153/92; PULSE 103; RESP 19; O2SAT 97
--- NOTE | 2023-10-23 13:27 | SUR.PREOP ---
Brought patient back to pre-op RM 1. While checking vital signs, it was found that patient was in atrial fib with a HR ranging from 95-150. Spoke with patient and regarding this finding, and per this is not new for the patient. , Kriss, states that the patient has been seeing his bicycle racer and has had his medications adjusted recently. Patient denies and chest pain, shortness of breath, or dizziness. Patient voices no complaints at this time. Called and spoke with Dr. Alatorre regarding these results, and per Dr. Alatorre we will need to cancel the procedure for today and to check with bicycle racer for discharge or take patient to ER. Called Dr. Mims's office and spoke with Cherie SANDOVAL. Per LORI Crespo Dr. is okay with patient going home as long as he is asymptomatic and hemodynamically stable. Per Dr. Mims, have patient take another dose of metoprolol when he gets home and to go to ER if he has any chest pain, shortness of breath, or dizziness. Patient and voice understanding of these orders and feel comfortable discharging home. Cherie SANDOVAL states office will call patient regarding appointment that is scheduled next week.
== END 2023-10-23 12:15 | disposition home or self-care (01) ==
PROVIDERS: PCP Family Medicine; Visit Provider Internal Medicine Gastroenterology
PROC: 0DJD8ZZ Inspection of Lower Intestinal Tract, Via Natural or Artificial Opening Endoscopic (ICD-10-PCS; CPT 45330; principal; 2023-10-23 15:00)
DX: K62.5 Hemorrhage of anus and rectum (principal); I48.91 Unspecified atrial fibrillation; Z53.09 Procedure and treatment not carried out because of other contraindication
CPT/HCPCS: 99212; G0463

== ENCOUNTER 2023-11-01 08:41 | Outpatient (CLI) | payer MEDICARE, BC, SELFPAY ==
[2023-11-01 15:23] LABS: Alanine Aminotransferase 19 U/L (6-50); Albumin Level 3.4 g/dL (3.5-5.1); Alkaline Phosphatase 85 U/L (38-126); Anion Gap 5 mmol/L (8-16); Aspartate Amino Transferase 26 U/L (17-59); Bilirubin,Total 0.3 mg/dL (0.2-1.3); Blood Urea Nitrogen 25 mg/dL (9-20); Calcium 9.6 mg/dL (8.4-10.2); Carbon Dioxide 26 mmol/L (22-30); Chloride 105 mmol/L (98-107); Cholesterol 136 mg/dL (0-200); Estimated Glomerular Filt Rate 53; Glucose 114 mg/dL (65-110); HDL Direct 52 mg/dL; Potassium 4.3 mmol/L (3.4-5.0); Sodium 136 mmol/L (137-145); Triglycerides 71 mg/dL (<150)
[2023-11-01 15:31] LABS: Vitamin D 25 Hydroxy 54.3 ng/mL
[2023-11-01 15:34] LABS: LDL Cholesterol Direct 65 mg/dL
== END 2023-11-01 08:42 | disposition home or self-care (01) ==
LOC: ANHLAB 08:46
PROVIDERS: PCP Family Medicine; Visit Provider Internal Medicine Hematology & Oncology
DX: E78.5 Hyperlipidemia, unspecified (principal); E53.8 Deficiency of other specified B group vitamins; I10 Essential (primary) hypertension; E55.9 Vitamin D deficiency, unspecified
CPT/HCPCS: 36415; 80053; 80061; 82306; 82607; 84443

== ENCOUNTER 2023-11-05 08:58 | Outpatient (CLI) | payer MEDICARE, BC, SELFPAY ==
--- NOTE | ~2023-11-05 | CT_ITS ---
Clinical Indication: Lung cancer CT Scan of the Chest with Contrast: Technique: Contiguous sections were acquired throughout the chest after intravenous administration of 75 cc of Omnipaque 350. Dose reduction technique was used on this scan by utilizing automated exposu re control and iterative reconstruction technique. The dose-length product (DLP) was 275.09 mGy-cm. COMPARISON: 07/02/2023 Findings: There is no evidence of any significant mediastinal, hilar or axillary lymphadenopathy. There is no f illing defect in the pulmonary arterial tree to suggest pulmonary embolus. There is no evidence of ao rtic dissection or aneurysm. No pericardial effusion. Moderate to large right pleural effusion present. Small left pleural effusion present. Anteromedial r ight upper lobe mass is present centrally abutting the right knee some border, measuring approximatel y 5.0 x 2.7 cm in transverse dimensions, probably mildly decreased in size from prior exam. There is patchy consolidation in the more peripheral right upper lobe and right lung apex.. The lungs are clear. No pulmonary nodules or infiltrates are noted. Images through the upper abdomen reveal large hiatal hernia. Impression: Anteromedial right upper lobe mass measures 5.0 x 2.7 cm, probably mildly decreased in overall extent from prior exam. This could reflect mild partial response to therapy. Correlate with any relevant tr eatment history. Patchy consolidation peripheral to the mass in the upper right upper lobe/right lung apex. This could reflect postradiation change/pneumonitis or other post obstructive pneumonia. Correlate clinically. Moderate to large right pleural effusion and small left pleural effusion. Large hiatal hernia. Reviewed, dictated and finalized at location . Impression: Anteromedial right upper lobe mass measures 5.0 x 2.7 cm, probably mildly decre ased in overall extent from prior exam. This could reflect mild partial respons e to therapy. Correlate with any relevant treatment history. Patchy consolidation peripheral to the mass in the upper right upper lobe/right lung apex. This could reflect postradiation change/pneumonitis or other post o bstructive pneumonia. Correlate clinically. Moderate to large right pleural effusion and small left pleural effusion. Large hiatal hernia.
== END 2023-11-05 08:59 ==
LOC: GOSHIMG 09:01
PROVIDERS: PCP Family Medicine; Visit Provider Internal Medicine Hematology & Oncology
DX: C34.90 Malignant neoplasm of unspecified part of unspecified bronchus or lung (principal); K44.9 Diaphragmatic hernia without obstruction or gangrene; J90 Pleural effusion, not elsewhere classified; R91.8 Other nonspecific abnormal finding of lung field
CPT/HCPCS: 71260; Q9967

== ENCOUNTER 2023-11-08 01:14 | Day surgery (SDC) | payer MEDICARE, BC, SELFPAY ==
[2023-11-04 14:11] VITALS: BMI 20.3
--- NOTE | 2023-11-04 15:06 | PC.NURSE ---
Spoke with FABRICE () regarding medication WARFARIN. She verbalizes understanding that the last dose of WARFARIN is to be taken on 11/03/2023 and the Endoscopist will instruct them when to restart after the procedure. Patient will hold Iron as of today. Dr. Lewis reviewed pt chart and last office visit with Dr. Mims and we are okay to proceed with procedure without any further follow up.
--- NOTE | 2023-11-06 09:08 | SUR.PREOP ---
Patient called regarding upcoming procedure. Spoke with jatinder Monterroso. Reviewed preop instructions, appointment times, and procedure prep.
[2023-11-08 14:10] VITALS: BP 108/64; PULSE 83; RESP 20; TEMP 36; O2SAT 98; BMI 19.6
[2023-11-08] MEDS: LACTATED RINGERS 1,000 ML 150 ML IV CONT (14:36)
[2023-11-08] MEDS: GENTAMICIN 80MG/SOD CHL 50 ML 80 MG/50 ML BAG 100 MG IVPB (14:38)
[2023-11-08] MEDS: AMPICILLIN 2 GM/NS 100 ML 2 GM/100 ML BAG IVPB (14:46)
--- NOTE | 2023-11-08 14:47 | WPDANESEPPF ---
Anes - Initial Pre Proc Eval Procedure: Operation Date: 11/08/23 15:30 Proposed Procedures p Flexible Sigmoidoscopy - Jeff Boogie MD Date/Time: 11/08/23 14:47 Surgeon: Jeff Boogie MD Pre Op Diagnosis: Hemorrhage of anus and rectum Patient Data Age: 83 Gender: M Height: 1.73 m Weight: 58.6 kg Last Vital Signs Temp 96.8 F L 11/08/23 14:10 Pulse 83 11/08/23 14:10 Resp 20 11/08/23 14:10 BP 108/64 11/08/23 14:10 Pulse Ox 98 11/08/23 14:10 O2 Del Method Room Air 11/08/23 14:10 Allergies Allergy/AdvReac Type Severity Reaction Status Date / Time No Known Allergies Allergy Verified 11/08/23 14:18 Home Medications Medication Instructions Recorded Confirmed Type memantine 10 mg tablet 10 mg PO BID 03/22/21 11/08/23 History ascorbic acid (vitamin C) 500 mg 500 mg PO DAILY 04/27/21 11/08/23 History capsule cetirizine 10 mg tablet (Zyrtec) 10 mg PO DAILY 04/27/21 11/08/23 History calcium carbonate 600 mg-vitamin 1 tablet PO BID 10/18/21 11/08/23 History D3 20 mcg (800 unit) chewable tablet (Caltrate 600 plus D) ferrous sulfate 325 mg (65 mg 325 mg PO DAILY 01/23/22 11/08/23 History iron) tablet folic acid 800 mcg tablet 800 mcg PO DAILY 01/23/22 11/08/23 History vitamin B complex (B 1 tablet PO DAILY 08/23/22 11/08/23 History Complex-Vitamin B12 tablet) fluticasone 250 mcg-salmeterol 50 1 inh inhalation BID #60 ea 11/27/22 11/08/23 Rx mcg/dose blistr powdr for inhalation (Wixela Inhub) fesoterodine 8 mg tablet,extended 8 mg PO DAILY 05/02/23 11/08/23 History release 24 hr pantoprazole 20 mg tablet,delayed 20 mg PO QAM #90 tabs 05/07/23 11/08/23 Rx release tamsulosin 0.4 mg capsule (Flomax) 0.4 mg PO DAILY #90 caps 05/22/23 11/08/23 Rx ibandronate 150 mg tablet 150 mg PO MONTHLY #4 tabs 05/24/23 11/08/23 Rx ropinirole 0.25 mg tablet 0.25 mg PO QHS #90 tabs 05/27/23 11/08/23 Rx tramadol 50 mg tablet 50 mg PO BID PRN pain #180 tabs 06/11/23 11/08/23 Rx atorvastatin 40 mg tablet 40 mg PO QHS #90 tabs 06/13/23 11/08/23 Rx ondansetron 4 mg disintegrating 4 mg PO Q8H PRN nausea and 07/31/23 11/08/23 Rx tablet vomiting #15 tabs multivitamin 1 tablet PO DAILY 09/04/23 11/08/23 History acetaminophen 325 mg tablet 1,000 mg PO QHS 09/11/23 11/08/23 History (Tylenol) donepezil 10 mg tablet 10 mg PO DAILY 09/11/23 11/08/23 History warfarin 2 mg tablet (Jantoven) 2 mg PO 4XW 09/11/23 11/08/23 History warfarin 3 mg tablet (Jantoven) 3 mg PO 3XW 09/11/23 11/08/23 History citalopram 40 mg tablet 40 mg PO DAILY #90 tabs 09/17/23 11/08/23 Rx benzonatate 100 mg capsule 100 mg PO TID PRN cough #30 caps 09/19/23 11/08/23 Rx albuterol sulfate 90 mcg/actuation 2 puff inhalation Q4H PRN 10/01/23 11/08/23 Rx aerosol inhaler shortness of breath or wheezing #8.5 grams metoprolol tartrate 50 mg tablet 100 mg PO BID 10/29/23 11/08/23 History diltiazem HCl 180 mg 180 mg PO DAILY 10/31/23 11/08/23 History capsule,extended release 24 hr tiotropium bromide 18 mcg capsule 1 cap inhalation DAILY #90 10/31/23 11/08/23 Rx with inhalation device (Spiriva inhalations with HandiHaler) Patient hx anesthesia problems: none Family hx anesthesia problems: none Results Review: All pre-operative results and documents have been reviewed as part of the pre-operative evaluation. [facility] Past Medical History Medical History Alzheimer disease BPH (benign prostatic hyperplasia) CAD (coronary artery disease) Cervical spondylolysis Chronic low back pain Chronic obstructive pulmonary disease CKD (chronic kidney disease) stage 3, GFR 30-59 ml/min Environmental allergies Essential (primary) hypertension Gastro-esophageal reflux disease without esophagitis Hiatal hernia History of GI bleed History of renal stone Hyperlipidemia, unspecified Iron deficiency anemia Lung cancer RUL Nonrheumatic aortic
--- NOTE | 2023-11-08 15:04 | PM.HPGS ---
History of Present Illness History of Present Illness Consent: Risks, benefits, and alternatives have been discussed and questions answered. Patient agrees to proceed with procedure. Chief complaint: Hemorrhage of anus and rectum Narrative: Arley Nicholson is a 83 year old male with radiation proctitis treated with apc 07/2023, he is here for follow-up sigmoidoscopy to consider more treatment, he is on coumadin (on hold prior scope) Review of Systems Review of Systems: All systems reviewed & are unremarkable except as noted in HPI and below PMFSH Past Medical History Medical History (Updated 11/08/23 @ 15:07 by Jeff Boogie MD) Alzheimer disease BPH (benign prostatic hyperplasia) CAD (coronary artery disease) Cervical spondylolysis Chronic low back pain Chronic obstructive pulmonary disease CKD (chronic kidney disease) stage 3, GFR 30-59 ml/min Environmental allergies Essential (primary) hypertension Gastro-esophageal reflux disease without esophagitis Hiatal hernia History of GI bleed History of renal stone Hyperlipidemia, unspecified Iron deficiency anemia Lung cancer RUL Nonrheumatic aortic (valve) stenosis Osteopenia Presence of prosthetic heart valve Primary osteoarthritis involving multiple joints Prostate cancer Radiation proctitis Restless leg syndrome Squamous cell carcinoma Tobacco abuse Type 2 diabetes mellitus without complications Surgical History Surgical History History of aortic valve replacement 2002 History of arthroscopy of shoulder 1986 History of carpal tunnel release 1980s - Right History of coronary artery bypass graft 2003 History of inguinal hernia repair 1968 History of lumbar laminectomy for spinal cord decompression (Unknown) 1968 History of mechanical aortic valve replacement Family History Family History Father Hypertension Heart attack Cardiovascular disease Mother No problems noted. Sibling Heart attack Cardiovascular disease Social History Social History Smoking packs per day: 1 Smoking cigarettes per day: 20.0 Years smoked: 70 Smoking pack-years: 70.00 Smoking status: Former smoker Tobacco type: cigarettes Additional smoking assessment comments: smokes less than 1/2 pack of day Alcohol intake: current Substance use: never Substance use type: does not use Do You Feel Safe in your Home?: Yes Lack of Transportation: No Lack of Food: Never True Current Housing: I Have Housing Concerned About Future Housing: No Difficulty Paying Gas/Electric Bills: No Difficulty Paying for Meds: No Currently Unemployed: No Education: High School Diploma/GED Difficulty w/ Childcare or Family Care: No Living arrangements: with family Additional living arrangements comments: Occupation/Education: retired Sexual Orientation (if Verbalized by the Patient): Straight or Heterosexual Spiritual care concerns: No Meds Home Medications and Allergies Home Medications Medication Instructions Recorded Confirmed Type memantine 10 mg tablet 10 mg PO BID 03/22/21 11/08/23 History ascorbic acid (vitamin C) 500 mg 500 mg PO DAILY 04/27/21 11/08/23 History capsule cetirizine 10 mg tablet (Zyrtec) 10 mg PO DAILY 04/27/21 11/08/23 History calcium carbonate 600 mg-vitamin 1 tablet PO BID 10/18/21 11/08/23 History D3 20 mcg (800 unit) chewable tablet (Caltrate 600 plus D) ferrous sulfate 325 mg (65 mg 325 mg PO DAILY 01/23/22 11/08/23 History iron) tablet folic acid 800 mcg tablet 800 mcg PO DAILY 01/23/22 11/08/23 History vitamin B complex (B 1 tablet PO DAILY 08/23/22 11/08/23 History Complex-Vitamin B12 tablet) fluticasone 250 mcg-salmeterol 50 1 inh inhalation BID #60 ea 11/27/22 11/08/23 Rx mcg/dose blistr powdr for
[2023-11-08 15:29] VITALS: BP 108/58; PULSE 102; RESP 29; O2SAT 96
[2023-11-08 15:39] VITALS: BP 108/62; PULSE 107; RESP 29; O2SAT 95
[2023-11-08 15:49] VITALS: BP 119/59; PULSE 125; RESP 20; O2SAT 95
--- NOTE | 2023-11-08 15:53 | SUR.PHASEII ---
Pt has a history of Atrial fibrillation. Pt's states he took Metoprolol this am but did not take his Cardizem. Heart rate 96-130's Dr. Martin anesthesiologist notified. Orders to discharge pt and have pt take home dose of Cardizem. Pt and state understading.
--- NOTE | 2023-11-08 16:11 | SUR.PHASEII ---
Took patients Kriss to ER for complaints of chest pain. Son at bedside to take patient home.
== END 2023-11-08 16:13 | disposition home or self-care (01) ==
PROVIDERS: PCP Family Medicine; Visit Provider Internal Medicine Gastroenterology
PROC: 0DJD8ZZ Inspection of Lower Intestinal Tract, Via Natural or Artificial Opening Endoscopic (ICD-10-PCS; CPT 45330; principal; 2023-11-08 15:30)
DX: K62.7 Radiation proctitis (principal); K55.20 Angiodysplasia of colon without hemorrhage; K57.30 Diverticulosis of large intestine without perforation or abscess without bleeding; G30.9 Alzheimer's disease, unspecified; F02.80 Dementia in other diseases classified elsewhere, unspecified severity, without behavioral disturbance, psychotic disturbance, mood disturbance, and anxiety; I12.9 Hypertensive chronic kidney disease with stage 1 through stage 4 chronic kidney disease, or unspecified chronic kidney disease; N18.30 Chronic kidney disease, stage 3 unspecified; I25.10 Atherosclerotic heart disease of native coronary artery without angina pectoris; J44.9 Chronic obstructive pulmonary disease, unspecified; N40.0 Benign prostatic hyperplasia without lower urinary tract symptoms; K21.9 Gastro-esophageal reflux disease without esophagitis; E78.5 Hyperlipidemia, unspecified; D50.9 Iron deficiency anemia, unspecified; E11.9 Type 2 diabetes mellitus without complications; G25.81 Restless legs syndrome; Z85.118 Personal history of other malignant neoplasm of bronchus and lung; Z95.2 Presence of prosthetic heart valve; Z79.51 Long term (current) use of inhaled steroids; Z79.01 Long term (current) use of anticoagulants; Z95.1 Presence of aortocoronary bypass graft; Z87.891 Personal history of nicotine dependence; Z85.46 Personal history of malignant neoplasm of prostate; Z92.3 Personal history of irradiation
CPT/HCPCS: 45388; J0290; J1580; J2704; J7120

== ENCOUNTER 2023-11-26 12:20 | Outpatient (CLI) | payer MEDICARE, BC, SELFPAY ==
--- NOTE | 2023-11-26 16:33 | P.PCNPFT_ITS ---
PFT Procedure Performed PFT Procedure Performed Spirometry with Pre/Post Bronchodilator Plethysmography (Lung Vol) Diffusing Cap (DLCO) Flow Vol Loop PFT Interpretation This is a pulmonary function test with pre and post-bronchodilator spirometry, plethysmography and diffusing capacity. The test was performed and results interpreted in accordance with the 2019 and 2005 ATS/ERS Task Force guidelines respectively using the Global Lung Function Initiative-2012 reference equations. Patient demonstrated good effort and cooperation. Reproducibility criteria were met. The quality of the pre bronchodilator spirometry maneuver was Grade A and post bronchodilator spirometry maneuver was Grade A. Findings: Spirometry:There is decreased maximal expiratory airflow at all lung volumes with concave expiratory flow tracing. The contour the inspiratory flow tracing is normal. The pre bronchodilator FVC is 2.14 L, 61% predicted. The pre bronchodilator FEV1 is 1.14 L, 44% predicted. The pre bronchodilator FEV1: FVC ratio is 53%. The post bronchodilator FVC is 2.12 L, representing a 1% decrease. New the post bronchodilator FEV1 is 1.34 L, representing an 18% increase. The post bronchodilator FEV1: FVC ratio 63%. Plethysmography: The total lung capacity is 3.62 L, 54% predicted. The functional residual capacity is 2.48 L, 68% predicted. The residual volume is 1.47 L, 56% predicted. Diffusing capacity: The diffusing capacity unadjusted for hemoglobin and carboxyhemoglobin is 6.7, 30% predicted. The diffusing capacity adjusted for alveolar volume is 2.19, 61% predicted. Impression: There is a combined obstructive and restrictive ventilatory abnormality. There are no guidelines to assign the severity of obstruction and restriction with a combined abnormality. In my opinion, given the moderately concave expiratory flow tracing, decreased FEV1: FVC ratio and moderate restric tive abnormality, I would state there is a moderate obstructive abnormality and a moderate restrictive abnormality resulting in a severe decrease in the FEV1. There is significant improvement after inhaling a single dose of albuterol. The diffusing capacity unadjusted for hemoglobin and carboxyhemoglobin is severely decreased and remains mildly decreased when adjusted for alveolar volume. There are no prior studies for comparison
== END 2023-11-26 12:21 | disposition home or self-care (01) ==
LOC: ANHPFT 12:21
PROVIDERS: PCP Family Medicine; Visit Provider Family Medicine
DX: J44.9 Chronic obstructive pulmonary disease, unspecified (principal); C34.11 Malignant neoplasm of upper lobe, right bronchus or lung; R94.2 Abnormal results of pulmonary function studies
CPT/HCPCS: 94060; 94726; 94729

== ENCOUNTER 2023-12-25 10:41 | Outpatient (CLI) | payer MEDICARE, BC, SELFPAY ==
[2023-12-18 13:54] VITALS: BMI 22.0
--- NOTE | 2023-12-18 13:55 | PC.NURSE ---
Pre Radiology instructions Report to the outpatient champ saaved[facility] on date __12/25/23___ at time __11:00AM for procedure Time: _1:00PM___ YOU MAY BE MONITORED AT HOSPITAL FOR UP TO 4 HOURS AFTER YOUR PROCEDURE. A visitor will be allowed to accompany the patient into the hospital. You and your visitor will be asked to self-screen and do not enter if you have any COVID symptoms. A mask is OPTIONAL within the hospital. Patients are to have no food or drink 6 hours prior to procedure time Driving will be restricted after the procedure, you must have a person to drive you home. Labs will be drawn in preop area and once reviewed, you will be taken to radiology area for procedure. When the procedure is completed, you will be taken to outpatient where you will be monitored for several hours. You may have one visitor in this area. Other than holding anti-coagulants, patient may take other medication(s) as scheduled. Prior to your appointment date patients are instructed to hold anti-coagulants after discussing with ordering provider to stop. If unable to discontinue anti-coagulants please notify radiologist. ? No aspirin or warfarin (Coumadin) for 7 days prior to the procedure. ? No clopidogrel (Plavix), ticagrelor (Brilinta), prasugrel (Effient) or dabigatran (Pradaxa) for 5 days prior to the procedure. ? No rivaroxaban (Xarelto), apixaban (Eliquis), dipyridamole (Aggrenox or Persantine) or cilostazol (Pletal) for 2 days prior to the procedure. Medications to discontinue per physician: _HOLD COUMADIN 7 DAYS PRE-PROCEDURE Date to take last dose: ____12/17/23 Please leave all valuables, including medications, at home the day of procedure. The hospital will not accept responsibility for valuables. Wear comfortable, loose fitting clothing.? Follow any additional instructions given to you from ordering provider. Telephone instructions given to __PATIENT'S , FABRICE and asked if any additional questions and then verbalized understanding. Patient advised to call scheduling provider office or registration scheduling [phone] if any additional questions.
[2023-12-25] VITALS (7 sets, daily range): BP systolic 116–163; BP diastolic 66–75; PULSE 73–90; RESP 16; TEMP 36.1; O2SAT 96–100
--- NOTE | ~2023-12-25 | US_ITS ---
EXAMINATION: US thoracentesis DATE: 12/25/2023 14:30 INDICATION: pleural effusion TECHNIQUE: The procedure and its risks, benefits, and alternatives were discussed with the patient. P otential risks discussed included bleeding, infection, and pneumothorax. The patient understood the r isks and agreed to proceed. The skin was prepped and draped in sterile fashion. 1% lidocaine was used for local anesthesia. Under ultrasound guidance, a 5 Fr catheter with trochar was advanced into the right pleural effusion. Fluid was aspirated. The catheter was removed, and a dressing was applied. Th ere were no immediate complications. FINDINGS: Ultrasound images demonstrate a right pleural effusion and the catheter within the fluid. IMPRESSION: 1. Successful ultrasound-guided thoracentesis yielding 600 mL of yellow fluid. Reviewed, dictated and finalized at location A.
--- NOTE | ~2023-12-25 | XR_ITS ---
EXAMINATION: [id number] DATE: 12/25/2023 14:18 INDICATION: Right pleural effusion status post thoracentesis. TECHNIQUE: A single frontal view of the chest was obtained. COMPARISON: Chest 2 views 09/25/2023, chest CT 11/05/2023 FINDINGS: There are airspace and interstitial opacities in right lung upper lobe with volume loss. Th ere is a diffuse interstitial pattern in the lungs. No pleural effusion or pneumothorax. Cardiomegaly is noted. There are changes of aortic valve replacement. There is a large hiatal hernia. There are o ld healed left rib fractures. IMPRESSION: 1. Airspace and interstitial opacities in right lung upper lobe with volume loss, likely radiation fi brosis. 2. Diffuse interstitial pattern in the lungs, consistent with mild pulmonary edema and/or chronic charly g disease. 3. Cardiomegaly. 4. Large hiatal hernia. Reviewed, dictated and finalized at location A. IMPRESSION: 1. 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 2. Diffuse interstitial pattern in the lungs, consistent with mild pulmonary ed heidi and/or chronic lung disease. 3. Cardiomegaly. 4. Large hiatal hernia.
[2023-12-25 12:15] LABS: Platelet Count Result 169 k/mm3 (150-375)
[2023-12-25 12:31] LABS: INR 0.9; Prothrombin Time 12.6 Seconds (11.1-14.7)
[2023-12-25 14:44] LABS: pH Pleural Fluid > 7.500 (7.210-7.500)
[2023-12-25 15:49] LABS: Appearance Pleural Fluid Clear (Clear); Color Pleural Fluid Yellow (Colorless); Lymphocytes Pleural Fluid 52 %; Macrophages Pleural Fluid 1 %; Mesothelial Cells Pleural Flui 3 %; Monocytes Pleural Fluid 23 %; Neutrophils Pleural Fluid 21 % (0-25); Pleural fluid source Pleural fluid
[2024-01-01 07:13] LABS: LDH Pleural Fluid 66 U/L; Total Protein Pleural Fluid <3.0 g/dL
== END 2023-12-25 16:49 | disposition home or self-care (01) ==
PROVIDERS: PCP Family Medicine; Referring Provider Internal Medicine Critical Care Medicine; Visit Provider Radiology Diagnostic Radiology
DX: J90 Pleural effusion, not elsewhere classified (principal)
CPT/HCPCS: 32555; 36415; 83615; 83986; 84157; 84311; 85049; 85610; 87015; 87116; 87205; 87206; 88108; 88305; 89051

== ENCOUNTER 2024-01-18 14:37 | Emergency (ER) | payer MEDICARE, BC, SELFPAY ==
[2024-01-18] VITALS (10 sets, daily range): BP systolic 80–159; BP diastolic 38–80; PULSE 71–106; RESP 15–27; TEMP 36.7; O2SAT 86–100
--- NOTE | ~2024-01-18 | CT_ITS ---
CT head without contrast Indication: Syncope, weakness COMPARISON: 1024 Technique: Serial scans were obtained through the brain without the administration of contrast. Dose reduction technique was used on this scan by utilizing automated exposure control and iterative recon struction technique. The dose-length product (DLP) was 681.00 mGy-cm. Findings: There is no evidence of intracranial hemorrhage, mass lesion, or acute infarct. The ventri cles and subarachnoid spaces are dilated, consistent with moderate atrophy. Low attenuation regions are seen within the periventricular white matter bilaterally, likely representing changes from chroni c microvascular ischemic disease. There is no evidence of edema, mass effect or midline shift. The visualized paranasal sinuses and mastoid air cells are clear. Impression: No intracranial hemorrhage, mass, or acute infarct. Atrophy and chronic white matter changes, as above. Reviewed, dictated and finalized at location . Impression: No intracranial hemorrhage, mass, or acute infarct. Atrophy and chronic white matter changes, as above.
--- NOTE | ~2024-01-18 | CT_ITS ---
Clinical Indication: Shortness of breath, consolidation on chest x-ray, history lung cancer CT Scan of the Chest, Abdomen, and Pelvis with Contrast: Technique: Contiguous sections were acquired throughout the chest, abdomen, and pelvis after intraven ous administration of 100 cc of Omnipaque 350. Dose reduction technique was used on this scan by uti lizing automated exposure control and iterative reconstruction technique. The dose-length product (DL P) was 901.91 mGy-cm. COMPARISON: 11/05/2023 Findings: There is no evidence of any significant mediastinal, hilar or axillary lymphadenopathy. There are ext ensive atherosclerotic calcifications of the aorta, without evidence of aortic aneurysm or dissection . No pulmonary embolus identified. No pericardial effusion. Large hiatal hernia present. Moderate right pleural effusion present. No left pleural effusion. Probable irregular mass abutting the right knee single borderline in the anteromedial right upper lob e measuring approximately 3 cm in maximum diameter. There is extensive consolidation and interstitial thickening the right upper lobe, superior segment right lower lobe, and superior aspect of the right middle lobe, which overall is somewhat similar to prior exam. Left lung is essentially clear, aside from minimal left basilar chronic peripheral interstitial change.. The liver, spleen, pancreas, gallbladder, adrenals and kidneys are within normal limits. No evidence of aortic aneurysm. No lymphadenopathy. No bowel obstruction. There is sigmoid diverticulosis. There is streak artifact in the pelvis from right hip arthroplasty. Urinary bladder grossly unremarka ble. No definite pelvic mass seen. Impression: 3 cm irregular mass abutting the right mediastinal border in the anteromedial right upper lobe. This could reflect sequelae of treated disease versus residual neoplasm. Extensive consolidation and interstitial thickening the right upper lobe, superior segment right lowe r lobe, and superior to the right middle lobe, which is somewhat similar overall to prior exam. Findi ngs could represent extensive chronic post ration change. Superimposed acute pneumonia difficult to e xclude. Correlate clinically. Moderate right pleural effusion. Large hiatal hernia. No pulmonary embolus. No acute abnormality in the abdomen or pelvis. Reviewed, dictated and finalized at [facility]. Impression: 3 cm irregular mass abutting the right mediastinal border in the anteromedial r ight upper lobe. This could reflect sequelae of treated disease versus residual neoplasm. Extensive consolidation and interstitial thickening the right upper lobe, super ior segment right lower lobe, and superior to the right middle lobe, which is s omewhat similar overall to prior exam. Findings could represent extensive chron ic post ration change. Superimposed acute pneumonia difficult to exclude. Corre late clinically. Moderate right pleural effusion. Large hiatal hernia. No pulmonary embolus. No acute abnormality in the abdomen or pelvis.
--- NOTE | ~2024-01-18 | XR_ITS ---
Portable chest x-ray Comparison: 12/25/2023 Clinical History: Sepsis Findings: Extensive right upper lobe consolidation and present. Left lower lobe consolidation again present. There is tenting of the right hemidiaphragm with small right pleural effusion. Probable mini mal left pleural effusion. Cardiomediastinal silhouette is stable. Bones and soft tissues are unrema rkable. Impression: Stable right upper lobe and left lower lobe consolidation. Minimal pleural effusions with probable bibasilar atelectatic change. Reviewed, dictated and finalized at location M. Impression: Stable right upper lobe and left lower lobe consolidation. Minimal pleural effusions with probable bibasilar atelectatic change.
--- NOTE | 2024-01-18 14:53 | ECG_ITS ---
SEE SCANNED COPY FOR CONFIRMED REPORT MTDD
[2024-01-18 15:42] LABS: Hematocrit 28.5 % (42.0-52.0); Hemoglobin 8.8 g/dL (14.0-18.0); Mean Corpuscular HGB Conc 30.9 g/dl (32-36); Mean Corpuscular Hemoglobin 29.3 pg (26-34); Platelet Count Result 174 k/mm3 (150-375); Red Cell Distribution Width 20.3 % (11.5-14.5); White Blood Count 9.4 K/mm3 (4.5-10.0)
[2024-01-18 15:54] LABS: INR 2.7; Prothrombin Time 30.5 Seconds (11.1-14.7)
[2024-01-18 15:55] LABS: Partial Thromboplastin Time 33.6 Seconds (22.3-36.8)
[2024-01-18 16:13] LABS: Lymphocytes Absolute Manual 0.37 K/mm3 (1.1-4.5); Monocytes Absolute Manual 0.37 K/mm3 (0.1-0.90); Monocytes Percent Manual 4 % (3-9); Neutrophils Percent Manual 92 % (46-73); Total Cells Counted 100
[2024-01-18 16:14] LABS: Platelet Estimate Adequate (Adequate); Schistocytes None Seen
[2024-01-18] MEDS: SODIUM CHLORIDE 0.9% IV 1,000 ML 999 ML IV CONT ×2 (16:14→17:17)
[2024-01-18 16:15] LABS: Alanine Aminotransferase 18 U/L (6-50); Albumin Level 3.3 g/dL (3.5-5.1); Alkaline Phosphatase 62 U/L (38-126); Anion Gap 5 mmol/L (4-12); Anisocytosis 3+; Aspartate Amino Transferase 33 U/L (17-59); Bilirubin,Total 0.7 mg/dL (0.2-1.3); Blood Urea Nitrogen 50 mg/dL (9-20); Calcium 9.4 mg/dL (8.4-10.2); Carbon Dioxide 21 mmol/L (22-30); Chloride 108 mmol/L (98-107); Estimated CRCL calculation 29 ml/min; Estimated Glomerular Filt Rate 45; Glucose 140 mg/dL (65-110); Hypochromasia 1+; Potassium 4.8 mmol/L (3.4-5.0); Sodium 134 mmol/L (137-145)
--- NOTE | 2024-01-18 16:40 | ED.WEAKNESS ---
HPI - Weakness General Chief complaint: Weakness <RORY Mcclelland Last Filed: 01/18/24 21:23> Stated complaint: weakness, black/tarry stools <Elenita Fallon PA-C - Last Filed: 01/18/24 21:23> Time Seen by Provider: 01/18/24 15:20 <RORY Mcclelland Last Filed: 01/18/24 21:23> Source: patient and family <RORY Mcclelland Last Filed: 01/18/24 21:23> Mode of arrival: ambulatory <RORY Mcclelland Last Filed: 01/18/24 21:23> Limitations: no limitations <RORY Mcclelland Last Filed: 01/18/24 21:23> History of Present Illness HPI Narrative: Patient is an 83-year-old male who presents to the ED with family with report of weakness. Patient's at bedside assisted in providing information. She reports patient has been increasingly weak over the last several days. Has had a productive cough, urinary frequency, shortness of breath. She states he had a syncopal episode today while she was attempting to shave his face. Lost consciousness for approximately 1 minute. No seizure-like activity. states he then had an episode of emesis afterward. also reports patient has had dark stools, though this is a chronic issue for him, is on iron supplement. He is on warfarin due to history of mechanical aortic valve and atrial fibrillation. Patient denies any concerns upon my evaluation. Denies chest or abdominal pain. Denies shortness of breath. Denies current nausea. Denies lower extremity pain or swelling. <RORY Mcclelland Last Filed: 01/18/24 21:23> Related Data Home medications: Home Medications Medication Instructions Recorded Confirmed memantine 10 mg tablet 10 mg PO BID 03/22/21 01/09/24 ascorbic acid (vitamin C) 500 mg 500 mg PO DAILY 04/27/21 01/09/24 capsule cetirizine 10 mg tablet (Zyrtec) 10 mg PO DAILY 09/02/21 05/16/24 calcium carbonate 600 mg-vitamin 1 tablet PO BID 10/18/21 01/09/24 D3 20 mcg (800 unit) chewable tablet (Caltrate 600 plus D) ferrous sulfate 325 mg (65 mg 325 mg PO DAILY 01/23/22 01/09/24 iron) tablet folic acid 800 mcg tablet 800 mcg PO DAILY 01/23/22 01/09/24 fesoterodine 8 mg tablet,extended 8 mg PO DAILY 05/02/23 01/09/24 release 24 hr multivitamin 1 tablet PO DAILY 09/04/23 01/09/24 donepezil 10 mg tablet 10 mg PO DAILY 09/11/23 01/09/24 warfarin 2 mg tablet (Jantoven) 2 mg PO 4XW 09/11/23 01/09/24 diltiazem HCl 180 mg 180 mg PO DAILY 10/31/23 01/09/24 capsule,extended release 24 hr acetaminophen 500 mg tablet 1,000 mg PO Q6H PRN Pain 12/18/23 01/09/24 <Elenita Fallon PA-C - Last Filed: 01/18/24 21:23> Allergies/Adverse reactions: Allergies Allergy/AdvReac Type Severity Reaction Status Date / Time codeine AdvReac Mild Nausea Verified 01/09/24 08:53 <RORY Mcclelland Last Filed: 01/18/24 21:23> Review of Systems Review of Systems: GENERAL: Elderly, somewhat frail, non-toxic, in no acute distress. HEAD: Normocephalic, atraumatic. RESPIRATORY: Airway patent, respirations nonlabored. Occasional coughing on exam. Lung sounds are coarse bilaterally, rhonchi in left lower lung zone. CARDIOVASCULAR: Regular rate with irregular rhythm without murmurs, rubs, or gallops. ABDOMINAL: Soft, no tenderness throughout abdomen, nondistended. Normoactive BS. MUSCULOSKELETAL: Moves all extremities. No gross deformities. SKIN: Warm, dry, normal color. NEURO: A&O X2, unsure of date/year. Speech clear. Cranial nerves II-XII grossly intact. Steady gait. No ataxic movements. No focal deficits. PSYCHIATRIC: Appropriate mood and affect. Normal interaction. <RORY Mcclelland Last Filed: 01/18/24 21:23> All systems reviewed & are unremarkable except as noted in HPI and below <Elenita Fallon PA-C - Last Filed: 01/18/24 21:23> [facility] Past Medical History Medical History: Medical History (Reviewed 01/18/24 @ 16:43 by Jasmyne
[2024-01-18 17:10] LABS: Magnesium 1.9 mg/dL (1.6-2.3)
[2024-01-18 17:13] LABS: NT Pro B Type Natriuretic Pept 5640 pg/mL (19.9-100); Troponin I < 0.012 ng/mL (0.000-0.034)
[2024-01-18 17:14] LABS: Procalcitonin 0.1 ng/mL
[2024-01-18 17:38] LABS: Influenza A QL RT-PCR Negative (Negative); Influenza B QL RT-PCR Negative (Negative); RSV RNA, RT-PCR Negative (Negative); SARS-CoV-2 RNA PCR Negative (Negative)
[2024-01-18 17:58] LABS: Appearance Urine Clear (Clear); Bilirubin Urine Negative (Negative); Blood Urine Negative (Negative); Color Urine Yellow (Yellow); Glucose Urine UA Negative (Negative); Ketones Urine Negative (Negative); Leukocyte Esterase Ur Negative LEU/UL (Negative); Nitrate Urine Negative (Negative); Protein Urine Negative (Negative); Specific Grav Ur 1.015 (1.001-1.035); Urobilinogen Urine 0.2 mg/dL (<2.0)
[2024-01-18 18:01] LABS: Add Urine Microscopic? NO
[2024-01-18 19:12] LABS: Reflex Lactic Acid Yes or No Add Lactic
[2024-01-18] MEDS: PANTOPRAZOLE SODIUM IV 40 MG VIAL IV PUSH (20:11)
[2024-01-18 20:40] LABS: Lactic Acid 2.2 mmol/L (0.7-2.0)
[2024-01-18] MEDS: AZITHROMYCIN 500 MG/NS 250 ML 500 MG/250 ML BAG 250 MG IVPB (21:00)
== END 2024-01-18 22:20 | disposition short-term general hospital (02) ==
PROVIDERS: Emergency Medicine; Emergency Provider Physician Assistant; PCP Family Medicine
DX: K92.2 Gastrointestinal hemorrhage, unspecified (principal); C34.91 Malignant neoplasm of unspecified part of right bronchus or lung; E87.20 Acidosis, unspecified; D64.9 Anemia, unspecified; R53.1 Weakness; R55 Syncope and collapse; Z20.822 Contact with and (suspected) exposure to COVID-19; G30.9 Alzheimer's disease, unspecified; F02.80 Dementia in other diseases classified elsewhere, unspecified severity, without behavioral disturbance, psychotic disturbance, mood disturbance, and anxiety; I48.91 Unspecified atrial fibrillation; I35.0 Nonrheumatic aortic (valve) stenosis; I12.9 Hypertensive chronic kidney disease with stage 1 through stage 4 chronic kidney disease, or unspecified chronic kidney disease; E11.22 Type 2 diabetes mellitus with diabetic chronic kidney disease; N18.30 Chronic kidney disease, stage 3 unspecified; J44.9 Chronic obstructive pulmonary disease, unspecified; E78.5 Hyperlipidemia, unspecified; N40.0 Benign prostatic hyperplasia without lower urinary tract symptoms; D50.9 Iron deficiency anemia, unspecified; G25.81 Restless legs syndrome; M85.80 Other specified disorders of bone density and structure, unspecified site; M19.90 Unspecified osteoarthritis, unspecified site; R06.02 Shortness of breath; F17.210 Nicotine dependence, cigarettes, uncomplicated; Z95.2 Presence of prosthetic heart valve; Z95.1 Presence of aortocoronary bypass graft; Z85.46 Personal history of malignant neoplasm of prostate; Z87.442 Personal history of urinary calculi; Z79.01 Long term (current) use of anticoagulants; Z79.899 Other long term (current) drug therapy; R94.31 Abnormal electrocardiogram [ECG] [EKG]; K44.9 Diaphragmatic hernia without obstruction or gangrene; J90 Pleural effusion, not elsewhere classified
CPT/HCPCS: 36415; 70450; 71045; 71275; 74177; 80053; 81003; 83605; 83735; 83880; 84145; 84484; 85025; 85610; 85730; 86850; 86900; 86901; 87040; 87637; 93005; 96361; 96365; 96367; 96375; 99285; C9113; J0456; J0696; J7030; Q9967

== ENCOUNTER 2024-02-13 09:16 | Outpatient (CLI) | payer MEDICARE, BC, SELFPAY ==
--- NOTE | ~2024-02-13 | CT_ITS ---
EXAMINATION:CT diagnostic chest w con DATE: 02/13/2024 09:53 INDICATION: Malignant neoplasm of lung. TECHNIQUE: Computed tomography (CT) of the chest was performed with 75 mL Omnipaque 350 intravenous c ontrast. Automated exposure control and iterative reconstruction technique were employed. The dose-le ngth product (DLP) was 136.59 mGy-cm. COMPARISON: Chest CT 01/18/2024, 11/05/23, 07/02/23 FINDINGS: There is a 3.0 x 1.6 cm mass in right lung upper lobe abutting the mediastinum that measure d 4.9 x 3.4 cm on 07/02/2023 and 4.3 x 2.9 cm on 11/05/23. There are airspace opacities with volume los s and bronchiectasis involving right upper lobe and superior segment right lower lobe, consistent wit h radiation fibrosis. There is mild emphysema. There are airspace and groundglass opacities in left l ower lobe. Calcified right lung nodules and calcified right hilar lymph nodes are consistent with old edematous disease. There is a small right pleural effusion. There is a trace left pleural effusion. Cardiomegaly is noted. There are changes of aortic valve replacement. There are coronary artery calci fications. There are changes of coronary artery bypass grafting. No pericardial effusion. There is a large sliding hiatal hernia. There is cortical thinning of the kidneys. There are cysts in the kidney s measuring up to 14 mm on the left. There are bridging endplate osteophytes at multiple levels in th e spine, consistent with diffuse idiopathic skeletal hyperostosis (DISH). There is severe cervical sp ondylosis. There are healing left rib fractures. IMPRESSION: 1. Mass in right lung upper lobe with improvement from 11/05/2023, consistent with primary bronchogeni c carcinoma. 2. Small right pleural effusion, worsened from 01/18/2024. 3. 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 4. Groundglass airspace opacities in left lower lobe, consistent with radiation pneumonitis versus pn eumonia. 5. Large sliding hiatal hernia. Reviewed, dictated and finalized at location A. IMPRESSION: 1. Mass in right lung upper lobe with improvement from 11/05/2023, consistent wi th primary bronchogenic carcinoma. 2. Small right pleural effusion, worsened from 01/18/2024. 3. 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 4. Groundglass airspace opacities in left lower lobe, consistent with radiation pneumonitis versus pneumonia. 5. Large sliding hiatal hernia.
== END 2024-02-13 09:17 | disposition home or self-care (01) ==
PROVIDERS: PCP Family Medicine; Visit Provider Internal Medicine Hematology & Oncology
DX: C34.90 Malignant neoplasm of unspecified part of unspecified bronchus or lung (principal); J90 Pleural effusion, not elsewhere classified; K44.9 Diaphragmatic hernia without obstruction or gangrene; R91.8 Other nonspecific abnormal finding of lung field
CPT/HCPCS: 36415; 71260; 80053; 85025; Q9967

== ENCOUNTER 2024-03-09 15:08 | Outpatient (CLI) | payer MEDICARE, BC, SELFPAY ==
[2024-03-09 19:38] LABS: Prothrombin Time 60.8 Seconds (11.1-14.7)
== END 2024-03-09 15:09 | disposition home or self-care (01) ==
LOC: ANHGOSHLAB 15:10
PROVIDERS: PCP Family Medicine; Visit Provider Nurse Practitioner Family
DX: I48.91 Unspecified atrial fibrillation (principal)
CPT/HCPCS: 36415; 85610

== ENCOUNTER 2024-03-19 14:26 | Outpatient (CLI) | payer MEDICARE, BC, SELFPAY ==
--- NOTE | ~2024-03-19 | XR_ITS ---
EXAMINATION: XR chest 2V Exam Date/Time: 03/19/2024 14:43 CDT HISTORY: SHORTNESS OF BREATH PLEURAL EFFUSION Comparison: 01/18/2024 CT chest 02/13/2024. RESULT: Lines, tubes, and devices: Intact sternotomy wires. Valve replacement. Surgical clips over the cardi ac shadow. Lungs and pleura: Volume loss reticulation and honeycombing in the right upper lung. Right lower charly g scar and diaphragm tenting. Diaphragm flattening. Bilateral costophrenic angle blunting. Cardiomediastinal silhouette: Stable. Other: No acute osseous or upper abdominal finding. IMPRESSION: No acute cardiopulmonary process. Chronic right upper lung honeycombing and right lower lung scarring . Small bilateral effusions versus chronic pleural blunting Reviewed, dictated and finalized at location K. IMPRESSION: No acute cardiopulmonary process. Chronic right upper lung honeycombing and rig ht lower lung scarring. Small bilateral effusions versus chronic pleural blunti ng
== END 2024-03-19 14:27 | disposition home or self-care (01) ==
PROVIDERS: PCP Family Medicine; Visit Provider Internal Medicine Hematology & Oncology
DX: R06.02 Shortness of breath (principal); J98.4 Other disorders of lung
CPT/HCPCS: 71046

== ENCOUNTER 2024-05-22 09:26 | Outpatient (CLI) | payer MEDICARE, BC, SELFPAY ==
--- NOTE | ~2024-05-22 | CT_ITS ---
Clinical Indication: Lung cancer CT Scan of the Chest with Contrast: Technique: Contiguous sections were acquired throughout the chest after intravenous administration of 75 cc of Omnipaque 350. Dose reduction technique was used on this scan by utilizing automated exposu re control and iterative reconstruction technique. The dose-length product (DLP) was 192.22 mGy-cm. COMPARISON: 02/13/2024 Findings: There is no evidence of any significant mediastinal, hilar or axillary lymphadenopathy. There is no f illing defect in the pulmonary arterial tree to suggest pulmonary embolus. There is no evidence of ao rtic dissection or aneurysm. No pericardial effusion. Moderate right pleural effusion is similar to prior exam. There is right upper lobe consolidation and volume loss, extending towards the right hilum, similar overall to prior appearance. There are proba ble mild volume loss in the medial right middle lobe, also similar to prior exam. Mild emphysematous change of the lungs noted. Images through the upper abdomen reveal moderate to large hiatal hernia. Impression: Probable post radiation changes and treated disease at the right upper lobe, with volume loss, consol idation, and architectural distortion. Moderate right pleural effusion, unchanged. Mild emphysema. Moderate to large hiatal hernia. Reviewed, dictated and finalized at location . Impression: Probable post radiation changes and treated disease at the right upper lobe, wi th volume loss, consolidation, and architectural distortion. Moderate right pleural effusion, unchanged. Mild emphysema. Moderate to large hiatal hernia.
[2024-05-22 10:06] LABS: Estimated Glomerular Filt Rate 41
== END 2024-05-22 09:27 | disposition home or self-care (01) ==
PROVIDERS: PCP Family Medicine; Visit Provider Internal Medicine Hematology & Oncology
DX: C34.90 Malignant neoplasm of unspecified part of unspecified bronchus or lung (principal); J90 Pleural effusion, not elsewhere classified; J43.9 Emphysema, unspecified; K44.9 Diaphragmatic hernia without obstruction or gangrene
CPT/HCPCS: 71260; Q9967

== ENCOUNTER 2024-08-28 09:01 | Outpatient (CLI) | payer MEDICARE, BC, SELFPAY ==
--- NOTE | ~2024-08-28 | CT_ITS ---
Clinical Indication: Lung cancer CT Scan of the Chest with Contrast: Technique: Contiguous sections were acquired throughout the chest after intravenous administration of 75 cc of Omnipaque 350. Dose reduction technique was used on this scan by utilizing automated exposu re control and iterative reconstruction technique. The dose-length product (DLP) was 217.58 mGy-cm. COMPARISON: 05/22/2024 Findings: There is no evidence of any significant mediastinal, hilar or axillary lymphadenopathy. There is no f illing defect in the pulmonary arterial tree to suggest pulmonary embolus. There is no evidence of ao rtic dissection or aneurysm. No pericardial effusion Stable moderate right pleural effusion. No left pleural effusion.. Status post probable partial right upper lobectomy. Stable consolidation and volume loss in the remai tomas right upper lobe extending to the hilum is compatible with postradiation change. No suspicious p ulmonary nodules seen in either lung. Images through the upper abdomen reveal stable large hiatal hernia. 5 mm nonobstructing left renal st one noted. Impression: No evidence for active malignancy or metastatic disease. Stable postoperative and probable postradiation changes in the right lung. Stable moderate right pleural effusion. There is stable large hiatal hernia. Reviewed, dictated and finalized at location . ICATION ADMINISTRATOR Impression: No evidence for active malignancy or metastatic disease. Stable postoperative and probable postradiation changes in the right lung. Stable moderate right pleural effusion. There is stable large hiatal hernia.
[2024-08-28 09:30] LABS: Estimated Glomerular Filt Rate 41
[2024-08-28 11:08] LABS: Basophils Percent Auto 0.3 % (0.2-1.2); Eosinophils Percent Auto 0.5 % (0-4.4); Hemoglobin 12.3 g/dL (14.0-18.0); Immature Granulocyte Absolute 0.07 K/mm3 (0.00-0.031); Lymphocytes Absolute Auto 0.72 K/mm3 (0.9-3.2); Lymphocytes Percent Auto 9.9 % (18.3-44.2); Mean Corpuscular HGB Conc 32.4 g/dl (32-36); Mean Corpuscular Hemoglobin 31.9 pg (26-34); Mean Corpuscular Volume 98.7 fl (80-100); Monocytes Absolute Auto 0.5 K/mm3 (0.1-0.6); Monocytes Percent Auto 7.4 % (2.6-8.5); Neutrophils Absolute Auto 5.9 K/mm3 (1.3-6.7); Neutrophils Percent Auto 80.9 % (45.5-73.1); Platelet Count Result 199 k/mm3 (150-375); Red Blood Count 3.85 M/mm3 (4.6-6.20); Red Cell Distribution Width 14.6 % (11.5-14.5); White Blood Count 7.3 K/mm3 (4.5-10.0)
[2024-08-28 11:28] LABS: Alanine Aminotransferase 19 U/L (6-50); Alkaline Phosphatase 92 U/L (38-126); Anion Gap 1 mmol/L (4-12); Aspartate Amino Transferase 27 U/L (17-59); Bilirubin,Total 0.5 mg/dL (0.2-1.3); Blood Urea Nitrogen 20 mg/dL (9-20); Carbon Dioxide 28 mmol/L (22-30); Chloride 106 mmol/L (98-107); Glucose 99 mg/dL (65-110); Potassium 4.2 mmol/L (3.4-5.0); Sodium 135 mmol/L (137-145)
[2024-08-28 11:58] LABS: Prostate Specific Antigen 0.5 ng/mL (< OR = 4.0)
[2024-09-03 04:32] LABS: Testosterone Total 74 ng/dL (250-1100)
== END 2024-08-28 09:02 | disposition home or self-care (01) ==
PROVIDERS: PCP Family Medicine; Visit Provider Internal Medicine Hematology & Oncology
DX: C34.90 Malignant neoplasm of unspecified part of unspecified bronchus or lung (principal); C61 Malignant neoplasm of prostate; J90 Pleural effusion, not elsewhere classified; K44.9 Diaphragmatic hernia without obstruction or gangrene; N20.0 Calculus of kidney
CPT/HCPCS: 71260; 80053; 84153; 84403; 85025; Q9967

== ENCOUNTER 2024-09-22 14:31 | Outpatient (CLI) | payer MEDICARE, BC, SELFPAY ==
--- OUTSIDE RECORDS SUMMARY | 2024-09-22 15:06 | XMS_ITS | Encounter Summary ---
Author Organization [facility] Healthcare Address [address] [place] [address] Care Team Providers Care Building Associate Name Role Phone Hannah Koroma MD Primary Care Provider Reason for Visit * Reason Comments Follow-up 8 mo Encounter Details Date Type Department Care Team (Late st Contact Info) Description 09/22/2024 1:00 PM OUT PATIENT THERAPIST Office Visit [facility] Cardiology [address] [place] [address] Debby Lucio NP [address] [place] [address] Paroxysmal atrial fibrillation with rapid ventricular response (HCC) (Primary Dx); Hx of mechanical aortic valve replacement; Chronic anticoagulation; Coronary artery disease involving [place] coronary artery of [place] heart without angina pectoris Social History Tobacco Use Types Packs/Day Years Used Date Smoking Tobacco: Former Cigarettes 0.5 69.9 0 [birth year]/26/1953 - 07/08/2023 Smokeless Tobacco: Never Tobacco Cessation:Counseling Given: Not Answered Comments:Smoking History Packs/day: 0 Packs Alcohol Use Standard Drinks/Week Comments No 0 (1 standard drink = 0.6 oz pur e alcohol) Sex and Gender Information Value Date Recorded Sex Assigned at Not on file Legal Sex Male 10:47 AM OUT PATIENT THERAPIST Gender Identity Not on file Sexual Orientation Not on file documented as of this encounter Last Filed Vital Signs Vital Sign Reading Time Taken Comments Blood Pressure 122/62 09/22/2024 1:02 PM OUT PATIENT THERAPIST Pulse 110 09/22/2024 1:02 PM OUT PATIENT THERAPIST Temperature - - Respiratory Rate - - Oxygen Saturation 97% 09/22/2024 1:02 PM OUT PATIENT THERAPIST Inhaled Oxygen Concentration - - Weight 63.5 kg (140 lb) 09/22/2024 1:02 PM OUT PATIENT THERAPIST Height 172.7 cm (5' 8 ) 09/22/2024 1:02 PM OUT PATIENT THERAPIST Body Mass Index 21.29 09/22/2024 1:02 PM OUT PATIENT THERAPIST documented in this encounter Patient Instructions * Patient Instructions* Debby Lucio NP - 09/22/2024 1:00 PM OUT PATIENT THERAPIST Increase metoprolol to 75 mg twice a day. Call me or send a [employer] message in couple of weeks to let me know what the resting heart rate is. PATIENT THERAPIST documented in this encounter Ordered Prescriptions Prescription Sig Dispense Quantity Refills Last Filled Start Date End Date metoprolol tartrate (LOPRESSOR) 50 mg immediate release tabletIndications: Paroxysmal atrial fibrillation with rapid ventricular response (HCC) Take 1.5 tablets (75 mg total) by mouth 2 (two) times a day 270 tablet 3 09/22/2024 documented in this encounter Progress Notes * Debby Lucio NP - 09/22/2024 1:00 PM CST Images from the original note were not included. [facility] Medical [facility] Cardiology [address] [place] [address] Date of Visit: 09/22/2024 Patient ID: Arley Nicholson 1940 Chief Complaint Patient presents with Follow-up 8 mo Arley Nicholson is a 84 y.o. male who has an established patient of Dr. Mims with a history of AVR, CAD and more recent atrial fibrillation, coming to the office for routine follow-up. History of Present Illness: Arley Nicholson is a 84 y.o. malewho presents for follow up of coronary and valvular heart disease. This is a gentleman who was found to have significant aortic valve stenosis and was referred for aortic valve replacement back in 2002. He also had disease of the right coronary artery at that time.He received a mechanical [employer] [facility] aortic valve and a single-vessel bypass graft to the RCA. Hisprincipal other comorbidities include longstanding cigarette smoking with severe COPD. He has no intention of quitting smoking. He also has longstanding hypertension. In 2021 the patient was found tohave prostate cancer and underwent radiation therapy for this. 03/19/[address] Mims: He returns to the office today for scheduled follow-up appointment. He is doing well with respect to his heart disease and does not have any complaints other than variability in his INR. His wanted to talk for some length about why the NOAC drugs arenot approved for prosthetic valve. We discussed these issues in some detail. 09/20/2023 hospital follow-up visit with CRYSTALLOGRAPHER: He had 3 hospitalizations in close proximity to each other over the past month. Around [place] time he was hospitalized with anemia and went into AFib with RVR. Warfarin had to be held for a period of time until he was transfused and GI bleed was ruledout. Anemia was thought to be a result of his cancer treatment. He then had a couple more hospitalizations for syncope. Echocardiogram showed LVEF 55-60%. He was orthostatic and taken off HCTZ. He returns to the office today accompanied by his . He is still having some episodes of AFib with RVR. Her smart watch recorded heart rates 120s to 130s. He is having home PT and OT but they were concerned about giving him treatment while having the elevated heart rate. The patient does not feel palpitations but feels overall fatigued. There is a list of recent blood pressure readings before takingmedication 130/89, 153/105, after medication 128/62. 10/25/2023 office visit with CRYSTALLOGRAPHER: He was in the GI lab 2 days ago for sigmoidoscopy and procedure was canceled because he was in AFib with RVR. He is asymptomatic with it. BP and heart rate readings from home over the last 3 weeks show variable heart rate 99-121 bpm, BP 98/62-134/93 and his will skip the olmesartan on days when the BP is lower. He had thoracentesis of 600 mL fluid about 2 weeks ago. He has a cough productive of sputum. No lower extremity edema. 01/07/[address] Mims: He presents to the office today for shorter interval follow-up. A couple of months ago I started him on some diltiazem to try to provide somewhat better heart rate control. He seems to be comfortable and offers no complaints that are referable to his ischemic disease or to his atrial fibrillation. He has not been experiencing any shortness of breath recently his says his most recent thoracentesis was last month. Apparently there is some differingopinions as to the etiology of his pleural fluid whether this is malignant or not. He is following with both Oncology and pulmonology regarding this. 09/22/2024 office visit with CRYSTALLOGRAPHER: He is here for routine follow-up accompanied by his . He and his sold their long-time home and moved to [place], [place] to be close to their daughter. They stilldecided to keep their medical providers in the local area. Neither of them have any concerns today.He was hospitalized in late December to early January with melena, was anemic, suspected upper GI bleed butno active bleeding was found. He continues to follow with Dr. Robison and his anemia resolved. See ROS for pertinent negatives. Medical History: Past Medical History: Diagnosis Date Anemia Arthritis Benign prostatic hyperplasia Cancer (CMS/HCC) (HCC) 08/2021 Cataract Chronic bronchitis (HCC) Chronic obstructive pulmonary disease (HCC) COPD Emphysema of lung (HCC) GERD (gastroesophageal reflux disease) GI (gastrointestinal bleed) ? Heart disease HX OTHER MEDICAL Hernia HX OTHER MEDICAL Aortic Valve Replacement HX OTHER MEDICAL Diabetes Type II Hypertension Hypertension Kidney stone 1967 Osteoporosis Past Surgical History: Procedure Laterality Date AORTIC VALVE REPLACEMENT BACK SURGERY CARDIAC VALVE REPLACEMENT 2002 CATARACT EXTRACTION 2019 CATARACT EXTRACTION, BILATERAL CORONARY ARTERY BYPASS GRAFT 2003 HERNIA REPAIR JOINT REPLACEMENT ? KNEE ARTHROSCOPY W/ LATERAL RELEASE SPINE SURGERY 1967 Social History Tobacco Use Smoking Status Former Current packs/day: 0.00 Average packs/day: 0.5 packs/day for 69.9 years (34.9 ttl pk-yrs) Types: Cigarettes Start date: [birth year]/26/1954 Quit date: 07/08/2023 Years since quittin.2 Smokeless Tobacco Never Tobacco Comments Smoking History Packs/day: 0 Packs Social History Tobacco Use Smoking status: Former Current packs/day: 0.00 Average packs/day: 0.5 packs/day for 69.9 years (34.9 ttl pk-yrs) Types: Cigarettes Start date: [birth year]/26/1954 Quit date: 07/08/2023 Years since quittin.2 Smokeless tobacco: Never Tobacco comments: Smoking History Packs/day: 0 Packs Substance and Sexual Activity Drug use: Never Sexual activity: Not Currently Partners: Female Alcohol Use: Not on file Family History Problem Relation Age of Onset Heart attack Father Myocardial Infarction; Cause of : Myocardial Infarction Heart disease Other Heart disease; Hypertension Other Hypertension; Diabetes Brother Diabetes mellitus; Early Brother Heart disease Brother Heart attack Brother Myocardial Infarction; Cause of : Myocardial Infarction Review of Systems Constitutional: Negative for malaise/fatigue and weight loss. Cardiovascular: Negative for chest pain, leg swelling, near-syncope, orthopnea, palpitations, paroxysmal nocturnal dyspnea and syncope. Respiratory: Positive for cough (COPD, unchanged) and sputum production (COPD, unchanged). Negativefor shortness of breath. Hematologic/Lymphatic: Negative for bleeding problem. Does not bruise/bleed easily. Vital Signs: BP 122/62 (BP Location: Left arm, Patient Position: Sitting) Pulse 110 Ht 172.7 cm (5' 8 ) Wt63.5 kg (140 lb) SpO2 97% BMI 21.29 kg/m?? Physical Exam Constitutional: General: He is not in acute distress. Appearance: He is well-developed. HENT: Head: Normocephalic and atraumatic. Eyes: General: No scleral icterus. Conjunctiva/sclera: Conjunctivae normal. Neck: Vascular: No JVD. Trachea: No tracheal deviation. Cardiovascular: Rate and Rhythm: Tachycardia present. Rhythm irregular. Heart sounds: Normal heart sounds. No murmur heard. Comments: Apical heart rate approximately 120 bpm Pulmonary: Effort: Pulmonary effort is normal. No respiratory distress. Breath sounds: Examination of the right-lower field reveals decreased breath sounds. Decreased breath sounds present. Musculoskeletal: Right lower leg: No edema. Left lower leg: No edema. Skin: General: Skin is warm and dry. Neurological: Mental Status: He is alert. Comments: Dementia Psychiatric: Mood and Affect: Mood normal. Behavior: Behavior normal. Allergies Allergen Reactions Codeine Hallucinations Current Outpatient Medications: albuterol HFA (PROVENTIL HFA,VENTOLIN HFA,PROAIR HFA) 90 mcg/actuation inhaler, Inhale 2 puffs 2 (two) times a day, Disp: , Rfl: ascorbic acid (VITAMIN C) 500 mg tablet,chewable, , Disp: , Rfl: atorvastatin (LIPITOR) 40 mg tablet, take 1 tablet by oral route every day, Disp: 0, Rfl: 0 calcium citrate-vitamin D3 (CITRACAL+D) 315 mg-5 mcg (200 unit) per tablet, Take by mouth daily, Disp: , Rfl: cetirizine 10 mg capsule, Take by mouth, Disp: , Rfl: citalopram (CeleXA) 40 mg tablet, , Disp: , Rfl: diphenoxylate-atropine (LOMOTIL) 2.5-0.025 mg per tablet, , Disp: , Rfl: donepeziL (ARICEPT) 10 mg tablet, Take 1 tablet (10 mg total) by mouth daily before breakfast, Disp: 90 tablet, Rfl: 3 ferrous sulfate 325 mg (65 mg of elemental iron) tablet, Take 1 tablet (325 mg total) by mouth daily with breakfast, Disp: , Rfl: fesoterodine 8 mg tablet extended release 24 hr, , Disp: , Rfl: ibandronate (BONIVA) 150 mg tablet, Take 1 tablet (150 mg total) by mouth every 30 (thirty) days Take in AM with glass of water prior to food, don't lie down for 30 minutes., Disp: , Rfl: memantine (NAMENDA) 10 mg tablet, Take 1 tablet (10 mg total) by mouth 2 (two) times a day, Disp: 180 tablet, Rfl: 3 multivitamin tablet, Take 1 tablet by mouth daily, Disp: , Rfl: pantoprazole DR (PROTONIX) 20 mg EC tablet, 2 tablets (40 mg total), Disp: , Rfl: rOPINIRole (REQUIP) 0.25 mg tablet, Take 1 tablet (0.25 mg total) by mouth 3 (three) times a day, Disp: , Rfl: Spiriva with HandiHaler 18 mcg per inhalation capsule, , Disp: , Rfl: tamsulosin (FLOMAX) 0.4 mg extended release capsule, , Disp: , Rfl: traMADoL (ULTRAM) 50 mg tablet, Take 1 tablet (50 mg total) by mouth every 6 (six) hours as needed for pain, Disp: , Rfl: warfarin (COUMADIN) 3 mg tablet, TAKE 1 TABLET BY MOUTH 4 TIMES PER WEEK DIRECTED, Disp: , Rfl: Wixela Inhub 250-50 mcg/dose diskus inhaler, , Disp: , Rfl: cholecalciferol (VITAMIN D-3) 2000 unit capsule, Take 1 capsule (2,000 Units total) by mouth daily (Patient not taking: Reported on 09/20/2023), Disp: , Rfl: cyanocobalamin (Vitamin B-12) 1,000 mcg tablet, Take 1 tablet (1,000 mcg total) by mouth daily (Patient not taking: Reported on 10/25/2023), Disp: , Rfl: metoprolol tartrate (LOPRESSOR) 50 mg immediate release tablet, Take 1.5 tablets (75 mg total) by mouth 2 (two) times a day, Disp: 270 tablet, Rfl: 3 Lab Results Component Value Date POTASSIUM 4.6 01/09/2021 BUNSER 24 01/09/2021 CREATININE 1.48 (H) 01/09/2021 No results found for: WBC , HGB , HCT , MCV , PLT No results found for this or any previous visit (from the past 4 hours). No results found for: POCCHOL , POCHDL , POCTRIG , POCLDL , POCNONHDL , POCCHLPL Assessment: Diagnoses and all orders for this visit: Paroxysmal atrial fibrillation with rapid ventricular response (HCC) (Primary) - metoprolol tartrate (LOPRESSOR) 50 mg immediate release tablet; Take 1.5 tablets (75 mg total) bymouth 2 (two) times a day Hx of mechanical aortic valve replacement Chronic anticoagulation Coronary artery disease involving [place] coronary artery of [place] heart without angina pectoris Plan/Recommendations: He has asymptomatic paroxysmal atrial fibrillation with RVR. When we last saw him in the office we had him on metoprolol tartrate 100 mg b.i.d. along with diltiazem. Since we last saw him, another provider has taken him off diltiazem and reduced his metoprolol. Heart rate is currently uncontrolled. Increase metoprolol tartrate to 75 mg b.i.d.. Patient's will monitor his heart rate and give me an update in a couple of weeks. If blood pressure tolerates, we may need to add back low-dose diltiazem for rate control. 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 He is tolerating anticoagulation with warfarin and has not had any bleeding problems since December of last year. He denies angina. Continue atorvastatin and metoprolol. Routine follow-up with Dr. Mims in 6 months. 09/22/2024 YESSI Mccauley- Nurse Practitioner with [facility] This note is dictated and transcribed using [employer] Direct Software. Environmental Solutions Engineer variancesmay occur. Despite proofreading, typographical errors may occur. PATIENT THERAPIST documented in this encounter Plan of Treatment Not on file documented as of this encounter Visit Diagnoses Diagnosis Paroxysmal atrial fibrillation with rapid ventricular response (HCC)- Primary Hx of mechanical aortic valve replacement Chronic anticoagulation Encounter for long-term (current) use of anticoagulants Coronary artery disease involving [place] coronary artery of [place] heart without angina pectoris documented in this encounter Discontinued Medications Medication Sig Discontinue Reason Start Date End Da te dilTIAZem XR (CARDIZEM CD,DILACOR XR) 180 mg 24 hr capsule Take 1 capsule (180 mg total) by mouth daily Therapy completed 10/29/2023 09/22/2024 folic acid (FOLVITE) 800 mcg tablet Take 0.5 tablets (400 mcg total) by mouth daily Therapy completed 09/22/2024 metoprolol tartrate (LOPRESSOR) 50 mg immediate release tabletIndications:Paroxys mal atrial fibrillation with rapid ventricular response (HCC) Take 2 tablets (100 mg total) by mouth 2 (two) times a day Duplicate order 10/25/2023 09/22/2024 metoprolol tartrate (LOPRESSOR) 50 mg immediate release tablet Take 1 tablet (50 mg total) by mouth 2 (two) times a day Reorder 09/22/2024 documented as of this encounter Care Teams Building Associate Relationship Specialty Start Date End Date Hannah Koroma MD PCP - General Family Practice 11/04/20 documented as of this encounter
--- OUTSIDE RECORDS SUMMARY | 2024-09-22 15:06 | XMS_ITS | Referral Summary ---
Author Organization [facility] [address] [facility] [address] Address [address] [place] [address] Care Team Providers Care Doper Name Role Phone Hannah Koroma MD Primary Care Provider Encounters Date Type Department Care Team Description 09/22/2024 1:00 PM WOMEN'S STUDIES PROFESSOR Office Visit [facility] Cardiology [address] [place] [address] Debby Lucio NP Paroxysmal atrial fibrillation with rapid ventricular response (HCC) (Primary Dx); Hx of mechanical aortic valve replacement; Chronic anticoagulation; Coronary artery disease involving zuni coronary artery of zuni heart without angina pectoris 07/15/2024 Documentation [facility] [address] [facility] 6th [address] [place] [phone] Conrado Naik MSW 07/15/2024 12:15 PM WOMEN'S STUDIES PROFESSOR Office Visit [facility] [address] [facility] 6[address] [place] [phone] Andrea Rosa NP Mixed Alzheimer's and vascular dementia (HCC) (Primary Dx) from Last 3 Months Allergies Active Allergy Reactions Criticality Noted Date Comments Codeine Hallucinations Medium 01/03/2021 Medications atorvastatin (LIPITOR) 40 mg tablet take 1 tablet by oral route every day 0 0 6 Active tamsulosin (FLOMAX) 0.4 mg extended release capsule 1 Active cetirizine 10 mg capsule Take by mouth Active rOPINIRole (REQUIP) 0.25 mg tablet Take 1 tablet (0.25 mg total) by mouth 3 (three) times a day Active traMADoL (ULTRAM) 50 mg tablet Take 1 tablet (50 mg total) by mouth every 6 (six) hours as needed for pain Active ferrous sulfate 325 mg (65 mg of elemental iron) tabletIndication s:Iron Deficiency Anemia Take 1 tablet (325 mg total) by mouth daily with breakfast Active cholecalciferol (VITAMIN D-3) 2000 unit capsule Take 1 capsule (2,000 Units total) by mouth daily Active ascorbic acid (VITAMIN C) 500 mg tablet,chewable Acti ve ibandronate (BONIVA) 150 mg tablet Take 1 tablet (150 mg total) by mouth every 30 (thirty) days Take in AM with glass of water prior to food, don't lie down for 30 minutes. Active warfarin (COUMADIN) 3 mg tablet TAKE 1 TABLET BY MOUTH 4 TIMES PER WEEK DIRECTED 2 Active Wixela Inhub 250-50 mcg/dose diskus inhaler [address] (PROTONIX) 20 mg EC tablet 2 tablets (40 mg total) 3 Active Spiriva with HandiHaler 18 mcg per inhalation capsule 3 Active fesoterodine 8 mg tablet extended release 24 hr 3 Active diphenoxylate-at ropine (LOMOTIL) 2.5-0.025 mg per tablet 3 Active donepeziL (ARICEPT) 10 mg tablet Take 1 tablet (10 mg total) by mouth daily before breakfast 90 tablet 3 3 Active citalopram (CeleXA) 40 mg tablet 3 Active albuterol HFA (PROVENTIL HFA,VENTOLIN HFA,PROAIR HFA) 90 mcg/actuation inhaler Inhale 2 puffs 2 (two) times a day 3 Active calcium citrate-vitamin D3 (CITRACAL+D) 315 mg-5 mcg (200 unit) per tablet Take by mouth daily Active cyanocobalamin (Vitamin B-12) 1,000 mcg tablet Take 1 tablet (1,000 mcg total) by mouth daily Active multivitamin tablet Take 1 tablet by mouth daily Active memantine (NAMENDA) 10 mg tablet Take 1 tablet (10 mg total) by mouth 2 (two) times a day 180 tablet 3 4 Active metoprolol tartrate (LOPRESSOR) 50 mg immediate release tabletIndication s:Paroxysmal atrial fibrillation with rapid ventricular response (HCC) Take 1.5 tablets (75 mg total) by mouth 2 (two) times a day 270 tablet 3 5 Active folic acid (FOLVITE) 800 mcg tablet Take 0.5 tablets (400 mcg total) by mouth daily 09/22/19 25 Discontin ued(Thera py completed ) metoprolol tartrate (LOPRESSOR) 50 mg immediate release tabletIndication s:Paroxysmal atrial fibrillation with rapid ventricular response (HCC) Take 2 tablets (100 mg total) by mouth 2 (two) times a day 4 09/22/19 25 Discontin ued(Dupli huang order) dilTIAZem XR (CARDIZEM CD,DILACOR XR) 180 mg 24 hr capsule Take 1 capsule (180 mg total) by mouth daily 30 capsule 5 4 09/22/19 25 Discontin ued(Thera py completed ) metoprolol tartrate (LOPRESSOR) 50 mg immediate release tablet Take 1 tablet (50 mg total) by mouth 2 (two) times a day 09/22/19 25 Discontin ued(Reord er) Active Problems Problem Noted Date Diagnosed Date Mixed Alzheimer's and vascular dementia 07/15/20 24 Assessment & Plan (07/15/2024 12:57 PM WOMEN'S STUDIES PROFESSOR): Continue memantine/Namenda 10 mg BID and donepezil/Aricept 10 mg daily. CS was able to talk with our social group worker team about further resources such as palliative care. Follow-up in 6 months or sooner if need be. Permanent atrial fibrillation (CMS/HCC) 01/07/20 24 Abnormal ECG 01/03/2021 Hx of mechanical aortic valve replacement 2020 Hx of CABG 01/03/2021 Palpitations 01/03/2021 Pulmonary emphysema 07/15/2012 Overview (11/29/2016): Emphysema Atopic rhinitis 07/15/2012 Overview (11/30/2016): Allergic rhinitis Depression 07/15/2012 Overview (11/30/2016): Depression Diabetes mellitus 07/15/2012 Overview (11/30/2016): Diabetes mellitus Hypertension 07/15/2012 Overview (11/30/2016): Hypertension Social History Tobacco Use Types Packs/Day Years [...] on file Legal Sex Male 10:47 AM WOMEN'S STUDIES PROFESSOR Gender Identity Not on file Sexual Orientation Not on file Last Filed Vital Signs Vital Sign Reading Time Taken Comments Blood Pressure 122/62 09/22/2024 1:02 PM WOMEN'S STUDIES PROFESSOR Pulse 110 09/22/2024 1:02 PM WOMEN'S STUDIES PROFESSOR Temperature 36.8 ??C (98.2 ??F) 07/15/2024 12:[address] Respiratory Rate - - Oxygen Saturation 97% 09/22/2024 1:02 PM WOMEN'S STUDIES PROFESSOR Inhaled Oxygen Concentration - - Weight 63.5 kg (140 lb) 09/22/2024 1:02 PM WOMEN'S STUDIES PROFESSOR Height 172.7 cm (5' 8 ) 09/22/2024 1:02 PM WOMEN'S STUDIES PROFESSOR Body Mass Index 21.29 09/22/2024 1:02 PM WOMEN'S STUDIES PROFESSOR Plan of Treatment Not on file Procedures Procedure Name Priority Date/Time Associated Diagnosis Comments LIPID PANEL Routine 08/27/2018 from Last 3 Months or Most Recently Relevant to Health Maintenance Results * Lipid panel (08/27/2018) SCRIBED Cholesterol, Total 194 na - na EXTERNAL LAB SCRIBED HDL 64 na - na EXTERNAL LAB SCRIBED LDL 103 na - na EXTERNAL LAB SCRIBED Triglycerides 189 na - na EXTERNAL LAB Blood specimen (specimen) us Historical Provider LAB BLOOD ORDERABLES Edit ed Result - Final EXTERNAL LAB from Last 3 Months or Most Recently Relevant to Health Maintenance Insurance [place] [id number] [place]ICARE [id number] [id number] [place] [id number] MEDICARE [facility] Member Subscriber Plan / Payer (Ef fective 1989-Present) Name:Arley Nicholson Relation to Subscriber:Self Name:Arley Nicholson Payer ID:[id number] (NAIC) Group ID:[id number] Type:[facility] Address: [address] [place] [id number] Care Teams Doper Relationship Specialty Start Date End Date Hannah Koroma MD PCP - General Family Practice 11/04/20
--- OUTSIDE RECORDS SUMMARY | 2024-09-22 15:06 | XMS_ITS | Clinical Summary ---
Author Organization [facility] Address [address] [place] [address] Care Team Providers Care Art Therapist Name Role Phone Hannah Koroma MD Primary Care Provider Allergies Active Allergy Reactions Criticality Noted Date Comments Codeine Nausea and Vomiting Low 07/26/2023 Hydrocodone Nausea and Vomiting Low 07/26/2023 Medications albuterol (PROVENTIL,VENTOL IN) 2.5 mg /3 mL (0.083 %) Solution for Nebulization Take 3 mL (2.5 mg) by inhalation every 6 hours as needed for Shortness of Breath or Wheezing. Administer via Hand Held Nebulizer 1 Each 4 Active ascorbic acid, vitamin C, (VITAMIN C) 500 mg tablet Take 1 Tablet (500 mg) by mouth daily. 4 Active cyanocobalamin 1,000 mcg Tablet Take 1 Tablet (1,000 mcg) by mouth daily. 4 Active ferrous sulfate 325 mg (65 mg iron) tablet Take 1 Tablet (325 mg) by mouth daily. 4 Active acetaminophen (TYLENOL) 325 mg tablet Take 2 Tablets (650 mg) by mouth every 6 hours as needed for Other (See Comment) (See admin instructions). 4 Active warfarin (COUMADIN) 1 mg tablet Take 3 Tablets (3 mg) by mouth daily. 100 Tablet 06/14/202 4 Active metoprolol succinate (TOPROL XL) 50 mg Extended Release 24 hour tablet Take 50 mg by mouth daily. Active Active Problems Problem Noted Date Diagnosed Date Hematochezia 02/13/2024 Debility 01/30/2024 Melena 01/19/2024 Acute blood loss anemia 01/19/2024 Warfarin anticoagulation 01/19/2024 H/O mechanical aortic valve replacement 01/19/20 Hx of CABG 01/19/2024 Essential hypertension 01/19/2024 History of lung cancer 01/19/2024 Permanent atrial fibrillation 01/19/2024 CKD (chronic kidney disease) stage 3, GFR 30-59 ml/min 01/19/2024 History of GI bleed 01/19/2024 Dementia 01/19/2024 Radiation fibrosis of lung 01/19/2024 Gastrointestinal hemorrhage 01/19/2024 Malignant neoplasm of right upper lobe of lung 1 10/01/2022 Resolved Problems Problem Noted Date Diagnosed Date Resolved Date Near syncope 01/19/2024 01/28/2024 Encounters Date Type Department Care Team Description 09/16/2024 External Device Data STL ABSTRACTION Provider, Abstract 09/16/2024 External Device Data STL ABSTRACTION Provider, Abstract 09/14/2024 Orders Only [facility] - [place] [address] [place] [address] Jamaal Robison MD Malignant neoplasm of lung, unspecified laterality, unspecified part of lung (CMS/HCC) 09/09/2024 4:30 PM PRINTING PLATE CLERK Telephone Check Up [facility] - [place] [address] [place] [address] Jamaal Robison MD Malignant neoplasm of lung, unspecified laterality, unspecified part of lung (CMS/HCC) (Primary Dx) 09/08/2024 Orders Only [facility] - [place] [address] [place] [address] Jamaal Robison MD 09/07/2024 Orders Only [facility] - [place] [address] [place] [address] Jamaal Robison MD 09/03/2024 Orders Only [facility] - [place] [address] [place] [phone] Jamaal Robison MD 08/31/2024 Orders Only [facility] - [place] [address] [place] [phone] Jamaal Robison MD Malignant neoplasm of lung, unspecified laterality, unspecified part of lung (CMS/HCC) 08/17/2024 Orders Only [facility] - [place] [address] [place] [phone] Jamaal Robison MD Malignant neoplasm of lung, unspecified laterality, unspecified part of lung (CMS/HCC) 08/03/2024 Orders Only [facility] - [place] [address] [place] [phone] Jamaal Robison MD Malignant neoplasm of lung, unspecified laterality, unspecified part of lung (CMS/HCC) 07/28/2024 Orders Only [facility] - [place] [address] [place] [address] Jamaal Robison MD 07/20/2024 Orders Only [facility] - [place] [address] [place] [address] Jamaal Robison MD Malignant neoplasm of lung, unspecified laterality, unspecified part of lung (CMS/HCC) 07/13/2024 [facility] [address] [address] Gerard Kilgore MD 07/06/2024 Orders Only [facility] H[facility]ology - [place] [address] [place] [phone] Jamaal Robison MD Malignant neoplasm of lung, unspecified laterality, unspecified part of lung (CMS/HCC) 06/22/2024 Orders Only [facility]ology - [place] [address] [place] [address] Jamaal Robison MD Malignant neoplasm of lung, unspecified laterality, unspecified part of lung (CMS/HCC) from Last 3 Months Family History Medical History Relation Name Comments Heart Disease Father Heart Disease Mother Melanoma Son 1 Relation Name Status Comments Brother 1 Brother 2 Brother 3 Alive Daughter Alive Father Mother Son 1 Alive Son 2 Alive Social History Tobacco Use Types Packs/Day Years Used Date Smoking Tobacco: Former Cigarettes 0.3 70 Q uit: 04/26/2023 Smokeless Tobacco: Never Tobacco Cessation:Counseling Given: Not Answered Alcohol Use Standard Drinks/Week Comments Not Currently 0 (1 standard drink = 0.6 oz pur e alcohol) Feeling Safe Answer Date Recorded Are you in a relationship wi th someone who hurts you emotionally and/or physically? No 03/09/2024 Food Insecurity Answer Date Recorded Social/Environmental Concerns No concerns Transportation Needs Answer Date Record ed Social/Environmental Concerns No concerns Housing Stability Answer Date Recorded Social/Environmental Concerns No concerns Utility Needs Answer Date Recorded Social/Environmental Concerns No concerns Sex and Gender Information Value Date Recorded Sex Assigned at Not on file Legal Sex Male 10:56 PM CDT Gender Identity Male 05/25/2024 1:09 PM CDT Sexual Orientation Not on file Last Filed Vital Signs Vital Sign Reading Time Taken Comments Blood Pressure 107/69 05/29/2024 11:44 AM CDT Pulse 66 05/29/2024 11:44 AM CDT Temperature 36.4 ??C (97.5 ??F) 05/29/2024 11:44 AM C DT Respiratory Rate 18 05/29/2024 11:44 AM CDT Oxygen Saturation 94% 05/29/2024 11:44 AM CDT Inhaled Oxygen Concentration - - Weight 59.9 kg (132 lb) 03/09/2024 9:28 PM CDT Height 170.2 cm (5' 7 ) 03/09/2024 9:28 PM CDT Body Mass Index 20.67 03/09/2024 9:28 PM CDT Plan of Treatment Upcoming Encounters Date Type Department Care Team (Late st Contact Info) Description 01/15/2025 10:30 AM CDT Office Visit [facility] On[facility] H[facility]ology - [place] [address] [place] [address] Jamaal Robison MD [address] [facility] [address] [place] [address] Health Maintenance Due Date Last Done Comments DIABETES ANNUAL FOOT EXAM 1957 DIABETES MICROALBUMIN ANNUAL SCREEN 1957 LDL CHOLESTEROL ANNUAL 1957 DTAP/TDAP/TD VACCINES (1 - Tdap) 1958 PNEUMOCOCCAL VACCINE 65+ YEA RS (1 of 2 - PCV) 1958 ZOSTER VACCINE (1 of 2) 1989 RSV VACCINE (60+ or ) (1 - 1-dose 75+ series) 2014 DIABETES ANNUAL RETINAL EXAM 11/04/2021 11/04/2020, 01/20/2020 DIABETES HBA1C Q 6 MONTHS 04/22/20232022, 04/14/2020, 10/07/2019, Additional history exists INFLUENZA VACCINE (#1) 2024 COLORECTAL SCREENING Discontinued 08/22/2023, 08/22/20 Colorectal Cancer Screening Discontinued Flex Sig/CT Colonography Q 5 years Discontinued 01/24/2024 FIT-DNA Q 3 years Discontinued FIT/FOBT Q 1 year Discontinued Procedures Procedure Name Priority Date/Time Associated Diagnosis Comments TESTOSTERONE, TOTAL Routine 08/28/2024 1 2:59 [address] CT CHEST W CONTRAST Routine 08/28/2024 1 2:55 PM PRINTING PLATE CLERK COMPREHENSIVE METABOLIC PANEL Routine 08/28/2024 10:06 AM PRINTING PLATE CLERK CBC WITH DIFFERENTIAL Routine 07/28/2024 2:47 PM PRINTING PLATE CLERK FLEXIBLE SIGMOIDOSCOPY REPORT 01/24/2024 3:41 PM CDT from Last 3 Months or Most Recently Relevant to Health Maintenance Results * TESTOSTERONE, TOTAL (08/28/2024 12:59 PM PRINTING PLATE CLERK) Blood us Jamaal Robison MD CHEMISTRY ORDERABLES Final Resu lt * CT CHEST W CONTRAST (08/28/2024 12:55 PM PRINTING PLATE CLERK) Anatomical Region Laterality Modality Chest Other Result [facility] us Jamaal Robison MD CT ORDERABLES Final Result * COMPREHENSIVE METABOLIC PANEL (08/28/2024 10:06 AM PRINTING PLATE CLERK) Blood Result [facility] us Jamaal Robison MD CHEMISTRY ORDERABLES Final Resu lt * CBC WITH DIFFERENTIAL (07/28/2024 2:47 PM PRINTING PLATE CLERK) Blood Result [facility] us Jamaal Robison MD HEMATOLOGY ORDERABLES Final Res ult * FLEXIBLE SIGMOIDOSCOPY REPORT (01/24/2024 3:41 PM CDT) Narrative Procedure Note Kate Stephens MD - 01/24/2024 3:41 PM CDT [facility] Endoscopy Patient Name: Arley Nicholson Procedure Date: 01/24/2024 Date of : 1940 Attending MD: Kate Stephens MD, Procedure: Flexible Sigmoidoscopy Indications: Rectal hemorrhage Providers: Kate Stephens MD Referring MD: Medicines: Monitored Anesthesia Care Complications: No immediate complications. Procedure: Informed consent was obtained for the procedure, including moderate sedation after risks were discussed. Based on the pre-procedure assessment, including review of the patient's medical history, medications, allergies, and review of systems, the patient was deemed to be an appropriate candidate for sedation. A timeout was performed. Continuous ECG monitoring, pulse oximetry, blood pressure monitoring, and direct observation were performed. The was introduced through the anus and advanced to the sigmoid colon. The flexible sigmoidoscopy was accomplished without difficulty. The patient tolerated the procedure well. The quality of the bowel preparation was good. Estimated Blood Loss: Estimated blood loss was minimal. Findings: The perianal and digital rectal examinations were normal. Bleeding ulcerated mucosa were present in the distal 2cm of the rectum. There were multiple small ulcers and two >2cm ulcers. This was biopsied and APC was used for hemostasis (argon plasma at 0.6 liters/minute and 20 lazo). This was successful with no bleeding at the completion of the procedure. Impression: see findings. Recommendation: - [facility]. - Monitor for further bleeding. - Await pathology results Kate Stephens MD 01/24/2024 3:41:04 PM This report has been signed electronically. Number of Addenda: [address]; [place] [address] Kate Stephens MD GI PROCEDURE ORDERABLES F inal Result from Last 3 Months or Most Recently Relevant to Health Maintenance Insurance WALT [place] [id number] MEDICARE PART A AND B [facility] MEDIC[facility] PART A AND B [facility] Advance Directives For more information, please contact: [phone] * Full Code (Latest Code Status on File) Date Activated Date Inactivated Comments 01/28/2024 6:23 PM 02/07/2024 3:11 PM * Full Code Date Activated Date Inactivated Comments 01/24/2024 2:31 PM 01/28/2024 6:07 PM * Full Code Date Activated Date Inactivated Comments 01/18/2024 11:58 PM 01/24/2024 2:31 PM Care Teams Art Therapist Relationship Specialty Start Date End Date Hannah Koroma MD [address] [place] [address] PCP - General Family Practice 07/26/23
--- OUTSIDE RECORDS SUMMARY | 2024-09-22 15:06 | XMS_ITS | Clinical Summary ---
Author Organization [facility] [address] Address [address] [place] [address] Care Team Providers Care Chemist Intern Name Role Phone Hannah Koroma MD Primary [...] 24 Assessment & Plan (07/15/2024 12:57 PM LICENSING ANALYST): Continue memantine/Namenda 10 mg BID and donepezil/Aricept 10 mg daily. CS was able to talk with our social work assistant team about further resources such as palliative care. Follow-up in 6 months or sooner if need be. Permanent atrial fibrillation (CMS/HCC) 01/07/20 Abnormal ECG 01/03/2021 Hx of mechanical aortic valve replacement 2020 Hx of CABG 01/03/2021 Palpitations 01/03/2021 Pulmonary emphysema 07/15/2012 Overview (11/29/2016): Emphysema Atopic rhinitis 07/15/2012 Overview (11/30/2016): Allergic rhinitis Depression 07/15/2012 Overview (11/30/2016): Depression Diabetes mellitus 07/15/2012 Overview (11/30/2016): Diabetes mellitus Hypertension 07/15/2012 Overview (11/30/2016): Hypertension Encounters Date Type Department Care Team Description 09/22/2024 1:00 PM LICENSING ANALYST Office Visit [facility] Cardiology [address] [place] [address] Debby Lucio NP Paroxysmal atrial fibrillation with rapid ventricular response (HCC) (Primary Dx); Hx of mechanical aortic valve replacement; Chronic anticoagulation; Coronary artery disease involving pechanga coronary artery of pechanga heart without angina pectoris 07/15/2024 12:15 PM LICENSING ANALYST Office Visit [facility] [address] [facility] 6th [address] [place] [address] Andrea Rosa NP Mixed Alzheimer's and vascular dementia (HCC) (Primary Dx) 07/15/2024 Documentation [facility] [address] [facility] 6[address] [place] [address] Conrado Naik MSW from Last 3 Months Surgical History Surgery Date Site/Laterality Comments BACK SURGERY HERNIA REPAIR AORTIC VALVE REPLACEMENT CATARACT EXTRACTION, BILATERAL CATARACT EXTRACTION 08/26/2018 - 08/25/2019 CARDIAC VALVE REPLACEMENT 08/26/2002 - 08/25/2003 JOINT REPLACEMENT ? SPINE SURGERY 08/26/1967 - 08/25/1968 KNEE ARTHROSCOPY W/ LATERAL RELEASE CORONARY ARTERY BYPASS GRAFT 2002 Medical History Medical History Date Comments Hx Other Medical Hernia Hx Other Medical Aortic Valve Re placement Hypertension Hypertension Hx Other Medical Diabetes Type I I Chronic obstructive pulmonary disease (HCC) COPD GERD (gastroesophageal reflux disease) Arthritis Benign prostatic hyperplasia Osteoporosis Chronic bronchitis (HCC) Emphysema of lung (HCC) Heart disease GI (gastrointestinal bleed) ? Kidney stone 1967 Anemia Cancer (CMS/HCC) (HCC) 08/2021 Cataract Family History Medical History Relation Name Comments Diabetes Brother 3 Bala Nicholson Diabetes mellit us; Early Brother 3 Bala Nicholson Heart disease Brother 3 Bala Nicholson Heart attack Brother 4 Gricelda Nicholson Myocardial Infa rction; Cause of : Myocardial Infarction Heart attack Father Myocardial Infa rction; Cause of : Myocardial Infarction Heart disease Other 3 Heart disease; Hypertension Other 4 Hypertension; Relation Name Status Comments Brother 1 Alive Brother 2 Brother 3 Bala Nicholson Brother 4 Gricelda Nicholson Father Other 1 Alive Other 2 Alive Other 3 Other 4 Social History Tobacco Use Types Packs/Day Years [...] on file Legal Sex Male 10:47 AM LICENSING ANALYST Gender Identity Not on file Sexual Orientation Not on file Obstetrics History Last Filed Vital Signs Vital Sign Reading Time Taken Comments Blood Pressure 122/62 09/22/2024 1:02 PM LICENSING ANALYST Pulse 110 09/22/2024 1:02 PM LICENSING ANALYST Temperature 36.8 ??C (98.2 ??F) 07/15/2024 12:[address] Respiratory Rate - - Oxygen Saturation 97% 09/22/2024 1:02 PM LICENSING ANALYST Inhaled Oxygen Concentration - - Weight 63.5 kg (140 lb) 09/22/2024 1:02 PM LICENSING ANALYST Height 172.7 cm (5' 8 ) 09/22/2024 1:02 PM LICENSING ANALYST Body Mass Index 21.29 09/22/2024 1:02 PM LICENSING ANALYST Plan of Treatment Health Maintenance Due Date Last Done Comments Albumin Creatinine Ratio, Urine 1940 Depression Screening 1940 Fall Risk Assessment 1940 Hemoglobin A1C 1940 eGFR 1940 Dilated Eye Exam 1940 Foot Exam 1940 Hepatitis B Screening 1957 Zoster Vaccine (1 of 2) 1989 Well Visit 65+ 02/07/2004 Lipid Panel 08/27/2019 08/27/2018 DTaP/Tdap/Td Vaccine (2 - Td or Tdap) 08/27/2028 08/27/2018 Pneumococcal vaccine 65+ Completed 07/11/2017, 08/26 Influenza Vaccine Completed 07/30/2024, , 06/17/2019, Additional history exists Procedures Procedure Name Priority Date/Time Associated Diagnosis [...] Most Recently Relevant to Health Maintenance Insurance MEDICARE [employer] [place] [id number] [employer] [place] [address] MEDICARE [facility] Care Teams Chemist Intern Relationship Specialty Start Date End Date Hannah Koroma MD PCP - General Family Practice 11/04/20
[2024-09-22 15:42] LABS: INR 1.9; Prothrombin Time 22.3 Seconds (11.1-14.7)
== END 2024-09-22 14:32 | disposition home or self-care (01) ==
PROVIDERS: PCP Family Medicine; Visit Provider Family Medicine
DX: I48.91 Unspecified atrial fibrillation (principal); Z79.01 Long term (current) use of anticoagulants
CPT/HCPCS: 36415; 85610

== ENCOUNTER 2024-09-30 11:07 | Outpatient (CLI) | payer MEDICARE, BC, SELFPAY ==
--- OUTSIDE RECORDS SUMMARY | 2024-09-30 12:48 | XMS_ITS | Encounter Summary ---
Author Organization [facility] [employer] [facility] Address [address] [place] [address] Care Team Providers Care Director Physical Therapy Name Role Phone Hannah Koroma MD Primary Care Provider Encounter Details Date Type Department Care Team (Late st Contact Info) Description 09/23/2024 Orders Only [facility] Oncology and Hematology - [place] [address] [facility] [address] [place] [address] Jamaal Robison MD [address] [place] [address] Social History Tobacco Use Types Packs/Day Years Used Date Smoking Tobacco: Former Cigarettes 0.3 70 Q uit: 04/26/2023 Smokeless Tobacco: Never Alcohol Use Standard Drinks/Week Comments Not Currently [...] PM CDT Sexual Orientation Not on file documented as of this encounter Plan of Treatment Upcoming Encounters Date Type Department Care Team (Late st Contact Info) Description 01/15/2025 10:30 AM CDT Office Visit [facility] Oncology and Hematology - [place] [address] [facility] [address] [place] [address] Jamaal Robison MD [address] [place] [address] documented as of this encounter Procedures Procedure Name Priority Date/Time Associated Diagnosis Comments CBC WITH DIFFERENTIAL Routine 09/22/2024 7:47 AM BURRER OPERATOR documented in this encounter Results * CBC WITH DIFFERENTIAL (09/22/2024 7:47 AM BURRER OPERATOR) Blood Jamaal Robison MD HEMATOLOGY ORDERABLES Final Res ult documented in this encounter Visit Diagnoses Not on filedocumented in this encounter Care Teams Director Physical Therapy Relationship Specialty Start Date End Date Hannah Koroma MD [address] [place] [address] PCP - General Family Practice 07/26/23 documented as of this encounter
--- OUTSIDE RECORDS SUMMARY | 2024-09-30 12:48 | XMS_ITS | Clinical Summary ---
Author Organization [facility] Address [address] [facility] [place] [address] Care Team Providers Care Cloth Bolt Bander Name Role Phone Unavailable Primary Care Provider Unavailabl e Source Comments [facility],non-owned Affiliates and Associated Physician Practices is amultiple site organization consisting of ambulatory clinics and hospital sitesin [place], [place], [place] and [place]. This disclosure is being madepursuant to the Care Everywhere program and may not contain all information available regarding this patient. Last updated 18.[facility] [employer] Social History Tobacco Use Types Packs/Day Years Used Date Smoking Tobacco: Never Assessed Sex and Gender Information Value Date Recorded Sex Assigned at Not on file Gender Identity Not on file Sexual Orientation Not on file Plan of Treatment Health Maintenance Due Date Last Done Comments MEDICARE AWV ? 12 MONTHS 1940 DTAP/TDAP/TD VACCINES (1 - Tdap) 1958 PNEUMOCOCCAL VACCINE 50+ (1 of 1 - PCV) 1989 ZOSTER VACCINE (1 of 2) 1989 Respiratory Syncytial Virus (RSV) Vaccine Pt: or over 60 yrs (1 - 1-dose 75+ series) 2014 COVID-19 VACCINE ( - 2023-2 5 season) 2024 INFLUENZA VACCINE (#1) 2024 DEPRESSION SCREENING 08/26/2024 HEPATITIS B VACCINE Aged Out No longe r eligible based on patient's age to complete this topic HIB VACCINE Aged Out No longer eligi ble based on patient's age to complete this topic HPV VACCINE Aged Out No longer eligi ble based on patient's age to complete this topic MENINGOCOCCAL (Group B) VACCINE Aged Out No longer eligible based on patient's age to complete this topic MENINGOCOCCAL VACCINE Aged Out No tay bella eligible based on patient's age to complete this topic CHRISTINE NICHOLSON Personal/Famil y Spouse [address] [place] [address] CHRISTINE NICHOLSON Personal/Famil y Spouse [address] [place] [address]
--- OUTSIDE RECORDS SUMMARY | 2024-09-30 12:48 | XMS_ITS | Clinical Summary ---
Author Organization [facility] [address] Address [address] [place] [address] Care Team Providers Care Rerolling Machine Operator Name Role Phone Hannah Koroma MD Primary [...] 24 Assessment & Plan (07/15/2024 12:57 PM TOBACCO DRIER OPERATOR): Continue memantine/Namenda 10 mg BID and donepezil/Aricept 10 mg daily. 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 [address] [facility] 6th Floor [address] [place] [address] Andrea Rosa NP Mixed Alzheimer's and vascular dementia (HCC) (Primary Dx) 07/15/2024 Documentation [facility] [address] [facility] [facility] 6th [address] [place] [address] Conrado Naik MSW from Last 3 Months [...] on file Legal Sex Male 10:47 AM TOBACCO DRIER OPERATOR Gender Identity Not on file Sexual Orientation Not on file Obstetrics History Last Filed Vital Signs Vital Sign Reading Time Taken Comments Blood Pressure 122/62 09/22/2024 1:02 PM TOBACCO DRIER OPERATOR Pulse 110 09/22/2024 1:02 PM TOBACCO DRIER OPERATOR Temperature 36.8 ??C (98.2 ??F) 07/15/2024 12:[address] Respiratory Rate - - Oxygen Saturation 97% 09/22/2024 1:02 PM TOBACCO DRIER OPERATOR Inhaled Oxygen Concentration - - Weight 63.5 kg (140 lb) 09/22/2024 1:02 PM TOBACCO DRIER OPERATOR Height 172.7 cm (5' 8 ) 09/22/2024 1:02 PM TOBACCO DRIER OPERATOR Body Mass Index 21.29 09/22/2024 1:02 PM TOBACCO DRIER OPERATOR Plan of Treatment Health Maintenance Due Date [...] Recently Relevant to Health Maintenance Insurance [place] [id number] [place] [address] MEDICARE [facility] Care Teams Rerolling Machine Operator Relationship Specialty Start Date End Date Hannah Koroma MD PCP - General Family Practice 11/04/20
--- OUTSIDE RECORDS SUMMARY | 2024-09-30 12:48 | XMS_ITS | Referral Summary ---
Author Organization [facility] [address] [facility] [address] Address [address] [place] [address] Care Team Providers Care Mine Engineering Superintendent Name Role Phone Hannah Koroma MD Primary Care Provider Encounters Date Type Department Care Team Description 09/22/2024 1:00 PM LOCOMOTIVE CRANE OPERATOR HELPER Office Visit [facility] Cardiology [address] [place] [address] Debby Lucio NP Paroxysmal atrial fibrillation with rapid ventricular response (HCC) (Primary Dx); Hx of mechanical aortic valve replacement; Chronic anticoagulation; Coronary artery disease involving council coronary artery of council heart without angina pectoris 07/15/2024 Documentation [facility] [address] [facility] 6th [address] [place] [address] Conrado Naik MSW 07/15/2024 12:15 PM LOCOMOTIVE CRANE OPERATOR HELPER Office Visit [facility] [address] [facility] 6th [address] [place] [address] Andrea Rosa NP Mixed Alzheimer's and vascular [...] 24 Assessment & Plan (07/15/2024 12:57 PM LOCOMOTIVE CRANE OPERATOR HELPER): Continue memantine/Namenda 10 mg BID and donepezil/Aricept 10 mg daily. CS was able to talk with our social work coordinator team about further resources such as palliative [...] on file Legal Sex Male 10:47 AM LOCOMOTIVE CRANE OPERATOR HELPER Gender Identity Not on file Sexual Orientation Not on file Last Filed Vital Signs Vital Sign Reading Time Taken Comments Blood Pressure 122/62 09/22/2024 1:02 PM LOCOMOTIVE CRANE OPERATOR HELPER Pulse 110 09/22/2024 1:02 PM LOCOMOTIVE CRANE OPERATOR HELPER Temperature 36.8 ??C (98.2 ??F) 07/15/2024 12:[address] Respiratory Rate - - Oxygen Saturation 97% 09/22/2024 1:02 PM LOCOMOTIVE CRANE OPERATOR HELPER Inhaled Oxygen Concentration - - Weight 63.5 kg (140 lb) 09/22/2024 1:02 PM LOCOMOTIVE CRANE OPERATOR HELPER Height 172.7 cm (5' 8 ) 09/22/2024 1:02 PM LOCOMOTIVE CRANE OPERATOR HELPER Body Mass Index 21.29 09/22/2024 1:02 PM LOCOMOTIVE CRANE OPERATOR HELPER Plan of Treatment Not on file Procedures [...] Relevant to Health Maintenance Insurance [place] [id number] [place] [address] [place] [id number] [place] [id number] MEDICARE [facility] Member Subscriber Plan / Payer (Ef fective 1989-Present) Name:Arley Nicholson Relation to Subscriber:Self Name:Arley Nicholson Payer ID:[id number] (NAIC) Group ID:[id number] Type:[facility] Address: [address] [place] [id number] Care Teams Mine Engineering Superintendent Relationship Specialty Start Date End Date Hannah Koroma MD PCP - General Family Practice 11/04/20
--- OUTSIDE RECORDS SUMMARY | 2024-09-30 12:48 | XMS_ITS | Patient Health Summary ---
Author Organization [facility] Address [address] [facility] [address] Care Team Providers Care Central Service Supply Distributor Name Role Phone Unavailable Primary Care Provider Unavailabl e Note from [facility],non-owned Affiliates and Associated Physician Practices is amultiple site organization consisting of ambulatory clinics and hospital sitesin [place], [place] and [place]. This disclosure is being madepursuant to the Care Everywhere program and may not contain all information available regarding this patient. Last updated 18.[facility] Social History Tobacco Use Types Packs/Day Years Used Date Smoking Tobacco: Never Assessed Sex and Gender Information Value Date Recorded Sex Assigned at Not on file Gender Identity Not on file Sexual Orientation Not on file Procedures * GROSS + MICRO EXAM(Performed 07/02/2003) Results * GROSS + MICRO EXAM (07/02/2003 1:59 PM CNC SERVICE ENGINEER) Result CASE NUMBER [id number] Comment: ORDERING PHYSICIAN ??ROSANGELA BIRD SPECIMEN TYPE ?Heart Valve-aortic Date ? 07/02/2003 Physician ?Rena Bird Description ? The specimen is received in a single formalin-filled container labeled with the patient's name and identified as aortic valve . ??The specimen consists of a few irregularly-shaped fragments of whitish-rivas, yellowish fragments of gritty in consistency measuring in aggregate 2.5 x 2 x 0.8 cm. ??There are multiple elevated, bright yellowish areas that appears gritty on sectioning. ??Leather Leveler sections are submitted in a single cassette for decalcification. TK/bk Microscopic Exam ? Sections disclose strips of tissue surfaced in part by an endothelium that is not remarkable. ??The fragments focally exhibit nodular areas of distortion, these showing relatively acellular fibrous connective tissue within which there are nodular areas of calcification. ??No surface vegetations are identified. ??No malignancy or atypia is seen. RT/bk Diagnosis ?I. ??Aortic valve ?A. ??Nodular fibrosis and calcification. RT/bk Planning Consultant ? bk Pathologist ?Demario Rodriguez M.D. [place]. ?07/05/2003 1027 <2> CPT code ? 67446, 23809 MISCELLANEOUS SAMPLES / Unknown 07/02/2003 1:59 PM CNC SERVICE ENGINEER 07/02/2003 2:00 PM CNC SERVICE ENGINEER Historical Provider LAB - PATHOLOGY/C YTOLOGY ORDERABLES
--- OUTSIDE RECORDS SUMMARY | 2024-09-30 12:48 | XMS_ITS | Clinical Summary ---
Author Organization [facility] Administrative Offices Address [address] [place] [address] Care Team Providers Care Customer Relations Assistant Name Role Phone Hannah Koroma MD Primary [...] Encounters Date Type Department Care Team Description 09/23/2024 Orders Only [facility] Oncology and Hematology - [place] [address] [place] [address] Jamaal Robison MD 09/16/2024 External Device Data STL ABSTRACTION Provider, Abstract 09/16/2024 External Device Data STL ABSTRACTION Provider, Abstract 09/14/2024 Orders Only [facility] Oncology and Hematology - [place] [address] [place] [address] Jamaal Robison MD Malignant neoplasm of lung, unspecified laterality, unspecified part of lung (CMS/HCC) 09/09/2024 4:30 PM HOLE PUNCHER STRAP Telephone Check Up [facility] Oncology and Hematology - [place] [address] [place] [address] Jamaal Robison MD Malignant neoplasm of lung, unspecified laterality, unspecified part of lung (CMS/HCC) (Primary Dx) 09/08/2024 Orders Only [facility] Oncology and Hematology - [place] [address] [place] [address] Jamaal Robison MD 09/07/2024 Orders Only [facility] Oncology and Hematology - [place] [address] [place] [address] Jamaal Robison MD 09/03/2024 Orders Only [facility] Oncology and Hematology - [place] [address] [place] [address] Jamaal Robison MD 08/31/2024 Orders Only [facility] Oncology and Hematology - [place] [address] [place] [address] Jamaal Robison MD Malignant neoplasm of lung, unspecified laterality, unspecified part of lung (CMS/HCC) 08/17/2024 Orders Only [facility] Oncology and Hematology - [place] [address] [place] [address] Jamaal Robison MD Malignant neoplasm of lung, unspecified laterality, unspecified part of lung (CMS/HCC) 08/03/2024 Orders Only [facility] Oncology and Hematology - [place] [address] [place] [address] Jamaal Robison MD Malignant neoplasm of lung, unspecified laterality, unspecified part of lung (CMS/HCC) 07/28/2024 Orders Only [facility] Oncology and Hematology - [place] [address] [place] [address] Jamaal Robison MD 07/20/2024 Orders Only [facility] Oncology and Hematology - [place] [address] [place] [address] Jamaal Robison MD Malignant neoplasm of lung, unspecified laterality, unspecified part of lung (CMS/HCC) 07/13/2024 Refill [facility] Physical Medicine and Rehabilitation [address] [address] Gerard Kilgore MD 07/06/2024 Orders Only [facility] Oncology and Hematology - [place] [address] [place] [address] Jamaal Robison MD Malignant neoplasm [...] Description 01/15/2025 10:30 AM CDT Office Visit [facility] Oncology and Hematology - [place] [address] [facility] [address] [place] [address] Jamaal Robison MD [address] [facility] [address] [place] [address] Health Maintenance Due Date Last [...] CBC WITH DIFFERENTIAL Routine 09/22/2024 7:47 AM HOLE PUNCHER STRAP TESTOSTERONE, TOTAL Routine 08/28/2024 1 2:59 [address] CT CHEST W CONTRAST Routine 08/28/2024 1 2:55 PM HOLE PUNCHER STRAP COMPREHENSIVE METABOLIC PANEL Routine 08/28/2024 10:06 AM HOLE PUNCHER STRAP CBC WITH DIFFERENTIAL Routine 07/28/2024 2:47 PM HOLE PUNCHER STRAP FLEXIBLE SIGMOIDOSCOPY REPORT 01/24/2024 3:41 PM CDT from Last 3 Months or Most Recently Relevant to Health Maintenance Results * CBC WITH DIFFERENTIAL (09/22/2024 7:47 AM HOLE PUNCHER STRAP) Only the most recent of2 resultswithin the time period is included. Blood Jamaal Robison MD HEMATOLOGY ORDERABLES Final Res ult * TESTOSTERONE, TOTAL (08/28/2024 12:59 PM HOLE PUNCHER STRAP) Blood Result [facility] Jamaal Robison MD CHEMISTRY ORDERABLES Final Resu lt * CT CHEST W CONTRAST (08/28/2024 12:55 PM HOLE PUNCHER STRAP) Anatomical Region Laterality Modality Chest Other Jamaal Robison MD CT ORDERABLES Final Result * COMPREHENSIVE METABOLIC PANEL (08/28/2024 10:06 AM HOLE PUNCHER STRAP) Blood Result [facility] Jamaal Robison MD CHEMISTRY ORDERABLES Final Resu lt * FLEXIBLE SIGMOIDOSCOPY REPORT (01/24/2024 3:41 PM CDT) Narrative Procedure Note Kate Stephens MD - 01/24/2024 3:41 PM CDT [facility] Endoscopy Patient Name: Arley Nicholson Procedure Date: [...] signed electronically. Number of Addenda: [phone] ; [place] [address] Kate Stephens MD GI PROCEDURE ORDERABLES F inal Result from Last 3 Months or Most Recently Relevant to [place] [address] MEDICARE PART A AND B [facility] [address], [place] [address] MEDICARE PART A AND B [facility] Advance Directives For more information, please contact: [phone] * Full Code (Latest Code Status on File) Date Activated Date Inactivated Comments 01/28/2024 6:23 PM 02/07/2024 3:11 PM * Full Code Date Activated Date Inactivated Comments 01/24/2024 2:31 PM 01/28/2024 6:07 PM * Full Code Date Activated Date Inactivated Comments 01/18/2024 11:58 PM 01/24/2024 2:31 PM Care Teams Customer Relations Assistant Relationship Specialty Start Date End Date Hannah Koroma MD [address] [place] [address] PCP - General Family Practice 07/26/23
--- OUTSIDE RECORDS SUMMARY | 2024-09-30 12:48 | XMS_ITS | Referral Summary ---
Author Organization [facility] Address [address] [place] [address] Care Team Providers Care Analog Ic Design Engineer Name Role Phone Unavailable Primary Care Provider Unavailabl e Source Comments [facility],non-owned Affiliates and Associated Physician Practices is amultiple site organization consisting of ambulatory clinics and hospital sitesin [place], [place], [place]. This disclosure is being madepursuant to the Care Everywhere program and may not contain all information available regarding this patient. Last updated 18.[facility] [employer] Social History Tobacco Use Types Packs/Day Years Used Date Smoking Tobacco: Never Assessed Sex and Gender Information Value Date Recorded Sex Assigned at Not on file Gender Identity Not on file Sexual Orientation Not on file Plan of Treatment Not on file
[2024-09-30 14:27] LABS: INR 1.4; Prothrombin Time 17.5 Seconds (11.1-14.7)
== END 2024-09-30 11:08 | disposition home or self-care (01) ==
LOC: ANHGOSHLAB 11:09
PROVIDERS: PCP Family Medicine; Visit Provider Family Medicine
DX: I48.91 Unspecified atrial fibrillation (principal); Z79.01 Long term (current) use of anticoagulants
CPT/HCPCS: 36415; 85610

== ENCOUNTER 2024-11-17 11:01 | Outpatient (CLI) | payer MEDICARE, BC, SELFPAY ==
[2024-11-17 12:06] LABS: Alanine Aminotransferase 19 U/L (6-50); Albumin Level 3.5 g/dL (3.5-5.1); Alkaline Phosphatase 86 U/L (38-126); Anion Gap 7 mmol/L (4-12); Aspartate Amino Transferase 28 U/L (17-59); Bilirubin,Total 0.4 mg/dL (0.2-1.3); Blood Urea Nitrogen 25 mg/dL (9-20); Calcium 9.8 mg/dL (8.4-10.2); Carbon Dioxide 25 mmol/L (22-30); Chloride 105 mmol/L (98-107); Cholesterol 134 mg/dL (0-200); Estimated Glomerular Filt Rate 42; Glucose 105 mg/dL (65-110); HDL Direct 54 mg/dL; Potassium 4.3 mmol/L (3.4-5.0); Sodium 137 mmol/L (137-145); Triglycerides 134 mg/dL (<150)
[2024-11-17 12:18] LABS: LDL Cholesterol Direct 40 mg/dL
--- OUTSIDE RECORDS SUMMARY | 2024-11-17 13:13 | XMS_ITS | Clinical Summary ---
Author Organization [facility] Administrative Offices Address [address] [place] [address] Care Team Providers Care Plug Machine Operator Name Role Phone Hannah Koroma [...] Encounters Date Type Department Care Team Description 11/11/2024 External Device Data STL ABSTRACTION Provider, Abstract 10/31/2024 External Device Data STL ABSTRACTION Provider, Abstract 10/30/2024 External Device Data STL ABSTRACTION Provider, Abstract 10/06/2024 External Device Data STL ABSTRACTION Provider, Abstract 09/23/[address] [facility] Oncology and Hematology [facility] [address] [place] [address] Jamaal Robison MD 09/16/2024 External Device Data STL ABSTRACTION Provider, Abstract 09/16/2024 External Device Data STL ABSTRACTION Provider, Abstract 09/14/[address] [facility] Oncology and Hematology - [place] [address] [place] [address] Jamaal Robison MD Malignant neoplasm of lung, unspecified laterality, unspecified part of lung (CMS/HCC) 09/09/2024 4:30 PM GAMING SURVEILLANCE OBSERVER Telephone Check Up [facility] Oncology and Hematology [facility] [address] [place] [address] Jamaal Robison MD Malignant neoplasm of lung, unspecified laterality, unspecified part of lung (CMS/HCC) (Primary Dx) 09/08/[address] [facility] Oncology and Hematology - [place] [address] Jamaal Robison MD 09/07/[address] [facility] Oncology and Hematology - [place] [address] [place] [address] Jamaal Robison MD 09/03/[address] [facility] Oncology and Hematology - [place] [address] [place] [address] Jamaal Robison MD 08/31/[address] [facility] Oncology and Hematology - [place] [address] [place] [address] Jamaal Robison MD Malignant neoplasm of lung, [...] 66 05/29/2024 11:44 AM CDT Temperature 36.4 C (97.5 F) 05/29/2024 11:44 AM CDT Respiratory Rate 18 05/29/2024 11:44 AM CDT [...] Description 01/15/2025 10:30 AM CDT Office Visit [facility] Oncology and Hematology [facility] [address] [facility] [address] [place] [address] Jamaal Robison MD [address] [facility] [address] [place] [address] Health Maintenance Due Date Last Done Comments DIABETES ANNUAL FOOT EXAM 1958 DIABETES MICROALBUMIN ANNUAL SCREEN 1957 LDL CHOLESTEROL ANNUAL 1957 DTAP/TDAP/TD VACCINES (1 - Tdap) 1958 PNEUMOCOCCAL VACCINE 50+ YEA RS (1 of 2 - PCV) 1958 Traditional Medicare (ACO) A nnual Wellness Visit 1958 ZOSTER VACCINE (1 of 2) 1989 [...] CBC WITH DIFFERENTIAL Routine 09/22/2024 7:47 AM GAMING SURVEILLANCE OBSERVER TESTOSTERONE, TOTAL Routine 08/28/2024 1 2:59 [address] GAMING SURVEILLANCE OBSERVER CT CHEST W CONTRAST Routine 08/28/2024 1 2:55 PM GAMING SURVEILLANCE OBSERVER COMPREHENSIVE METABOLIC PANEL Routine 08/28/2024 10:06 AM GAMING SURVEILLANCE OBSERVER FLEXIBLE SIGMOIDOSCOPY REPORT 01/24/2024 3:41 PM CDT from Last 3 Months or Most Recently Relevant to Health Maintenance Results * CBC WITH DIFFERENTIAL (09/22/2024 7:47 AM GAMING SURVEILLANCE OBSERVER) Blood us Jamaal Robison MD HEMATOLOGY ORDERABLES Final Res ult * TESTOSTERONE, TOTAL (08/28/2024 12:59 PM GAMING SURVEILLANCE OBSERVER) Blood us Jamaal Robison MD CHEMISTRY ORDERABLES Final Resu lt * CT CHEST W CONTRAST (08/28/2024 12:55 PM GAMING SURVEILLANCE OBSERVER) Anatomical Region Laterality Modality Chest Computed Tomogra phy us Jamaal Robison MD CT ORDERABLES Final Result * COMPREHENSIVE METABOLIC PANEL (08/28/2024 10:06 AM GAMING SURVEILLANCE OBSERVER) Blood us Jamaal Robison MD CHEMISTRY ORDERABLES Final Resu lt * FLEXIBLE SIGMOIDOSCOPY REPORT (01/24/2024 3:41 PM CDT) Narrative Procedure Note Kate Stephens MD - 01/24/2024 3:41 PM CDT [facility] Endoscopy Patient Name: Arley Nicholson Procedure Date: [...] Number of Addenda: [address]; [place] [address] Kate Stephens MD GI PROCEDURE ORDERABLES F inal Result from Last 3 Months or Most Recently Relevant to Health Maintenance Insurance [place] [id number] MEDICARE PART A AND B [facility] [place] [address] [place] [address] MEDICARE PART A AND B [facility] Advance Directives For more information, please contact: [phone] * Full Code (Latest Code Status on File) Date Activated Date Inactivated Comments 01/28/2024 6:23 PM 02/07/2024 3:11 PM * Full Code Date Activated Date Inactivated Comments 01/24/2024 2:31 PM 01/28/2024 6:07 PM * Full Code Date Activated Date Inactivated Comments 01/18/2024 11:58 PM 01/24/2024 2:31 PM Care Teams Plug Machine Operator Relationship Specialty Start Date End Date Hannah Koroma MD [address] [place] [address] PCP - General Family Practice 07/26/23
--- OUTSIDE RECORDS SUMMARY | 2024-11-17 13:13 | XMS_ITS | Clinical Summary ---
Author Organization [facility] Address [address] [place] [address] Care Team Providers Care Signal Worker Helper Name Role Phone Unavailable Primary Care Provider Unavailabl e Source Comments [facility],non-owned Affiliates and Associated Physician Practices is amultiple site organization consisting of ambulatory clinics and hospital sitesin [place], [place], [place] and [place]. This disclosure is being madepursuant to the Care Everywhere program and may not contain all information available regarding this patient. Last updated 18.[facility] [employer] software Social History Tobacco Use Types Packs/Day Years Used Date Smoking Tobacco: Never Assessed Sex and Gender Information Value Date Recorded Sex Assigned at Not on file Gender Identity Not on file Sexual Orientation Not on file Plan of Treatment Health Maintenance Due Date Last Done Comments MEDICARE AWV 12 MONTHS 1940 DTAP/TDAP/TD VACCINES (1 - [...] to complete this topic MENINGOCOCCAL (Group B) VACC INE SHARED DECISION-MAKING Aged Out No longer eligibl e based on patient's age to complete this topic MENINGOCOCCAL GROUPS A/C/Y/W VACCINE Aged Out No longer eligible b ased on patient's age to complete this topic
--- OUTSIDE RECORDS SUMMARY | 2024-11-17 13:13 | XMS_ITS | Clinical Summary ---
Author Organization [facility] [place] [address] Address [address] [place] [address] Care Team Providers Care Camp Guard Name Role Phone Hannah Koroma MD Primary [...] (LOMOTIL) 2.5-0.025 mg per tablet 3 Active citalopram (CeleXA) 40 mg tablet [...] a day 270 tablet 3 5 Active donepeziL (ARICEPT) 10 mg tablet Take 1 tablet (10 mg total) by mouth daily before breakfast 90 tablet 3 5 Active donepeziL (ARICEPT) 10 mg tablet Take 1 tablet (10 mg total) by mouth daily before breakfast 90 tablet 3 3 10/28/19 25 Discontin ued(Reord er) Active Problems Problem Noted Date Diagnosed Date Mixed Alzheimer's and vascular dementia 07/15/20 24 Assessment & Plan (07/15/2024 12:57 PM REFRIGERATION BRAZER/SOLDERER): Continue memantine/Namenda 10 mg BID and donepezil/Aricept 10 mg daily. CS was able to talk with our forensic social worker team about further resources such as palliative care. Follow-up in 6 months or sooner if need be. Permanent atrial fibrillation 01/07/2024 Abnormal ECG 01/03/2021 Hx of mechanical aortic valve replacement 2020 Hx of CABG 01/03/2021 Palpitations 01/03/2021 Pulmonary emphysema 07/15/2012 Overview (11/29/2016): Emphysema Atopic rhinitis 07/15/2012 Overview (11/30/2016): Allergic rhinitis Depression 07/15/2012 Overview (11/30/2016): Depression Diabetes mellitus 07/15/2012 Overview (11/30/2016): Diabetes mellitus Hypertension 07/15/2012 Overview (11/30/2016): Hypertension Encounters Date Type Department Care Team Description 09/22/2024 1:00 PM REFRIGERATION BRAZER/SOLDERER Office Visit [facility] Card[facility] [address] [place] [address] Debby Lucio NP Paroxysmal atrial fibrillation with rapid ventricular response (HCC) (Primary Dx); Hx of mechanical aortic valve replacement; Chronic anticoagulation; Coronary artery disease involving [place] coronary artery of [place] heart without angina pectoris from Last 3 Months Surgical History Surgery [...] bleed) ? Kidney stone 1967 Anemia Cancer (HCC) 08/2021 Cataract Family History Medical History [...] on file Legal Sex Male 10:47 AM REFRIGERATION BRAZER/SOLDERER Gender Identity Not on file Sexual Orientation Not on file Obstetrics History Last Filed Vital Signs Vital Sign Reading Time Taken Comments Blood Pressure 122/62 09/22/2024 1:02 PM REFRIGERATION BRAZER/SOLDERER Pulse 110 09/22/2024 1:02 PM REFRIGERATION BRAZER/SOLDERER Temperature 36.8 C (98.2 F) 07/15/2024 12:22 PM REFRIGERATION BRAZER/SOLDERER Respiratory Rate - - Oxygen Saturation 97% 09/22/2024 1:02 PM REFRIGERATION BRAZER/SOLDERER Inhaled Oxygen Concentration - - Weight 63.5 kg (140 lb) 09/22/2024 1:02 PM REFRIGERATION BRAZER/SOLDERER Height 172.7 cm (5' 8 ) 09/22/2024 1:02 PM REFRIGERATION BRAZER/SOLDERER Body Mass Index 21.29 09/22/2024 1:02 PM REFRIGERATION BRAZER/SOLDERER Plan of Treatment Health Maintenance Due Date [...] Most Recently Relevant to Health [place] [id number] MEDICARE [facility] [place] [id number] [facility]ICARE [place] [address] MEDICARE [facility] Care Teams Camp Guard Relationship Specialty Start Date End Date Hannah Koroma MD PCP - General Family Practice 11/04/20
--- OUTSIDE RECORDS SUMMARY | 2024-11-17 13:13 | XMS_ITS | Referral Summary ---
Author Organization [facility] [place] [address] [facility] [address] Address [address] [place] [address] Care Team Providers Care Manager Intranet Name Role Phone Hannah Koroma MD Primary Care Provider Encounters Date Type Department Care Team Description 09/22/2024 1:00 PM PRODUCT SAFETY COORDINATOR Office Visit [facility] Cardiology [address] [place] [address] Debby Lucio NP Paroxysmal atrial fibrillation with rapid ventricular response (HCC) (Primary Dx); Hx of mechanical aortic valve replacement; Chronic anticoagulation; Coronary artery disease involving [place] coronary artery of [place] heart without angina pectoris from Last 3 Months Allergies Active Allergy [...] 24 Assessment & Plan (07/15/2024 12:57 PM PRODUCT SAFETY COORDINATOR): Continue memantine/Namenda 10 mg BID and donepezil/Aricept 10 mg daily. CS was able to talk with our delinquency prevention social worker team about further resources such [...] on file Legal Sex Male 10:47 AM PRODUCT SAFETY COORDINATOR Gender Identity Not on file Sexual Orientation Not on file Last Filed Vital Signs Vital Sign Reading Time Taken Comments Blood Pressure 122/62 09/22/2024 1:02 PM PRODUCT SAFETY COORDINATOR Pulse 110 09/22/2024 1:02 PM PRODUCT SAFETY COORDINATOR Temperature 36.8 C (98.2 F) 07/15/2024 12:22 PM PRODUCT SAFETY COORDINATOR Respiratory Rate - - Oxygen Saturation 97% 09/22/2024 1:02 PM PRODUCT SAFETY COORDINATOR Inhaled Oxygen Concentration - - Weight 63.5 kg (140 lb) 09/22/2024 1:02 PM PRODUCT SAFETY COORDINATOR Height 172.7 cm (5' 8 ) 09/22/2024 1:02 PM PRODUCT SAFETY COORDINATOR Body Mass Index 21.29 09/22/2024 1:02 PM PRODUCT SAFETY COORDINATOR Plan of Treatment Not on file Procedures [...] Relevant to Health Maintenance Insurance [place] [id number] MEDICARE [facility] [place] [id number] [facility] MEDICARE [place] [id number] MEDICARE [employer] FEDERAL Care Teams Manager Intranet Relationship Specialty Start Date End Date Hannah Koroma MD PCP - General Family Practice 11/04/20
[2024-11-17 15:51] LABS: Hemoglobin A1C 5.7 % (<5.7)
== END 2024-11-17 11:02 | disposition home or self-care (01) ==
PROVIDERS: PCP Family Medicine; Visit Provider Internal Medicine Hematology & Oncology
DX: R73.9 Hyperglycemia, unspecified (principal); I10 Essential (primary) hypertension; E78.5 Hyperlipidemia, unspecified; E55.9 Vitamin D deficiency, unspecified
CPT/HCPCS: 36415; 80053; 80061; 82306; 83036; 84443

== ENCOUNTER 2024-11-26 12:47 | Outpatient (CLI) | payer MEDICARE, BC, SELFPAY ==
--- OUTSIDE RECORDS SUMMARY | 2024-11-26 12:57 | XMS_ITS | Clinical Summary ---
Author Organization [facility] Address [address] [place] [address] Care Team Providers Care Gericare Aide Name Role Phone Hannah Koroma MD Primary [...] Encounters Date Type Department Care Team Description 11/17/2024 External Device Data STL ABSTRACTION Provider, Abstract 11/11/2024 External Device Data [place] ABSTRACTION Provider, Abstract 10/31/2024 External Device Data [place] ABSTRACTION Provider, Abstract 10/30/2024 External Device Data ST[place] ABSTRACTION Provider, Abstract 10/06/2024 External Device Data ST[place] ABSTRACTION Provider, Abstract 09/23/2024 Orders Only [facility] Oncology and Hematology - [place] [address] [place] [id number] Jamaal Robison MD 09/16/2024 External Device Data [place] ABSTRACTION Provider, Abstract 09/16/2024 External Device Data ST[place] ABSTRACTION Provider, Abstract 09/14/2024 Orders Only [facility] Oncology and Hematology - [place] [address] [place] [id number] Jamaal Robison MD Malignant neoplasm of lung, unspecified laterality, unspecified part of lung (CMS/HCC) 09/09/2024 4:30 PM SLEEVE SETTER Telephone Check Up [facility] Oncology and Hematology - [place] [address] [place] [address] Jamaal Robison MD Malignant neoplasm of lung, unspecified laterality, unspecified part of lung (CMS/HCC) (Primary Dx) 09/08/2024 Orders Only [facility] Oncology and Hematology - [place] [address] Jamaal Robison MD 09/07/2024 Orders Only [facility] and [facility]ematology - [place] [address] Jamaal Robison MD 09/03/2024 Orders Only [facility] Oncology and Hematology - [place] [address] [place] [id number] Jamaal Robison MD 08/31/2024 Orders [facility] - [place] [address] [place] [phone] Jamaal Robison MD Malignant neoplasm of lung, [...] Description 01/15/2025 10:30 AM CDT Office Visit [facility] Oncology and Hematology - [place] [address] [facility] [address] [place] [address] Jamaal Robison MD [address] [facility] [address] [place] [address] Health Maintenance Due Date Last [...] VACCINE (#1) 2024 COLORECTAL SCREENING Discontinued 08/22/2023, 12/28/20 23 Colorectal Cancer Screening Discontinued Flex Sig/CT Colonography Q 5 years Discontinued 01/24/2024 FIT-DNA Q 3 years Discontinued FIT/FOBT Q 1 year Discontinued Procedures Procedure Name Priority Date/Time Associated Diagnosis Comments CBC WITH DIFFERENTIAL Routine 09/22/2024 7:47 AM SLEEVE SETTER TESTOSTERONE, TOTAL Routine 08/28/2024 1 2:[address] CHEST W CONTRAST Routine 08/28/2024 1 2:55 PM SLEEVE SETTER COMPREHENSIVE METABOLIC PANEL Routine 08/28/2024 10:06 AM SLEEVE SETTER FLEXIBLE SIGMOIDOSCOPY REPORT 01/24/2024 3:41 PM CDT from Last 3 Months or Most Recently Relevant to Health Maintenance Results * CBC WITH DIFFERENTIAL (09/22/2024 7:47 AM SLEEVE SETTER) Blood us Jamaal Robison MD HEMATOLOGY ORDERABLES Final Res ult * TESTOSTERONE, TOTAL (08/28/2024 12:59 PM SLEEVE SETTER) Blood us Jamaal Robison MD CHEMISTRY ORDERABLES Final Resu lt * CT CHEST W CONTRAST (08/28/2024 12:55 PM SLEEVE SETTER) Anatomical Region Laterality Modality Chest Computed Tomogra phy us Jamaal Robison MD CT ORDERABLES Final Result * COMPREHENSIVE METABOLIC PANEL (08/28/2024 10:06 AM SLEEVE SETTER) Blood us Jamaal Robison MD CHEMISTRY ORDERABLES Final Resu lt * FLEXIBLE SIGMOIDOSCOPY REPORT (01/24/2024 3:41 PM CDT) Narrative Procedure Note Kate Stephens MD - 01/24/2024 3:41 PM CDT [facility] Endoscopy Patient Name: Arley Nicholson Procedure Date: [...] of Addenda: [address]; [place] [address] Kate Stephens MD GI PROCEDURE ORDERABLES F inal Result from Last 3 Months or Most Recently Relevant to Health Maintenance Insurance [place] [id number] MEDICARE PART A AND B [facility] [place] [address] [place] [address] MEDICARE PART A AND B [facility] FEDERAL Advance Directives For more information, please contact: [phone] * Full Code (Latest Code Status on File) Date Activated Date Inactivated Comments 01/28/2024 6:23 PM 02/07/2024 3:11 PM * Full Code Date Activated Date Inactivated Comments 01/24/2024 2:31 PM 01/28/2024 6:07 PM * Full Code Date Activated Date Inactivated Comments 01/18/2024 11:58 PM 01/24/2024 2:31 PM Care Teams Gericare Aide Relationship Specialty Start Date End Date Hannah Koroma MD [address] [place] [address] PCP - General Family Practice 07/26/23
--- OUTSIDE RECORDS SUMMARY | 2024-11-26 12:57 | XMS_ITS | Clinical Summary ---
Author Organization [facility] Address [address] [place] [address] Care Team Providers Care Mission Manager Name Role Phone Unavailable Primary Care Provider Unavailabl e Source Comments [facility],non-owned Affiliates and Associated Physician Practices is amultiple site organization consisting of ambulatory clinics and hospital sitesin [place], [place], [place] and [place]. This disclosure is being madepursuant to the Care Everywhere program and may not contain all information available regarding this patient. Last updated 18.[facility] [employer] Social History Tobacco Use Types Packs/Day Years [...] VACCINE ( - 2023-2 5 season) 2024 DEPRESSION SCREENING 08/26/2024 INFLUENZA VACCINE (Season Ended) 2025 HEPATITIS B VACCINE Aged Out No longe [...]
--- OUTSIDE RECORDS SUMMARY | 2024-11-26 12:57 | XMS_ITS | Clinical Summary ---
Author Organization [facility] [place] [address] Address [address] [place] [address] Care Team Providers Care Castables Worker Name Role Phone Hannah Koroma MD Primary [...] 325 mg (65 mg of elemental iron) tabletIndications :Iron Deficiency Anemia Take 1 tablet (325 mg [...] tablet extended release 24 hr 3 Active diphenoxylate-atr opine (LOMOTIL) 2.5-0.025 mg per tablet 3 Active [...] metoprolol tartrate (LOPRESSOR) 50 mg immediate release tabletIndications :Paroxysmal atrial fibrillation with rapid ventricular response (HCC) Take 1.5 tablets (75 mg total) by mouth 2 (two) times a day 270 tablet 3 5 Active donepeziL (ARICEPT) 10 mg tablet Take 1 tablet (10 mg total) by mouth daily before breakfast 90 tablet 3 5 Active Active Problems Problem Noted Date Diagnosed Date Mixed Alzheimer's and vascular dementia 07/15/20 24 Assessment & Plan (07/15/2024 12:57 PM KNOWLEDGE ANALYST): Continue memantine/Namenda 10 mg BID and donepezil/Aricept 10 mg daily. CS was able to talk with our manager social team about further resources such as palliative [...] Department Care Team Description 09/22/2024 1:00 PM KNOWLEDGE ANALYST Office Visit [facility] Cardiology [address] [place] [address] Debby Lucio NP Paroxysmal atrial fibrillation with rapid ventricular response (HCC) (Primary Dx); Hx of mechanical aortic valve replacement; Chronic anticoagulation; Coronary artery disease involving [place] coronary artery of [place] heart without angina pectoris from Last 3 [...] on file Legal Sex Male 10:47 AM KNOWLEDGE ANALYST Gender Identity Not on file Sexual Orientation Not on file Obstetrics History Last Filed Vital Signs Vital Sign Reading Time Taken Comments Blood Pressure 122/62 09/22/2024 1:02 PM KNOWLEDGE ANALYST Pulse 110 09/22/2024 1:02 PM KNOWLEDGE ANALYST Temperature 36.8 C (98.2 F) 07/15/2024 12:22 PM KNOWLEDGE ANALYST Respiratory Rate - - Oxygen Saturation 97% 09/22/2024 1:02 PM KNOWLEDGE ANALYST Inhaled Oxygen Concentration - - Weight 63.5 kg (140 lb) 09/22/2024 1:02 PM KNOWLEDGE ANALYST Height 172.7 cm (5' 8 ) 09/22/2024 1:02 PM KNOWLEDGE ANALYST Body Mass Index 21.29 09/22/2024 1:02 PM KNOWLEDGE ANALYST Plan of Treatment Health Maintenance Due [...] Recently Relevant to Health [place] [address] [place] [address] [facility] [place] [id number] [facility] MEDICARE [place] [id number] MEDICARE [facility] FEDERAL Care Teams Castables Worker Relationship Specialty Start Date End Date Hannah Koroma MD PCP - General Family Practice 11/04/20
--- OUTSIDE RECORDS SUMMARY | 2024-11-26 12:57 | XMS_ITS | Referral Summary ---
Author Organization [facility] [place] [address] [facility] [address] Address [address] [place] [address] Care Team Providers Care Nurse Prn Name Role Phone Hannah Koroma MD Primary Care Provider Encounters Date Type Department Care Team Description 09/22/2024 1:00 PM ENTERPRISE ACCOUNT MANAGER Office Visit [facility] Cardiology [address] [place] [address] Debby Lucio NP Paroxysmal atrial fibrillation with rapid ventricular response (HCC) (Primary Dx); Hx of mechanical aortic valve replacement; Chronic anticoagulation; Coronary artery disease involving [place] coronary artery of [place] heart without angina pectoris from Last 3 [...] 24 Assessment & Plan (07/15/2024 12:57 PM ENTERPRISE ACCOUNT MANAGER): Continue memantine/Namenda 10 mg BID and donepezil/Aricept 10 mg daily. CS was able to talk with our social research assistant team about further resources such as [...] on file Legal Sex Male 10:47 AM ENTERPRISE ACCOUNT MANAGER Gender Identity Not on file Sexual Orientation Not on file Last Filed Vital Signs Vital Sign Reading Time Taken Comments Blood Pressure 122/62 09/22/2024 1:02 PM ENTERPRISE ACCOUNT MANAGER Pulse 110 09/22/2024 1:02 PM ENTERPRISE ACCOUNT MANAGER Temperature 36.8 C (98.2 F) 07/15/2024 12:22 PM ENTERPRISE ACCOUNT MANAGER Respiratory Rate - - Oxygen Saturation 97% 09/22/2024 1:02 PM ENTERPRISE ACCOUNT MANAGER Inhaled Oxygen Concentration - - Weight 63.5 kg (140 lb) 09/22/2024 1:02 PM ENTERPRISE ACCOUNT MANAGER Height 172.7 cm (5' 8 ) 09/22/2024 1:02 PM ENTERPRISE ACCOUNT MANAGER Body Mass Index 21.29 09/22/2024 1:02 PM ENTERPRISE ACCOUNT MANAGER Plan of Treatment Not on file Procedures [...] Recently Relevant to Health Maintenance [place] [address] MEDICARE [facility] [place] [id number] [facility] [place] [id number] MEDICARE [facility] Care Teams Nurse Prn Relationship Specialty Start Date End Date Hannah Koroma MD PCP - General Family Practice 11/04/20
[2024-11-26 13:05] VITALS: PULSE 83; O2SAT 99
[2024-11-26 13:10] VITALS: PULSE 102; O2SAT 91
[2024-11-26 13:36] VITALS: PULSE 85; O2SAT 98
--- NOTE | 2024-11-26 13:38 | HOMEO2EVAL ---
Evaluation was performed at [facility] Home Oxygen Evaluation RC: Home Oxygen (O2) Evaluation Start: 11/26/24 13:35 Freq: Status: Active Protocol: RPE Activity Type Activity Date Activity User E-sign Co-sign Detail Recorded Client Recorded Date Recorded By Document 11/26/24 13:05 DJO [email or web address] 11/26/24 13:38 DJO Document 11/26/24 13:10 [email or web address] [email or web address] 11/26/24 13:38 DJO Document 11/26/24 13:36 [email or web address] [email or web address] 11/26/24 13:38 DJO 11/26/24 11/26/24 11/26/24 13:05 13:10 13:36 Home O2 Evaluation [Oxygen] -Test Phase Resting Exercise Resting -Oxygen Delivery Room Air Room Air Room Air [Pulse Oximetry] -Pulse Oximetry (90-100 %) 99 91 98 [Pulse Rate] -Pulse Rate (60-100 beats/min) 83 102 H 85 [Evaluation] -Activity Tolerance Poor [Exercise] -Ambulation Distance (feet) 50 -Ambulation Distance (meters) 15.23 [Charges] -Evaluation Charges O2 Evaluation by Pulmonary
== END 2024-11-26 12:48 | disposition home or self-care (01) ==
PROVIDERS: PCP Family Medicine; Visit Provider Family Medicine
DX: R06.02 Shortness of breath (principal)
CPT/HCPCS: 94618

== ENCOUNTER 2025-01-08 12:13 | Outpatient (CLI) | payer MEDICARE, BC, SELFPAY ==
--- NOTE | ~2025-01-08 | CT_ITS ---
Clinical Indication: Lung cancer CT Scan of the Chest with Contrast: Technique: Contiguous sections were acquired throughout the chest after intravenous administration of 75 cc of Omnipaque 350. Dose reduction technique was used on this scan by utilizing automated exposu re control and iterative reconstruction technique. The dose-length product (DLP) was 121.11 mGy-cm. COMPARISON: 08/28/2024 Findings: There is no evidence of any significant mediastinal, hilar or axillary lymphadenopathy. There is no f illing defect in the pulmonary arterial tree to suggest pulmonary embolus. There is no evidence of ao rtic dissection or aneurysm. Stable small to moderate right pleural effusion. No left pleural effusion. No pericardial effusion. Stable irregular consolidation and volume loss of the right lung apex/right upper lobe, extending to the right hilum, likely representing postradiation change and/or treated disease. There is additional probable chronic posttreatment change or atelectasis involving the medial right middle lobe. Images through the upper abdomen reveal large hiatal hernia extending to the left side.. Impression: Stable posttreatment changes and/or treated disease in the right upper lobe. Stable small to moderate right pleural effusion. Stable large hiatal hernia. Reviewed, dictated and finalized at location . Impression: Stable posttreatment changes and/or treated disease in the right upper lobe. Stable small to moderate right pleural effusion. Stable large hiatal hernia.
--- OUTSIDE RECORDS SUMMARY | 2025-01-08 12:18 | XMS_ITS | Clinical Summary ---
Author Organization Unknown Care Team Providers Care Fryer Operator Name Role Phone DIXIE RIOS, MARYLIN Unavailable Unava leonela ATKINS RN, OCTAVIA Unavailable Unavailable NICKOLAS PLATFORM BEATER, ARTRISHA Unavailable Unavailable OSMIN PT, CARLITOS Unavailable Unavailable MARGARET PAPER WOOD CUTTER, GA Unavailable Unavailable RING OT, ZACHERY Unavailable Unavailable PATRICIO LAUNCH OPERATOR/MARTI, LILIAN Unavailable Unavai lable SORTO ST, LIGIA Unavailable Unavailable Payers Payer Name Policy Type Policy Number Effective Date Expira tion Date MEDICARE.[facility] [id number] Problems Condition Name Condition Details Condition Category Status Onset Date Resolution Date Last Treatment Date Treating Clinician Comments ORTHOSTATIC HYPOTENSION Active 01-04 00:00: 00 ALZHEIMER'S DISEASE, UNSPECIFIED Active 01-04 00:00: 00 DEM IN OTHER DIS CLASSD ELSWHR, UNSP SEV, WITH MOOD DISTRB Active 01-04 00:00: 00 DEPRESSION, UNSPECIFIED Active 01-04 00:00: 00 HYPERTENSIVE CHRONIC KIDNEY DISEASE W STG 1-4/UNSP CHR KDNY Active 01-04 00:00: 00 CHRONIC KIDNEY DISEASE, STAGE 3 UNSPECIFIED Active 01-04 00:00: 00 PERMANENT ATRIAL FIBRILLATION Active 01-04 00:00: 00 ATHSCL HEART DISEASE OF [place] CORONARY ARTERY W/O ANG PCTRS Active 01-04 00:00: 00 EMPHYSEMA, UNSPECIFIED Active 01-04 00:00: 00 MALIGNANT NEOPLASM OF UPPER LOBE, RIGHT BRONCHUS OR LUNG Active 01-04 00:00: 00 MALIGNANT NEOPLASM OF PROSTATE Active 01-04 00:00: 00 RESTLESS LEGS SYNDROME Active 01-04 00:00: 00 SPONDYLOSIS W/O MYELOPATHY OR RADICULOPATH Y, LUMBAR REGION Active 01-04 00:00: 00 ANEMIA IN CHRONIC KIDNEY DISEASE Active 01-04 00:00: 00 UNSPECIFIED OSTEOARTHRIT IS, UNSPECIFIED SITE Active 01-04 00:00: 00 BENIGN PROSTATIC HYPERPLASIA WITH LOWER URINARY TRACT SYMP Active 01-04 00:00: 00 OTHER SPECIFIED URINARY INCONTINENCE Active 01-04 00:00: 00 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 Active 01-04 00:00: 00 ENCOUNTER FOR THERAPEUTIC DRUG LEVEL MONITORING Active 01-04 00:00: 00 JAIL (CURRENT) USE OF ANTICOAGULAN TS Active 01-04 00:00: 00 JAIL (CURRENT) USE OF OPIATE ANALGESIC Active 01-04 00:00: 00 PRESENCE OF AORTOCORONAR Y BYPASS GRAFT Active 08-26 00:00: 00 PERSONAL HISTORY OF NICOTINE DEPENDENCE Active 01-04 00:00: 00 Allergies, Adverse Reactions, Alerts Allergy Name Allergy Type Status Severity Reaction(s) Onset Date Inactive Date Treating Clinician Comments NO KNOWN ALLERGIES Propensity to adverse reactions Active 01-05 12:18: 01 Immunizations Ordered Immunization Name Filled Immunization Name Date Status Comments Refusal Reason INFLUENZA, INFLUENZA 2025-01-06 00:00:00 Vital Signs Vital Name Observation Time Observation Value Commen ts Temperature 2025-01-05 12:19:00.000 97.4 [degF] BMI (%) 2025-01-05 11:10:36.000 22 kg/m2 Height 2025-01-05 11:10:11.000 67 [in_us] Pulse 2025-01-05 12:19:00.000 75 /min O2 Saturation (%) 2025-01-05 12:19:00.000 97 % Respirations 2025-01-05 12:19:00.000 17 /min Weight (lbs) 2025-01-05 11:10:36.000 142 [lb_av] Systolic Blood Pressure 2025-01-05 12:19:00.000 102 mm [Hg] Diastolic Blood Pressure 2025-01-05 12:19:00.000 58 mm [Hg] Plan of Treatment Planned Activity Planned Date Details Comments Future Scheduled Test RN TO OBSE RVE, ASSESS, EVALUATE, AND DEVELOP AN INDIVIDUALIZED PLAN OF CARE. AGENCY MAY ACCEPT ORDERS FROM CONSULTING PHYSICIANS RN TO OBSERVE AND ASSESS, PLATFORM BEATER/INSURANCE UNDERWRITING ASSISTANT TO OBSERVE FOR RISK FOR FALLS AND INSTRUCT IN FALL PREVENTION, HOME SAFETY, MEDICATION MANAGEMENT, INFECTION PREVENTION, AND NUTRITION MANAGEMENT. RN/PLATFORM BEATER/INSURANCE UNDERWRITING ASSISTANT NURSE MAY PERFORM O2 SATURATION LEVEL ON ADMISSION AND PRN FOR SOB FOR RN TO ASSESS/PLATFORM BEATER TO OBSERVE PATIENT, WITH NOTIFICATION TO THE PHYSICIAN IF SATURATION IS 90% IN THE ABSENCE OF MORE SPECIFIC PARAMETERS FROM THE PHYSICIAN. AGENCY MAY PERFORM A RESUMPTION OF CARE VISIT FOLLOWING ANY HOSPITAL ADMISSION. RN/PLATFORM BEATER/INSURANCE UNDERWRITING ASSISTANT TO MONITOR CO-MORBID CONDITIONS LISTED ON THE PLAN OF CARE AND ANY NEW CONDITIONS THAT PRESENT THEMSELVES DURING THIS EPISODE TO IDENTIFY CHANGES AND INTERVENE TO MINIMIZE COMPLICATIONS. [code = RN TO OBSERVE, ASSESS, EVALUATE, AND DEVELOP AN INDIVIDUALIZED PLAN OF CARE. AGENCY MAY ACCEPT ORDERS FROM CONSULTING PHYSICIANS RN TO OBSERVE AND ASSESS, PLATFORM BEATER/INSURANCE UNDERWRITING ASSISTANT TO OBSERVE FOR RISK FOR FALLS AND INSTRUCT IN FALL PREVENTION, HOME SAFETY, MEDICATION MANAGEMENT, INFECTION PREVENTION, AND NUTRITION MANAGEMENT. RN/PLATFORM BEATER/INSURANCE UNDERWRITING ASSISTANT NURSE MAY PERFORM O2 SATURATION LEVEL ON ADMISSION AND PRN FOR SOB FOR RN TO ASSESS/PLATFORM BEATER TO OBSERVE PATIENT, WITH NOTIFICATION TO THE PHYSICIAN IF SATURATION IS 90% IN THE ABSENCE OF MORE SPECIFIC PARAMETERS FROM THE PHYSICIAN. AGENCY MAY PERFORM A RESUMPTION OF CARE VISIT FOLLOWING ANY HOSPITAL ADMISSION. RN/PLATFORM BEATER/INSURANCE UNDERWRITING ASSISTANT TO MONITOR CO-MORBID CONDITIONS LISTED ON THE PLAN OF CARE AND ANY NEW CONDITIONS THAT PRESENT THEMSELVES DURING THIS EPISODE TO IDENTIFY CHANGES AND INTERVENE TO MINIMIZE COMPLICATIONS.] Future Scheduled Test MEDICATION MANAGEMENT; RN/PLATFORM BEATER/INSURANCE UNDERWRITING ASSISTANT TO REVIEW MEDICATIONS FOR INTERACTIONS, EFFECTIVENESS OF DRUG THERAPY, AND SIGNS/SYMPTOMS OF ADVERSE REACTIONS. MAY INSTRUCT AND REINFORCE MEDICATION TEACHING RELATED TO THE USE OF MEDICATIONS, DOSAGE, FREQUENCY, PURPOSE, SIDE EFFECTS, AND TO REPORT COMPLICATIONS. [code = MEDICATION MANAGEMENT; RN/PLATFORM BEATER/INSURANCE UNDERWRITING ASSISTANT TO REVIEW MEDICATIONS FOR INTERACTIONS, EFFECTIVENESS OF DRUG THERAPY, AND SIGNS/SYMPTOMS OF ADVERSE REACTIONS. MAY INSTRUCT AND REINFORCE MEDICATION TEACHING RELATED TO THE USE OF MEDICATIONS, DOSAGE, FREQUENCY, PURPOSE, SIDE EFFECTS, AND TO REPORT COMPLICATIONS.] Future Scheduled Test FALL REDUC TION MANAGEMENT; RN TO ASSESS AND OBSERVE, PLATFORM BEATER/INSURANCE UNDERWRITING ASSISTANT TO OBSERVE FALL RISK FACTORS AND EDUCATE PATIENT/CAREGIVER ON STRATEGIES TO MINIMIZE THE RISK OF FALLING. [code = FALL REDUCTION MANAGEMENT; RN TO ASSESS AND OBSERVE, PLATFORM BEATER/INSURANCE UNDERWRITING ASSISTANT TO OBSERVE FALL RISK FACTORS AND EDUCATE PATIENT/CAREGIVER ON STRATEGIES TO MINIMIZE THE RISK OF FALLING.] Future Scheduled Test PHYSICAL T HERAPIST TO EVALUATE FOR GAIT BALANCE STRENGTHENING [code = PHYSICAL THERAPIST TO EVALUATE FOR GAIT BALANCE STRENGTHENING] Future Scheduled Test OCCUPATION AL THERAPIST TO EVALUATE FOR SAFETY WITH ADLS IADLS [code = OCCUPATIONAL THERAPIST TO EVALUATE FOR SAFETY WITH ADLS IADLS] Future Scheduled Test PAIN MANAG EMENT; RN TO ASSESS AND TEACH, INSURANCE UNDERWRITING ASSISTANT/PLATFORM BEATER TO OBSERVE AND TEACH AND PROVIDE EDUCATION ON PAIN MANAGEMENT TECHNIQUES. [code = PAIN MANAGEMENT; RN TO ASSESS AND TEACH, INSURANCE UNDERWRITING ASSISTANT/PLATFORM BEATER TO OBSERVE AND TEACH AND PROVIDE EDUCATION ON PAIN MANAGEMENT TECHNIQUES.] Future Scheduled Test PRN VISITS ; NUMBER OF RN/PLATFORM BEATER/INSURANCE UNDERWRITING ASSISTANT VISITS: 3 RN/PLATFORM BEATER/INSURANCE UNDERWRITING ASSISTANT TO PERFORM: CARDIAC ASSESSMENT FOR THE FOLLOWING REASONS: CARDIAC COMPLICATIONS [code = PRN VISITS; NUMBER OF RN/PLATFORM BEATER/INSURANCE UNDERWRITING ASSISTANT VISITS: 3 RN/PLATFORM BEATER/INSURANCE UNDERWRITING ASSISTANT TO PERFORM: CARDIAC ASSESSMENT FOR THE FOLLOWING REASONS: CARDIAC COMPLICATIONS] Future Scheduled Test GENITOURIN NORBERT MANAGEMENT; RN TO ASSESS AND TEACH, PLATFORM BEATER/INSURANCE UNDERWRITING ASSISTANT TO OBSERVE AND TEACH RELATED TO ALTERED GENITOURINARY STATUS TO MINIMIZE COMPLICATIONS AND REDUCE HOSPITALIZATION. [code = GENITOURINARY MANAGEMENT; RN TO ASSESS AND TEACH, PLATFORM BEATER/INSURANCE UNDERWRITING ASSISTANT TO OBSERVE AND TEACH RELATED TO ALTERED GENITOURINARY STATUS TO MINIMIZE COMPLICATIONS AND REDUCE HOSPITALIZATION.] Future Scheduled Test SKIN INTEG RITY RN TO ASSESS AND TEACH, PLATFORM BEATER/INSURANCE UNDERWRITING ASSISTANT TO OBSERVE AND TEACH INTEGUMENTARY STATUS TO IDENTIFY CHANGES AND INTERVENE TO MINIMIZE COMPLICATIONS. PROVIDE SKILLED TEACHING OF GENERAL WOUND AND SKIN CARE AND PREVENTION RELATED TO POTENTIAL FOR OR ACTUAL ALTERED SKIN INTEGRITY [code = SKIN INTEGRITY RN TO ASSESS AND TEACH, PLATFORM BEATER/INSURANCE UNDERWRITING ASSISTANT TO OBSERVE AND TEACH INTEGUMENTARY STATUS TO IDENTIFY CHANGES AND INTERVENE TO MINIMIZE COMPLICATIONS. PROVIDE SKILLED TEACHING OF GENERAL WOUND AND SKIN CARE AND PREVENTION RELATED TO POTENTIAL FOR OR ACTUAL ALTERED SKIN INTEGRITY ] Future Scheduled Test URINARY IN CONTINENCE MANAGEMENT; RN TO ASSESS AND TEACH, PLATFORM BEATER/LVNTO OBSERVE AND TEACH MANAGEMENT OF URINARY INCONTINENCE. TEACH/INSTRUCT ON PREVENTING INFECTION AND SKIN BREAKDOWN. RN/PLATFORM BEATER/INSURANCE UNDERWRITING ASSISTANT MAY INSTRUCT IN BLADDER TRAINING PROGRAM INDICATED. [code = URINARY INCONTINENCE MANAGEMENT; RN TO ASSESS AND TEACH, PLATFORM BEATER/LVNTO OBSERVE AND TEACH MANAGEMENT OF URINARY INCONTINENCE. TEACH/INSTRUCT ON PREVENTING INFECTION AND SKIN BREAKDOWN. RN/PLATFORM BEATER/INSURANCE UNDERWRITING ASSISTANT MAY INSTRUCT IN BLADDER TRAINING PROGRAM INDICATED.] Goal Patient Goal - GET STRONGER Goal Provider Goal - A PLAN OF CARE WILL BE ESTABLISHED THAT MEETS THE PATIENTS NEEDS. PATIENT WILL DEMONSTRATE OXYGEN SATURATION WITHIN NORMAL LIMITS OR PATIENTS OPTIMAL LEVEL ESTABLISHED BY THE PHYSICIAN THROUGHOUT CARE. CHANGES TO CO-MORBID CONDITIONS AND ANY NEW CONDITIONS WILL BE IDENTIFIED AND REPORTED TO THE PHYSICIAN. Goal Provider Goal - PATIENT/CAREGIVER TO VERBALIZE, AND CONSISTENTLY DEMONSTRATE EFFECTIVE, SAFE MANAGEMENT OF MEDICATION INCLUDING KNOWLEDGE OF EFFECTIVENESS, POTENTIAL SIDE EFFECTS AND DRUG REACTIONS AND WHEN TO CONTACT THE APPROPRIATE CARE PROVIDER. PATIENT/CAREGIVER WILL BE ABLE TO VERBALIZE UNDERSTANDING OF MEDICATION REGIMEN AND ACCURATELY TAKE MEDICATIONS PRESCRIBED WITHOUT ADVERSE EFFECTS BY END OF EPISODE Goal Provider Goal - PATIENT/CAREGIVER WILL VERBALIZE/DEMONSTRATE UNDERSTANDING OF FALL RISK FACTORS AND IMPLEMENT STRATEGIES TO MINIMIZE FALL RISK. PATIENT/CAREGIVER WILL VERBALIZE/DEMONSTRATE AN ABILITY TO ADHERE TO FALL REDUCTION SELF-MANAGEMENT AND LIFE-STYLE CHANGES BY 02/12/25 Goal Provider Goal - Goal Provider Goal - Goal Provider Goal - PATIENT / CAREGIVER WILL VERBALIZE / DEMONSTRATE UNDERSTANDING OF PAIN CONTROL MEASURES BY 02/12/25 Goal Provider Goal - Goal Provider Goal - PATIENT / CAREGIVER WILL VERBALIZE/DEMONSTRATE UNDERSTANDING OF MEASURES TO MANAGE ALTERED GENITOURINARY STATUS BY END OF EPISODE. Goal Provider Goal - CHANGES IN SKIN INTEGRITY STATUS WILL BE IDENTIFIED AND REPORTED TO THE PHYSICIAN FOR PROMPT INTERVENTION. PATIENT / CAREGIVER WILL VERBALIZE/DEMONSTRATE ADEQUATE KNOWLEDGE OF INTEGUMENTARY STATUS AND APPROPRIATE MEASURES TO PROMOTE SKIN INTEGRITY AND PREVENT INJURY BY END OF EPISODE Goal Provider Goal - PATIENT/CAREGIVER WILL VERBALIZE/DEMONSTRATE UNDERSTANDING OF CARE AND MANAGEMENT OF URINARY INCONTINENCE BY END OF EPISODE. Encounters Start Date/Time End Date/Time Encounter Type Admission Type Attending [facility] Facility Care Department Encounter ID Discharge Date Discharge Status Discharge Condition Discharge Reason Percent Goals Met 2025-01-05 00:00:00 2025-03-05 00:00:00 Outpatient NEW ADMISSION OCTAVIA ATKINS [facility] [id number] 40.00
[2025-01-08 12:49] LABS: Estimated Glomerular Filt Rate 32
== END 2025-01-08 12:14 | disposition home or self-care (01) ==
PROVIDERS: PCP Family Medicine; Visit Provider Internal Medicine Hematology & Oncology
DX: C34.90 Malignant neoplasm of unspecified part of unspecified bronchus or lung (principal); K44.9 Diaphragmatic hernia without obstruction or gangrene; J90 Pleural effusion, not elsewhere classified
CPT/HCPCS: 71260; Q9967

== ENCOUNTER 2025-01-25 14:35 | Outpatient (CLI) | payer MEDICARE, BC, SELFPAY ==
--- OUTSIDE RECORDS SUMMARY | 2025-01-25 14:52 | XMS_ITS | Clinical Summary ---
Author Organization Unknown Care Team Providers Care Cv Rn Name Role Phone DIXIE RIOS, MARYLIN Unavailable Unava ilbrayan ATKINS RN, OCTAVIA Unavailable Unavailable NICKOLAS CHIEF JUVENILE PROBATION OFFICER, ARTRISHA Unavailable Unavailable OSMIN PT, CARLITOS Unavailable Unavailable [employer] ARCHITECT, GA Unavailable Unavailable RING OT, ZACHERY Unavailable Unavailable PATRICIO AMBER/MARTI, LILIAN Unavailable Unavai lable NOREEN ST, LIGIA Unavailable Unavailable Payers Payer Name Policy Type Policy Number Effective Date Expira tion Date MEDICARE.S.[facility] [id number] Problems Condition Name Condition Details Condition Category Status Onset Date Resolution Date Last Treatment Date Treating Clinician Comments ORTHOSTATIC HYPOTENSION Active 12-29 00:00: 00 ALZHEIMER'S DISEASE, UNSPECIFIED Active 08-26 00:00: 00 DEM IN OTH DIS CLASSD ELSWHR,UNSP SEV,W/O BEH/PSYCH/MO OD/ANX Active 08-26 00:00: 00 HYPERTENSIVE CHRONIC KIDNEY DISEASE W STG 1-4/UNSP CHR KDNY Active 01-04 00:00: 00 CHRONIC KIDNEY DISEASE, STAGE 3A Active 08-26 00:00: 00 PERMANENT ATRIAL FIBRILLATION Active 08-26 00:00: 00 ATHSCL HEART DISEASE OF [place] CORONARY ARTERY W/O ANG PCTRS Active 08-26 00:00: 00 CHRONIC OBSTRUCTIVE PULMONARY DISEASE, UNSPECIFIED Active 08-26 00:00: 00 EMPHYSEMA, UNSPECIFIED Active 08-26 00:00: 00 SPONDYLOSIS W/O MYELOPATHY OR RADICULOPATH Y, LUMBAR REGION Active 08-26 00:00: 00 MALIGNANT NEOPLASM OF UPPER LOBE, RIGHT BRONCHUS OR LUNG Active 08-26 00:00: 00 MALIGNANT NEOPLASM OF PROSTATE Active 08-26 00:00: 00 RESTLESS LEGS SYNDROME Active 08-26 00:00: 00 ANEMIA IN CHRONIC KIDNEY DISEASE Active 08-26 00:00: 00 OTHER SPECIFIED INTERSTITIAL PULMONARY DISEASES Active 08-26 00:00: 00 DEPRESSION, UNSPECIFIED Active 08-26 00:00: 00 BENIGN PROSTATIC HYPERPLASIA WITH LOWER URINARY TRACT SYMP Active 08-26 00:00: 00 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 Active 08-26 00:00: 00 ALF (CURRENT) USE OF ANTICOAGULAN TS Active 08-26 00:00: 00 PRESENCE OF PROSTHETIC HEART VALVE Active 08-26 00:00: 00 PERSONAL HISTORY OF NICOTINE DEPENDENCE Active 08-26 00:00: 00 ASSESSMENT DIRECTOR (CURRENT) USE OF INHALED STEROIDS Active 08-26 00:00: 00 Allergies, Adverse Reactions, Alerts Allergy Name Allergy Type Status Severity Reaction(s) Onset Date Inactive Date Treating Clinician Comments NO KNOWN ALLERGIES Propensity to adverse reactions Active 01-05 12:18: 01 Immunizations Ordered Immunization Name Filled Immunization Name Date Status Comments Refusal Reason INFLUENZA, INFLUENZA 2025-01-06 00:00:00 Vital Signs Vital Name Observation Time Observation Value Commen ts Temperature 2025-01-21 14:13:00.000 97.7 [degF] Temperature 2025-01-21 12:15:00.000 98.1 [degF] Temperature 2025-01-15 15:04:00.000 97.7 [degF] Temperature 2025-01-14 11:43:00.000 97.1 [degF] Temperature 2025-01-12 11:53:00.000 97.6 [degF] Temperature 2025-01-12 10:48:00.000 98.2 [degF] Temperature 2025-01-07 14:32:00.000 96 [degF] Temperature 2025-01-05 12:19:00.000 97.4 [degF] BMI (%) 2025-01-05 11:10:36.000 22 kg/m2 Height 2025-01-05 11:10:11.000 67 [in_us] Pulse 2025-01-21 14:13:00.000 83 /min Pulse 2025-01-21 12:15:00.000 83 /min Pulse 2025-01-15 15:04:00.000 68 /min Pulse 2025-01-14 11:43:00.000 63 /min Pulse 2025-01-12 11:53:00.000 70 /min Pulse 2025-01-12 10:48:00.000 73 /min Pulse 2025-01-07 14:32:00.000 77 /min Pulse 2025-01-05 12:19:00.000 75 /min O2 Saturation (%) 2025-01-21 14:13:00.000 100 % O2 Saturation (%) 2025-01-15 15:04:00.000 98 % O2 Saturation (%) 2025-01-14 11:43:00.000 100 % O2 Saturation (%) 2025-01-12 10:48:00.000 97 % O2 Saturation (%) 2025-01-05 12:19:00.000 97 % Respirations 2025-01-21 14:13:00.000 18 /min Respirations 2025-01-21 12:15:00.000 18 /min Respirations 2025-01-15 15:04:00.000 18 /min Respirations 2025-01-14 11:43:00.000 20 /min Respirations 2025-01-12 11:53:00.000 18 /min Respirations 2025-01-12 10:48:00.000 18 /min Respirations 2025-01-07 14:32:00.000 17 /min Respirations 2025-01-05 12:19:00.000 17 /min Weight (lbs) 2025-01-05 11:10:36.000 142 [lb_av] Systolic Blood Pressure 2025-01-21 14:13:00.000 118 mm [Hg] Systolic Blood Pressure 2025-01-21 12:15:00.000 118 mm [Hg] Systolic Blood Pressure 2025-01-15 15:04:00.000 120 mm [Hg] Systolic Blood Pressure 2025-01-14 11:43:00.000 112 mm [Hg] Systolic Blood Pressure 2025-01-12 11:53:00.000 101 mm [Hg] Systolic Blood Pressure 2025-01-12 10:48:00.000 118 mm [Hg] Systolic Blood Pressure 2025-01-07 14:32:00.000 98 mm[ Hg] Systolic Blood Pressure 2025-01-05 12:19:00.000 102 mm [Hg] Diastolic Blood Pressure 2025-01-21 14:13:00.000 64 mm [Hg] Diastolic Blood Pressure 2025-01-21 12:15:00.000 64 mm [Hg] Diastolic Blood Pressure 2025-01-15 15:04:00.000 70 mm [Hg] Diastolic Blood Pressure 2025-01-14 11:43:00.000 60 mm [Hg] Diastolic Blood Pressure 2025-01-12 11:53:00.000 54 mm [Hg] Diastolic Blood Pressure 2025-01-12 10:48:00.000 60 mm [Hg] Diastolic Blood Pressure 2025-01-07 14:32:00.000 60 mm [Hg] Diastolic Blood Pressure 2025-01-05 12:19:00.000 58 mm [Hg] Plan of Treatment Planned Activity Planned Date Details Comments Future Scheduled Test RN TO OBSE RVE, ASSESS, EVALUATE, AND DEVELOP AN INDIVIDUALIZED PLAN OF CARE. AGENCY MAY ACCEPT ORDERS FROM CONSULTING PHYSICIANS RN TO OBSERVE AND ASSESS, CHIEF JUVENILE PROBATION OFFICER/TAPE RECORDING MACHINE OPERATOR TO OBSERVE FOR RISK FOR FALLS AND INSTRUCT IN FALL PREVENTION, HOME SAFETY, MEDICATION MANAGEMENT, INFECTION PREVENTION, AND NUTRITION MANAGEMENT. RN/CHIEF JUVENILE PROBATION OFFICER/TAPE RECORDING MACHINE OPERATOR NURSE MAY PERFORM O2 SATURATION LEVEL ON ADMISSION AND PRN FOR SOB FOR RN TO ASSESS/CHIEF JUVENILE PROBATION OFFICER TO OBSERVE PATIENT, WITH NOTIFICATION TO THE PHYSICIAN IF SATURATION IS 90% IN THE ABSENCE OF MORE SPECIFIC PARAMETERS FROM THE PHYSICIAN. AGENCY MAY PERFORM A RESUMPTION OF CARE VISIT FOLLOWING ANY HOSPITAL ADMISSION. RN/CHIEF JUVENILE PROBATION OFFICER/TAPE RECORDING MACHINE OPERATOR TO MONITOR CO-MORBID CONDITIONS LISTED ON THE PLAN OF CARE AND ANY NEW CONDITIONS THAT PRESENT THEMSELVES DURING THIS EPISODE TO IDENTIFY CHANGES AND INTERVENE TO MINIMIZE COMPLICATIONS. [code = RN TO OBSERVE, ASSESS, EVALUATE, AND DEVELOP AN INDIVIDUALIZED PLAN OF CARE. AGENCY MAY ACCEPT ORDERS FROM CONSULTING PHYSICIANS RN TO OBSERVE AND ASSESS, CHIEF JUVENILE PROBATION OFFICER/TAPE RECORDING MACHINE OPERATOR TO OBSERVE FOR RISK FOR FALLS AND INSTRUCT IN FALL PREVENTION, HOME SAFETY, MEDICATION MANAGEMENT, INFECTION PREVENTION, AND NUTRITION MANAGEMENT. RN/CHIEF JUVENILE PROBATION OFFICER/TAPE RECORDING MACHINE OPERATOR NURSE MAY PERFORM O2 SATURATION LEVEL ON ADMISSION AND PRN FOR SOB FOR RN TO ASSESS/CHIEF JUVENILE PROBATION OFFICER TO OBSERVE PATIENT, WITH NOTIFICATION TO THE PHYSICIAN IF SATURATION IS 90% IN THE ABSENCE OF MORE SPECIFIC PARAMETERS FROM THE PHYSICIAN. AGENCY MAY PERFORM A RESUMPTION OF CARE VISIT FOLLOWING ANY HOSPITAL ADMISSION. RN/CHIEF JUVENILE PROBATION OFFICER/TAPE RECORDING MACHINE OPERATOR TO MONITOR CO-MORBID CONDITIONS LISTED ON THE PLAN OF CARE AND ANY NEW CONDITIONS THAT PRESENT THEMSELVES DURING THIS EPISODE TO IDENTIFY CHANGES AND INTERVENE TO MINIMIZE COMPLICATIONS.] Future Scheduled Test PHYSICAL T HERAPIST TO EVALUATE FOR GAIT BALANCE STRENGTHENING [code = PHYSICAL THERAPIST TO EVALUATE FOR GAIT BALANCE STRENGTHENING] Future Scheduled Test OCCUPATION AL THERAPIST TO EVALUATE FOR SAFETY WITH ADLS IADLS [code = OCCUPATIONAL THERAPIST TO EVALUATE FOR SAFETY WITH ADLS IADLS] Future Scheduled Test FALL REDUC TION MANAGEMENT; RN TO ASSESS AND OBSERVE, CHIEF JUVENILE PROBATION OFFICER/TAPE RECORDING MACHINE OPERATOR TO OBSERVE FALL RISK FACTORS AND EDUCATE PATIENT/CAREGIVER ON STRATEGIES TO MINIMIZE THE RISK OF FALLING. [code = FALL REDUCTION MANAGEMENT; RN TO ASSESS AND OBSERVE, CHIEF JUVENILE PROBATION OFFICER/TAPE RECORDING MACHINE OPERATOR TO OBSERVE FALL RISK FACTORS AND EDUCATE PATIENT/CAREGIVER ON STRATEGIES TO MINIMIZE THE RISK OF FALLING.] Future Scheduled Test GENITOURIN NORBERT MANAGEMENT; RN TO ASSESS AND TEACH, CHIEF JUVENILE PROBATION OFFICER/TAPE RECORDING MACHINE OPERATOR TO OBSERVE AND TEACH RELATED TO ALTERED GENITOURINARY STATUS TO MINIMIZE COMPLICATIONS AND REDUCE HOSPITALIZATION. [code = GENITOURINARY MANAGEMENT; RN TO ASSESS AND TEACH, CHIEF JUVENILE PROBATION OFFICER/TAPE RECORDING MACHINE OPERATOR TO OBSERVE AND TEACH RELATED TO ALTERED GENITOURINARY STATUS TO MINIMIZE COMPLICATIONS AND REDUCE HOSPITALIZATION.] Future Scheduled Test URINARY IN CONTINENCE MANAGEMENT; RN TO ASSESS AND TEACH, CHIEF JUVENILE PROBATION OFFICER/LVNTO OBSERVE AND TEACH MANAGEMENT OF URINARY INCONTINENCE. TEACH/INSTRUCT ON PREVENTING INFECTION AND SKIN BREAKDOWN. RN/CHIEF JUVENILE PROBATION OFFICER/TAPE RECORDING MACHINE OPERATOR MAY INSTRUCT IN BLADDER TRAINING PROGRAM INDICATED. [code = URINARY INCONTINENCE MANAGEMENT; RN TO ASSESS AND TEACH, CHIEF JUVENILE PROBATION OFFICER/LVNTO OBSERVE AND TEACH MANAGEMENT OF URINARY INCONTINENCE. TEACH/INSTRUCT ON PREVENTING INFECTION AND SKIN BREAKDOWN. RN/CHIEF JUVENILE PROBATION OFFICER/TAPE RECORDING MACHINE OPERATOR MAY INSTRUCT IN BLADDER TRAINING PROGRAM INDICATED.] Future Scheduled Test PAIN MANAG EMENT; RN TO ASSESS AND TEACH, TAPE RECORDING MACHINE OPERATOR/CHIEF JUVENILE PROBATION OFFICER TO OBSERVE AND TEACH AND PROVIDE EDUCATION ON PAIN MANAGEMENT TECHNIQUES. [code = PAIN MANAGEMENT; RN TO ASSESS AND TEACH, TAPE RECORDING MACHINE OPERATOR/CHIEF JUVENILE PROBATION OFFICER TO OBSERVE AND TEACH AND PROVIDE EDUCATION ON PAIN MANAGEMENT TECHNIQUES.] Future Scheduled Test PRN VISITS ; NUMBER OF RN/CHIEF JUVENILE PROBATION OFFICER/TAPE RECORDING MACHINE OPERATOR VISITS: 3 RN/CHIEF JUVENILE PROBATION OFFICER/TAPE RECORDING MACHINE OPERATOR TO PERFORM: CARDIAC ASSESSMENT FOR THE FOLLOWING REASONS: CARDIAC COMPLICATIONS [code = PRN VISITS; NUMBER OF RN/CHIEF JUVENILE PROBATION OFFICER/TAPE RECORDING MACHINE OPERATOR VISITS: 3 RN/CHIEF JUVENILE PROBATION OFFICER/TAPE RECORDING MACHINE OPERATOR TO PERFORM: CARDIAC ASSESSMENT FOR THE FOLLOWING REASONS: CARDIAC COMPLICATIONS] Future Scheduled Test RISK FOR H OSPITALIZATION; RN TO ASSESS/TEACH, TAPE RECORDING MACHINE OPERATOR/CHIEF JUVENILE PROBATION OFFICER TO OBSERVE/TEACH PATIENT/CAREGIVER ON RISK FOR HOSPITALIZATION/EMERGENCY ROOM VISITS, TEACH SIGNS AND SYMPTOMS THAT PUT PATIENT AT RISK, WHEN TO NOTIFY NURSE/PHYSICIAN OF COMPLICATIONS/DECLINE, AND WHEN TO CALL 911. [code = RISK FOR HOSPITALIZATION; RN TO ASSESS/TEACH, TAPE RECORDING MACHINE OPERATOR/CHIEF JUVENILE PROBATION OFFICER TO OBSERVE/TEACH PATIENT/CAREGIVER ON RISK FOR HOSPITALIZATION/EMERGENCY ROOM VISITS, TEACH SIGNS AND SYMPTOMS THAT PUT PATIENT AT RISK, WHEN TO NOTIFY NURSE/PHYSICIAN OF COMPLICATIONS/DECLINE, AND WHEN TO CALL 911.] Future Scheduled Test SKIN INTEG RITY RN TO ASSESS AND TEACH, CHIEF JUVENILE PROBATION OFFICER/TAPE RECORDING MACHINE OPERATOR TO OBSERVE AND TEACH INTEGUMENTARY STATUS TO IDENTIFY CHANGES AND INTERVENE TO MINIMIZE COMPLICATIONS. PROVIDE SKILLED TEACHING OF GENERAL WOUND AND SKIN CARE AND PREVENTION RELATED TO POTENTIAL FOR OR ACTUAL ALTERED SKIN INTEGRITY [code = SKIN INTEGRITY RN TO ASSESS AND TEACH, CHIEF JUVENILE PROBATION OFFICER/TAPE RECORDING MACHINE OPERATOR TO OBSERVE AND TEACH INTEGUMENTARY STATUS TO IDENTIFY CHANGES AND INTERVENE TO MINIMIZE COMPLICATIONS. PROVIDE SKILLED TEACHING OF GENERAL WOUND AND SKIN CARE AND PREVENTION RELATED TO POTENTIAL FOR OR ACTUAL ALTERED SKIN INTEGRITY ] Future Scheduled Test MEDICATION MANAGEMENT; RN/CHIEF JUVENILE PROBATION OFFICER/TAPE RECORDING MACHINE OPERATOR TO REVIEW MEDICATIONS FOR INTERACTIONS, EFFECTIVENESS OF DRUG THERAPY, AND SIGNS/SYMPTOMS OF ADVERSE REACTIONS. MAY INSTRUCT AND REINFORCE MEDICATION TEACHING RELATED TO THE USE OF MEDICATIONS, DOSAGE, FREQUENCY, PURPOSE, SIDE EFFECTS, AND TO REPORT COMPLICATIONS. [code = MEDICATION MANAGEMENT; RN/CHIEF JUVENILE PROBATION OFFICER/TAPE RECORDING MACHINE OPERATOR TO REVIEW MEDICATIONS FOR INTERACTIONS, EFFECTIVENESS OF DRUG THERAPY, AND SIGNS/SYMPTOMS OF ADVERSE REACTIONS. MAY INSTRUCT AND REINFORCE MEDICATION TEACHING RELATED TO THE USE OF MEDICATIONS, DOSAGE, FREQUENCY, PURPOSE, SIDE EFFECTS, AND TO REPORT COMPLICATIONS.] Future Scheduled Test ANTITHROMB OTIC MANAGEMENT; RN TO ASSESS AND TEACH, CHIEF JUVENILE PROBATION OFFICER/TAPE RECORDING MACHINE OPERATOR TO OBSERVE/TEACH/MONITOR EFFECTIVENESS OF ANTITHROMBOTIC THERAPY. RN/CHIEF JUVENILE PROBATION OFFICER/TAPE RECORDING MACHINE OPERATOR TO INSTRUCT ON SIGNS AND SYMPTOMS OF BLEEDING/ADVERSE REACTIONS TO REPORT TO PHYSICIAN. [code = ANTITHROMBOTIC MANAGEMENT; RN TO ASSESS AND TEACH, CHIEF JUVENILE PROBATION OFFICER/TAPE RECORDING MACHINE OPERATOR TO OBSERVE/TEACH/MONITOR EFFECTIVENESS OF ANTITHROMBOTIC THERAPY. RN/CHIEF JUVENILE PROBATION OFFICER/TAPE RECORDING MACHINE OPERATOR TO INSTRUCT ON SIGNS AND SYMPTOMS OF BLEEDING/ADVERSE REACTIONS TO REPORT TO PHYSICIAN. ] Future Scheduled Test OCCUPATION AL THERAPY EVALUATION PERFORMED. NO ADDITIONAL VISITS REQUIRED. PROVIDED SKILLED INTERVENTION INCLUDING EVALUATION [code = OCCUPATIONAL THERAPY EVALUATION PERFORMED. NO ADDITIONAL VISITS REQUIRED. PROVIDED SKILLED INTERVENTION INCLUDING EVALUATION ] Future Scheduled Test AGENCY MAY PERFORM A RESUMPTION OF CARE VISIT FOLLOWING ANY HOSPITAL ADMISSION. PT TO EVALUATE, OBSERVE / ASSESS, AND MONITOR, SYSTEMS ARCHITECT TO OBSERVE AND MONITOR, PROVIDE SKILLED THERAPEUTIC INTERVENTION, ACTIVITY, EDUCATION, AND TRAINING TO ADDRESS; GAIT , BALANCE, ORTHOSTATIC HYPOTENSION, STRENGTH,MOBILITY REDUCE DIZZINESS SYMPTOMS PT/SYSTEMS ARCHITECT TO PROVIDE GAIT TRAINING FOR IMPROVED MOBILITY AND /OR TO NORMALIZE GAIT PATTERN NEUROMUSCULAR RE-EDUCATION / BALANCE / POSTURAL CONTROL (PT) THERAPEUTIC EXERCISES AND ESTABLISHING A HOME EXERCISE PROGRAM (PT/SYSTEMS ARCHITECT) SIT TO/FROM STAND TRANSFERS (PT/SYSTEMS ARCHITECT) PT / SYSTEMS ARCHITECT TO INSTRUCT PATIENT/CAREGIVER ON RISK FOR HOSPITALIZATION/EMERGENCY ROOM VISITS, TEACH SIGNS AND SYMPTOMS THAT PUT PATIENT AT RISK, WHEN TO NOTIFY NURSE/PHYSICIAN OF COMPLICATIONS/DECLINE, AND WHEN TO CALL 911. PT TO ASSESS / SYSTEMS ARCHITECT TO MONITOR CARDIO/RESPIRATORY SYSTEM; AND NOTIFY THE PHYSICIAN AND/OR THE RN CLINICAL CORRECTIONAL OFFICER LIEUTENANT FOR PHYSICIAN NOTIFICATION FOR EARLY SIGNS AND SYMPTOMS OF EXACERBATION OR DETERIORATION. PT / SYSTEMS ARCHITECT TO EDUCATE ON ATRIAL FIBRILLATION SELF-MANAGEMENT. PT/SYSTEMS ARCHITECT TO IDENTIFY FALL RISK FACTORS; EDUCATE THE PATIENT/CAREGIVER ON WAYS TO REDUCE FALL RISK FACTORS AND ESTABLISH HOME EXERCISE PROGRAM TO MINIMIZE FALL RISK. MAY TEACH THE PATIENT FLOOR RECOVERY WHEN CLINICALLY APPROPRIATE PT TO ASSESS / SYSTEMS ARCHITECT TO MONITOR FOR AND REPORT EARLY SIGNS OF ANTICOAGULANT TOXICITY TO THE PHYSICIAN AND/OR THE RN CLINICAL CORRECTIONAL OFFICER LIEUTENANT FOR PHYSICIAN NOTIFICATION AND TO PROVIDE PATIENT/CAREGIVER EDUCATION ON ANTICOAGULANT THERAPY PT / SYSTEMS ARCHITECT MAY EDUCATE ON PAIN MANAGEMENT CLINICALLY INDICATED, INCLUDING NON-PHARMACOLOGICAL PAIN REDUCTION TECHNIQUES [code = AGENCY MAY PERFORM A RESUMPTION OF CARE VISIT FOLLOWING ANY HOSPITAL ADMISSION. PT TO EVALUATE, OBSERVE / ASSESS, AND MONITOR, SYSTEMS ARCHITECT TO OBSERVE AND MONITOR, PROVIDE SKILLED THERAPEUTIC INTERVENTION, ACTIVITY, EDUCATION, AND TRAINING TO ADDRESS; GAIT , BALANCE, ORTHOSTATIC HYPOTENSION, STRENGTH,MOBILITY REDUCE DIZZINESS SYMPTOMS PT/SYSTEMS ARCHITECT TO PROVIDE GAIT TRAINING FOR IMPROVED MOBILITY AND /OR TO NORMALIZE GAIT PATTERN NEUROMUSCULAR RE-EDUCATION / BALANCE / POSTURAL CONTROL (PT) THERAPEUTIC EXERCISES AND ESTABLISHING A HOME EXERCISE PROGRAM (PT/SYSTEMS ARCHITECT) SIT TO/FROM STAND TRANSFERS (PT/SYSTEMS ARCHITECT) PT / SYSTEMS ARCHITECT TO INSTRUCT PATIENT/CAREGIVER ON RISK FOR HOSPITALIZATION/EMERGENCY ROOM VISITS, TEACH SIGNS AND SYMPTOMS THAT PUT PATIENT AT RISK, WHEN TO NOTIFY NURSE/PHYSICIAN OF COMPLICATIONS/DECLINE, AND WHEN TO CALL 911. PT TO ASSESS / SYSTEMS ARCHITECT TO MONITOR CARDIO/RESPIRATORY SYSTEM; AND NOTIFY THE PHYSICIAN AND/OR THE RN CLINICAL CORRECTIONAL OFFICER LIEUTENANT FOR PHYSICIAN NOTIFICATION FOR EARLY SIGNS AND SYMPTOMS OF EXACERBATION OR DETERIORATION. PT / SYSTEMS ARCHITECT TO EDUCATE ON ATRIAL FIBRILLATION SELF-MANAGEMENT. PT/SYSTEMS ARCHITECT TO IDENTIFY FALL RISK FACTORS; EDUCATE THE PATIENT/CAREGIVER ON WAYS TO REDUCE FALL RISK FACTORS AND ESTABLISH HOME EXERCISE PROGRAM TO MINIMIZE FALL RISK. MAY TEACH THE PATIENT FLOOR RECOVERY WHEN CLINICALLY APPROPRIATE PT TO ASSESS / SYSTEMS ARCHITECT TO MONITOR FOR AND REPORT EARLY SIGNS OF ANTICOAGULANT TOXICITY TO THE PHYSICIAN AND/OR THE RN CLINICAL CORRECTIONAL OFFICER LIEUTENANT FOR PHYSICIAN NOTIFICATION AND TO PROVIDE PATIENT/CAREGIVER EDUCATION ON ANTICOAGULANT THERAPY PT / SYSTEMS ARCHITECT MAY EDUCATE ON PAIN MANAGEMENT CLINICALLY INDICATED, INCLUDING NON-PHARMACOLOGICAL PAIN REDUCTION TECHNIQUES ] Goal Patient Goal - GET STRONGER Goal Provider Goal - A PLAN OF CARE WILL BE ESTABLISHED THAT MEETS THE PATIENTS NEEDS. PATIENT WILL DEMONSTRATE OXYGEN SATURATION WITHIN NORMAL LIMITS OR PATIENTS OPTIMAL LEVEL ESTABLISHED BY THE PHYSICIAN THROUGHOUT CARE. CHANGES TO CO-MORBID CONDITIONS AND ANY NEW CONDITIONS WILL BE IDENTIFIED AND REPORTED TO THE PHYSICIAN. Goal Provider Goal - PATIENT WILL BENEFIT FROM PT SERVICES BY .. Goal Provider Goal - PATIENT WILL BENEFIT FROM OT SERVICES BY .07.20 Goal Provider Goal - PATIENT/CAREGIVER WILL VERBALIZE/DEMONSTRATE UNDERSTANDING OF FALL RISK FACTORS AND IMPLEMENT STRATEGIES TO MINIMIZE FALL RISK. PATIENT/CAREGIVER WILL VERBALIZE/DEMONSTRATE AN ABILITY TO ADHERE TO FALL REDUCTION SELF-MANAGEMENT AND LIFE-STYLE CHANGES BY .07.20 Goal Provider Goal - PATIENT / CAREGIVER WILL VERBALIZE/DEMONSTRATE UNDERSTANDING OF MEASURES TO MANAGE ALTERED GENITOURINARY STATUS BY .07.20 Goal Provider Goal - PATIENT/CAREGIVER WILL VERBALIZE/DEMONSTRATE UNDERSTANDING OF CARE AND MANAGEMENT OF URINARY INCONTINENCE BY 03.05.25 Goal Provider Goal - PATIENT / CAREGIVER WILL VERBALIZE / DEMONSTRATE UNDERSTANDING OF PAIN CONTROL MEASURES BY .25 Goal Provider Goal - PATIENT WILL UTILIZE PRN VISITS TO PREVENT HOSPITALIZATION BY .07.20 Goal Provider Goal - PATIENT/CAREGIVER WILL VERBALIZE UNDERSTANDING OF SIGNS AND SYMPTOMS THAT PUT THE PATIENT AT RISK FOR HOSPITALIZATION /EMERGENCY ROOM VISITS, WHEN TO NOTIFY NURSE/PHYSICIAN OF COMPLICATIONS/DECLINE AND WHEN TO CALL 911. Goal Provider Goal - CHANGES IN SKIN INTEGRITY STATUS WILL BE IDENTIFIED AND REPORTED TO THE PHYSICIAN FOR PROMPT INTERVENTION. PATIENT / CAREGIVER WILL VERBALIZE/DEMONSTRATE ADEQUATE KNOWLEDGE OF INTEGUMENTARY STATUS AND APPROPRIATE MEASURES TO PROMOTE SKIN INTEGRITY AND PREVENT INJURY BY 03.05.25 Goal Provider Goal - PATIENT/CAREGIVER TO VERBALIZE, AND CONSISTENTLY DEMONSTRATE EFFECTIVE, SAFE MANAGEMENT OF MEDICATION INCLUDING KNOWLEDGE OF EFFECTIVENESS, POTENTIAL SIDE EFFECTS AND DRUG REACTIONS AND WHEN TO CONTACT THE APPROPRIATE CARE PROVIDER. PATIENT/CAREGIVER WILL BE ABLE TO VERBALIZE UNDERSTANDING OF MEDICATION REGIMEN AND ACCURATELY TAKE MEDICATIONS PRESCRIBED WITHOUT ADVERSE EFFECTS BY 03.05.25 Goal Provider Goal - PATIENT / CAREGIVER WILL PROMPTLY REPORT SIGNS AND SYMPTOMS OF BLEEDING OR ADVERSE REACTIONS TO THE PHYSICIAN. PATIENT/CAREGIVER WILL VERBALIZE UNDERSTANDING OF ANTITHROMBOTIC THERAPY MANAGEMENT BY 03.05.25 Goal Provider Goal - PATIENT / CAREGIVER WITHIN 1 VISIT WILL BE ABLE TO VERBALIZE / DEMONSTRATE UNDERSTANDING OF METHODS TO MAXIMIZE ADL FUNCTION Goal Provider Goal - PATIENT WILL DEMONSTRATE PT GOALS MET BY 03.05.25 AMBULATE SAFELY IN HOME WITH WWFUNCTIONAL DUSTANCES WITH DECREASE DIZZINESS PT LTG: PATIENT WILL DEMONSTRATE IMPROVED SAFE FUNCTIONAL MOBILITY BY MAINTAINING STEADY SAFE AMBULATION WITH USING WHEELED WALKER FROM MIN ASSIST TO SUPERVISE WITHIN WW IN ORDER TO ACCESS FUNCTIONAL AREAS OF HOME WITH DECREASE FALL RISK WITHIN PT LTG: PATIENT WILL DEMONSTRATE REDUCED GAIT DEVIATIONS TO REDUCE THE RISK FOR FALLING AND MINIMIZE STRAIN ON KNEES/HIPS AND BACK EVIDENCED BY IMPROVED SAFE STEP SWING THRU USING WW TO WALK IMPROVED GAIT BALANCE, SAFETY, REDUCE FALL RISK WITH WW SUP ASSIST IN ORDER TO ACCESS ALL AREAS OF HOME SAFELY WITHIN 4WEEKS PT LTG: PATIENT WILL DEMONSTRATE REDUCED FALL RISK EVIDENCED BY IMPROVED TINETTI TEST FROM TO WITHIN 03.05.25 PT LTG: PATIENT WILL DEMONSTRATE REDUCED FALL RISK EVIDENCED BY FOUR SQUARE STEP TEST (CUT SCORE >13 SECONDS INDICATES INCREASED FALL RISK) IMPROVING FROM UNABLE TO 10SEC WITHIN 03.05.25 PT LTG: PATIENT WILL DEMONSTRATE REDUCED FALL RISK EVIDENCED BY TUG TEST (CUT SCORE >11 SECONDS INDICATES INCREASED FALL RISK) IMPROVING FROM UNABLE TO WITHIN 11SEC USING WW PT LTG: PATIENT WILL DEMONSTRATE IMPROVED POSTURAL CONTROL AND SENSORY INTEGRATION OF THEIR BALANCE SYSTEMS EVIDENCED BY MCTSIB IMPROVING FROM (0/0/0/0) TO (30,0,0,0) WITHIN 8 WEEKS. PT LTG: PATIENT WILL DEMONSTRATE IMPROVED FUNCTIONAL STRENGTH EVIDENCED BY FIVE TIMES SIT TO STAND TEST (CUT SCORE >12 SECONDS INDICATES AN INCREASED FALL RISK) IMPROVING FROM UNABLE TO PERFORM WITHIN 12SEC LTG: PATIENT WILL DEMONSTRATE INCREASED STRENGTH OF BILAT LE FROM 3+-4/5 TO 4-5/5 WITHIN END OF EPISODE IN ORDER TO REDUCE FALL RISK PT STG: PATIENT WILL DEMONSTRATE IMPROVED ABILITY TO PERFORM SIT TO/FROM STAND TRANSFERS TO REDUCE THE RISK OF SKIN BREAKDOWN AND REDUCE FALL RISK FROM MIN ASSIST TO SUPERVISED WITHIN 8WEEKS PT GOAL: PATIENT/CAREGIVER WILL VERBALIZE UNDERSTANDING OF SIGNS AND SYMPTOMS THAT PUT THE PATIENT AT RISK FOR HOSPITALIZATION /EMERGENCY ROOM VISITS, WHEN TO NOTIFY NURSE/PHYSICIAN OF COMPLICATIONS/DECLINE AND WHEN TO CALL 911. PT LTG: PATIENT WILL NOT EXPERIENCE CARDIAC OR RESPIRATORY COMPLICATIONS THROUGHOUT THE EPISODE OF CARE. PT GOAL: PATIENT/CAREGIVER WILL BE ABLE TO IDENTIFY SIGNS OF ATRIAL FIBRILLATION EXACERBATION AND WILL VERBALIZE/DEMONSTRATE AN ABILITY TO ADHERE TO ATRIAL FIBRILLATION SELF-MANAGEMENT AND LIFE-STYLE CHANGES BY 7.11.25 PT LTG: PATIENT/CAREGIVER WILL DEMONSTRATE ADHERENCE TO FALL REDUCTION SELF-MANAGEMENT AND REDUCING FALL RISK FACTORS TO MINIMIZE FALL RISK BY 7.11.25 PT LTG: PATIENT WILL BE INDEPENDENT WITH IMPLEMENTATION OF HEP WITHIN 6WEEKS PT LTG: CAREGIVER WILL BE INDEPENDENT ASSISTING PATIENT TO COMPLETE HEP WITHIN 4 PT LTG: PATIENT WILL NOT EXHIBIT SIGNS AND SYMPTOMS OF ANTICOAGULANT TOXICITY THROUGHOUT EPISODE OF CARE. PT GOAL: PATIENT WILL DEMONSTRATE UNDERSTANDING OF PAIN MANAGEMENT TECHNIQUES EVIDENCED BY REDUCED PAIN BY 7.11.25 Encounters Start Date/Time End Date/Time Encounter Type Admission Type Attending [facility] Care [facility] Care Department Encounter ID Discharge Date Discharge Status Discharge Condition Discharge Reason Percent Goals Met 2025-01-05 00:00:00 2025-03-05 00:00:00 Outpatient NEW ADMISSION OCTAVIA ATKINS [facility] [id number] 12.90
--- OUTSIDE RECORDS SUMMARY | 2025-01-25 14:52 | XMS_ITS | Clinical Summary ---
Author Organization Unknown Care Team Providers Care Construction Trench Digger Name Role Phone DIXIE RIOS, MARYLIN Unavailable Unava ilbrayan ATKINS RN, OCTAVIA Unavailable Unavailable NICKOLAS PIANO AND ORGAN REFINISHER, ARTRISHA Unavailable Unavailable OSMIN PT, CARLITOS Unavailable Unavailable BRINK COMPRESSOR STATION ENGINEER CHIEF, GA Unavailable Unavailable RING OT, ZACHERY Unavailable Unavailable PATRICIO AMBER/MARTI, LILIAN Unavailable Unavai lable NOREEN ST, LIGIA Unavailable Unavailable Payers Payer Name Policy Type Policy Number Effective Date Expira tion Date MEDICARE.S[facility] [id number] Problems Condition Name Condition Details Condition Category [...] 08-26 00:00: 00 ATHSCL HEART DISEASE OF [place] CORONARY ARTERY W/O ANG PCTRS Active 08-26 [...] OBSTRUCTION OR GANGRENE Active 08-26 00:00: 00 CUSTODIAL (CURRENT) USE OF ANTICOAGULAN TS Active 08-26 00:00: 00 PRESENCE OF PROSTHETIC HEART VALVE Active 08-26 00:00: 00 PERSONAL HISTORY OF NICOTINE DEPENDENCE Active 08-26 00:00: 00 CANDY MIXER (CURRENT) USE OF INHALED STEROIDS Active 08-26 [...] CONSULTING PHYSICIANS RN TO OBSERVE AND ASSESS, PIANO AND ORGAN REFINISHER/VIDEO NEWS EDITOR TO OBSERVE FOR RISK FOR FALLS AND INSTRUCT IN FALL PREVENTION, HOME SAFETY, MEDICATION MANAGEMENT, INFECTION PREVENTION, AND NUTRITION MANAGEMENT. RN/PIANO AND ORGAN REFINISHER/VIDEO NEWS EDITOR NURSE MAY PERFORM O2 SATURATION LEVEL ON ADMISSION AND PRN FOR SOB FOR RN TO ASSESS/PIANO AND ORGAN REFINISHER TO OBSERVE PATIENT, WITH NOTIFICATION TO THE PHYSICIAN IF SATURATION IS 90% IN THE ABSENCE OF MORE SPECIFIC PARAMETERS FROM THE PHYSICIAN. AGENCY MAY PERFORM A RESUMPTION OF CARE VISIT FOLLOWING ANY HOSPITAL ADMISSION. RN/PIANO AND ORGAN REFINISHER/VIDEO NEWS EDITOR TO MONITOR CO-MORBID CONDITIONS LISTED ON THE PLAN OF CARE AND ANY NEW CONDITIONS THAT PRESENT THEMSELVES DURING THIS EPISODE TO IDENTIFY CHANGES AND INTERVENE TO MINIMIZE COMPLICATIONS. [code = RN TO OBSERVE, ASSESS, EVALUATE, AND DEVELOP AN INDIVIDUALIZED PLAN OF CARE. AGENCY MAY ACCEPT ORDERS FROM CONSULTING PHYSICIANS RN TO OBSERVE AND ASSESS, PIANO AND ORGAN REFINISHER/VIDEO NEWS EDITOR TO OBSERVE FOR RISK FOR FALLS AND INSTRUCT IN FALL PREVENTION, HOME SAFETY, MEDICATION MANAGEMENT, INFECTION PREVENTION, AND NUTRITION MANAGEMENT. RN/PIANO AND ORGAN REFINISHER/VIDEO NEWS EDITOR NURSE MAY PERFORM O2 SATURATION LEVEL ON ADMISSION AND PRN FOR SOB FOR RN TO ASSESS/PIANO AND ORGAN REFINISHER TO OBSERVE PATIENT, WITH NOTIFICATION TO THE PHYSICIAN IF SATURATION IS 90% IN THE ABSENCE OF MORE SPECIFIC PARAMETERS FROM THE PHYSICIAN. AGENCY MAY PERFORM A RESUMPTION OF CARE VISIT FOLLOWING ANY HOSPITAL ADMISSION. RN/PIANO AND ORGAN REFINISHER/VIDEO NEWS EDITOR TO MONITOR CO-MORBID CONDITIONS LISTED ON THE [...] TION MANAGEMENT; RN TO ASSESS AND OBSERVE, PIANO AND ORGAN REFINISHER/VIDEO NEWS EDITOR TO OBSERVE FALL RISK FACTORS AND EDUCATE PATIENT/CAREGIVER ON STRATEGIES TO MINIMIZE THE RISK OF FALLING. [code = FALL REDUCTION MANAGEMENT; RN TO ASSESS AND OBSERVE, PIANO AND ORGAN REFINISHER/VIDEO NEWS EDITOR TO OBSERVE FALL RISK FACTORS AND EDUCATE PATIENT/CAREGIVER ON STRATEGIES TO MINIMIZE THE RISK OF FALLING.] Future Scheduled Test GENITOURIN NORBERT MANAGEMENT; RN TO ASSESS AND TEACH, PIANO AND ORGAN REFINISHER/VIDEO NEWS EDITOR TO OBSERVE AND TEACH RELATED TO ALTERED GENITOURINARY STATUS TO MINIMIZE COMPLICATIONS AND REDUCE HOSPITALIZATION. [code = GENITOURINARY MANAGEMENT; RN TO ASSESS AND TEACH, PIANO AND ORGAN REFINISHER/VIDEO NEWS EDITOR TO OBSERVE AND TEACH RELATED TO ALTERED GENITOURINARY STATUS TO MINIMIZE COMPLICATIONS AND REDUCE HOSPITALIZATION.] Future Scheduled Test URINARY IN CONTINENCE MANAGEMENT; RN TO ASSESS AND TEACH, PIANO AND ORGAN REFINISHER/LVNTO OBSERVE AND TEACH MANAGEMENT OF URINARY INCONTINENCE. TEACH/INSTRUCT ON PREVENTING INFECTION AND SKIN BREAKDOWN. RN/PIANO AND ORGAN REFINISHER/VIDEO NEWS EDITOR MAY INSTRUCT IN BLADDER TRAINING PROGRAM INDICATED. [code = URINARY INCONTINENCE MANAGEMENT; RN TO ASSESS AND TEACH, PIANO AND ORGAN REFINISHER/LVNTO OBSERVE AND TEACH MANAGEMENT OF URINARY INCONTINENCE. TEACH/INSTRUCT ON PREVENTING INFECTION AND SKIN BREAKDOWN. RN/PIANO AND ORGAN REFINISHER/VIDEO NEWS EDITOR MAY INSTRUCT IN BLADDER TRAINING PROGRAM INDICATED.] Future Scheduled Test PAIN MANAG EMENT; RN TO ASSESS AND TEACH, VIDEO NEWS EDITOR/PIANO AND ORGAN REFINISHER TO OBSERVE AND TEACH AND PROVIDE EDUCATION ON PAIN MANAGEMENT TECHNIQUES. [code = PAIN MANAGEMENT; RN TO ASSESS AND TEACH, VIDEO NEWS EDITOR/PIANO AND ORGAN REFINISHER TO OBSERVE AND TEACH AND PROVIDE EDUCATION ON PAIN MANAGEMENT TECHNIQUES.] Future Scheduled Test PRN VISITS ; NUMBER OF RN/PIANO AND ORGAN REFINISHER/VIDEO NEWS EDITOR VISITS: 3 RN/PIANO AND ORGAN REFINISHER/VIDEO NEWS EDITOR TO PERFORM: CARDIAC ASSESSMENT FOR THE FOLLOWING REASONS: CARDIAC COMPLICATIONS [code = PRN VISITS; NUMBER OF RN/PIANO AND ORGAN REFINISHER/VIDEO NEWS EDITOR VISITS: 3 RN/PIANO AND ORGAN REFINISHER/VIDEO NEWS EDITOR TO PERFORM: CARDIAC ASSESSMENT FOR THE FOLLOWING REASONS: CARDIAC COMPLICATIONS] Future Scheduled Test RISK FOR H OSPITALIZATION; RN TO ASSESS/TEACH, VIDEO NEWS EDITOR/PIANO AND ORGAN REFINISHER TO OBSERVE/TEACH PATIENT/CAREGIVER ON RISK FOR HOSPITALIZATION/EMERGENCY ROOM VISITS, TEACH SIGNS AND SYMPTOMS THAT PUT PATIENT AT RISK, WHEN TO NOTIFY NURSE/PHYSICIAN OF COMPLICATIONS/DECLINE, AND WHEN TO CALL 911. [code = RISK FOR HOSPITALIZATION; RN TO ASSESS/TEACH, VIDEO NEWS EDITOR/PIANO AND ORGAN REFINISHER TO OBSERVE/TEACH PATIENT/CAREGIVER ON RISK FOR HOSPITALIZATION/EMERGENCY ROOM VISITS, TEACH SIGNS AND SYMPTOMS THAT PUT PATIENT AT RISK, WHEN TO NOTIFY NURSE/PHYSICIAN OF COMPLICATIONS/DECLINE, AND WHEN TO CALL 911.] Future Scheduled Test SKIN INTEG RITY RN TO ASSESS AND TEACH, PIANO AND ORGAN REFINISHER/VIDEO NEWS EDITOR TO OBSERVE AND TEACH INTEGUMENTARY STATUS TO IDENTIFY CHANGES AND INTERVENE TO MINIMIZE COMPLICATIONS. PROVIDE SKILLED TEACHING OF GENERAL WOUND AND SKIN CARE AND PREVENTION RELATED TO POTENTIAL FOR OR ACTUAL ALTERED SKIN INTEGRITY [code = SKIN INTEGRITY RN TO ASSESS AND TEACH, PIANO AND ORGAN REFINISHER/VIDEO NEWS EDITOR TO OBSERVE AND TEACH INTEGUMENTARY STATUS TO IDENTIFY CHANGES AND INTERVENE TO MINIMIZE COMPLICATIONS. PROVIDE SKILLED TEACHING OF GENERAL WOUND AND SKIN CARE AND PREVENTION RELATED TO POTENTIAL FOR OR ACTUAL ALTERED SKIN INTEGRITY ] Future Scheduled Test MEDICATION MANAGEMENT; RN/PIANO AND ORGAN REFINISHER/VIDEO NEWS EDITOR TO REVIEW MEDICATIONS FOR INTERACTIONS, EFFECTIVENESS OF DRUG THERAPY, AND SIGNS/SYMPTOMS OF ADVERSE REACTIONS. MAY INSTRUCT AND REINFORCE MEDICATION TEACHING RELATED TO THE USE OF MEDICATIONS, DOSAGE, FREQUENCY, PURPOSE, SIDE EFFECTS, AND TO REPORT COMPLICATIONS. [code = MEDICATION MANAGEMENT; RN/PIANO AND ORGAN REFINISHER/VIDEO NEWS EDITOR TO REVIEW MEDICATIONS FOR INTERACTIONS, EFFECTIVENESS OF DRUG THERAPY, AND SIGNS/SYMPTOMS OF ADVERSE REACTIONS. MAY INSTRUCT AND REINFORCE MEDICATION TEACHING RELATED TO THE USE OF MEDICATIONS, DOSAGE, FREQUENCY, PURPOSE, SIDE EFFECTS, AND TO REPORT COMPLICATIONS.] Future Scheduled Test ANTITHROMB OTIC MANAGEMENT; RN TO ASSESS AND TEACH, PIANO AND ORGAN REFINISHER/VIDEO NEWS EDITOR TO OBSERVE/TEACH/MONITOR EFFECTIVENESS OF ANTITHROMBOTIC THERAPY. RN/PIANO AND ORGAN REFINISHER/VIDEO NEWS EDITOR TO INSTRUCT ON SIGNS AND SYMPTOMS OF BLEEDING/ADVERSE REACTIONS TO REPORT TO PHYSICIAN. [code = ANTITHROMBOTIC MANAGEMENT; RN TO ASSESS AND TEACH, PIANO AND ORGAN REFINISHER/VIDEO NEWS EDITOR TO OBSERVE/TEACH/MONITOR EFFECTIVENESS OF ANTITHROMBOTIC THERAPY. RN/PIANO AND ORGAN REFINISHER/VIDEO NEWS EDITOR TO INSTRUCT ON SIGNS AND SYMPTOMS OF [...] TO EVALUATE, OBSERVE / ASSESS, AND MONITOR, COMPRESSOR STATION ENGINEER CHIEF TO OBSERVE AND MONITOR, PROVIDE SKILLED THERAPEUTIC INTERVENTION, ACTIVITY, EDUCATION, AND TRAINING TO ADDRESS; GAIT , BALANCE, ORTHOSTATIC HYPOTENSION, STRENGTH,MOBILITY REDUCE DIZZINESS SYMPTOMS PT/COMPRESSOR STATION ENGINEER CHIEF TO PROVIDE GAIT TRAINING FOR IMPROVED MOBILITY AND /OR TO NORMALIZE GAIT PATTERN NEUROMUSCULAR RE-EDUCATION / BALANCE / POSTURAL CONTROL (PT) THERAPEUTIC EXERCISES AND ESTABLISHING A HOME EXERCISE PROGRAM (PT/COMPRESSOR STATION ENGINEER CHIEF) SIT TO/FROM STAND TRANSFERS (PT/COMPRESSOR STATION ENGINEER CHIEF) PT / COMPRESSOR STATION ENGINEER CHIEF TO INSTRUCT PATIENT/CAREGIVER ON RISK FOR HOSPITALIZATION/EMERGENCY ROOM VISITS, TEACH SIGNS AND SYMPTOMS THAT PUT PATIENT AT RISK, WHEN TO NOTIFY NURSE/PHYSICIAN OF COMPLICATIONS/DECLINE, AND WHEN TO CALL 911. PT TO ASSESS / COMPRESSOR STATION ENGINEER CHIEF TO MONITOR CARDIO/RESPIRATORY SYSTEM; AND NOTIFY THE PHYSICIAN AND/OR THE RN CLINICAL CERTIFIED ALCOHOL DRUG COUNSELOR FOR PHYSICIAN NOTIFICATION FOR EARLY SIGNS AND SYMPTOMS OF EXACERBATION OR DETERIORATION. PT / COMPRESSOR STATION ENGINEER CHIEF TO EDUCATE ON ATRIAL FIBRILLATION SELF-MANAGEMENT. PT/COMPRESSOR STATION ENGINEER CHIEF TO IDENTIFY FALL RISK FACTORS; EDUCATE THE PATIENT/CAREGIVER ON WAYS TO REDUCE FALL RISK FACTORS AND ESTABLISH HOME EXERCISE PROGRAM TO MINIMIZE FALL RISK. MAY TEACH THE PATIENT FLOOR RECOVERY WHEN CLINICALLY APPROPRIATE PT TO ASSESS / COMPRESSOR STATION ENGINEER CHIEF TO MONITOR FOR AND REPORT EARLY SIGNS OF ANTICOAGULANT TOXICITY TO THE PHYSICIAN AND/OR THE RN CLINICAL CERTIFIED ALCOHOL DRUG COUNSELOR FOR PHYSICIAN NOTIFICATION AND TO PROVIDE PATIENT/CAREGIVER EDUCATION ON ANTICOAGULANT THERAPY PT / COMPRESSOR STATION ENGINEER CHIEF MAY EDUCATE ON PAIN MANAGEMENT CLINICALLY INDICATED, INCLUDING NON-PHARMACOLOGICAL PAIN REDUCTION TECHNIQUES [code = AGENCY MAY PERFORM A RESUMPTION OF CARE VISIT FOLLOWING ANY HOSPITAL ADMISSION. PT TO EVALUATE, OBSERVE / ASSESS, AND MONITOR, COMPRESSOR STATION ENGINEER CHIEF TO OBSERVE AND MONITOR, PROVIDE SKILLED THERAPEUTIC INTERVENTION, ACTIVITY, EDUCATION, AND TRAINING TO ADDRESS; GAIT , BALANCE, ORTHOSTATIC HYPOTENSION, STRENGTH,MOBILITY REDUCE DIZZINESS SYMPTOMS PT/COMPRESSOR STATION ENGINEER CHIEF TO PROVIDE GAIT TRAINING FOR IMPROVED MOBILITY AND /OR TO NORMALIZE GAIT PATTERN NEUROMUSCULAR RE-EDUCATION / BALANCE / POSTURAL CONTROL (PT) THERAPEUTIC EXERCISES AND ESTABLISHING A HOME EXERCISE PROGRAM (PT/COMPRESSOR STATION ENGINEER CHIEF) SIT TO/FROM STAND TRANSFERS (PT/COMPRESSOR STATION ENGINEER CHIEF) PT / COMPRESSOR STATION ENGINEER CHIEF TO INSTRUCT PATIENT/CAREGIVER ON RISK FOR HOSPITALIZATION/EMERGENCY ROOM VISITS, TEACH SIGNS AND SYMPTOMS THAT PUT PATIENT AT RISK, WHEN TO NOTIFY NURSE/PHYSICIAN OF COMPLICATIONS/DECLINE, AND WHEN TO CALL 911. PT TO ASSESS / COMPRESSOR STATION ENGINEER CHIEF TO MONITOR CARDIO/RESPIRATORY SYSTEM; AND NOTIFY THE PHYSICIAN AND/OR THE RN CLINICAL CERTIFIED ALCOHOL DRUG COUNSELOR FOR PHYSICIAN NOTIFICATION FOR EARLY SIGNS AND SYMPTOMS OF EXACERBATION OR DETERIORATION. PT / COMPRESSOR STATION ENGINEER CHIEF TO EDUCATE ON ATRIAL FIBRILLATION SELF-MANAGEMENT. PT/COMPRESSOR STATION ENGINEER CHIEF TO IDENTIFY FALL RISK FACTORS; EDUCATE THE PATIENT/CAREGIVER ON WAYS TO REDUCE FALL RISK FACTORS AND ESTABLISH HOME EXERCISE PROGRAM TO MINIMIZE FALL RISK. MAY TEACH THE PATIENT FLOOR RECOVERY WHEN CLINICALLY APPROPRIATE PT TO ASSESS / COMPRESSOR STATION ENGINEER CHIEF TO MONITOR FOR AND REPORT EARLY SIGNS OF ANTICOAGULANT TOXICITY TO THE PHYSICIAN AND/OR THE RN CLINICAL CERTIFIED ALCOHOL DRUG COUNSELOR FOR PHYSICIAN NOTIFICATION AND TO PROVIDE PATIENT/CAREGIVER EDUCATION ON ANTICOAGULANT THERAPY PT / COMPRESSOR STATION ENGINEER CHIEF MAY EDUCATE ON PAIN MANAGEMENT CLINICALLY INDICATED, [...] End Date/Time Encounter Type Admission Type Attending [facility] Care [facility] Care Department Encounter ID Discharge Date Discharge Status Discharge Condition Discharge Reason Percent Goals Met 2025-01-05 00:00:00 2025-03-05 00:00:00 Outpatient NEW ADMISSION OCTAVIA ATK[facility] [id number] 12.90
[2025-01-25 15:42] LABS: INR 2.2; Prothrombin Time 23.9 Seconds (11.1-14.7)
== END 2025-01-25 14:36 | disposition home or self-care (01) ==
PROVIDERS: PCP Family Medicine; Visit Provider Family Medicine
DX: Z95.2 Presence of prosthetic heart valve (principal); Z79.01 Long term (current) use of anticoagulants
CPT/HCPCS: 36415; 85610